=== PATIENT | female | born 1930 | race Caucasian/White ===

== ENCOUNTER 2016-07-20 22:48 | Inpatient (IN) | payer MEDICARE, MEDICAID ==
[~2016-07-20] VITALS: Ht 157.5 cm; Wt 65.0 kg
[~2016-07-20 22:48] MED LIST: AMLO-145 PO; DIPH1TAB25 PO; FLUO20CA38 PO; LORA-408 PO; LOSA50TA2 PO; MED4DP PO; MEMA5TAB PO; ONDA4TAB35 PO; TRAZ50TA18 PO
[2016-07-20 22:53] VITALS: Ht 157.5 cm; Wt 65.0 kg
[2016-07-20] MEDS ORDERED: ALBUTEROL 0.5% (NEB) 2.5 MG/0.5 ML AMP NEB STA (23:30)
[2016-07-20] MEDS ORDERED: IPRATROPIUM (NEB) 0.5 MG/2.5 ML AMP NEB STA (23:30)
[2016-07-20] MEDS ORDERED: SODIUM CHLORIDE 0.9% 1L BAG IV* STA (23:30)
[2016-07-20] MEDS ORDERED: METHYLPREDNISOLONE 125 MG INJ IV STA (23:30)
--- NOTE | 2016-07-20 23:56 | RADRPT ---
PROCEDURE: XR Chest. CLINICAL INDICATION: Patient experiencing possible Sepsis TECHNIQUE: Single frontal chest x-ray. COMPARISON: 05/20/2016 FINDINGS: Increased density is again seen in the right upper lung lobe increased compared to previous study of 08/04/2015 not significantly changed compared to 05/19/2016 and 05/20 2016 which is consistent with a persistent infiltrate. Neoplasm is not excluded. Mild enlargement of the cardiac silhouette is again seen.There is minimal prominence of the lung interstitium likely minimal chronic changes. ECG leads are projected over the chest. Linear fibrotic changes again apparent in the right upper lung. The patient is rotated to the right.. IMPRESSION: Persistent right upper lobe lung density/infiltrate. Neoplasm is possible. CT chest with contrast may be useful for further evaluation. RPTAT: HJES .Mario Melton MD, Date Time Electronically viewed and signed by .Mario Melton MD, on 07/20/2016 23:56 .S/
[2016-07-21] VITALS: TEMP 101.2
[2016-07-21] MEDS ORDERED: PIPER-TAZO 3.375 GM IV (PMX) 100 ML IVPB STA (00:19)
[2016-07-21] MEDS ORDERED: VANCOMYCIN 1 GM (PMX) 250 ML IVPB STA (00:19)
[2016-07-21 00:35] LABS: BASOPHILS % 0.4 % (0.0-2.0); EOSINOPHILS # 0.2 10^3/ul (0.0-0.5); HEMOGLOBIN 14.4 g/dl (12.0-16.0); LYMPHOCYTES # 1.7 10^3/ul (0.8-2.9); LYMPHOCYTES % 16.5 % (15.0-51.0); MEAN CORPUSCULAR HEMOGLOBIN 26.5 pg (29.0-33.0); MEAN CORPUSCULAR HGB CONC 32.7 g/dl (32.0-37.0); MEAN CORPUSCULAR VOLUME 80.9 fl (82.0-101.0); MEAN PLATELET VOLUME 8.2 fl (7.4-10.4); MONOCYTE # 0.9 10^3/ul (0.3-0.9); MONOCYTES % 9.2 % (0.0-11.0); NEUTROPHIL # 7.4 10^3/ul (1.6-7.5); NEUTROPHILS % 71.9 % (39.0-77.0); PLATELET COUNT 212 10^3/UL (140-440); RED BLOOD COUNT 5.43 10^6/ul (4.20-5.40); RED CELL DISTRIBUTION WIDTH 14.9 % (11.5-14.5); UNCORRECTED WBC 10.3 10^3/ul (4.8-10.8); WHITE BLOOD COUNT 10.3 10^3/ul (4.8-10.8)
[2016-07-21 00:37] LABS: ADD UMIC NO; URINE BILIRUBIN (Dip) NEGATIVE (NEGATIVE); URINE BLOOD (Dip) NEGATIVE (NEGATIVE); URINE COLOR YELLOW (YELLOW); URINE GLUCOSE (Dip) NEGATIVE (NEGATIVE); URINE KETONES (Dip) NEGATIVE (NEGATIVE); URINE LEUKOCYTE ESTERASE (Dip) NEGATIVE (NEGATIVE); URINE NITRITE (Dip) NEGATIVE (NEGATIVE); URINE TOTAL PROTEIN (Dip) NEGATIVE (NEGATIVE); URINE UROBILINOGEN (Dip) 0.2 E.U./dL (0.1-1.0)
[2016-07-21 00:42] LABS: CONDITION 1; LH ANALYZER COMMENTS 1
[2016-07-21 00:46] LABS: ALBUMIN 4.3 g/dl (3.3-4.9)
[2016-07-21 00:47] LABS: CHLORIDE 98 mmol/L (97-110); POTASSIUM 4.1 mmol/L (3.5-5.1); SODIUM 142 mmol/L (135-144)
[2016-07-21 00:49] LABS: BILIRUBIN,INDIRECT 0.7 mg/dl (0-1.1); BILIRUBIN,TOTAL 0.7 mg/dl (0.2-1.3); CREATININE 0.65 mg/dl (0.44-1.00)
[2016-07-21 00:50] LABS: ALANINE AMINOTRANSFERASE 36 IU/L (13-69); ALBUMIN/GLOBULIN RATIO 1.07; ALKALINE PHOSPHATASE 141 IU/L (42-121); ANION GAP 18 (8-16); ASPARTATE AMINO TRANSFERASE 41 IU/L (15-46); BLOOD UREA NITROGEN 25 mg/dl (7-20); CARBON DIOXIDE 30 mmol/L (21-31); GLUCOSE 99 mg/dl (70-220); TOTAL PROTEIN 8.3 g/dl (6.1-8.1)
[2016-07-21 00:51] LABS: CALCIUM 9.2 mg/dl (8.4-10.2)
[2016-07-21 01:01] LABS: TROPONIN-I < 0.012 ng/ml (0.00-0.12)
[2016-07-21 01:23] LABS: INR 0.94; PROTIME 12.6 Sec (12.2-14.2)
[2016-07-21 01:24] LABS: PARTIAL THROMBOPLASTIN TIME 32.6 Sec (25.0-35.0)
[2016-07-21] MEDS ORDERED: SOD CHLORIDE 0.9% 1,000 ML IV SCH (01:24)
--- NOTE | 2016-07-21 01:29 | ERA ---
ER Documentation Chief Complaint Date/Time DATE: 07/21/16 TIME: 01:26 Chief Complaint cough w/ sob x 2 days HPI This is an 86-year-old female presents to the emergency room with a chief complaint of a cough and shortness of breath for the past 2 days. History is obtained from caregiver states that this patient develops pneumonia frequently and states that she has had symptoms of similar to the last time she had pneumonia. The patient has had a fever at home and a cough productive of yellow sputum. ROS All systems reviewed and are negative except as per history of present illness. Medications Home Meds Active Scripts Methylprednisolone* (Medrol* DOSE PACK) 4 Mg/Dose-Pack Tab.ds.pk, 4 MG PO . DIRECTED, #1 PACKET Prov:MORIS SHOEMAKER 05/28/16 Ondansetron Hcl* (Zofran* ODT) 4 mg -ODT Tab.disper, 4 MG PO Q4H Y for NAUSEA AND OR VOMITING, #10 TAB Prov:NORIS POLLARD DO 11/13/15 Diphenoxylate Hcl-Atropine* (Lomotil*) 1 Tab Tab, 1 TAB PO Q6H Y for DIARRHEA, # 10 TAB Prov:GREENNORIS DO 11/13/15 Losartan Potassium* (Cozaar*) 50 Mg Tab, 50 MG PO BID, #60 Prov:LY NOONAN NP 02/08/15 Reported Medications Trazodone Hcl* (Trazodone Hcl*) 50 Mg Tablet, 50 MG PO HS, TAB 01/28/15 Lorazepam (Ativan) 1 Mg Tablet, 1 MG PO QHS 07/26/12 Fluoxetine Hcl* (Prozac*) 20 Mg Capsule, 20 MG PO DAILY 06/05/11 Memantine* (Namenda*) 5 Mg Tablet, 10 MG PO BID 06/05/11 Amlodipine Besylate* (Amlodipine Besylate*) 5 Mg Tablet, 5 MG PO BID 06/05/11 Allergies Allergies: Coded Allergies: No Known Allergy (Verified , 05/20/16) PMhx/Soc Medical and Surgical Hx: pt denies Surgical Hx History of Surgery: No Anesthesia Reaction: No Hx Neurological Disorder: Yes (alzheimers, dementia, encephalopathy) Hx Respiratory Disorders: Yes (copd, pna, bronchitis) Hx Cardiac Disorders: Yes (htn, high cholesterol) Hx Psychiatric Problems: No Hx Miscellaneous Medical Probl: No Hx Alcohol Use: No Hx Substance Use: No Hx Tobacco Use: No Smoking Status: Never smoker Physical Exam Vitals Vital Signs Date Time Temp Pulse Resp B/P Pulse Ox O2 Delivery O2 Flow Rate FiO2 07/21/16 00:30 98 2.0 07/21/16 00:30 71 20 98 2.0 07/21/16 00:00 101.2 68 24 154/77 98 Nasal Cannula 2.0 07/21/16 00:00 Nasal Cannula 2 07/21/16 00:00 Nasal Cannula 2.0 07/20/16 22:53 99.4 81 20 164/74 95 Physical Exam INITIAL VITAL SIGNS: Reviewed by me GENERAL: The patient is frail-appearing older female no acute distress HEENT: Dry mucous membranes pupils equal, round, and reactive to light. EOMI. There is no scleral icterus. NECK: C-spine is soft and supple, there is no meningismus. There is no cervical lymphadenopathy. LUNGS: Coarse breath sounds and expiratory wheezing heard bilaterally HEART: Regular rate rhythm, no murmurs ABDOMEN: Soft, non-tender, non-distended. There are bowel sounds in all four quadrants. No rebound or guarding. EXTREMITIES: There is no peripheral cyanosis or edema. No focal swelling or erythema. NEUROLOGICAL: The patient moves all four extremities with 5/5 strength. Cranial nerves II - XII are intact. Normal gait. Alert and oriented SKIN: There is no apparent rash or petechiae. HEME/LYMPHATIC: There is no evidence of excessive bruising or lymphedema. PSYCHIATRIC: The patient does not appear anxious or depressed. Result Diagram: 07/20/16234907/20/162349 Results 24 hrs Laboratory Tests Test 07/20/16 23:50 07/21/16 00:10 Activated Partial Thromboplast Time 32.6Sec Alanine Aminotransferase (ALT/SGPT) 36IU/L Albumin 4.3g/dl Albumin/Globulin Ratio 1.07 Alkaline Phosphatase 141IU/L Anion Gap 18 Aspartate Amino Transf (AST/SGOT) 41IU/L Basophils # 0.010^3/ul Basophils % 0.4% Blood Morphology Comment Blood Urea Nitrogen 25mg/dl Calcium Level 9.2mg/dl Carbon Dioxide Level 30mmol/L Chloride Level 98mmol/L Creatinine 0.65mg/dl Direct Bilirubin 0.00mg/dl Eosinophils # 0.210^3/ul Eosinophils % 2.0% Globulin 4.00g/dl Glucose Level 99mg/dl Hematocrit 44.0% Hemoglobin 14.4g/dl INR International Normalized Ratio 0.94 Indirect Bilirubin 0.7mg/dl Lactic Acid Level 1.9mmol/L Lymphocytes # 1.710^3/ul Lymphocytes % 16.5% Mean Corpuscular Hemoglobin 26.5pg Mean Corpuscular Hemoglobin Concent 32.7g/dl Mean Corpuscular Volume 80.9fl Mean Platelet Volume 8.2fl Monocytes # 0.910^3/ul Monocytes % 9.2% Neutrophils # 7.410^3/ul Neutrophils % 71.9% Nucleated Red Blood Cells # 0.010^3/ul Nucleated Red Blood Cells % 0.0/100WBC Platelet Count 33328^3/UL Potassium Level 4.1mmol/L Prothrombin Time 12.6Sec Prothrombin Time Ratio 1.0 Red Blood Count 5.4310^6/ul Red Cell Distribution Width 14.9% Sodium Level 142mmol/L Total Bilirubin 0.7mg/dl Total Protein 8.3g/dl Troponin I < 0.012ng/ml White Blood Count 10.310^3/ul Urine Bilirubin NEGATIVE Urine Clarity CLEAR Urine Color YELLOW Urine Glucose NEGATIVE% Urine Hemoglobin NEGATIVE Urine Ketones NEGATIVE Urine Leukocyte Esterase NEGATIVE Urine Nitrite NEGATIVE Urine Specific [place] 1.025 Urine Total Protein NEGATIVE Urine Urobilinogen 0.2 E.U./dL Urine pH 6.0 Current Medications Medications (Trade) Dose Ordered Sig/Camelia Route PRN Reason Start Time Stop Time Status Last Admin Dose Admin Sodium Chloride (NS) 2,020 ml BOLUS OVER 2 HOURS STAT IV* 07/20/16 23:30 07/20/16 23:32 DC 07/21/16 00:21 Albuterol (Proventil 0.5% (Neb)) 5 mg ONCE STAT NEB 07/20/16 23:30 07/20/16 23:32 DC 07/21/16 00:29 Ipratropium [place] (Atrovent 0.02% (Neb)) 0.5 mg ONCE STAT NEB 07/20/16 23:30 07/20/16 23:32 DC 07/21/16 00:29 Methylprednisolone Sodium Succinate 125 mg 125 mg ONCE STAT IV 07/20/16 23:30 07/20/16 23:32 DC 07/21/16 00:21 Vancomycin HCl 250 ml @ 125 mls/hr ONCE STAT IVPB 07/21/16 00:19 07/21/16 02:18 07/21/16 01:03 Piperacillin Sod/ Tazobactam Sod (Zosyn 3.375gm/ 100 ml (Pmx)) 100 ml @ 200 mls/hr ONCE STAT IVPB 07/21/16 00:19 07/21/16 00:48 DC 07/21/16 00:25 Procedures/MDM EKG: Rate/Rhythm: [Normal Sinus Rhythm] QRS, ST, T-waves: [No changes consistent w/ acute ischemia] Impression: [No evidence of ischemia or arrhythmia] Chest X-ray 1V Interpreted by me: Soft Tissue: Right upper lobe mass versus infiltrate Bones: No acute abnormalities Mediastinum/Cardiac Silhouette/Lungs: [No acute abnormalities] This 86-year-old female presents to the emergency room for evaluation of a cough. When I evaluated her she was febrile, tachycardic, and a septic workup was started. This patient was found to have a right upper lobe mass versus infiltrate. Given her symptoms and fever the patient was treated with hospital- acquired coverage for pneumonia. She does meet sepsis criteria as she was febrile with a heart rate greater than 90. She was given 30 cc/kg of IV normal saline. Her mean arterial pressure has been greater than 65, no need for vasopressors at this time. This patient will be placed in for admission under the care of Dr. fuchs. Critical Care: Excluding all billable procedures Time: 42 minutes Treatments/Evaluations: Close monitoring and treatment of unstable vital signs, cardiorespiratory, and neurologic status, while maintaining tight balance of fluid, respiratory, and cardiac interventions. Departure Diagnosis: Primary Impression: Sepsis Additional Impressions: Right upper lobe pneumonia Chronic obstructive pulmonary disease with acute exacerbation Condition: Stable GILLIAN VASQUES DO Jul 21, 2016 01:29
[2016-07-21] MEDS ORDERED: ONDANSETRON 4 MG INJ IV PRN (01:30)
[2016-07-21] MEDS ORDERED: ACETAMINOPHEN 325 MG TAB PO PRN (01:30)
[2016-07-21 03:15] VITALS: BP 155/76; PULSE 74; RESP 21
[2016-07-21] MEDS ORDERED: **FLU VACCINE PREVIOUSLY DISPENSED XX PRN (04:30)
[2016-07-21] MEDS: LEVOFLOXACIN 500MG/D5W (PMX) 100 ML IVPB SCH (05:40)
[2016-07-21] MEDS ORDERED: FUROSEMIDE 20 MG INJ ONE (07:00)
[2016-07-21 08:00] VITALS: BP 157/68; PULSE 68; RESP 20
[2016-07-21 09:36] LABS: BASOPHILS % 0.1 % (0.0-2.0); HEMATOCRIT 36.8 % (37.0-47.0); HEMOGLOBIN 12.1 g/dl (12.0-16.0); LYMPHOCYTES % 10.2 % (15.0-51.0); MEAN CORPUSCULAR HEMOGLOBIN 26.7 pg (29.0-33.0); MEAN CORPUSCULAR VOLUME 80.8 fl (82.0-101.0); MEAN PLATELET VOLUME 8.1 fl (7.4-10.4); MONOCYTE # 0.1 10^3/ul (0.3-0.9); NEUTROPHIL # 8.4 10^3/ul (1.6-7.5); NEUTROPHILS % 88.7 % (39.0-77.0); PLATELET COUNT 173 10^3/UL (140-440); RED BLOOD COUNT 4.56 10^6/ul (4.20-5.40); RED CELL DISTRIBUTION WIDTH 14.7 % (11.5-14.5); UNCORRECTED WBC 9.5 10^3/ul (4.8-10.8); WHITE BLOOD COUNT 9.5 10^3/ul (4.8-10.8)
[2016-07-21 09:40] LABS: CONDITION 1; LH ANALYZER COMMENTS 1
[2016-07-21 09:46] LABS: POTASSIUM 4.4 mmol/L (3.5-5.1)
[2016-07-21 09:48] LABS: CREATININE 0.5 mg/dl (0.44-1.00)
[2016-07-21 09:49] LABS: CALCIUM 8.6 mg/dl (8.4-10.2)
[2016-07-21 11:02] VITALS: BP 177/71; PULSE 67; RESP 20
[2016-07-21] MEDS ORDERED: DIPHENOXYLATE/ATROPINE TAB PO PRN (12:00)
[2016-07-21] MEDS ORDERED: ONDANSETRON (ODT) 4 MG TAB ODT PRN (12:00)
--- NOTE | 2016-07-21 12:58 | HP ---
DATE OF ADMISSION: 07/21/2016 HISTORY OF PRESENT ILLNESS: This is an 86-year-old female with history of hypertension, de mentia, and hypercholesterolemia. The patient comes in with 1 day of cough. The patient had a ches t x-ray done in the emergency room today that showed possible right upper lobe pneumonia. Therefore , the patient was admitted for further treatment. PAST MEDICAL HISTORY: Significant for hypertension, dementia, and hypercholesterolemia. PAST SURGICAL HISTORY: No known surgical history. ALLERGIES: PATIENT HAS NO KNOWN ALLERGIES. MEDICATIONS: Please see list. SOCIAL HISTORY: The patient does not smoke or drink. FAMILY HISTORY: The patient is unaware of medical problems in the family. REVIEW OF SYSTEMS: The patient is nonverbal at this time, unable to give any history, most likely secondary to dementia. PHYSICAL EXAMINATION: VITAL SIGNS: Temperature is 99.4, pulse 81, respirations 20, blood pressure 164/74. GENERAL: She is a well-developed female in mild distress. HEENT: Normocephalic, atraumatic. Pupils reactive. Extraocular movements intact. NECK: Supple. LUNGS: Clear to auscultation bilaterally. HEART: Regular rate and rhythm. No murmurs. ABDOMEN: Soft, nontender, nondistended. EXTREMITIES: Warm. LABORATORIES: Sodium 142, potassium 4.1, chloride 98, bicarbonate 30, BUN 25, creatinine 0.65, gluc ose 99. White count 10.3, H and H 14.4 and 44.0, platelets 212. MCV is 80.9. ASSESSMENT AND PLAN: 1. Pneumonia. Treat with IV antibiotics. 2. Dementia. Continue patient on medications. Monitor patient clinically. 3. Hypertension. Continue patient on home medications. Dictated By: ALINE BLAKELY/MAGGIE Conf#: [id number] DID#: [id number]
[2016-07-21 20:00] VITALS: BP 136/76; PULSE 79; RESP 18
[2016-07-21] MEDS: traZODone 50 MG TAB PO SCH (20:53)
[2016-07-21] MEDS: MEMANTINE 10 MG TAB PO SCH (20:53)
[2016-07-21] MEDS: LORAZEPAM 1 MG TAB PO SCH (20:53)
[2016-07-21] MEDS: AMLODIPINE 5 MG TAB PO SCH (20:54)
[2016-07-21] MEDS: LOSARTAN 50 MG TAB PO SCH (20:54)
[2016-07-22] MEDS ORDERED: ALBUTEROL 0.083% (NEB) 2.5 MG/3 ML AMP HHN PRN (02:30)
[2016-07-22] MEDS ORDERED: METHYLPREDNISOLONE 125 MG INJ ONE (03:11)
[2016-07-22 03:16] LABS: AADO2 Arterial 251.1 mmHg (7.0-24.0); Allen Test ACCEPTAB; Arterial Base Excess -1.3 mmol/L (-3.0-3); Arterial COHb 0.3 % (0.0-3.0); Arterial Fraction of Oxyhgb 97.8 % (93.0-99.0); Arterial HCO3 24.3 mmol/L (22.0-26.0); Arterial MetHb 0.4 % (0.0-1.5); Arterial Total Hemglobin 13.3 g/dl (12.0-18.0); MODE MASK - SIMPLE
[2016-07-22] MEDS ORDERED: FUROSEMIDE 20 MG INJ IV ONE (03:30)
[2016-07-22] MEDS ORDERED: METHYLPREDNISOLONE 125 MG INJ IV ONE (03:30)
[2016-07-22] MEDS ORDERED: FUROSEMIDE 40 MG INJ IV ONE (03:30)
[2016-07-22] MEDS: LEVOFLOXACIN 500MG/D5W (PMX) 100 ML IVPB SCH (04:17)
--- NOTE | 2016-07-22 04:31 | RADRPT ---
PROCEDURE: XR Chest. CLINICAL INDICATION: Sepsis TECHNIQUE: Portable single view of the chest COMPARISON: 07/20 FINDINGS: There is increased right upper lobe volume loss with some patchy opacity in the posterior segment of the right upper lobe. Scarring and atelectasis at the apex is again seen. Cardiomegaly and ectati c aorta again seen. Calcified left upper lobe granulomas. No other area of infiltrate is seen. No pleural effusion is seen. Pulmonary vascularity is top normal. IMPRESSION: New small area of right upper lobe infiltrate. Otherwise stable exam. RPTAT: HLBE Physician Devin Date Time Electronically viewed and signed by Physician Devin on 07/22/2016 04:31 LE/
[2016-07-22] MEDS ORDERED: LEVALBUTEROL (NEB) 1.25 MG/0.5 ML AMP HHN PRN (05:00)
[2016-07-22] MEDS: LEVALBUTEROL (NEB) 1.25 MG/0.5 ML AMP HHN SCH ×5 (05:25→21:19)
[2016-07-22] MEDS: IPRATROPIUM (NEB) 0.5 MG/2.5 ML AMP HHN SCH ×5 (05:25→21:19)
[2016-07-22 05:50] LABS: BASOPHILS % 0.1 % (0.0-2.0); EOSINOPHILS % 0.1 % (0.0-7.0); HEMATOCRIT 38.3 % (37.0-47.0); LYMPHOCYTES # 0.6 10^3/ul (0.8-2.9); LYMPHOCYTES % 4.2 % (15.0-51.0); MEAN CORPUSCULAR HEMOGLOBIN 27.2 pg (29.0-33.0); MEAN CORPUSCULAR HGB CONC 33.9 g/dl (32.0-37.0); MEAN CORPUSCULAR VOLUME 80.2 fl (82.0-101.0); MONOCYTE # 0.9 10^3/ul (0.3-0.9); MONOCYTES % 6.9 % (0.0-11.0); NEUTROPHIL # 11.6 10^3/ul (1.6-7.5); NEUTROPHILS % 88.7 % (39.0-77.0); PLATELET COUNT 180 10^3/UL (140-440); RED BLOOD COUNT 4.77 10^6/ul (4.20-5.40); RED CELL DISTRIBUTION WIDTH 14.6 % (11.5-14.5); UNCORRECTED WBC 13.1 10^3/ul (4.8-10.8); WHITE BLOOD COUNT 13.1 10^3/ul (4.8-10.8)
[2016-07-22 05:52] LABS: POTASSIUM 3.4 mmol/L (3.5-5.1)
[2016-07-22 05:54] LABS: CREATININE 0.53 mg/dl (0.44-1.00)
[2016-07-22 05:55] LABS: CALCIUM 8.7 mg/dl (8.4-10.2)
[2016-07-22 05:59] LABS: CONDITION 1; LH ANALYZER COMMENTS 1
[2016-07-22 08:00] VITALS: BP 132/61; PULSE 87; RESP 16
[2016-07-22] MEDS: LOSARTAN 50 MG TAB PO SCH ×2 (08:42→21:37)
[2016-07-22] MEDS: MEMANTINE 10 MG TAB PO SCH ×2 (08:42→21:36)
[2016-07-22] MEDS: AMLODIPINE 5 MG TAB PO SCH ×2 (08:43→21:36)
[2016-07-22] MEDS: ENOXAPARIN 30 MG/0.3 ML SYG SC SCH (08:44)
[2016-07-22] MEDS ORDERED: FLUOXETINE 20 MG CAP PO SCH (09:00)
[2016-07-22] MEDS ORDERED: POTASSIUM CHLORIDE (SR) 20 MEQ TAB PO STA (11:32)
--- NOTE | 2016-07-22 11:34 | PN ---
Date/Time of Note Date/Time of Note DATE: 07/22/16 TIME: 11:33 Assessment/Plan VTE Prophylaxis VTE Prophylaxis Intervention: LMWH Lines/Catheters IV [facility] (from [facility]): Peripheral IV Assessment/Plan Chief Complaint/Hosp Course 1. Pneumonia. - Treat with IV antibiotics and breathing treatments. 2. Dementia. - Continue patient on medications. Monitor patient clinically. 3. Hypertension. - Continue patient on home medications. Problems: Subjective 24 Hr Interval Summary Free Text/Dictation Patient is nonverbal, appears to be comfortable Exam/Review of Systems Vital Signs Vitals Vital Signs Date Time Temp Pulse Resp B/P Pulse Ox O2 Delivery O2 Flow Rate FiO2 07/22/16 09:54 78 20 96 Nasal Cannula 2.0 07/22/16 08:00 99.0 132/61 Intake and Output 07/21/16 07/21/16 07/22/16 15:00 23:00 07:00 Intake Total 620 ml 200 ml Balance 620 ml 200 ml Exam Constitutional: well developed Respiratory: diminished breath sounds Cardiovascular: regular rate and rhythm Gastrointestinal: non-tender, soft Results Result Diagram: 07/22/16 0500 07/22/16 0500 Results 24 hrs Laboratory Tests Test 07/22/16 03:05 07/22/16 05:00 Arterial Blood HCO3 24.3 Arterial Blood Base Excess -1.3 Arterial Blood Oxygen Saturation 98.5 Wilbert Test ACCEPTAB Arterial Blood Gas Puncture Site Right Radial Arterial Blood Carboxyhemoglobin 0.3 Arterial Blood Date Drawn 07/22/2016 3:05:26 AM Arterial Blood Methemoglobin 0.4 Arterial Blood pCO2 (Temp correct) 44.3 Arterial Blood pH (Temp corrected) 7.357 Arterial Blood pO2 (Temp corrected) 135.2 H Blood Gas A-a O2 Differential 251.1 H Blood Gas Modality MASK - SIMPLE Blood Gas Notified Time 07/22/2016 3:16:01 AM Blood Gas Notified Whom Jac LARSON Blood Gas Specimen Source Blood arterial Blood Gas Temperature 37.0 FiO2 61.0 Oxyhemoglobin Percent 97.8 Total Hemoglobin 13.3 Anion Gap 18 H Basophils # 0.0 Basophils % 0.1 Blood Morphology Comment Blood Urea Nitrogen 17 Calcium Level 8.7 Carbon Dioxide Level 27 Chloride Level 102 Creatinine 0.53 Eosinophils # 0.0 Eosinophils % 0.1 Glucose Level 163 Hematocrit 38.3 Hemoglobin 13.0 Lymphocytes # 0.6 L Lymphocytes % 4.2 L Mean Corpuscular Hemoglobin 27.2 L Mean Corpuscular Hemoglobin Concent 33.9 Mean Corpuscular Volume 80.2 L Mean Platelet Volume 8.0 Monocytes # 0.9 Monocytes % 6.9 Neutrophils # 11.6 H Neutrophils % 88.7 H Nucleated Red Blood Cells # 0.0 Nucleated Red Blood Cells % 0.0 Platelet Count 180 Potassium Level 3.4 L Red Blood Count 4.77 Red Cell Distribution Width 14.6 H Sodium Level 144 White Blood Count 13.1 #H Medications Medications Current Medications Miscellaneous Information FLU VACCINE PREVIOU... NOTE PRN XX NOTE; Start at 04:30 Levofloxacin/ Dextrose (Levaquin 500mg/ D5W 100 ml (Pmx)) 100 ml @ 100 mls/hr Q24H IVPB Last administered on 07/22/16at 04:17; Admin Dose 100 MLS/HR; Start 07/21/16 at 04:30 Amlodipine Besylate (Norvasc) 5 mg BID PO Last administered on 07/22/16at 08:43 ; Admin Dose 5 MG; Start 07/21/16 at 21:00 Diphenoxylate HCl/ Atropine (Lomotil) 1 tab Q6H PRN PO DIARRHEA; Start at 12:00 Lorazepam (Ativan) 1 mg QHS PO Last administered on 07/21/16at 20:53; Admin Dose 1 MG; Start 07/21/16 at 21:00 Losartan Potassium (Cozaar) 50 mg BID PO Last administered on 07/22/16at 08:42 ; Admin Dose 50 MG; Start 07/21/16 at 21:00 Memantine (Namenda) 10 mg BID PO Last administered on 07/22/16at 08:42; Admin Dose 10 MG; Start 07/21/16 at 21:00 Ondansetron HCl (Zofran Odt) 4 mg Q4H PRN ODT NAUSEA AND/OR VOMITING; Start at 12:00 Trazodone HCl (Desyrel) 50 mg HS PO Last administered on 07/21/16at 20:53; Admin Dose 50 MG; Start 07/21/16 at 21:00 Enoxaparin Sodium (Lovenox) 30 mg DAILY SC Last administered on 07/22/16at 08: 44; Admin Dose 30 MG; Start 07/22/16 at 09:00 ALINE MCGHEE Jul 22, 2016 11:34
[2016-07-22 20:00] VITALS: BP 156/67; PULSE 80; RESP 22
[2016-07-22] MEDS: LORAZEPAM 1 MG TAB PO SCH (21:36)
[2016-07-22] MEDS: traZODone 50 MG TAB PO SCH (21:36)
[2016-07-23] MEDS: LEVALBUTEROL (NEB) 1.25 MG/0.5 ML AMP HHN SCH ×5 (00:30→21:31)
[2016-07-23] MEDS: IPRATROPIUM (NEB) 0.5 MG/2.5 ML AMP HHN SCH ×5 (00:30→21:31)
[2016-07-23] MEDS: LEVOFLOXACIN 500MG/D5W (PMX) 100 ML IVPB SCH (04:38)
[2016-07-23] MEDS ORDERED: FUROSEMIDE 20 MG INJ IV ONE (06:30)
[2016-07-23 08:00] VITALS: BP 122/58; PULSE 59; RESP 16
[2016-07-23] MEDS: AMLODIPINE 5 MG TAB PO SCH ×2 (09:23→22:01)
[2016-07-23] MEDS: MEMANTINE 10 MG TAB PO SCH ×2 (09:23→22:01)
[2016-07-23] MEDS: LOSARTAN 50 MG TAB PO SCH ×2 (09:23→22:01)
[2016-07-23] MEDS: ENOXAPARIN 30 MG/0.3 ML SYG SC SCH (09:28)
--- NOTE | 2016-07-23 09:29 | PN ---
Date/Time of Note Date/Time of Note DATE: 07/23/16 TIME: 09:25 Assessment/Plan VTE Prophylaxis VTE Prophylaxis Intervention: LMWH Lines/Catheters IV Catheter Type (from [facility]): Peripheral IV Assessment/Plan Assessment/Plan 1. Pneumonia. - Treat with IV antibiotics and breathing treatments. 2. Dementia. - Continue patient on medications. Monitor patient clinically. 3. Hypertension. - Continue patient on home medications. 4. Hypokalemia - KCL 20 meq x1 - bmp am DW Dr Burton. Subjective 24 Hr Interval Summary Subjective hx not possible: pt non-verbal Exam/Review of Systems Vital Signs Vitals Vital Signs Date Time Temp Pulse Resp B/P Pulse Ox O2 Delivery O2 Flow Rate FiO2 07/23/16 06:00 74 20 98 Nasal Cannula 2.0 07/22/16 20:00 98.2 156/67 Intake and Output 07/22/16 07/22/16 07/23/16 14:59 22:59 06:59 Intake Total 100 ml 840 ml 200 ml Output Total 1080 ml 400 ml Balance 100 ml -240 ml -200 ml Exam Constitutional: alert Eyes: EOMI, nl sclera Respiratory: diminished breath sounds Cardiovascular: nl pulses Gastrointestinal: non-tender, soft Musculoskeletal: nl extremities to inspection Extremities: normal pulses Lymph: nontender Results Result Diagram: 07/22/16 0500 07/22/16 0500 Medications Medications Current Medications Miscellaneous Information FLU VACCINE PREVIOU... NOTE PRN XX NOTE; Start at 04:30 Levofloxacin/ Dextrose (Levaquin 500mg/ D5W 100 ml (Pmx)) 100 ml @ 100 mls/hr Q24H IVPB Last administered on 07/23/16at 04:38; Admin Dose 100 MLS/HR; Start 07/21/16 at 04:30 Amlodipine Besylate (Norvasc) 5 mg BID PO Last administered on 07/22/16at 21:36 ; Admin Dose 5 MG; Start 07/21/16 at 21:00 Diphenoxylate HCl/ Atropine (Lomotil) 1 tab Q6H PRN PO DIARRHEA; Start at 12:00 Lorazepam (Ativan) 1 mg QHS PO Last administered on 07/22/16at 21:36; Admin Dose 1 MG; Start 07/21/16 at 21:00 Losartan Potassium (Cozaar) 50 mg BID PO Last administered on 07/22/16at 21:37 ; Admin Dose 50 MG; Start 07/21/16 at 21:00 Memantine (Namenda) 10 mg BID PO Last administered on 07/22/16at 21:36; Admin Dose 10 MG; Start 07/21/16 at 21:00 Ondansetron HCl (Zofran Odt) 4 mg Q4H PRN ODT NAUSEA AND/OR VOMITING; Start at 12:00 Trazodone HCl (Desyrel) 50 mg HS PO Last administered on 07/22/16at 21:36; Admin Dose 50 MG; Start 07/21/16 at 21:00 Enoxaparin Sodium (Lovenox) 30 mg DAILY SC Last administered on 07/22/16at 08: 44; Admin Dose 30 MG; Start 07/22/16 at 09:00 LEYDA CAMACHO Jul 23, 2016 09:29
[2016-07-23 11:43] LABS: BASOPHILS % 0.4 % (0.0-2.0); EOSINOPHILS # 0.1 10^3/ul (0.0-0.5); EOSINOPHILS % 0.6 % (0.0-7.0); HEMATOCRIT 35.4 % (37.0-47.0); HEMOGLOBIN 11.6 g/dl (12.0-16.0); LYMPHOCYTES # 1.4 10^3/ul (0.8-2.9); MEAN CORPUSCULAR HEMOGLOBIN 26.4 pg (29.0-33.0); MEAN CORPUSCULAR HGB CONC 32.7 g/dl (32.0-37.0); MEAN CORPUSCULAR VOLUME 80.8 fl (82.0-101.0); MEAN PLATELET VOLUME 8.3 fl (7.4-10.4); MONOCYTE # 1.2 10^3/ul (0.3-0.9); MONOCYTES % 12.7 % (0.0-11.0); NEUTROPHIL # 6.5 10^3/ul (1.6-7.5); NEUTROPHILS % 71.3 % (39.0-77.0); PLATELET COUNT 187 10^3/UL (140-440); RED BLOOD COUNT 4.38 10^6/ul (4.20-5.40); RED CELL DISTRIBUTION WIDTH 14.8 % (11.5-14.5); UNCORRECTED WBC 9.1 10^3/ul (4.8-10.8); WHITE BLOOD COUNT 9.1 10^3/ul (4.8-10.8)
[2016-07-23 11:44] LABS: CONDITION 1; LH ANALYZER COMMENTS 1
[2016-07-23 11:53] LABS: CALCIUM 8.4 mg/dl (8.4-10.2); CREATININE 0.63 mg/dl (0.44-1.00)
[2016-07-23] MEDS ORDERED: POTASSIUM CHLORIDE 20 MEQ POWDER FOR ORAL SOLN PO ONE (12:30)
[2016-07-23 20:00] VITALS: BP 122/60; PULSE 61; RESP 19
[2016-07-23] MEDS: LORAZEPAM 1 MG TAB PO SCH (22:01)
[2016-07-23] MEDS: traZODone 50 MG TAB PO SCH (22:02)
[2016-07-24] MEDS: LEVALBUTEROL (NEB) 1.25 MG/0.5 ML AMP HHN SCH ×6 (01:05→20:23)
[2016-07-24] MEDS: IPRATROPIUM (NEB) 0.5 MG/2.5 ML AMP HHN SCH ×6 (01:05→20:23)
[2016-07-24] MEDS: LEVOFLOXACIN 500MG/D5W (PMX) 100 ML IVPB SCH (04:09)
[2016-07-24 06:22] LABS: BASOPHILS % 0.4 % (0.0-2.0); EOSINOPHILS # 0.1 10^3/ul (0.0-0.5); EOSINOPHILS % 1.2 % (0.0-7.0); HEMATOCRIT 33.3 % (37.0-47.0); HEMOGLOBIN 11.3 g/dl (12.0-16.0); LYMPHOCYTES # 2.3 10^3/ul (0.8-2.9); LYMPHOCYTES % 26.1 % (15.0-51.0); MEAN CORPUSCULAR HEMOGLOBIN 27.2 pg (29.0-33.0); MEAN CORPUSCULAR HGB CONC 33.8 g/dl (32.0-37.0); MEAN CORPUSCULAR VOLUME 80.5 fl (82.0-101.0); MEAN PLATELET VOLUME 8.2 fl (7.4-10.4); MONOCYTE # 1.2 10^3/ul (0.3-0.9); MONOCYTES % 13.8 % (0.0-11.0); NEUTROPHIL # 5.1 10^3/ul (1.6-7.5); NEUTROPHILS % 58.5 % (39.0-77.0); PLATELET COUNT 198 10^3/UL (140-440); RED BLOOD COUNT 4.13 10^6/ul (4.20-5.40); RED CELL DISTRIBUTION WIDTH 14.4 % (11.5-14.5); UNCORRECTED WBC 8.7 10^3/ul (4.8-10.8); WHITE BLOOD COUNT 8.7 10^3/ul (4.8-10.8)
[2016-07-24 06:32] LABS: POTASSIUM 3.8 mmol/L (3.5-5.1)
[2016-07-24 06:34] LABS: CREATININE 0.69 mg/dl (0.44-1.00)
[2016-07-24 06:35] LABS: CALCIUM 8.5 mg/dl (8.4-10.2)
[2016-07-24 07:17] LABS: CONDITION 1
[2016-07-24 07:22] LABS: LH ANALYZER COMMENTS 1
[2016-07-24 08:00] VITALS: BP 107/50; PULSE 56; RESP 18
[2016-07-24] MEDS: MEMANTINE 10 MG TAB PO SCH ×2 (08:51→20:41)
[2016-07-24] MEDS: ENOXAPARIN 30 MG/0.3 ML SYG SC SCH (08:51)
[2016-07-24] MEDS: LOSARTAN 50 MG TAB PO SCH ×3 (08:52→20:42)
[2016-07-24] MEDS: AMLODIPINE 5 MG TAB PO SCH ×3 (08:52→20:42)
[2016-07-24 12:37] VITALS: BP 143/63
--- NOTE | 2016-07-24 14:15 | PN ---
Date/Time of Note Date/Time of Note DATE: 07/24/16 TIME: 14:14 Assessment/Plan VTE Prophylaxis VTE Prophylaxis Intervention: LMWH Lines/Catheters IV [facility]from [facility] Saline Lock Urinary Cath still in place: Yes Reason Cath still needed: skin wounds contaminated by urine Assessment/Plan Chief Complaint/Hosp Course 1. Pneumonia. - Treat with IV antibiotics and breathing treatments. 2. Dementia. - Continue patient on medications. Monitor patient clinically. 3. Hypertension. - Continue patient on home medications. Problems: Subjective 24 Hr Interval Summary Free Text/Dictation Patient awake, has no complaints Exam/Review of Systems Vital Signs Vitals Vital Signs Date Time Temp Pulse Resp B/P Pulse Ox O2 Delivery O2 Flow Rate FiO2 07/24/16 13:16 2.0 07/24/16 13:16 62 16 96 Nasal Cannula 07/24/16 12:37 98.7 143/63 07/24/16 05:27 28 Intake and Output 07/23/16 07/23/16 07/24/16 15:00 23:00 07:00 Intake Total 480 ml 330 ml Output Total 1300 ml 800 ml Balance -820 ml -470 ml Exam Constitutional: alert, well developed Neck: supple Respiratory: clear to auscultation Cardiovascular: regular rate and rhythm Gastrointestinal: non-tender, soft Extremities: normal pulses Results Result Diagram: 07/24/162 07/24/16 0452 Results 24 hrs Laboratory Tests Test 07/24/16 04:52 Anion Gap 13 Basophils # 0.0 Basophils % 0.4 Blood Morphology Comment Blood Urea Nitrogen 22 H Calcium Level 8.5 Carbon Dioxide Level 31 Chloride Level 102 Creatinine 0.69 Eosinophils # 0.1 Eosinophils % 1.2 Glucose Level 100 Hematocrit 33.3 L Hemoglobin 11.3 L Lymphocytes # 2.3 Lymphocytes % 26.1 Mean Corpuscular Hemoglobin 27.2 L Mean Corpuscular Hemoglobin Concent 33.8 Mean Corpuscular Volume 80.5 L Mean Platelet Volume 8.2 Monocytes # 1.2 H Monocytes % 13.8 H Neutrophils # 5.1 Neutrophils % 58.5 Nucleated Red Blood Cells # 0.0 Nucleated Red Blood Cells % 0.0 Platelet Count 198 Potassium Level 3.8 Red Blood Count 4.13 L Red Cell Distribution Width 14.4 Sodium Level 142 White Blood Count 8.7 Medications Medications Current Medications Miscellaneous Information FLU VACCINE PREVIOU... NOTE PRN XX NOTE; Start at 04:30 Levofloxacin/ Dextrose (Levaquin 500mg/ D5W 100 ml (Pmx)) 100 ml @ 100 mls/hr Q24H IVPB Last administered on 07/24/16 04:09; Admin Dose 100 MLS/HR; Start 07/21/16 at 04:30 Amlodipine Besylate (Norvasc) 5 mg BID PO Last administered on 07/24/16at 12:43 ; Admin Dose 5 MG; Start 07/21/16 at 21:00 Diphenoxylate HCl/ Atropine (Lomotil) 1 tab Q6H PRN PO DIARRHEA; Start at 12:00 Lorazepam (Ativan) 1 mg QHS PO Last administered on 07/23/16at 22:01; Admin Dose 1 MG; Start 07/21/16 at 21:00 Losartan Potassium (Cozaar) 50 mg BID PO Last administered on 07/24/16 12:42 ; Admin Dose 50 MG; Start 07/21/16 at 21:00 Memantine (Namenda) 10 mg BID PO Last administered on 07/24/16 08:51; Admin Dose 10 MG; Start 07/21/16 at 21:00 Ondansetron HCl (Zofran Odt) 4 mg Q4H PRN ODT NAUSEA AND/OR VOMITING; Start at 12:00 Trazodone HCl (Desyrel) 50 mg HS PO Last administered on 07/23/16 22:02; Admin Dose 50 MG; Start 07/21/16 at 21:00 Enoxaparin Sodium (Lovenox) 30 mg DAILY SC Last administered on 07/24/16 08: 51; Admin Dose 30 MG; Start 07/22/16 at 09:00 Metronidazole (Flagyl) 500 mg Q6 PO ; Start 07/24/16 at 14:00 ALINE MCGHEE Jul 24, 2016 14:15
[2016-07-24] MEDS: metroNIDAZOLE 500 MG TAB PO SCH ×2 (14:29→18:49)
[2016-07-24 20:00] VITALS: BP 136/57; PULSE 72; RESP 18
[2016-07-24] MEDS: traZODone 50 MG TAB PO SCH (20:41)
[2016-07-24] MEDS: LORAZEPAM 1 MG TAB PO SCH (20:41)
[2016-07-25] MEDS: metroNIDAZOLE 500 MG TAB PO SCH ×4 (00:18→18:06)
[2016-07-25] MEDS: LEVALBUTEROL (NEB) 1.25 MG/0.5 ML AMP HHN SCH ×6 (01:34→20:38)
[2016-07-25] MEDS: IPRATROPIUM (NEB) 0.5 MG/2.5 ML AMP HHN SCH ×6 (01:34→20:38)
[2016-07-25] MEDS: LEVOFLOXACIN 500MG/D5W (PMX) 100 ML IVPB SCH (04:29)
[2016-07-25 08:00] VITALS: BP 97/47; RESP 18
[2016-07-25] MEDS: AMLODIPINE 5 MG TAB PO SCH ×2 (09:00→21:41)
[2016-07-25] MEDS: LOSARTAN 50 MG TAB PO SCH ×2 (09:00→21:42)
[2016-07-25] MEDS: MEMANTINE 10 MG TAB PO SCH ×2 (09:12→21:41)
[2016-07-25] MEDS: ENOXAPARIN 30 MG/0.3 ML SYG SC SCH (09:30)
--- NOTE | 2016-07-25 13:25 | PN ---
Date/Time of Note Date/Time of Note DATE: 07/25/16 TIME: 13:24 Assessment/Plan VTE Prophylaxis VTE Prophylaxis Intervention: LMWH Lines/Catheters IV [facility] Saline Lock Urinary Cath still in place: Yes Reason Cath still needed: skin wounds contaminated by urine Assessment/Plan Chief Complaint/Hosp Course 1. Pneumonia. - Treat with IV antibiotics and breathing treatments. 2. Dementia. - Continue patient on medications. Monitor patient clinically. 3. Hypertension. - Continue patient on home medications. Problems: Subjective 24 Hr Interval Summary Free Text/Dictation Patient is awake, has no complaints Exam/Review of Systems Vital Signs Vitals Vital Signs Date Time Temp Pulse Resp B/P Pulse Ox O2 Delivery O2 Flow Rate FiO2 07/25/16 10:04 51 20 94 Nasal Cannula 2.0 07/25/16 08:00 98.9 97/47 07/24/16 20:24 28 Intake and Output 07/24/16 07/24/16 07/25/16 15:00 23:00 07:00 Intake Total 540 ml 820 ml Output Total 600 ml 301 ml Balance -60 ml 519 ml Exam Constitutional: alert, well developed Neck: supple Respiratory: clear to auscultation Cardiovascular: regular rate and rhythm Gastrointestinal: non-tender, soft Extremities: normal pulses Results Result Diagram: 07/24/1645107/24/16 0452 Medications Medications Current Medications Miscellaneous Information FLU VACCINE PREVIOU... NOTE PRN XX NOTE; Start at 04:30 Levofloxacin/ Dextrose (Levaquin 500mg/ D5W 100 ml (Pmx)) 100 ml @ 100 mls/hr Q24H IVPB Last administered on 07/25/16at 04:29; Admin Dose 100 MLS/HR; Start 07/21/16 at 04:30 Amlodipine Besylate (Norvasc) 5 mg BID PO Last administered on 07/24/16at 20:42 ; Admin Dose 5 MG; Start 07/21/16 at 21:00 Diphenoxylate HCl/ Atropine (Lomotil) 1 tab Q6H PRN PO DIARRHEA; Start at 12:00 Lorazepam (Ativan) 1 mg QHS PO Last administered on 07/24/16at 20:41; Admin Dose 1 MG; Start 07/21/16 at 21:00 Losartan Potassium (Cozaar) 50 mg BID PO Last administered on 07/24/16at 20:42 ; Admin Dose 50 MG; Start 07/21/16 at 21:00 Memantine (Namenda) 10 mg BID PO Last administered on 07/25/16at 09:12; Admin Dose 10 MG; Start 07/21/16 at 21:00 Ondansetron HCl (Zofran Odt) 4 mg Q4H PRN ODT NAUSEA AND/OR VOMITING; Start at 12:00 Trazodone HCl (Desyrel) 50 mg HS PO Last administered on 07/24/16at 20:41; Admin Dose 50 MG; Start 07/21/16 at 21:00 Enoxaparin Sodium (Lovenox) 30 mg DAILY SC Last administered on 07/25/16at 09: 30; Admin Dose 30 MG; Start 07/22/16 at 09:00 Metronidazole (Flagyl) 500 mg Q6 PO Last administered on 07/25/16at 11:15; Admin Dose 500 MG; Start 07/24/16 at 14:00 ALINE MCGHEE Jul 25, 2016 13:25
[2016-07-25 20:25] VITALS: BP 132/62; RESP 18
[2016-07-25] MEDS: traZODone 50 MG TAB PO SCH (21:41)
[2016-07-25] MEDS: LORAZEPAM 1 MG TAB PO SCH (21:41)
[2016-07-26] MEDS: LEVALBUTEROL (NEB) 1.25 MG/0.5 ML AMP HHN SCH ×6 (00:02→20:05)
[2016-07-26] MEDS: IPRATROPIUM (NEB) 0.5 MG/2.5 ML AMP HHN SCH ×6 (00:02→20:06)
[2016-07-26] MEDS: metroNIDAZOLE 500 MG TAB PO SCH ×4 (00:15→17:25)
[2016-07-26] MEDS: LEVOFLOXACIN 500MG/D5W (PMX) 100 ML IVPB SCH (04:43)
[2016-07-26 08:00] VITALS: BP 120/51; PULSE 60; RESP 16
[2016-07-26] MEDS: AMLODIPINE 5 MG TAB PO SCH ×2 (08:41→21:25)
[2016-07-26] MEDS: MEMANTINE 10 MG TAB PO SCH ×2 (08:42→21:25)
[2016-07-26] MEDS: LOSARTAN 50 MG TAB PO SCH ×2 (08:42→21:25)
[2016-07-26] MEDS: ENOXAPARIN 30 MG/0.3 ML SYG SC SCH (08:45)
--- NOTE | 2016-07-26 12:43 | PN ---
Date/Time of Note Date/Time of Note DATE: 07/26/16 TIME: 12:42 Assessment/Plan VTE Prophylaxis VTE Prophylaxis Intervention: LMWH Lines/Catheters IV [facility] (from [facility] Saline Lock Urinary Cath still in place: Yes Reason Cath still needed: skin wounds contaminated by urine Assessment/Plan Chief Complaint/Hosp Course 1. Pneumonia. - Treat with IV antibiotics and breathing treatments. 2. Dementia. - Continue patient on medications. Monitor patient clinically. 3. Hypertension. - Continue patient on home medications. Problems: Subjective 24 Hr Interval Summary Free Text/Dictation Patient has no complaints Exam/Review of Systems Vital Signs Vitals Vital Signs Date Time Temp Pulse Resp B/P Pulse Ox O2 Delivery O2 Flow Rate FiO2 07/26/16 10:07 97 2.0 07/26/16 10:07 60 18 Nasal Cannula 07/26/16 08:00 98.8 120/51 07/26/16 04:26 21 Intake and Output 07/25/16 07/25/16 07/26/16 14:59 22:59 06:59 Intake Total 600 ml 580 ml Output Total 275 ml 450 ml Balance 325 ml 130 ml Exam Constitutional: alert, well developed Neck: supple Respiratory: clear to auscultation Cardiovascular: regular rate and rhythm Gastrointestinal: non-tender, soft Extremities: normal pulses Results Result Diagram: 07/24/1645107/24/16 045 Medications Medications Current Medications Miscellaneous Information FLU VACCINE PREVIOU... NOTE PRN XX NOTE; Start at 04:30 Levofloxacin/ Dextrose (Levaquin 500mg/ D5W 100 ml (Pmx)) 100 ml @ 100 mls/hr Q24H IVPB Last administered on 07/26/16at 04:43; Admin Dose 100 MLS/HR; Start 07/21/16 at 04:30 Amlodipine Besylate (Norvasc) 5 mg BID PO Last administered on 07/26/16at 08:41 ; Admin Dose 5 MG; Start 07/21/16 at 21:00 Diphenoxylate HCl/ Atropine (Lomotil) 1 tab Q6H PRN PO DIARRHEA; Start at 12:00 Lorazepam (Ativan) 1 mg QHS PO Last administered on 07/25/16at 21:41; Admin Dose 1 MG; Start 07/21/16 at 21:00 Losartan Potassium (Cozaar) 50 mg BID PO Last administered on 07/26/16 08:42 ; Admin Dose 50 MG; Start 07/21/16 at 21:00 Memantine (Namenda) 10 mg BID PO Last administered on 07/26/16 08:42; Admin Dose 10 MG; Start 07/21/16 at 21:00 Ondansetron HCl (Zofran Odt) 4 mg Q4H PRN ODT NAUSEA AND/OR VOMITING; Start at 12:00 Trazodone HCl (Desyrel) 50 mg HS PO Last administered on 07/25/16at 21:41; Admin Dose 50 MG; Start 07/21/16 at 21:00 Enoxaparin Sodium (Lovenox) 30 mg DAILY SC Last administered on 07/26/16 08: 45; Admin Dose 30 MG; Start 07/22/16 at 09:00 Metronidazole (Flagyl) 500 mg Q6 PO Last administered on 07/26/16 12:15; Admin Dose 500 MG; Start 07/24/16 at 14:00 ALINE MCGHEE Jul 26, 2016 12:42
[2016-07-26 20:00] VITALS: BP 149/52; PULSE 66; RESP 18
[2016-07-26] MEDS: LORAZEPAM 1 MG TAB PO SCH (21:24)
[2016-07-26] MEDS: traZODone 50 MG TAB PO SCH (21:25)
[2016-07-27] MEDS: LEVALBUTEROL (NEB) 1.25 MG/0.5 ML AMP HHN SCH ×6 (00:25→21:05)
[2016-07-27] MEDS: IPRATROPIUM (NEB) 0.5 MG/2.5 ML AMP HHN SCH ×6 (00:25→21:05)
[2016-07-27] MEDS: metroNIDAZOLE 500 MG TAB PO SCH ×4 (00:52→20:12)
[2016-07-27] MEDS: LEVOFLOXACIN 500MG/D5W (PMX) 100 ML IVPB SCH (04:15)
[2016-07-27 07:30] VITALS: BP 152/60; PULSE 57; RESP 16
[2016-07-27 09:25] VITALS: BP 156/54; PULSE 58
[2016-07-27] MEDS: AMLODIPINE 5 MG TAB PO SCH ×2 (09:28→20:13)
[2016-07-27] MEDS: LOSARTAN 50 MG TAB PO SCH ×2 (09:28→20:13)
[2016-07-27] MEDS: MEMANTINE 10 MG TAB PO SCH ×2 (09:28→20:12)
[2016-07-27] MEDS: ENOXAPARIN 30 MG/0.3 ML SYG SC SCH (09:36)
--- NOTE | 2016-07-27 14:20 | PN ---
Date/Time of Note Date/Time of Note DATE: 07/27/16 TIME: 14:19 Assessment/Plan VTE Prophylaxis VTE Prophylaxis Intervention: other Lines/Catheters IV Catheter Type (from [facility]): Saline Lock Urinary Cath still in place: Yes Reason Cath still needed: skin wounds contaminated by urine Assessment/Plan Chief Complaint/Hosp Course 1. Pneumonia. - Treat with IV antibiotics and breathing treatments. 2. Dementia. - Continue patient on medications. Monitor patient clinically. 3. Hypertension. - Continue patient on home medications. Problems: Subjective 24 Hr Interval Summary Free Text/Dictation Patient has no complaints Exam/Review of Systems Vital Signs Vitals Vital Signs Date Time Temp Pulse Resp B/P Pulse Ox O2 Delivery O2 Flow Rate FiO2 07/27/16 13:33 60 20 94 Nasal Cannula 2.0 07/27/16 09:25 156/54 07/27/16 07:30 98.9 07/26/16 04:26 21 Intake and Output 07/26/16 07/26/16 07/27/16 15:00 23:00 07:00 Intake Total 360 ml 240 ml Output Total 250 ml 200 ml Balance 110 ml 40 ml Exam Constitutional: well developed Neck: supple Respiratory: clear to auscultation Cardiovascular: regular rate and rhythm Gastrointestinal: non-tender, soft Extremities: normal pulses Results Result Diagram: 07/24/1645107/24/16451 Medications Medications Current Medications Miscellaneous Information (Flu Vaccine Previously Dispensed) FLU VACCINE PREVIOU... NOTE PRN XX NOTE; Start 07/21/16 at 04:30 Amlodipine Besylate (Norvasc) 5 mg BID PO Last administered on 07/27/16at 09:28 ; Admin Dose 5 MG; Start 07/21/16 at 21:00 Diphenoxylate HCl/ Atropine (Lomotil) 1 tab Q6H PRN PO DIARRHEA; Start at 12:00 Lorazepam (Ativan) 1 mg QHS PO Last administered on 07/26/16at 21:24; Admin Dose 1 MG; Start 07/21/16 at 21:00 Losartan Potassium (Cozaar) 50 mg BID PO Last administered on 07/27/16at 09:28 ; Admin Dose 50 MG; Start 07/21/16 at 21:00 Memantine (Namenda) 10 mg BID PO Last administered on 07/27/16at 09:28; Admin Dose 10 MG; Start 07/21/16 at 21:00 Ondansetron HCl (Zofran Odt) 4 mg Q4H PRN ODT NAUSEA AND/OR VOMITING; Start at 12:00 Trazodone HCl (Desyrel) 50 mg HS PO Last administered on 07/26/16at 21:25; Admin Dose 50 MG; Start 07/21/16 at 21:00 Enoxaparin Sodium (Lovenox) 30 mg DAILY SC Last administered on 07/27/16at 09: 36; Admin Dose 30 MG; Start 07/22/16 at 09:00 Metronidazole (Flagyl) 500 mg Q6 PO Last administered on 07/27/16at 14:15; Admin Dose 500 MG; Start 07/24/16 at 14:00 Levofloxacin (Levaquin) 500 mg DAILY@06 PO ; Start 07/28/16 at 06:00 ALINE MCGHEE Jul 27, 2016 14:20
[2016-07-27 20:10] VITALS: BP 141/54; PULSE 65; RESP 20
[2016-07-27] MEDS: LORAZEPAM 1 MG TAB PO SCH (20:12)
[2016-07-27] MEDS: traZODone 50 MG TAB PO SCH (20:13)
[2016-07-28] MEDS: metroNIDAZOLE 500 MG TAB PO SCH ×4 (00:11→18:21)
[2016-07-28] MEDS: IPRATROPIUM (NEB) 0.5 MG/2.5 ML AMP HHN SCH ×6 (02:52→20:44)
[2016-07-28] MEDS: LEVALBUTEROL (NEB) 1.25 MG/0.5 ML AMP HHN SCH ×6 (02:52→20:44)
[2016-07-28] MEDS: LEVOFLOXACIN 500 MG TAB PO SCH (06:11)
[2016-07-28 06:23] LABS: BASOPHILS % 0.4 % (0.0-2.0); EOSINOPHILS # 0.2 10^3/ul (0.0-0.5); EOSINOPHILS % 1.6 % (0.0-7.0); HEMATOCRIT 33.9 % (37.0-47.0); HEMOGLOBIN 11.3 g/dl (12.0-16.0); LYMPHOCYTES # 1.7 10^3/ul (0.8-2.9); LYMPHOCYTES % 17.1 % (15.0-51.0); MEAN CORPUSCULAR HEMOGLOBIN 26.8 pg (29.0-33.0); MEAN CORPUSCULAR HGB CONC 33.3 g/dl (32.0-37.0); MEAN CORPUSCULAR VOLUME 80.4 fl (82.0-101.0); MEAN PLATELET VOLUME 7.6 fl (7.4-10.4); MONOCYTES % 10.1 % (0.0-11.0); NEUTROPHIL # 7.1 10^3/ul (1.6-7.5); NEUTROPHILS % 70.8 % (39.0-77.0); PLATELET COUNT 305 10^3/UL (140-440); RED BLOOD COUNT 4.21 10^6/ul (4.20-5.40); RED CELL DISTRIBUTION WIDTH 15.1 % (11.5-14.5); UNCORRECTED WBC 10.1 10^3/ul (4.8-10.8); WHITE BLOOD COUNT 10.1 10^3/ul (4.8-10.8)
[2016-07-28 06:26] LABS: CONDITION 1; LH ANALYZER COMMENTS 1
[2016-07-28 06:55] LABS: POTASSIUM 4.3 mmol/L (3.5-5.1)
[2016-07-28 06:57] LABS: CREATININE 0.57 mg/dl (0.44-1.00)
[2016-07-28 06:58] LABS: CALCIUM 8.5 mg/dl (8.4-10.2)
[2016-07-28 07:30] VITALS: BP 125/59; PULSE 67; RESP 18
--- NOTE | 2016-07-28 09:36 | PN ---
Date/Time of Note Date/Time of Note DATE: 07/28/16 TIME: 09:34 Assessment/Plan VTE Prophylaxis VTE Prophylaxis Intervention: LMWH Lines/Catheters IV Catheter Type (from [facility]): Saline Lock Urinary Cath still in place: Yes Reason Cath still needed: skin wounds contaminated by urine Assessment/Plan Chief Complaint/Hosp Course 1. Pneumonia. - Treat with IV antibiotics and breathing treatments. 2. Dementia. - Continue patient on medications. Monitor patient clinically. 3. Hypertension. - Continue patient on home medications. Problems: Subjective 24 Hr Interval Summary Free Text/Dictation Patient is awake, has no complaints Exam/Review of Systems Vital Signs Vitals Vital Signs Date Time Temp Pulse Resp B/P Pulse Ox O2 Delivery O2 Flow Rate FiO2 07/28/16 08:56 83 17 90 21 07/28/16 07:30 98.6 125/59 Room Air 07/27/16 23:00 2.0 Intake and Output 07/27/16 07/27/16 07/28/16 15:00 23:00 07:00 Intake Total 720 ml 260 ml Output Total 1200 ml 1200 ml Balance -480 ml -940 ml Exam Constitutional: well developed Neck: supple Respiratory: diminished breath sounds Cardiovascular: regular rate and rhythm Gastrointestinal: non-tender, soft Extremities: normal pulses Results Result Diagram: 07/28/1652207/28/16522 Results 24 hrs Laboratory Tests Test 07/28/16 05:23 Anion Gap 14 Basophils # 0.0 Basophils % 0.4 Blood Morphology Comment Blood Urea Nitrogen 13 Calcium Level 8.5 Carbon Dioxide Level 27 Chloride Level 101 Creatinine 0.57 Eosinophils # 0.2 Eosinophils % 1.6 Glucose Level 91 Hematocrit 33.9 L Hemoglobin 11.3 L Lymphocytes # 1.7 Lymphocytes % 17.1 Mean Corpuscular Hemoglobin 26.8 L Mean Corpuscular Hemoglobin Concent 33.3 Mean Corpuscular Volume 80.4 L Mean Platelet Volume 7.6 Monocytes # 1.0 H Monocytes % 10.1 Neutrophils # 7.1 Neutrophils % 70.8 Nucleated Red Blood Cells # 0.0 Nucleated Red Blood Cells % 0.0 Platelet Count 305 # Potassium Level 4.3 Red Blood Count 4.21 Red Cell Distribution Width 15.1 H Sodium Level 138 White Blood Count 10.1 Medications Medications Current Medications Miscellaneous Information (Flu Vaccine Previously Dispensed) FLU VACCINE PREVIOU... NOTE PRN XX NOTE; Start 07/21/16 at 04:30 Amlodipine Besylate (Norvasc) 5 mg BID PO Last administered on 07/27/16 20:13 ; Admin Dose 5 MG; Start 07/21/16 at 21:00 Diphenoxylate HCl/ Atropine (Lomotil) 1 tab Q6H PRN PO DIARRHEA; Start at 12:00 Lorazepam (Ativan) 1 mg QHS PO Last administered on 07/27/16 20:12; Admin Dose 1 MG; Start 07/21/16 at 21:00 Losartan Potassium (Cozaar) 50 mg BID PO Last administered on 07/27/16 20:13 ; Admin Dose 50 MG; Start 07/21/16 at 21:00 Memantine (Namenda) 10 mg BID PO Last administered on 07/27/16 20:12; Admin Dose 10 MG; Start 07/21/16 at 21:00 Ondansetron HCl (Zofran Odt) 4 mg Q4H PRN ODT NAUSEA AND/OR VOMITING; Start at 12:00 Trazodone HCl (Desyrel) 50 mg HS PO Last administered on 07/27/16 20:13; Admin Dose 50 MG; Start 07/21/16 at 21:00 Enoxaparin Sodium (Lovenox) 30 mg DAILY SC Last administered on 07/27/16 09: 36; Admin Dose 30 MG; Start 07/22/16 at 09:00 Metronidazole (Flagyl) 500 mg Q6 PO Last administered on 07/28/16 06:10; Admin Dose 500 MG; Start 07/24/16 at 14:00 Levofloxacin (Levaquin) 500 mg DAILY@06 PO Last administered on 07/28/16 06: 11; Admin Dose 500 MG; Start 07/28/16 at 06:00 ALINE MCGHEE Jul 28, 2016 09:35
[2016-07-28] MEDS: MEMANTINE 10 MG TAB PO SCH ×2 (09:57→21:34)
[2016-07-28] MEDS: LOSARTAN 50 MG TAB PO SCH ×2 (09:57→21:34)
[2016-07-28] MEDS: AMLODIPINE 5 MG TAB PO SCH ×2 (09:57→21:35)
[2016-07-28] MEDS: ENOXAPARIN 30 MG/0.3 ML SYG SC SCH (10:04)
[2016-07-28 20:00] VITALS: BP 123/58; PULSE 63; RESP 18
[2016-07-28] MEDS: LORAZEPAM 1 MG TAB PO SCH (21:34)
[2016-07-28] MEDS: traZODone 50 MG TAB PO SCH (21:35)
[2016-07-29] MEDS: metroNIDAZOLE 500 MG TAB PO SCH ×4 (00:46→18:05)
[2016-07-29] MEDS: LEVALBUTEROL (NEB) 1.25 MG/0.5 ML AMP HHN SCH ×6 (00:49→21:12)
[2016-07-29] MEDS: IPRATROPIUM (NEB) 0.5 MG/2.5 ML AMP HHN SCH ×6 (00:49→21:13)
[2016-07-29] MEDS: LEVOFLOXACIN 500 MG TAB PO SCH (05:35)
[2016-07-29 08:03] VITALS: BP 142/71; RESP 20
[2016-07-29] MEDS: MEMANTINE 10 MG TAB PO SCH ×2 (09:06→20:56)
[2016-07-29] MEDS: LOSARTAN 50 MG TAB PO SCH ×2 (09:06→20:57)
[2016-07-29] MEDS: AMLODIPINE 5 MG TAB PO SCH ×2 (09:06→20:56)
[2016-07-29] MEDS: ENOXAPARIN 30 MG/0.3 ML SYG SC SCH (09:15)
--- NOTE | 2016-07-29 11:39 | PN ---
Date/Time of Note Date/Time of Note DATE: 07/29/16 TIME: 11:38 Assessment/Plan VTE Prophylaxis VTE Prophylaxis Intervention: other Lines/Catheters IV Catheter Type (from [facility]): Saline Lock Urinary Cath still in place: Yes Reason Cath still needed: skin wounds contaminated by urine Assessment/Plan Chief Complaint/Hosp Course 1. Pneumonia. - Treat with IV antibiotics and breathing treatments. 2. Dementia. - Continue patient on medications. Monitor patient clinically. 3. Hypertension. - Continue patient on home medications. Problems: Subjective 24 Hr Interval Summary Free Text/Dictation Patient has no complaints Exam/Review of Systems Vital Signs Vitals Vital Signs Date Time Temp Pulse Resp B/P Pulse Ox O2 Delivery O2 Flow Rate FiO2 07/29/16 10:15 56 18 95 Nasal Cannula 2.0 07/29/16 08:03 97.9 142/71 07/28/16 08:56 21 Intake and Output 07/28/16 07/28/16 07/29/16 15:00 23:00 07:00 Intake Total 900 ml 170 ml Output Total 200 ml 300 ml Balance 700 ml -130 ml Exam Constitutional: well developed Head: atraumatic, normocephalic Neck: supple Respiratory: clear to auscultation Cardiovascular: regular rate and rhythm Gastrointestinal: non-tender, soft Extremities: normal pulses Results Result Diagram: 07/28/1652207/28/16522 Medications Medications Current Medications Miscellaneous Information (Flu Vaccine Previously Dispensed) FLU VACCINE PREVIOU... NOTE PRN XX NOTE; Start 07/21/16 at 04:30 Amlodipine Besylate (Norvasc) 5 mg BID PO Last administered on 07/29/16 09:06; Admin Dose 5 MG; Start 07/21/16 at 21:00 Diphenoxylate HCl/ Atropine (Lomotil) 1 tab Q6H PRN PO DIARRHEA; Start at 12:00 Lorazepam (Ativan) 1 mg QHS PO Last administered on 07/28/16at 21:34; Admin Dose 1 MG; Start 07/21/16 at 21:00 Losartan Potassium (Cozaar) 50 mg BID PO Last administered on 07/29/16 09:06; Admin Dose 50 MG; Start 07/21/16 at 21:00 Memantine (Namenda) 10 mg BID PO Last administered on 07/29/16 09:06; Admin Dose 10 MG; Start 07/21/16 at 21:00 Ondansetron HCl (Zofran Odt) 4 mg Q4H PRN ODT NAUSEA AND/OR VOMITING; Start at 12:00 Trazodone HCl (Desyrel) 50 mg HS PO Last administered on 07/28/16at 21:35; Admin Dose 50 MG; Start 07/21/16 at 21:00 Enoxaparin Sodium (Lovenox) 30 mg DAILY SC Last administered on 07/29/16 09:15 ; Admin Dose 30 MG; Start 07/22/16 at 09:00 Metronidazole (Flagyl) 500 mg Q6 PO Last administered on 07/29/16 05:35; Admin Dose 500 MG; Start 07/24/16 at 14:00 Levofloxacin (Levaquin) 500 mg DAILY@06 PO Last administered on 07/29/16 05:35 ; Admin Dose 500 MG; Start 07/28/16 at 06:00 ALINE MCGHEE Jul 29, 2016 11:39
[2016-07-29 19:51] VITALS: BP 165/66; RESP 18
[2016-07-29] MEDS: traZODone 50 MG TAB PO SCH (20:56)
[2016-07-29] MEDS: LORAZEPAM 1 MG TAB PO SCH (20:56)
[2016-07-30] MEDS: metroNIDAZOLE 500 MG TAB PO SCH ×4 (00:28→17:38)
[2016-07-30] MEDS: LEVALBUTEROL (NEB) 1.25 MG/0.5 ML AMP HHN SCH ×6 (01:52→20:44)
[2016-07-30] MEDS: IPRATROPIUM (NEB) 0.5 MG/2.5 ML AMP HHN SCH ×6 (01:52→20:44)
[2016-07-30] MEDS: LEVOFLOXACIN 500 MG TAB PO SCH (05:29)
[2016-07-30 06:05] LABS: BASOPHILS % 0.5 % (0.0-2.0); EOSINOPHILS # 0.2 10^3/ul (0.0-0.5); EOSINOPHILS % 2.4 % (0.0-7.0); HEMATOCRIT 33.5 % (37.0-47.0); HEMOGLOBIN 11.1 g/dl (12.0-16.0); LYMPHOCYTES # 1.7 10^3/ul (0.8-2.9); LYMPHOCYTES % 18.9 % (15.0-51.0); MEAN CORPUSCULAR HEMOGLOBIN 26.9 pg (29.0-33.0); MEAN CORPUSCULAR HGB CONC 33.2 g/dl (32.0-37.0); MEAN CORPUSCULAR VOLUME 81.2 fl (82.0-101.0); MEAN PLATELET VOLUME 7.6 fl (7.4-10.4); MONOCYTES % 10.9 % (0.0-11.0); NEUTROPHIL # 5.9 10^3/ul (1.6-7.5); NEUTROPHILS % 67.3 % (39.0-77.0); PLATELET COUNT 338 10^3/UL (140-440); RED BLOOD COUNT 4.13 10^6/ul (4.20-5.40); RED CELL DISTRIBUTION WIDTH 14.6 % (11.5-14.5); UNCORRECTED WBC 8.8 10^3/ul (4.8-10.8); WHITE BLOOD COUNT 8.8 10^3/ul (4.8-10.8)
[2016-07-30 06:11] LABS: CONDITION 1; LH ANALYZER COMMENTS 1
[2016-07-30 06:23] LABS: POTASSIUM 3.6 mmol/L (3.5-5.1)
[2016-07-30 06:26] LABS: CREATININE 0.59 mg/dl (0.44-1.00)
[2016-07-30 06:27] LABS: CALCIUM 8.3 mg/dl (8.4-10.2)
[2016-07-30 07:46] VITALS: BP 114/55; RESP 20
[2016-07-30] MEDS: MEMANTINE 10 MG TAB PO SCH ×2 (10:00→21:30)
[2016-07-30] MEDS: LOSARTAN 50 MG TAB PO SCH ×2 (10:00→21:31)
[2016-07-30] MEDS: AMLODIPINE 5 MG TAB PO SCH ×2 (10:01→21:31)
[2016-07-30] MEDS: ENOXAPARIN 30 MG/0.3 ML SYG SC SCH (10:04)
--- NOTE | 2016-07-30 12:47 | PN ---
Date/Time of Note Date/Time of Note DATE: 07/30/16 TIME: 12:46 Assessment/Plan VTE Prophylaxis VTE Prophylaxis Intervention: LMWH Lines/Catheters IV C[facility] Type (from [facility] Saline Lock Urinary Cath still in place: Yes Reason Cath still needed: skin wounds contaminated by urine Assessment/Plan Chief Complaint/Hosp Course 1. Pneumonia. - Treat with IV antibiotics and breathing treatments. 2. Dementia. - Continue patient on medications. Monitor patient clinically. 3. Hypertension. - Continue patient on home medications. Anticipate discharge home tomorrow Problems: Subjective 24 Hr Interval Summary Free Text/Dictation Patient has no complaints Exam/Review of Systems Vital Signs Vitals Vital Signs Date Time Temp Pulse Resp B/P Pulse Ox O2 Delivery O2 Flow Rate FiO2 07/30/16 08:44 2.0 07/30/16 08:42 58 18 96 Nasal Cannula 07/30/16 07:46 98.2 114/55 07/29/16 21:14 21 Intake and Output 07/29/16 07/29/16 07/30/16 15:00 23:00 07:00 Intake Total 720 ml 120 ml Output Total 250 ml 300 ml Balance 470 ml -180 ml Exam Constitutional: well developed Neck: supple Respiratory: diminished breath sounds Cardiovascular: regular rate and rhythm Gastrointestinal: non-tender, soft Results Result Diagram: 07/30/16 0432 07/30/16 0432 Results 24 hrs Laboratory Tests Test 07/30/16 04:32 Anion Gap 12 Basophils # 0.0 Basophils % 0.5 Blood Morphology Comment Blood Urea Nitrogen 20 Calcium Level 8.3 L Carbon Dioxide Level 29 Chloride Level 100 Creatinine 0.59 Eosinophils # 0.2 Eosinophils % 2.4 Glucose Level 83 Hematocrit 33.5 L Hemoglobin 11.1 L Lymphocytes # 1.7 Lymphocytes % 18.9 Mean Corpuscular Hemoglobin 26.9 L Mean Corpuscular Hemoglobin Concent 33.2 Mean Corpuscular Volume 81.2 L Mean Platelet Volume 7.6 Monocytes # 1.0 H Monocytes % 10.9 Neutrophils # 5.9 Neutrophils % 67.3 Nucleated Red Blood Cells # 0.0 Nucleated Red Blood Cells % 0.0 Platelet Count 338 Potassium Level 3.6 Red Blood Count 4.13 L Red Cell Distribution Width 14.6 H Sodium Level 137 White Blood Count 8.8 Medications Medications Current Medications Miscellaneous Information (Flu Vaccine Previously Dispensed) FLU VACCINE PREVIOU... NOTE PRN XX NOTE; Start 07/21/16 at 04:30 Amlodipine Besylate (Norvasc) 5 mg BID PO Last administered on 07/30/16 10:01; Admin Dose 5 MG; Start 07/21/16 at 21:00 Diphenoxylate HCl/ Atropine (Lomotil) 1 tab Q6H PRN PO DIARRHEA; Start at 12:00 Lorazepam (Ativan) 1 mg QHS PO Last administered on 07/29/16 20:56; Admin Dose 1 MG; Start 07/21/16 at 21:00 Losartan Potassium (Cozaar) 50 mg BID PO Last administered on 07/30/16 10:00; Admin Dose 50 MG; Start 07/21/16 at 21:00 Memantine (Namenda) 10 mg BID PO Last administered on 07/30/16 10:00; Admin Dose 10 MG; Start 07/21/16 at 21:00 Ondansetron HCl (Zofran Odt) 4 mg Q4H PRN ODT NAUSEA AND/OR VOMITING; Start at 12:00 Trazodone HCl (Desyrel) 50 mg HS PO Last administered on 07/29/16 20:56; Admin Dose 50 MG; Start 07/21/16 at 21:00 Enoxaparin Sodium (Lovenox) 30 mg DAILY SC Last administered on 07/30/16 10:04 ; Admin Dose 30 MG; Start 07/22/16 at 09:00 Metronidazole (Flagyl) 500 mg Q6 PO Last administered on 07/30/16 05:29; Admin Dose 500 MG; Start 07/24/16 at 14:00 Levofloxacin (Levaquin) 500 mg DAILY@06 PO Last administered on 07/30/16 05:29 ; Admin Dose 500 MG; Start 07/28/16 at 06:00 ALINE MCGHEE Jul 30, 2016 12:46
[2016-07-30 20:15] VITALS: BP 134/61; RESP 20
[2016-07-30] MEDS: traZODone 50 MG TAB PO SCH (21:30)
[2016-07-30] MEDS: LORAZEPAM 1 MG TAB PO SCH (21:30)
[2016-07-31] MEDS: metroNIDAZOLE 500 MG TAB PO SCH ×3 (00:26→12:48)
[2016-07-31] MEDS: IPRATROPIUM (NEB) 0.5 MG/2.5 ML AMP HHN SCH ×4 (01:22→12:58)
[2016-07-31] MEDS: LEVALBUTEROL (NEB) 1.25 MG/0.5 ML AMP HHN SCH ×4 (01:22→12:58)
[2016-07-31 06:01] LABS: BASOPHILS % 0.6 % (0.0-2.0); EOSINOPHILS # 0.2 10^3/ul (0.0-0.5); EOSINOPHILS % 2.7 % (0.0-7.0); HEMATOCRIT 34.7 % (37.0-47.0); HEMOGLOBIN 11.5 g/dl (12.0-16.0); LYMPHOCYTES # 1.8 10^3/ul (0.8-2.9); LYMPHOCYTES % 22.6 % (15.0-51.0); MEAN CORPUSCULAR HEMOGLOBIN 26.8 pg (29.0-33.0); MEAN CORPUSCULAR HGB CONC 33.3 g/dl (32.0-37.0); MEAN CORPUSCULAR VOLUME 80.7 fl (82.0-101.0); MEAN PLATELET VOLUME 7.3 fl (7.4-10.4); MONOCYTE # 0.9 10^3/ul (0.3-0.9); NEUTROPHILS % 63.1 % (39.0-77.0); PLATELET COUNT 333 10^3/UL (140-440); RED CELL DISTRIBUTION WIDTH 14.4 % (11.5-14.5); UNCORRECTED WBC 7.9 10^3/ul (4.8-10.8); WHITE BLOOD COUNT 7.9 10^3/ul (4.8-10.8)
[2016-07-31 06:05] LABS: CONDITION 1; LH ANALYZER COMMENTS 1; POTASSIUM 4.3 mmol/L (3.5-5.1)
[2016-07-31 06:07] LABS: CREATININE 0.6 mg/dl (0.44-1.00)
[2016-07-31 06:08] LABS: CALCIUM 8.6 mg/dl (8.4-10.2)
[2016-07-31] MEDS: LEVOFLOXACIN 500 MG TAB PO SCH (06:15)
[2016-07-31 08:03] VITALS: BP 135/63; RESP 18
[2016-07-31] MEDS: AMLODIPINE 5 MG TAB PO SCH (08:40)
[2016-07-31] MEDS: MEMANTINE 10 MG TAB PO SCH (08:40)
[2016-07-31] MEDS: LOSARTAN 50 MG TAB PO SCH (08:40)
[2016-07-31] MEDS: ENOXAPARIN 30 MG/0.3 ML SYG SC SCH (08:58)
--- NOTE | 2016-07-31 11:42 | DS ---
Date/Time of Note Date/Time of Note DATE: 07/31/16 TIME: 11:41 Discharge Summary Admission/Discharge Info Admit Date/Time Jul 21, 2016 at 01:24 Discharge Date/Time 07/31/16 Final Diagnosis 1) pneumonia 2) dementia 3) hypertension Hospital Course Patient admitted for pneumonia. She was treated with antibiotics and breathing treatments. She slowly improved. Patient had returned to baseline status and so is stable for discharge. 1. Pneumonia. - Treat with IV antibiotics and breathing treatments. 2. Dementia. - Continue patient on medications. Monitor patient clinically. 3. Hypertension. - Continue patient on home medications. Anticipate discharge home tomorrow Home Meds Active Scripts Methylprednisolone* (Medrol* DOSE PACK) 4 Mg/Dose-Pack Tab.ds.pk, 4 MG PO . DIRECTED, #1 PACKET Prov:MORIS SHOEMAKER 05/28/16 Ondansetron Hcl* (Zofran* ODT) 4 mg -ODT Tab.disper, 4 MG PO Q4H Y for NAUSEA AND OR VOMITING, #10 TAB Prov:NORIS POLLARD DO 11/13/15 Diphenoxylate Hcl-Atropine* (Lomotil*) 1 Tab Tab, 1 TAB PO Q6H Y for DIARRHEA, # 10 TAB Prov:NORIS POLLARD DO 11/13/15 Losartan Potassium* (Cozaar*) 50 Mg Tab, 50 MG PO BID, #60 Prov:LY NOONAN CONCESSION MANAGER 02/08/15 Reported Medications Trazodone Hcl* (Trazodone Hcl*) 50 Mg Tablet, 50 MG PO HS, TAB 01/28/15 Lorazepam (Ativan) 1 Mg Tablet, 1 MG PO QHS 07/26/12 Fluoxetine Hcl* (Prozac*) 20 Mg Capsule, 20 MG PO DAILY 06/05/11 Memantine* (Namenda*) 5 Mg Tablet, 10 MG PO BID 06/05/11 Amlodipine Besylate* (Amlodipine Besylate*) 5 Mg Tablet, 5 MG PO BID 06/05/11 Pending Labs Laboratory Tests Test 07/31/16 05:06 Anion Gap 16 (8-16) Basophils # 0.010^3/ul (0.0-0.1) Basophils % 0.6% (0.0-2.0) Blood Morphology Comment Blood Urea Nitrogen 18mg/dl (7-20) Calcium Level 8.6mg/dl (8.4-10.2) Carbon Dioxide Level 29mmol/L (21-31) Chloride Level 101mmol/L (97-110) Creatinine 0.60mg/dl (0.44-1.00) Eosinophils # 0.210^3/ul (0.0-0.5) Eosinophils % 2.7% (0.0-7.0) Glucose Level 84mg/dl (70-220) Hematocrit 34.7% (37.0-47.0) Hemoglobin 11.5g/dl (12.0-16.0) Lymphocytes # 1.810^3/ul (0.8-2.9) Lymphocytes % 22.6% (15.0-51.0) Mean Corpuscular Hemoglobin 26.8pg (29.0-33.0) Mean Corpuscular Hemoglobin Concent 33.3g/dl (32.0-37.0) Mean Corpuscular Volume 80.7fl (82.0-101.0) Mean Platelet Volume 7.3fl (7.4-10.4) Monocytes # 0.910^3/ul (0.3-0.9) Monocytes % 11.0% (0.0-11.0) Neutrophils # 5.010^3/ul (1.6-7.5) Neutrophils % 63.1% (39.0-77.0) Nucleated Red Blood Cells # 0.010^3/ul (0.0-0.0) Nucleated Red Blood Cells % 0.0/100WBC (0.0-0.0) Platelet Count 34247^3/UL (140-440) Potassium Level 4.3mmol/L (3.5-5.1) Red Blood Count 4.3010^6/ul (4.20-5.40) Red Cell Distribution Width 14.4% (11.5-14.5) Sodium Level 142mmol/L (135-144) White Blood Count 7.910^3/ul (4.8-10.8) ALINE MCGHEE Jul 31, 2016 11:42
--- NOTE | 2016-08-07 07:53 | PQ ---
Date/Time of Note Date/Time of Note DATE: 08/07/16 TIME: 07:31 Physician Query Documentation Clarification Dear Dr. Mcghee, A review of the medical record found a need for documentation clarification. ER MD Documentation of COPD with acute exacerbation LUNGS: Coarse breath sounds and expiratory wheezing heard bilaterally Tx : Methylprednisolone 125mg IV + O2 2l/ nc H & P - LUNGS: Clear to auscultation bilaterally. Please clarify if you concur with the diagnosis treated. To facilitate accurate and complete coding, please mio ( x ) the suspected diagnosis that apply: (X) COPD with exacerbation ( ) COPD without exacerbation ( ) Chronic Respiratory failure ( ) Clinically undetermined ( ) I do appreciate your response. Thank you for your time. Kvng Nj RN, BSN, CCS, CCDS Clinical Senior Software Engineer [employer], [employer] and Coding Services [phone] Room # 1525 - Coding [address]~ [address] [place] Aug 07, 2016 07:53 ALINE MCGHEE Aug 07, 2016 21:52
== END 2016-07-31 13:45 | disposition home or self-care (01) | DRG 190 ==
LOC: E/R 22:48 → MS2 07-21 01:24
PROVIDERS: ADMIT Internal Medicine; ATTEND Internal Medicine
DX: J44.1 Chronic obstructive pulmonary disease with (acute) exacerbation (principal); J18.9 Pneumonia, unspecified organism; G30.9 Alzheimer's disease, unspecified; F02.80 Dementia in other diseases classified elsewhere, unspecified severity, without behavioral disturbance, psychotic disturbance, mood disturbance, and anxiety; I10 Essential (primary) hypertension; E78.00 Pure hypercholesterolemia, unspecified; E87.6 Hypokalemia
CPT/HCPCS: 36415; 36600; 71010; 80048; 80053; 81003; 82803; 83605; 84484; 85025; 85610; 85730; 87040; 87075; 87086; 92526; 92610; 93005; 94640; 94664; 96374; 96375; 97001; 97110; J1940; J1650; J1956; J2543; J2930; J3370; J7030

== ENCOUNTER 2016-10-12 12:33 | Inpatient (IN) | payer MEDICARE, OTHER ==
[~2016-10-12] VITALS: Wt 51.6 kg
[2016-10-12] MEDS ORDERED: IPRATROPIUM (NEB) 0.5 MG/2.5 ML AMP NEB STA (13:05)
[2016-10-12] MEDS ORDERED: ALBUTEROL 0.083% (NEB) 2.5 MG/3 ML AMP NEB STA (13:05)
[2016-10-12 13:22] LABS: ADD SCAN DIFF NO
[2016-10-12 13:23] LABS: BASOPHILS % 0.3 % (0.0-2.0); EOSINOPHILS % 0.2 % (0.0-7.0); HEMATOCRIT 38.4 % (37.0-47.0); HEMOGLOBIN 12.3 g/dl (12.0-16.0); LYMPHOCYTES # 2.4 10^3/ul (0.8-2.9); LYMPHOCYTES % 17.9 % (15.0-51.0); MEAN CORPUSCULAR HEMOGLOBIN 26.2 pg (29.0-33.0); MEAN CORPUSCULAR VOLUME 81.7 fl (82.0-101.0); MEAN PLATELET VOLUME 9.5 fl (7.4-10.4); MONOCYTE # 1.4 10^3/ul (0.3-0.9); MONOCYTES % 10.4 % (0.0-11.0); NEUTROPHIL # 9.4 10^3/ul (1.6-7.5); NEUTROPHILS % 70.6 % (39.0-77.0); PLATELET COUNT 285 10^3/UL (140-415); RED CELL DISTRIBUTION WIDTH 14.1 % (11.5-14.5); WHITE BLOOD COUNT 13.3 10^3/ul (4.8-10.8)
[2016-10-12 13:35] LABS: ALBUMIN 3.9 g/dl (3.3-4.9); CHLORIDE 100 mmol/L (97-110); POTASSIUM 4.2 mmol/L (3.5-5.1); SODIUM 141 mmol/L (135-144)
[2016-10-12 13:37] LABS: AMYLASE 59 U/L (11-123); CREATININE 0.62 mg/dl (0.44-1.00)
[2016-10-12 13:38] LABS: ALANINE AMINOTRANSFERASE 11 IU/L (13-69); ALBUMIN/GLOBULIN RATIO 1.11; ALKALINE PHOSPHATASE 113 IU/L (42-121); ANION GAP 16 (8-16); ASPARTATE AMINO TRANSFERASE 24 IU/L (15-46); BILIRUBIN,INDIRECT 1.2 mg/dl (0-1.1); BILIRUBIN,TOTAL 1.2 mg/dl (0.2-1.3); BLOOD UREA NITROGEN 19 mg/dl (7-20); CARBON DIOXIDE 29 mmol/L (21-31); GLUCOSE 110 mg/dl (70-220); TOTAL PROTEIN 7.4 g/dl (6.1-8.1)
[2016-10-12 14:05] LABS: ADD UMIC YES; URINE BILIRUBIN (Dip) NEGATIVE (NEGATIVE); URINE BLOOD (Dip) TRACE (NEGATIVE); URINE COLOR YELLOW (YELLOW); URINE GLUCOSE (Dip) NEGATIVE (NEGATIVE); URINE KETONES (Dip) NEGATIVE (NEGATIVE); URINE LEUKOCYTE ESTERASE (Dip) TRACE (NEGATIVE); URINE NITRITE (Dip) NEGATIVE (NEGATIVE); URINE TOTAL PROTEIN (Dip) TRACE (NEGATIVE); URINE UROBILINOGEN (Dip) 0.2 E.U./dL (0.1-1.0)
[2016-10-12 14:05] LABS: TROPONIN-I < 0.012 ng/ml (0.00-0.12)
[2016-10-12 14:24] LABS: URINE RBCS 0-2 /HPF (0)
[2016-10-12 14:25] LABS: BACTERIA,URINE MODERATE
[2016-10-12] MEDS ORDERED: METHYLPREDNISOLONE 125 MG INJ IV STA (14:33)
--- NOTE | 2016-10-12 14:52 | RADRPT ---
PROCEDURE: XR Chest. CLINICAL INDICATION: 86-year-old male with possible sepsis. TECHNIQUE: Single frontal view of the chest was obtained COMPARISON: Chest x-ray 07/22/2016 03:17 a.m. chest x-ray August 04, 2015. FINDINGS: The soft tissues are normal. Degenerative osteophytes are present in the thoracic spine. Monitorin g electrodes and draped across the chest. The the left ventricle is mildly enlarged. The pulmonary vasculature are is normal. There is asymmetric increased density in the area of the right hilum and increased density in the right paratracheal area. These findings are unchanged in back pain compar ing to prior chest x-ray dated 08/04/2015. There is ectasia of the left-sided aorta. There is a calcification and parenchymal scarring in the right upper lobe. There is atelectasis in the right upper lobe with compensatory hyperaeration of the right lower lobe. There is a 3 mm calci fied granuloma in the left upper lobe. There is a suboptimal inspiration with atelectasis associated with an elevated left diaphragm. No p leural effusion is visible. IMPRESSION: 1. Consolidative infiltrate/atelectasis in the right upper lobe with small calcified granulomas pres ent in the right upper lobe and left upper lobe. These findings are stable compared to August 04 16 para likely the result of a granulomatous process such as TB. A contrast-enhanced CT chest can b e considered for more detailed evaluation. 2. Left ventricular enlargement. 3. The left lower lobe atelectasis. RPTAT:AAJJ Physician Jaquelin Date Time Electronically viewed and signed by Todd Traylor Physician on 10/12/2016 14:51 JIMENA/
[2016-10-12] MEDS ORDERED: ONDANSETRON 4 MG INJ IV PRN (15:00)
[2016-10-12] MEDS ORDERED: ACETAMINOPHEN 325 MG TAB PO PRN ×2 (15:00→18:30)
--- NOTE | 2016-10-12 15:07 | ERA ---
ER Documentation Chief Complaint Date/Time DATE: 10/12/16 TIME: 14:54 Chief Complaint sob since yesterday mod distress. sent by pmd for eval , no fevers HPI This is a very pleasant 86-year-old Divehi-speaking female with a known history of dementia that was brought into the emergency department by her daughter after she been complaining of difficulty in breathing for the past 24 hours. The patient has had a nonproductive cough. She had no fevers or shaking or chills. Difficulty breathing progressively worsened and therefore she was seen in her primary care physician's office just prior to arrival Dr. Burton. She did not take any antipyretics prior to arrival. The patient is a poor historian due to her dementia and is unable to ambulate without assistance and this is her baseline. Her daughter states however she has not complained of any chest pain or pressure nor has she complained of any abdominal pain. Patient has not had a headache. The patient does not smoke tobacco. She has had no recent hospitalizations or antibiotic use ROS All systems reviewed and are negative except as per history of present illness. Medications Home Meds Active Scripts Losartan Potassium* (Cozaar*) 50 Mg Tab, 50 MG PO BID, #60 Prov:LY NOONAN NP 02/08/15 Reported Medications Trazodone Hcl* (Trazodone Hcl*) 50 Mg Tablet, 50 MG PO HS, TAB 01/28/15 Lorazepam (Ativan) 1 Mg Tablet, 1 MG PO QHS 07/26/12 Fluoxetine Hcl* (Prozac*) 20 Mg Capsule, 20 MG PO DAILY 06/05/11 Memantine* (Namenda*) 5 Mg Tablet, 10 MG PO BID 06/05/11 Amlodipine Besylate* (Amlodipine Besylate*) 5 Mg Tablet, 5 MG PO BID 06/05/11 Discontinued Scripts Methylprednisolone* (Medrol* DOSE PACK) 4 Mg/Dose-Pack Tab.ds.pk, 4 MG PO . DIRECTED, #1 PACKET Prov:MORIS SHOEMAKER 05/28/16 Ondansetron Hcl* (Zofran* ODT) 4 mg -ODT Tab.disper, 4 MG PO Q4H Y for NAUSEA AND OR VOMITING, #10 TAB Prov:NORIS POLLARD DO 11/13/15 Diphenoxylate Hcl-Atropine* (Lomotil*) 1 Tab Tab, 1 TAB PO Q6H Y for DIARRHEA, # 10 TAB Prov:NORIS POLLARD DO 11/13/15 Allergies Allergies: Coded Allergies: No Known Allergy (Verified , 05/20/16) PMhx/Soc History of Surgery: Yes (see EMR) Anesthesia Reaction: No Hx Neurological Disorder: Yes (alzheimers, dementia, encephalopathy) Hx Respiratory Disorders: Yes (copd, pna, bronchitis) Hx Cardiac Disorders: Yes (htn, high cholesterol) Hx Psychiatric Problems: No Hx Miscellaneous Medical Probl: Yes (see EMR) Hx Alcohol Use: No Hx Substance Use: No Hx Tobacco Use: No Smoking Status: Unknown if ever smoked Physical Exam Vitals Vital Signs Date Time Temp Pulse Resp B/P Pulse Ox O2 Delivery O2 Flow Rate FiO2 10/12/16 13:46 68 20 137/110 99 Mask 15.0 10/12/16 13:31 67 20 99 Nasal Cannula 2.0 10/12/16 12:36 98.9 83 22 167/69 95 Physical Exam Constitutional:Well-developed. Well-nourished. Mild respiratory distress peer HEENT:Normocephalic. Atraumatic.Pupils were equal round reactive to light. Dry mucous membranes.No tonsillar exudates. Neck: No nuchal rigidity. No lymphadenopathy. No posterior cervical spine tenderness or step-offs. Respiratory: Patient not using accessory muscles of respiration. Bilateral rhonchi. Wheezing heard on end auscultation more prominent the bilateral upper lung bases in the lower lung bases. Cardiovascular: Regular rate regular rhythm.No murmurs. No rubs were appreciated.S1, S2 normal. Distal pulses are palpable 2+ bilaterally. GI: Abdomen was soft. Nontender. Non Distended. No pulsatile abdominal masses or bruits. No rebound. No guarding. Bowel sounds were present and normal. Muscle skeletal: Full range of motion of both the upper and lower extremities bilaterally.Normal muscle tone.No assymetrical calf tenderness or swelling. Skin: No petechia, no purpura. No lesions on the palms or the soles of the feet. No maculopapular rash. NEURO: Patient was alert, awake, to person but not to place or time. The patient has an unsteady gait and ambulates with assistance. This is the patient 's baseline due to her underlying dementia Result Diagram: 10/12/16 1300 10/12/16 1300 Results 24 hrs Laboratory Tests Test 10/12/16 13:00 10/12/16 13:42 Alanine Aminotransferase (ALT/SGPT) 11IU/L Albumin 3.9g/dl Albumin/Globulin Ratio 1.11 Alkaline Phosphatase 113IU/L Amylase Level 59U/L Anion Gap 16 Aspartate Amino Transf (AST/SGOT) 24IU/L Basophils # 0.010^3/ul Basophils % 0.3% Blood Urea Nitrogen 19mg/dl Calcium Level 9.0mg/dl Carbon Dioxide Level 29mmol/L Chloride Level 100mmol/L Creatinine 0.62mg/dl Direct Bilirubin 0.00mg/dl Eosinophils # 0.010^3/ul Eosinophils % 0.2% Globulin 3.50g/dl Glucose Level 110mg/dl Hematocrit 38.4% Hemoglobin 12.3g/dl Indirect Bilirubin 1.2mg/dl Lipase 56U/L Lymphocytes # 2.410^3/ul Lymphocytes % 17.9% Mean Corpuscular Hemoglobin 26.2pg Mean Corpuscular Hemoglobin Concent 32.0g/dl Mean Corpuscular Volume 81.7fl Mean Platelet Volume 9.5fl Monocytes # 1.410^3/ul Monocytes % 10.4% Neutrophils # 9.410^3/ul Neutrophils % 70.6% Nucleated Red Blood Cells # 0.010^3/ul Nucleated Red Blood Cells % 0.0/100WBC Platelet Count 90368^3/UL Potassium Level 4.2mmol/L Red Blood Count 4.7010^6/ul Red Cell Distribution Width 14.1% Sodium Level 141mmol/L Total Bilirubin 1.2mg/dl Total Protein 7.4g/dl Troponin I < 0.012ng/ml White Blood Count 13.310^3/ul Urine Amorphous Urates MANY Urine Bacteria MODERATE Urine Bilirubin NEGATIVE Urine Clarity CLOUDY Urine Color YELLOW Urine Epithelial Cells FEW Urine Glucose NEGATIVE% Urine Hemoglobin TRACE Urine Ketones NEGATIVE Urine Leukocyte Esterase TRACE Urine Microscopic RBC 0-2/HPF Urine Microscopic WBC 2-5/HPF Urine Nitrite NEGATIVE Urine Specific [place] 1.025 Urine Total Protein TRACE Urine Urobilinogen 0.2 E.U./dL Urine pH 5.5 Current Medications Medications (Trade) Dose Ordered Sig/Camelia Route PRN Reason Start Time Stop Time Status Last Admin Dose Admin Albuterol (Proventil 0.083% (Neb)) 5 mg ONCE STAT NEB 10/12/16 13:05 10/12/16 13:07 DC 10/12/16 13:28 Ipratropium [place] (Atrovent 0.02% (Neb)) 0.5 mg ONCE STAT NEB 10/12/16 13:05 10/12/16 13:07 DC 10/12/16 13:29 Methylprednisolone Sodium Succinate (Solu-Medrol) 125 mg ONCE STAT IV 10/12/16 14:33 10/12/16 14:39 DC Ondansetron HCl (Zofran Inj) 4 mg BRIDGE ORDER PRN IV NAUSEA AND/OR VOMITING 10/12/16 15:00 10/13/16 14:59 Acetaminophen (Tylenol Tab) 650 mg ER BRIDGE PRN PO MILD PAIN/FEVER 10/12/16 15:00 10/13/16 14:59 Procedures/MDM The patient presented to the emergency department with dyspnea. My differential diagnosis included but was not limited to upper airway obstruction, CHF, pulmonary embolism, cardiac ischemia, pneumonia, pneumothorax, anemia, drug overdose, pulmonary edema, COPD or asthma. IV access was established by nursing staff and the patient had new onset wheezing therefore chest radiograph was obtained and reviewed by myself which showed no infiltrates no pneumothorax or pleural effusions. The patient received nebulizer treatments of albuterol and Atrovent was placed on low-flow supplemental oxygen of 2 L nasal cannula. Patient was given 125 mg of site Medrol. Blood cultures were obtained and the patient was started on IV azithromycin for suspected acute bronchitis. 12 Lead EKG tracing ordered and reviewed by myself showed: Normal sinus rhythm of 68 bpm and no arrhythmia. NV interval normal. QRS duration normal. No ST segment elevation. Left axis deviation No ST segment depression. No changes consistent with acute ischemia. The patient will be admitted in serious condition to her primary care physician Dr. Burton to the medical surgical floor. Departure Diagnosis: Primary Impression: Bronchitis Condition: Serious NAOMI AMEZCUA Oct 12, 2016 15:05
[2016-10-12 16:49] VITALS: BP 112/78; PULSE 76
[2016-10-12] MEDS: LEVOFLOXACIN 500MG/D5W (PMX) 100 ML IVPB SCH (18:53)
--- NOTE | 2016-10-12 19:28 | HP ---
DATE OF ADMISSION: 10/12/2016 CHIEF COMPLAINT: Shortness of breath, cough, and wheezing. HISTORY OF PRESENT ILLNESS: The patient is an 86-year-old female well known to me from previous adm issions. The patient has history of hypertension, Alzheimer dementia, came to my office because of a cough, chest congestion and shortness of breath. The patient was also wheezing. Daughter reporte d that symptoms started 2 days ago. The patient also had developed heel decubitus and sacrococcygea l decubitus recently at home. The patient was sent to ER where she was noted to have white count of 13.3. Chest x-ray revealed consolidative infiltrate/atelectasis in the right upper lobe with small calcified granuloma, finding stable as compared to x-ray in July 2015. CT of the chest has been recommended, although a CT was done in 2014, which revealed chronic bilateral upper lobe fibrotic c hanges. The patient was diagnosed with acute bronchitis and is being admitted for further evaluatio n and management. The patient did have mild chills. No reported vomiting, no reported diarrhea, no reported leg edema. The patient did not have any abdominal distention, no reported focal weakness. The patient remains awake, alert. The patient was recently found to be a little bit lethargic, an d her dementia medications including Aricept and Namenda were discontinued. The patient is more saúl rt, although she is confused because of Alzheimer dementia. No reported bleeding from any site. No acute skin rash. REVIEW OF SYSTEMS: Rather limited as mentioned above. PAST MEDICAL HISTORY: The patient was diagnosed with pneumonia back in June 2016 and also back in April 2016. PAST SURGICAL HISTORY: None. SOCIAL HISTORY: No smoking, no alcohol. FAMILY HISTORY: Noncontributory for patient's condition. MEDICATIONS: Prior to admission, the patient was on amlodipine and Cozaar. The patient was on Nelson ept and Namenda. PHYSICAL EXAMINATION: GENERAL: The patient is conscious, awake, alert. VITAL SIGNS: In the ER, temperature 98.8, pulse 76, blood pressure 112/78, respirations 20, O2 satu ration 98% on 2 liters nasal cannula. HEENT: Atraumatic, normocephalic. Conjunctivae and lids normal. Oropharynx clear. NECK: Supple. No mass, no thyromegaly. CHEST: Revealed bilateral wheezing, diminished air entry bilaterally. No use of accessory muscles. CARDIOVASCULAR: S1, S2 normal. No murmur, gallop, or rub. ABDOMEN: Soft, nondistended, nontender. Bowel sounds plus. No palpable mass. EXTREMITIES: No leg edema. Pedal pulses palpable. The patient has bilateral heel ulcer as well as sacrococcygeal decubitus. NEUROLOGIC: The patient is awake, alert with no gross focal deficit. The patient has dementia. LABORATORY DATA: WBC , hemoglobin 12.3, platelet 285. Chemistry: Sodium 141, potassium 4.2, BUN 19, creatinine 0.6, glucose 110, calcium 9, bilirubin 1.2, AST 24, ALT 11, alkaline phosphatase 113. Albumin 3.9. Lipase is normal. Last TSH back in April 2016 was 3.4. IMPRESSION: 1. Acute bronchitis. 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 3. History of focal seizures for which she was getting Keppra 250 b.i.d. as an outpatient with no r ecent breakthrough seizure. CT of the head done in December 2015 revealed old infarct and cerebral atro phy. 4. Chronic bilateral upper lobe fibrotic changes. 5. Hypertension. PLAN: Patient admitted on medical floor. Patient will be started on supplemental oxygen, IV Levaqu in, breathing treatment, IV steroids and will be given DVT prophylaxis using Lovenox. Will continue Keppra 250 mg b.i.d. Plan of care discussed with patient's daughter. We will do followup labs in the morning. Will hold off on Cozaar since the patient's blood pressure is less than 120. The ale ent is to expectorate and gave a good sputum sample. Will have to empirically continue IV Lev aquin. Will also add aspirin in view of previous history of cerebrovascular accident. We will also obtain a wound care consult and will obtain arterial Doppler studies for lower extremities. Plan o f care discussed with the ER physician, Dr. Renu Peck, as well as nursing staff. Dictated By: VINCE DUMONT/MAGGIE Conf#: [id number] DID#: [id number]
[2016-10-12 20:00] VITALS: BP 134/63; PULSE 66
[2016-10-12 20:58] VITALS: BP 134/63; RESP 18
[2016-10-12] MEDS ORDERED: LEVETIRACETAM 250 MG TAB PO SCH (21:00)
[2016-10-12] MEDS: METHYLPREDNISOLONE 40 MG INJ IV SCH (21:07)
[2016-10-12] MEDS: AMLODIPINE 5 MG TAB PO SCH (21:08)
[2016-10-12] MEDS: LEVETIRACETAM 250 MG TAB PO SCH (21:08)
[2016-10-12] MEDS: ALBUTEROL/IPRATROPIUM (NEB) 3 ML AMP HHN SCH (21:12)
[2016-10-13 06:30] LABS: ADD SCAN DIFF NO
[2016-10-13 06:50] LABS: BASOPHILS % 0.1 % (0.0-2.0); HEMATOCRIT 37.4 % (37.0-47.0); HEMOGLOBIN 11.7 g/dl (12.0-16.0); LYMPHOCYTES % 7.7 % (15.0-51.0); MEAN CORPUSCULAR HEMOGLOBIN 25.9 pg (29.0-33.0); MEAN CORPUSCULAR HGB CONC 31.3 g/dl (32.0-37.0); MEAN CORPUSCULAR VOLUME 82.9 fl (82.0-101.0); MEAN PLATELET VOLUME 10.6 fl (7.4-10.4); MONOCYTE # 0.3 10^3/ul (0.3-0.9); MONOCYTES % 2.5 % (0.0-11.0); NEUTROPHIL # 11.2 10^3/ul (1.6-7.5); NEUTROPHILS % 89.1 % (39.0-77.0); PLATELET COUNT 280 10^3/UL (140-415); RED BLOOD COUNT 4.51 10^6/ul (4.20-5.40); RED CELL DISTRIBUTION WIDTH 14.3 % (11.5-14.5); WHITE BLOOD COUNT 12.5 10^3/ul (4.8-10.8)
[2016-10-13 07:07] LABS: POTASSIUM 4.4 mmol/L (3.5-5.1)
[2016-10-13 07:09] LABS: CREATININE 0.51 mg/dl (0.44-1.00)
[2016-10-13 07:10] LABS: CALCIUM 8.9 mg/dl (8.4-10.2)
[2016-10-13] MEDS: ALBUTEROL/IPRATROPIUM (NEB) 3 ML AMP HHN SCH ×3 (08:13→19:52)
[2016-10-13 09:00] VITALS: BP 135/65; RESP 20
[2016-10-13] MEDS: LEVETIRACETAM 250 MG TAB PO SCH ×2 (09:15→21:06)
[2016-10-13] MEDS: ASPIRIN 81 MG TAB PO SCH (09:15)
[2016-10-13] MEDS: METHYLPREDNISOLONE 40 MG INJ IV SCH ×2 (09:15→21:06)
[2016-10-13] MEDS: AMLODIPINE 5 MG TAB PO SCH ×2 (09:16→21:06)
[2016-10-13] MEDS: ENOXAPARIN 40 MG/0.4 ML SYG SC SCH (09:16)
[2016-10-13] MEDS: ZINC SULFATE 220 MG CAP PO SCH (09:16)
[2016-10-13] MEDS: ASCORBIC ACID 500 MG TAB PO SCH (09:16)
--- NOTE | 2016-10-13 11:08 | RADRPT ---
PROCEDURE: US bilateral lower extremity arteries. CLINICAL INDICATION: Bilateral leg pain. Claudication that interferes significantly with the ale ent's lifestyle. TECHNIQUE: Multiple longitudinal and transverse images of the bilateral lower extremity arteries w ere obtained with justin scale, pulsed Doppler, and color Doppler imaging. COMPARISON: No prior studies are available for comparison. FINDINGS: Right INDUSTRIAL WORKERS:105 cm/sec PSFA:114 cm/sec MSFA:142 cm/sec DSFA:98 cm/sec POP:60 cm/sec INTERMISSION COORDINATOR:72 cm/sec DPA:19 cm/sec Left INDUSTRIAL WORKERS:78 cm/sec PSFA:70 cm/sec MSFA:113 cm/sec DSFA:156 cm/sec POP:49 cm/sec INTERMISSION COORDINATOR:48 cm/sec DPA:21 cm/sec The right ankle-brachial index is 1.0 and the left ankle-brachial index is 0.9. There is normal triphasic flow bilaterally in the common femoral and superficial femoral arteries. Biphasic flow is present bilaterally in the popliteal arteries. Monophasic flow is present bilatera lly in the calf arteries. IMPRESSION: 1. Abnormal flow bilaterally in the calf arteries consistent with significant stenosis or proximal occlusion. RPTAT: QQ .Mauri Henry MD, MD Date Time Electronically viewed and signed by .Mauri Henry MD, MD on 10/13/2016 11:08 .R/
--- NOTE | 2016-10-13 13:06 | PN ---
Date/Time of Note Date/Time of Note DATE: 10/13/16 TIME: 13:05 Assessment/Plan VTE Prophylaxis VTE Prophylaxis Intervention: other Lines/Catheters [facility] Saline Lock Urinary Cath still in place: No Assessment/Plan Chief Complaint/Hosp Course 1. Acute bronchitis. 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 - monitor 3. History of focal seizures for which she was getting Keppra 250 b.i.d. as an outpatient with no recent breakthrough seizure. CT of the head done in December 2015 revealed old infarct and cerebral atrophy. 4. Chronic bilateral upper lobe fibrotic changes. 5. Hypertension. Problems: Subjective 24 Hr Interval Summary Free Text/Dictation Patient has no complaints Exam/Review of Systems Vital Signs Vitals Vital Signs Date Time Temp Pulse Resp B/P Pulse Ox O2 Delivery O2 Flow Rate FiO2 10/13/16 09:00 97.8 72 20 135/65 96 10/13/16 08:15 2.0 10/13/16 08:15 Nasal Cannula Exam Constitutional: frail Head: atraumatic, normocephalic Neck: supple Respiratory: diminished breath sounds Cardiovascular: regular rate and rhythm Gastrointestinal: non-tender, soft Results Result Diagram: 10/13/16 0502 10/13/16 0502 Results 24 hrs Laboratory Tests Test 10/12/16 13:42 10/12/16 18:33 10/13/16 05:02 Urine Amorphous Urates MANY Urine Bacteria MODERATE Urine Bilirubin NEGATIVE Urine Clarity CLOUDY Urine Color YELLOW Urine Epithelial Cells FEW Urine Glucose NEGATIVE Urine Hemoglobin TRACE Urine Ketones NEGATIVE Urine Leukocyte Esterase TRACE H Urine Microscopic RBC 0-2 Urine Microscopic WBC 2-5 Urine Nitrite NEGATIVE Urine Specific [place] 1.025 Urine Total Protein TRACE Urine Urobilinogen 0.2 E.U./dL Urine pH 5.5 Bedside Glucose 154 Anion Gap 19 H Basophils # 0.0 Basophils % 0.1 Blood Urea Nitrogen 20 Calcium Level 8.9 Carbon Dioxide Level 27 Chloride Level 101 Creatinine 0.51 Eosinophils # 0.0 Eosinophils % 0.0 Glucose Level 136 Hematocrit 37.4 Hemoglobin 11.7 L Lymphocytes # 1.0 Lymphocytes % 7.7 L Mean Corpuscular Hemoglobin 25.9 L Mean Corpuscular Hemoglobin Concent 31.3 L Mean Corpuscular Volume 82.9 Mean Platelet Volume 10.6 H Monocytes # 0.3 Monocytes % 2.5 Neutrophils # 11.2 H Neutrophils % 89.1 H Nucleated Red Blood Cells # 0.0 Nucleated Red Blood Cells % 0.0 Platelet Count 280 Potassium Level 4.4 Red Blood Count 4.51 Red Cell Distribution Width 14.3 Sodium Level 143 White Blood Count 12.5 H Medications Medications Current Medications Aspirin 81 mg 81 mg DAILY PO Last administered on 10/13/16 09:15; Admin Dose 81 MG; Start 10/13/16 at 09:00 Levofloxacin/ Dextrose (Levaquin 500mg/ D5W 100 ml (Pmx)) 100 ml @ 100 mls/hr Q48H IVPB Last administered on 10/12/16 18:53; Admin Dose 100 MLS/HR; Start at 18:30 Enoxaparin Sodium (Lovenox) 40 mg DAILY SC Last administered on 10/13/16 09:16 ; Admin Dose 40 MG; Start 10/13/16 at 09:00 Acetaminophen (Tylenol Tab) 650 mg Q4H PRN PO PAIN AND OR ELEVATED TEMP; Start 10/12/16 at 18:30 Ascorbic Acid (Vitamin C) 500 mg DAILY PO Last administered on 10/13/16 09:16 ; Admin Dose 500 MG; Start 10/13/16 at 09:00 Zinc Sulfate (Zinc Sulfate) 220 mg DAILY PO Last administered on 10/13/16 09: 16; Admin Dose 220 MG; Start 10/13/16 at 09:00 Amlodipine Besylate (Norvasc) 5 mg BID PO Last administered on 10/13/16 09:16 ; Admin Dose 5 MG; Start 10/12/16 at 21:00 Levetiracetam (Keppra) 250 mg BID PO Last administered on 10/13/16 09:15; Admin Dose 250 MG; Start 10/12/16 at 21:00 Methylprednisolone Sodium Succinate (Solu-Medrol) 40 mg Q12 IV Last administered on 10/13/16 09:15; Admin Dose 40 MG; Start 10/12/16 at 21:00 ALINE MCGHEE 18, 2017 13:05
[2016-10-13 20:00] VITALS: BP 115/71; PULSE 72
[2016-10-13 20:37] VITALS: BP 115/71; RESP 17
[2016-10-14] MEDS: ALBUTEROL/IPRATROPIUM (NEB) 3 ML AMP HHN SCH ×3 (07:42→20:27)
[2016-10-14 08:40] VITALS: BP 154/67; RESP 16
[2016-10-14] MEDS: METHYLPREDNISOLONE 40 MG INJ IV SCH ×2 (09:08→20:55)
[2016-10-14] MEDS: AMLODIPINE 5 MG TAB PO SCH ×2 (09:09→20:56)
[2016-10-14] MEDS: ZINC SULFATE 220 MG CAP PO SCH (09:09)
[2016-10-14] MEDS: ASCORBIC ACID 500 MG TAB PO SCH (09:09)
[2016-10-14] MEDS: LEVETIRACETAM 250 MG TAB PO SCH ×2 (09:09→20:55)
[2016-10-14] MEDS: ASPIRIN 81 MG TAB PO SCH (09:09)
[2016-10-14] MEDS: ENOXAPARIN 40 MG/0.4 ML SYG SC SCH (09:10)
--- NOTE | 2016-10-14 12:35 | PN ---
Date/Time of Note Date/Time of Note DATE: 10/14/16 TIME: 12:34 Assessment/Plan VTE Prophylaxis VTE Prophylaxis Intervention: other Lines/Catheters [facility] Saline Lock Urinary Cath still in place: No Assessment/Plan Chief Complaint/Hosp Course 1. Acute bronchitis. 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 - monitor 3. History of focal seizures for which she was getting Keppra 250 b.i.d. as an outpatient with no recent breakthrough seizure. CT of the head done in December 2015 revealed old infarct and cerebral atrophy. 4. Chronic bilateral upper lobe fibrotic changes. 5. Hypertension. Problems: Subjective 24 Hr Interval Summary Free Text/Dictation Patient has no complaints Exam/Review of Systems Vital Signs Vitals Vital Signs Date Time Temp Pulse Resp B/P Pulse Ox O2 Delivery O2 Flow Rate FiO2 10/14/16 08:40 96.5 60 16 154/67 94 10/14/16 07:43 21 10/13/16 20:00 Nasal Cannula 2.0 Intake and Output 10/13/16 10/13/16 10/14/16 15:00 23:00 07:00 Intake Total 480 ml 300 ml Balance 480 ml 300 ml Exam Constitutional: well developed Head: atraumatic, normocephalic Neck: supple Respiratory: clear to auscultation Cardiovascular: regular rate and rhythm Gastrointestinal: non-tender, soft Extremities: normal pulses Results Result Diagram: 10/13/16 0502 10/13/16 0502 Medications Medications Current Medications Aspirin 81 mg 81 mg DAILY PO Last administered on 10/14/16 09:09; Admin Dose 81 MG; Start 10/13/16 at 09:00 Levofloxacin/ Dextrose (Levaquin 500mg/ D5W 100 ml (Pmx)) 100 ml @ 100 mls/hr Q48H IVPB Last administered on 10/12/16 18:53; Admin Dose 100 MLS/HR; Start at 18:30 Enoxaparin Sodium (Lovenox) 40 mg DAILY SC Last administered on 10/14/16 09:10 ; Admin Dose 40 MG; Start 10/13/16 at 09:00 Acetaminophen (Tylenol Tab) 650 mg Q4H PRN PO PAIN AND OR ELEVATED TEMP; Start 10/12/16 at 18:30 Ascorbic Acid (Vitamin C) 500 mg DAILY PO Last administered on 10/14/16 09:09 ; Admin Dose 500 MG; Start 10/13/16 at 09:00 Zinc Sulfate (Zinc Sulfate) 220 mg DAILY PO Last administered on 10/14/16 09: 09; Admin Dose 220 MG; Start 10/13/16 at 09:00 Amlodipine Besylate (Norvasc) 5 mg BID PO Last administered on 10/14/16 09:09 ; Admin Dose 5 MG; Start 10/12/16 at 21:00 Levetiracetam (Keppra) 250 mg BID PO Last administered on 10/14/16 09:09; Admin Dose 250 MG; Start 10/12/16 at 21:00 Methylprednisolone Sodium Succinate (Solu-Medrol) 40 mg Q12 IV Last administered on 10/14/16 09:08; Admin Dose 40 MG; Start 10/12/16 at 21:00 ALINE MCGHEE 19, 2017 12:34
[2016-10-14] MEDS: LEVOFLOXACIN 500MG/D5W (PMX) 100 ML IVPB SCH (18:37)
[2016-10-14 20:12] VITALS: BP 135/93; RESP 18
[2016-10-15 06:31] LABS: ADD SCAN DIFF NO
[2016-10-15 06:49] LABS: POTASSIUM 4.3 mmol/L (3.5-5.1)
[2016-10-15 06:51] LABS: CREATININE 0.59 mg/dl (0.44-1.00)
[2016-10-15 06:52] LABS: CALCIUM 8.4 mg/dl (8.4-10.2)
[2016-10-15 06:54] LABS: BASOPHILS % 0.1 % (0.0-2.0); HEMATOCRIT 34.7 % (37.0-47.0); HEMOGLOBIN 11.1 g/dl (12.0-16.0); LYMPHOCYTES # 1.2 10^3/ul (0.8-2.9); LYMPHOCYTES % 9.9 % (15.0-51.0); MEAN CORPUSCULAR HEMOGLOBIN 26.2 pg (29.0-33.0); MEAN CORPUSCULAR VOLUME 81.8 fl (82.0-101.0); MEAN PLATELET VOLUME 10.2 fl (7.4-10.4); MONOCYTE # 0.6 10^3/ul (0.3-0.9); MONOCYTES % 4.7 % (0.0-11.0); NEUTROPHIL # 9.8 10^3/ul (1.6-7.5); NEUTROPHILS % 83.9 % (39.0-77.0); PLATELET COUNT 346 10^3/UL (140-415); RED BLOOD COUNT 4.24 10^6/ul (4.20-5.40); RED CELL DISTRIBUTION WIDTH 14.4 % (11.5-14.5); WHITE BLOOD COUNT 11.7 10^3/ul (4.8-10.8)
[2016-10-15 07:58] VITALS: BP 172/67; RESP 18
[2016-10-15] MEDS: METHYLPREDNISOLONE 40 MG INJ IV SCH ×2 (08:16→21:03)
[2016-10-15] MEDS: ASPIRIN 81 MG TAB PO SCH (08:17)
[2016-10-15] MEDS: LEVETIRACETAM 250 MG TAB PO SCH ×2 (08:17→21:03)
[2016-10-15] MEDS: ZINC SULFATE 220 MG CAP PO SCH (08:17)
[2016-10-15] MEDS: ASCORBIC ACID 500 MG TAB PO SCH (08:17)
[2016-10-15] MEDS: AMLODIPINE 5 MG TAB PO SCH ×2 (08:21→21:04)
[2016-10-15] MEDS: ENOXAPARIN 40 MG/0.4 ML SYG SC SCH (08:23)
[2016-10-15 08:24] VITALS: BP 160/71; PULSE 56
[2016-10-15] MEDS: ALBUTEROL/IPRATROPIUM (NEB) 3 ML AMP HHN SCH ×3 (08:54→19:45)
[2016-10-15 11:34] VITALS: BP 176/76; PULSE 55
[2016-10-15] MEDS ORDERED: hydrALAzine 20 MG INJ IV PRN (12:00)
--- NOTE | 2016-10-15 13:47 | PN ---
Date/Time of Note Date/Time of Note DATE: 10/15/16 TIME: 13:41 Assessment/Plan VTE Prophylaxis VTE Prophylaxis Intervention: LMWH Lines/Catheters [facility] Saline Lock Urinary Cath still in place: No Assessment/Plan Assessment/Plan - Acute bronchitis. Continue Levaquin and Solu-Medrol and breathing treatment and supplemental oxygen. 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 Continue aspirin - History of focal seizures. Continue Keppra - Chronic bilateral upper lobe fibrotic changes. - Hypertension. Continue Norvasc Cozaar and hydralazine as needed. - Dementia, continue Namenda. - Bilateral heel ulcers. Continue current wound care. Further recommendations based on clinical course. Plan of care discussed with Dr. Burton. Subjective 24 Hr Interval Summary Free Text/Dictation Patient is comfortable on room air, however had an episode of hypertension, will resume patient blood pressure home medication and start hydralazine as needed. Exam/Review of Systems Vital Signs Vitals Vital Signs Date Time Temp Pulse Resp B/P Pulse Ox O2 Delivery O2 Flow Rate FiO2 10/15/16 11:34 55 176/76 10/15/16 08:54 20 95 21 10/15/16 07:58 97.6 10/13/16 20:00 Nasal Cannula 2.0 Intake and Output 10/14/16 10/14/16 10/15/16 15:00 23:00 07:00 Intake Total 900 ml 550 ml Balance 900 ml 550 ml Exam Constitutional: alert, frail Psych: confusion Head: atraumatic, normocephalic Eyes: nl conjunctiva ENMT: mucosa pink and moist Neck: non-tender, supple Respiratory: clear to auscultation Cardiovascular: nl pulses, regular rate and rhythm Gastrointestinal: non-tender, soft Musculoskeletal: nl extremities to inspection Extremities: normal pulses Neurological: LEAN SIX SIGMA SENIOR SPECIALIST II-XII intact Skin: other (Bilateral heel ulcers) Results Result Diagram: 10/15/16 0530 10/15/16 0535 Results 24 hrs Laboratory Tests Test 10/15/16 05:30 10/15/16 05:35 Basophils # 0.0 Basophils % 0.1 Eosinophils # 0.0 Eosinophils % 0.0 Hematocrit 34.7 L Hemoglobin 11.1 L Lymphocytes # 1.2 Lymphocytes % 9.9 L Mean Corpuscular Hemoglobin 26.2 L Mean Corpuscular Hemoglobin Concent 32.0 Mean Corpuscular Volume 81.8 L Mean Platelet Volume 10.2 Monocytes # 0.6 Monocytes % 4.7 Neutrophils # 9.8 H Neutrophils % 83.9 H Nucleated Red Blood Cells # 0.0 Nucleated Red Blood Cells % 0.0 Platelet Count 346 # Red Blood Count 4.24 Red Cell Distribution Width 14.4 White Blood Count 11.7 H Anion Gap 15 Blood Urea Nitrogen 37 H Calcium Level 8.4 Carbon Dioxide Level 27 Chloride Level 104 Creatinine 0.59 Glucose Level 129 Potassium Level 4.3 Sodium Level 142 Medications Medications Current Medications Aspirin 81 mg 81 mg DAILY PO Last administered on 10/15/16 08:17; Admin Dose 81 MG; Start 10/13/16 at 09:00 Levofloxacin/ Dextrose (Levaquin 500mg/ D5W 100 ml (Pmx)) 100 ml @ 100 mls/hr Q48H IVPB Last administered on 10/14/16 18:37; Admin Dose 100 MLS/HR; Start at 18:30 Enoxaparin Sodium (Lovenox) 40 mg DAILY SC Last administered on 10/15/16 08:23 ; Admin Dose 40 MG; Start 10/13/16 at 09:00 Acetaminophen (Tylenol Tab) 650 mg Q4H PRN PO PAIN AND OR ELEVATED TEMP; Start 10/12/16 at 18:30 Ascorbic Acid (Vitamin C) 500 mg DAILY PO Last administered on 10/15/16 08:17 ; Admin Dose 500 MG; Start 10/13/16 at 09:00 Zinc Sulfate (Zinc Sulfate) 220 mg DAILY PO Last administered on 10/15/16 08: 17; Admin Dose 220 MG; Start 10/13/16 at 09:00 Amlodipine Besylate (Norvasc) 5 mg BID PO Last administered on 10/15/16 08:21 ; Admin Dose 5 MG; Start 10/12/16 at 21:00 Levetiracetam (Keppra) 250 mg BID PO Last administered on 10/15/16 08:17; Admin Dose 250 MG; Start 10/12/16 at 21:00 Methylprednisolone Sodium Succinate (Solu-Medrol) 40 mg Q12 IV Last administered on 10/15/16 08:16; Admin Dose 40 MG; Start 10/12/16 at 21:00 Hydralazine HCl (Apresoline) 10 mg Q6H PRN IV SBP >170 Last administered on t 11:59; Admin Dose 10 MG; Start 10/15/16 at 12:00 MORIS SHOEMAKER Oct 15, 2016 13:47
[2016-10-15 13:58] VITALS: BP 148/93; PULSE 59
[2016-10-15] MEDS: LOSARTAN 50 MG TAB PO SCH (21:03)
[2016-10-15] MEDS: MEMANTINE 5 MG TAB PO SCH (21:04)
[2016-10-15] MEDS: LEVETIRACETAM (100 MG/ML) 5ML CUP PO SCH (22:19)
[2016-10-15 23:26] VITALS: BP 146/66; RESP 18
[2016-10-16 05:38] LABS: ADD SCAN DIFF NO
[2016-10-16 06:11] LABS: BASOPHILS % 0.1 % (0.0-2.0); HEMOGLOBIN 11.6 g/dl (12.0-16.0); LYMPHOCYTES % 10.9 % (15.0-51.0); MEAN CORPUSCULAR HEMOGLOBIN 25.8 pg (29.0-33.0); MEAN CORPUSCULAR HGB CONC 31.4 g/dl (32.0-37.0); MEAN CORPUSCULAR VOLUME 82.4 fl (82.0-101.0); MEAN PLATELET VOLUME 10.3 fl (7.4-10.4); MONOCYTE # 0.5 10^3/ul (0.3-0.9); MONOCYTES % 5.8 % (0.0-11.0); NEUTROPHIL # 7.4 10^3/ul (1.6-7.5); NEUTROPHILS % 80.3 % (39.0-77.0); PLATELET COUNT 365 10^3/UL (140-415); RED BLOOD COUNT 4.49 10^6/ul (4.20-5.40); RED CELL DISTRIBUTION WIDTH 14.4 % (11.5-14.5); WHITE BLOOD COUNT 9.2 10^3/ul (4.8-10.8)
[2016-10-16 06:12] LABS: POTASSIUM 4.3 mmol/L (3.5-5.1)
[2016-10-16 06:14] LABS: CREATININE 0.61 mg/dl (0.44-1.00)
[2016-10-16 06:15] LABS: CALCIUM 8.5 mg/dl (8.4-10.2)
[2016-10-16] MEDS: ALBUTEROL/IPRATROPIUM (NEB) 3 ML AMP HHN SCH ×3 (08:07→21:15)
[2016-10-16 08:11] VITALS: BP 166/73; RESP 16
[2016-10-16] MEDS: LEVETIRACETAM (100 MG/ML) 5ML CUP PO SCH ×2 (08:27→20:47)
[2016-10-16] MEDS: ASPIRIN 81 MG TAB PO SCH (08:27)
[2016-10-16] MEDS: MEMANTINE 5 MG TAB PO SCH ×2 (08:27→20:47)
[2016-10-16] MEDS: METHYLPREDNISOLONE 40 MG INJ IV SCH ×2 (08:27→20:47)
[2016-10-16] MEDS: ZINC SULFATE 220 MG CAP PO SCH (08:28)
[2016-10-16] MEDS: ASCORBIC ACID 500 MG TAB PO SCH (08:28)
[2016-10-16] MEDS: ENOXAPARIN 40 MG/0.4 ML SYG SC SCH (08:28)
[2016-10-16] MEDS: AMLODIPINE 5 MG TAB PO SCH ×2 (08:29→20:48)
[2016-10-16] MEDS: LOSARTAN 50 MG TAB PO SCH ×2 (08:29→20:48)
--- NOTE | 2016-10-16 14:34 | PN ---
Date/Time of Note Date/Time of Note DATE: 10/16/16 TIME: 14:31 Assessment/Plan VTE Prophylaxis VTE Prophylaxis Intervention: SCD's Lines/Catheters IV C[facility]ter Type [facility]from [facility] Urinary Cath still in place: No Assessment/Plan Chief Complaint/Hosp Course Assessment/Plan - Acute bronchitis. Continue Levaquin and Solu-Medrol and breathing treatment and supplemental oxygen. 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 Continue aspirin - History of focal seizures. Continue Keppra - Chronic bilateral upper lobe fibrotic changes. - Hypertension. Continue Norvasc Cozaar and hydralazine as needed. - Dementia, continue Namenda. - Bilateral heel ulcers. Continue current wound care. Start PT Plan of care discussed with patient's son at the bedside. Further recommendations based on clinical course. Plan of care discussed with Dr. Burton. Problems: Subjective 24 Hr Interval Summary Free Text/Dictation Patient remains afebrile, denies any nausea vomiting, denies shortness of breath , will start physical therapy. Exam/Review of Systems Vital Signs Vitals Vital Signs Date Time Temp Pulse Resp B/P Pulse Ox O2 Delivery O2 Flow Rate FiO2 10/16/16 08:11 97.5 52 16 166/73 98 10/16/16 08:00 21 10/13/16 20:00 Nasal Cannula 2.0 Intake and Output 10/15/16 10/15/16 10/16/16 15:00 23:00 07:00 Intake Total 240 ml 50 ml Balance 240 ml 50 ml Exam Constitutional: alert, frail Psych: confusion Head: atraumatic, normocephalic Eyes: nl conjunctiva ENMT: mucosa pink and moist Neck: non-tender, supple Respiratory: clear to auscultation Cardiovascular: nl pulses, regular rate and rhythm Gastrointestinal: non-tender, soft Musculoskeletal: nl extremities to inspection Extremities: normal pulses Neurological: VOICE PROFESSOR II-XII intact Skin: other (Bilateral heel ulcers) Results Result Diagram: 10/16/1644910/16/16449 Results 24 hrs Laboratory Tests Test 10/16/16 04:50 Anion Gap 17 H Basophils # 0.0 Basophils % 0.1 Blood Urea Nitrogen 42 H Calcium Level 8.5 Carbon Dioxide Level 27 Chloride Level 105 Creatinine 0.61 Eosinophils # 0.0 Eosinophils % 0.0 Glucose Level 134 Hematocrit 37.0 Hemoglobin 11.6 L Lymphocytes # 1.0 Lymphocytes % 10.9 L Mean Corpuscular Hemoglobin 25.8 L Mean Corpuscular Hemoglobin Concent 31.4 L Mean Corpuscular Volume 82.4 Mean Platelet Volume 10.3 Monocytes # 0.5 Monocytes % 5.8 Neutrophils # 7.4 Neutrophils % 80.3 H Nucleated Red Blood Cells # 0.0 Nucleated Red Blood Cells % 0.0 Platelet Count 365 Potassium Level 4.3 Red Blood Count 4.49 Red Cell Distribution Width 14.4 Sodium Level 145 H White Blood Count 9.2 # Medications Medications Current Medications Aspirin 81 mg 81 mg DAILY PO Last administered on 10/16/16 08:27; Admin Dose 81 MG; Start 10/13/16 at 09:00 Levofloxacin/ Dextrose (Levaquin 500mg/ D5W 100 ml (Pmx)) 100 ml @ 100 mls/hr Q48H IVPB Last administered on 10/14/16 18:37; Admin Dose 100 MLS/HR; Start at 18:30 Enoxaparin Sodium (Lovenox) 40 mg DAILY SC Last administered on 10/16/16 08:28 ; Admin Dose 40 MG; Start 10/13/16 at 09:00 Acetaminophen (Tylenol Tab) 650 mg Q4H PRN PO PAIN AND OR ELEVATED TEMP; Start 10/12/16 at 18:30 Ascorbic Acid (Vitamin C) 500 mg DAILY PO Last administered on 10/16/16 08:28 ; Admin Dose 500 MG; Start 10/13/16 at 09:00 Zinc Sulfate (Zinc Sulfate) 220 mg DAILY PO Last administered on 10/16/16 08: 28; Admin Dose 220 MG; Start 10/13/16 at 09:00 Methylprednisolone Sodium Succinate (Solu-Medrol) 40 mg Q12 IV Last administered on 10/16/16 08:27; Admin Dose 40 MG; Start 10/12/16 at 21:00 Hydralazine HCl (Apresoline) 10 mg Q6H PRN IV SBP >170 Last administered on 11:59; Admin Dose 10 MG; Start 10/15/16 at 12:00 Amlodipine Besylate (Norvasc) 5 mg BID PO Last administered on 10/16/16 08:29 ; Admin Dose 5 MG; Start 3/20/17 at 21:00 Losartan Potassium (Cozaar) 50 mg BID PO Last administered on 10/16/16 08:29; Admin Dose 50 MG; Start 10/15/16 at 21:00 Memantine (Namenda) 10 mg BID PO Last administered on 10/16/16 08:27; Admin Dose 10 MG; Start 10/15/16 at 21:00 Levetiracetam (Keppra Liquid) 250 mg BID PO Last administered on 10/16/16 08: 27; Admin Dose 250 MG; Start 10/15/16 at 22:00 MORIS SHOEMAKER Oct 16, 2016 14:34
[2016-10-16] MEDS: LEVOFLOXACIN 500MG/D5W (PMX) 100 ML IVPB SCH (17:15)
[2016-10-16 21:36] VITALS: BP 144/73; RESP 18
[2016-10-17 05:40] LABS: ADD SCAN DIFF NO
[2016-10-17 05:47] LABS: BASOPHILS % 0.1 % (0.0-2.0); HEMATOCRIT 34.4 % (37.0-47.0); LYMPHOCYTES # 1.1 10^3/ul (0.8-2.9); LYMPHOCYTES % 10.7 % (15.0-51.0); MEAN CORPUSCULAR VOLUME 81.3 fl (82.0-101.0); MEAN PLATELET VOLUME 9.8 fl (7.4-10.4); MONOCYTE # 0.5 10^3/ul (0.3-0.9); MONOCYTES % 4.4 % (0.0-11.0); NEUTROPHIL # 8.2 10^3/ul (1.6-7.5); NEUTROPHILS % 80.2 % (39.0-77.0); PLATELET COUNT 355 10^3/UL (140-415); RED BLOOD COUNT 4.23 10^6/ul (4.20-5.40); RED CELL DISTRIBUTION WIDTH 14.5 % (11.5-14.5); WHITE BLOOD COUNT 10.3 10^3/ul (4.8-10.8)
[2016-10-17 06:21] LABS: POTASSIUM 4.3 mmol/L (3.5-5.1)
[2016-10-17 06:24] LABS: CALCIUM 8.3 mg/dl (8.4-10.2); CREATININE 0.56 mg/dl (0.44-1.00)
[2016-10-17] MEDS: METHYLPREDNISOLONE 40 MG INJ IV SCH ×2 (08:32→21:16)
[2016-10-17] MEDS: ENOXAPARIN 40 MG/0.4 ML SYG SC SCH (08:32)
[2016-10-17] MEDS: ZINC SULFATE 220 MG CAP PO SCH (08:32)
[2016-10-17] MEDS: MEMANTINE 5 MG TAB PO SCH ×2 (08:32→21:16)
[2016-10-17] MEDS: LEVETIRACETAM (100 MG/ML) 5ML CUP PO SCH ×2 (08:32→21:15)
[2016-10-17] MEDS: ASPIRIN 81 MG TAB PO SCH (08:33)
[2016-10-17] MEDS: ASCORBIC ACID 500 MG TAB PO SCH (08:33)
[2016-10-17] MEDS: LOSARTAN 50 MG TAB PO SCH ×2 (08:33→21:16)
[2016-10-17] MEDS: AMLODIPINE 5 MG TAB PO SCH ×2 (08:33→21:17)
[2016-10-17] MEDS: ALBUTEROL/IPRATROPIUM (NEB) 3 ML AMP HHN SCH ×3 (08:35→19:54)
[2016-10-17 08:38] VITALS: BP 170/72; RESP 20
[2016-10-17 10:00] VITALS: BP 147/70; PULSE 76
[2016-10-17] MEDS ORDERED: MED4DP PO (17:03)
[2016-10-17] MEDS ORDERED: ASPI81TA3 PO (17:03)
[2016-10-17] MEDS ORDERED: LEVO500T10 PO (17:03)
[2016-10-17 20:58] VITALS: BP 160/70; RESP 19
[2016-10-17 21:10] VITALS: BP 144/63; PULSE 67
[2016-10-18] MEDS ORDERED: LEVOFLOXACIN 500 MG TAB PO SCH (18:00)
--- NOTE | 2016-10-21 22:07 | DS ---
DATE OF ADMISSION: 10/12/2016 DATE OF DISCHARGE: 10/17/2016 FINAL DIAGNOSES: 1. Acute bronchitis. 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 3. History of focal seizures. 4. Chronic bilateral upper lobe fibrotic changes. 5. Hypertension. 6. Dementia. 7. Bilateral heel ulcers. BRIEF HISTORY: The patient is an 86-year-old female with history of hypertension, Alzheime r dementia. The patient presented to the primary care physician Dr. Burton's office with complain ts of cough and chest congestion and shortness of breath. The patient also with wheezing. The ale ent was sent to the emergency room and was found to have a white count elevated to 13,000, and the p atient was admitted for further evaluation and management. HOSPITAL COURSE: The patient was started on Levaquin and Solu-Medrol and breathing treatments for a cute bronchitis. The patient was continued on aspirin for history of infarct and also continued on Keppra. The patient's blood pressure was closely monitored, and patient was given Norvasc, Cozaar a nd hydralazine p.r.n. for hypertension. The patient also had bilateral heel ulcers and was evaluate d by wound care nurse with continued dressing changes. The patient's condition gradually resolved, and the patient was able to breathe with no shortness of breath, and patient was discharged home. CONDITION ON DISCHARGE: Hemodynamically stable. ACTIVITY: As patient tolerates. DIET: Two gram sodium, low-fat, low-cholesterol diet. DISCHARGE MEDICATIONS: The patient is given prescription for: 1. Aspirin. 2. Levaquin 500 mg p.o. daily for 5 more days. 3. Medrol Dosepak. The patient is to continue on: 1. Amlodipine. 2. Prozac. 3. Ativan p.r.n. 4. Cozaar. 5. Namenda. 6. Trazodone. The patient is instructed to follow up with primary care physician in 1 to 2 weeks. Interdisciplinary plan of care was established for this patient. Plan of care was discussed with Dr Eloise Burton. Dictated By: MORIS SHOEMAKER CORONARY CARE UNIT NURSE for VINCE BURTON MD SR/NTS Conf#: [id number] DID#: [id number]
== END 2016-10-17 23:20 | disposition home or self-care (01) | DRG 192 ==
LOC: E/R 12:33 → PP2 14:48 → OBSVTOIN 18:19
PROVIDERS: ADMIT Internal Medicine; ATTEND Internal Medicine
DX: J44.0 Chronic obstructive pulmonary disease with (acute) lower respiratory infection (principal); L89.152 Pressure ulcer of sacral region, stage 2; J84.10 Pulmonary fibrosis, unspecified; G30.9 Alzheimer's disease, unspecified; L89.620 Pressure ulcer of left heel, unstageable; L89.610 Pressure ulcer of right heel, unstageable; F02.80 Dementia in other diseases classified elsewhere, unspecified severity, without behavioral disturbance, psychotic disturbance, mood disturbance, and anxiety; J20.9 Acute bronchitis, unspecified; I10 Essential (primary) hypertension; E78.5 Hyperlipidemia, unspecified; Z86.73 Personal history of transient ischemic attack (TIA), and cerebral infarction without residual deficits
CPT/HCPCS: 71010; 80048; 80053; 81001; 81003; 82150; 82962; 83690; 84484; 85025; 87040; 87086; 93005; 93922; 94640; 94664; 96374; G0378; J0360; J1650; J1956; J2920; J2930

== ENCOUNTER 2016-10-31 19:00 | Inpatient (IN) | payer MEDICARE, OTHER ==
[~2016-10-31] VITALS: Ht 154.9 cm; Wt 57.1 kg
[~2016-10-31 19:00] MED LIST changes: +ASPI81TA3 PO; -DIPH1TAB25 PO; +LEVO500T10 PO; -ONDA4TAB35 PO
--- NOTE | 2016-11-01 01:03 | ERA ---
ER Documentation Chief Complaint Date/Time DATE: 11/01/16 TIME: 01:03 Chief Complaint SOB but sats at 96% HPI The patient is a 86-year-old female, presenting to the ER because of intermittent cough for 1 day, associated with shortness of breath. She is unable to provide any history, the history is obtained from the caregiver. She has decreased appetite, subjective fever. She does not have neck pain, chest pain, abdominal pain, vomiting, diarrhea, constipation Past medical history: Hypertension, dementia, history of CVA, seizure disorder, bilateral heel ulcer Past surgical history: None ROS All systems reviewed and are negative except as per history of present illness. Medications Home Meds Active Scripts Methylprednisolone* (Medrol* DOSE PACK) 4 Mg/Dose-Pack Tab.ds.pk, 4 MG PO . DIRECTED, #1 PACKET Prov:MORIS SHOEMAKER 10/17/16 Aspirin (Aspirin) 81 Mg Chew, 81 MG PO DAILY for 30 Days, TAB Prov:MORIS SHOEMAKER 10/17/16 Levofloxacin* (Levofloxacin*) 500 Mg Tablet, 500 MG PO DAILY for 5 Days, TAB Prov:MORIS SHOEMAKER 10/17/16 Losartan Potassium* (Cozaar*) 50 Mg Tab, 50 MG PO BID, #60 Prov:LY NOONAN NP 02/08/15 Reported Medications Trazodone Hcl* (Trazodone Hcl*) 50 Mg Tablet, 50 MG PO HS, TAB 01/28/15 Lorazepam (Ativan) 1 Mg Tablet, 1 MG PO QHS 07/26/12 Fluoxetine Hcl* (Prozac*) 20 Mg Capsule, 20 MG PO DAILY 06/05/11 Memantine* (Namenda*) 5 Mg Tablet, 10 MG PO BID 06/05/11 Amlodipine Besylate* (Amlodipine Besylate*) 5 Mg Tablet, 5 MG PO BID 06/05/11 Allergies Allergies: Coded Allergies: No Known Allergy (Verified , 05/20/16) PMhx/Soc Hx Miscellaneous Medical Probl: No Physical Exam Vitals Vital Signs Date Time Temp Pulse Resp B/P Pulse Ox O2 Delivery O2 Flow Rate FiO2 11/01/16 03:05 97.4 72 24 162/73 96 Room Air 11/01/16 01:10 97.1 81 20 170/75 96 Room Air 10/31/16 19:28 100.5 98 18 148/84 96 Physical Exam Const: No acute distress. Head: Atraumatic. Eyes: Normal Conjunctiva. ENT: Normal External Ears, Nose and Mouth. Neck: Full range of motion. No meningismus. Resp: Minimal expiratory wheezes anteriorly and lateral Cardio: Regular rate and rhythm, no murmurs. Abd: Soft, non distended, normal bowel sounds, non tender. Skin: No petechiae or rashes. Back: No midline or flank tenderness. Ext: No cyanosis, or edema. Neur: Unable to perform due to her condition Psych: Unable to perform due to her condition Result Diagram: 11/01/16 0125 11/01/16 0125 Results 24 hrs Laboratory Tests Test 11/01/16 01:25 11/01/16 02:44 11/01/16 03:21 White Blood Count 8.010^3/ul Red Blood Count 4.8710^6/ul Hemoglobin 12.8g/dl Hematocrit 40.3% Mean Corpuscular Volume 82.8fl Mean Corpuscular Hemoglobin 26.3pg Mean Corpuscular Hemoglobin Concent 31.8g/dl Red Cell Distribution Width 15.1% Platelet Count 37923^3/UL Mean Platelet Volume 10.6fl Neutrophils % 77.8% Lymphocytes % 11.1% Monocytes % 10.1% Eosinophils % 0.0% Basophils % 0.4% Nucleated Red Blood Cells % 0.0/100WBC Neutrophils # 6.210^3/ul Lymphocytes # 0.910^3/ul Monocytes # 0.810^3/ul Eosinophils # 0.010^3/ul Basophils # 0.010^3/ul Nucleated Red Blood Cells # 0.010^3/ul Prothrombin Time 13.2Sec Prothrombin Time Ratio 1.0 INR International Normalized Ratio 1.00 Activated Partial Thromboplast Time Pending Sodium Level 140mmol/L Potassium Level 4.6mmol/L Chloride Level 103mmol/L Carbon Dioxide Level 28mmol/L Anion Gap 14 Blood Urea Nitrogen 34mg/dl Creatinine 0.81mg/dl Glucose Level 135mg/dl Lactic Acid Level 2.2mmol/L 2.4mmol/L Calcium Level 8.8mg/dl Total Bilirubin 0.9mg/dl Direct Bilirubin 0.00mg/dl Indirect Bilirubin 0.9mg/dl Aspartate Amino Transf (AST/SGOT) 38IU/L Alanine Aminotransferase (ALT/SGPT) 31IU/L Alkaline Phosphatase 113IU/L Troponin I 0.017ng/ml Total Protein 7.5g/dl Albumin 4.1g/dl Globulin 3.40g/dl Albumin/Globulin Ratio 1.20 Bedside Urine pH (LAB) 7.0 Bedside Urine Protein (LAB) 1+ Bedside Urine Glucose (UA) Negative Bedside Urine Ketones (LAB) Trace Bedside Urine Blood 2+ Bedside Urine Nitrite (LAB) Positive Bedside Urine Leukocyte Esterase (L Trace Current Medications Medications (Trade) Dose Ordered Sig/Camelia Route PRN Reason Start Time Stop Time Status Last Admin Dose Admin Acetaminophen 650 mg 650 mg ONCE STAT PO 11/01/16 01:13 11/01/16 01:14 DC Sodium Chloride 2,110 ml @ 2,110 mls/hr BOLUS X1 ONCE IV 11/01/16 02:30 11/01/16 03:29 DC 11/01/16 03:00 Piperacillin Sod/ Tazobactam Sod (Zosyn 3.375gm/ 100 ml (Pmx)) 100 ml @ 200 mls/hr ONCE ONCE IVPB 11/01/16 03:00 11/01/16 03:29 DC 11/01/16 03:01 Levalbuterol (Xopenex Neb) 1.25 mg ONCE ONCE HHN 11/01/16 05:00 11/01/16 05:01 Ipratropium [place] (Atrovent 0.02% (Neb)) 0.5 mg ONCE ONCE HHN 11/01/16 05:00 11/01/16 05:01 Procedures/[place] [id number] Radiology Main Line: [phone] DIAGNOSTIC IMAGING REPORT Patient: RICHARD AMIN : 1930 Age: 86 Sex: F MR #: [id number] DOS: 11/01/16 0113 Ordering MD: FRANCA MCINTYRE MD Location: E/R Room/Bed: PROCEDURE: Portable chest x-ray. CLINICAL INDICATION: Sepsis. TECHNIQUE: Portable AP view of the chest. COMPARISON: 10/12/2016. FINDINGS: Patchy opacification of the medial right upper lobe is unchanged since the prior examination. No pulmonary edema or conolidation is identified. The cardiac silhouette is magnified. No pleural effusion is seen. There is no pneumothorax. IMPRESSION: 1. Patchy opacification of the medial right upper lobe, unchanged since 2016. This is nonspecific but might represent scarring. RPTAT: HTAR .Noel Chapman MD, MD Date Time Electronically viewed and signed by .Noel Chapman MD, MD on 11/01/2016 02:11 .R/ CC: FRANCA MCINTYRE MD EKG: Read by emergency physician Rate/Rhythm: Normal Sinus Rhythm 72 beats/min QRS, ST, T-waves: No ST elevation, no T inversion, PAC, LAD, LVH, incomplete right bundle branch block, inferior Q waves, prolonged QT Impression: Abnormal EKG MEDICAL MAKING DECISION: The patient is a 86-year-old female, presenting with acute severe sepsis, acute cystitis, acute dehydration. She was treated with IV fluids, Zosyn IV, Xopenex 1.25 mg and Atrovent 0.5 mg for wheezing with good response. The differential diagnoses considered include but are not limited to pneumonia, cystitis, pyelonephritis Admit MDM: Patient's infectious symptoms have not stabilized and the patient is at risk of rapid decompensation. The patient will be admitted for careful hydration, antibiotic therapy, and infectious source control. Severe Sepsis criteria: Infectious source: UTI End organ damage indicated by: Lactate > 2.0 mmol/L Sepsis Management: Time of recognition of severe sepsis/septic shock:2:30 AM Within 3 hours of recognition: Blood cultures x 2 before broad-spectrum antibiotics: Yes 30 ml/kg NS bolus completed Initial lactate 2.2 Repeat lactate pnd Critical Care: Critical care time 35 minutes Emergent fluid management while maintaining close respiratory support. Provision of immediate and broad-spectrum antibiotic therapy. Simultaneous assessment for possible sources in order to direct targeted therapy. Consideration for invasive and chemical support to prevent cardiopulmonary collapse. Septic Shock Assessment: Any lactic acid > 4.0 no Persistent hypotension (SBP < 90 or 40 mmHg drop, MAP < 65) despite 30 mL/kg IV fluid bolusno Departure Diagnosis: Primary Impression: Severe sepsis Additional Impressions: UTI (urinary tract infection) Dehydration Condition: Stable Comments I discussed the findings with the patient. I discussed the patient with her physician Dr. Savana Wilde who was made aware of the lab, the treatment, the patient condition. The patient is admitted to telemetry at 3:55 AM FRANCA MCINTYRE MD Nov 01, 2016 01:03
[2016-11-01] MEDS ORDERED: ACETAMINOPHEN 325 MG TAB PO STA (01:13)
[2016-11-01 01:42] LABS: ADD SCAN DIFF NO
[2016-11-01 01:55] LABS: PROTIME 13.2 Sec (12.2-14.2)
[2016-11-01 01:57] LABS: ALBUMIN 4.1 g/dl (3.3-4.9); POTASSIUM 4.6 mmol/L (3.5-5.1)
[2016-11-01 01:59] LABS: CREATININE 0.81 mg/dl (0.44-1.00)
[2016-11-01 02:00] LABS: ALBUMIN/GLOBULIN RATIO 1.2; BILIRUBIN,INDIRECT 0.9 mg/dl (0-1.1); BILIRUBIN,TOTAL 0.9 mg/dl (0.2-1.3); CALCIUM 8.8 mg/dl (8.4-10.2); TOTAL PROTEIN 7.5 g/dl (6.1-8.1)
[2016-11-01 02:11] LABS: TROPONIN-I 0.017 ng/ml (0.00-0.12)
--- NOTE | 2016-11-01 02:11 | RADRPT ---
PROCEDURE: Portable chest x-ray. CLINICAL INDICATION: Sepsis. TECHNIQUE: Portable AP view of the chest. COMPARISON: 10/12/2016. FINDINGS: Patchy opacification of the medial right upper lobe is unchanged since the prior examination. No pu lmonary edema or conolidation is identified. The cardiac silhouette is magnified. No pleural effus ion is seen. There is no pneumothorax. IMPRESSION: 1. Patchy opacification of the medial right upper lobe, unchanged since 10/12/2016. This is nonspe cific but might represent scarring. RPTAT: HTAR .Noel Chapman MD, MD Date Time Electronically viewed and signed by .Noel Chapman MD, on 11/01/2016 02:11 .R/
[2016-11-01 02:17] LABS: BASOPHILS % 0.4 % (0.0-2.0); HEMATOCRIT 40.3 % (37.0-47.0); HEMOGLOBIN 12.8 g/dl (12.0-16.0); LYMPHOCYTES # 0.9 10^3/ul (0.8-2.9); LYMPHOCYTES % 11.1 % (15.0-51.0); MEAN CORPUSCULAR HEMOGLOBIN 26.3 pg (29.0-33.0); MEAN CORPUSCULAR HGB CONC 31.8 g/dl (32.0-37.0); MEAN CORPUSCULAR VOLUME 82.8 fl (82.0-101.0); MEAN PLATELET VOLUME 10.6 fl (7.4-10.4); MONOCYTE # 0.8 10^3/ul (0.3-0.9); MONOCYTES % 10.1 % (0.0-11.0); NEUTROPHIL # 6.2 10^3/ul (1.6-7.5); NEUTROPHILS % 77.8 % (39.0-77.0); PLATELET COUNT 200 10^3/UL (140-415); RED BLOOD COUNT 4.87 10^6/ul (4.20-5.40); RED CELL DISTRIBUTION WIDTH 15.1 % (11.5-14.5)
[2016-11-01] MEDS ORDERED: SOD CHLORIDE 0.9% 2,110 ML IV ONE (02:30)
[2016-11-01 02:45] LABS: URINE BLOOD (Dip) POC 2+ (NEGATIVE)
[2016-11-01] MEDS ORDERED: PIPER-TAZO 3.375 GM IV (PMX) 100 ML IVPB ONE (03:00)
[2016-11-01 03:05] VITALS: TEMP 97.4
[2016-11-01] MEDS ORDERED: LEVALBUTEROL (NEB) 1.25 MG/0.5 ML AMP HHN ONE (05:00)
[2016-11-01] MEDS ORDERED: IPRATROPIUM (NEB) 0.5 MG/2.5 ML AMP HHN ONE (05:00)
[2016-11-01] MEDS ORDERED: AMLO2.5T78 PO (06:47)
[2016-11-01] MEDS ORDERED: SIN50200 PO (06:51)
[2016-11-01] MEDS ORDERED: DONE10TA7 PO (06:52)
[2016-11-01] MEDS ORDERED: MEMA10TA16 PO (06:52)
--- NOTE | 2016-11-01 10:50 | HP ---
Date/Time of Note Date/Time of Note DATE: 11/01/16 TIME: 10:11 Assessment/Plan VTE Prophylaxis VTE Prophylaxis Intervention: LMWH Lines/Catheters Urinary Cath still in place: Yes Assessment/Plan Assessment/Plan Severe sepsis - ID consult - Dr Brooks notified UTI (urinary tract infection) Shortness of breath- none noted at present. Pneumonia- CXR showed Patchy opacification of the medial right upper lobe, unchanged since 10/12/2016. will get pulmonary consult - Dr Lee notified. - aspiration precautions - swallow eval- will keep patient npo until swallow wval done Dehydration - IVF Abnormal EKG- No ST elevation, no T inversion, PAC, LAD, LVH, incomplete right bundle branch block, inferior Q waves, prolonged QT - CARDIOLOGY CONSULT- Dr Georges notified Hx Seizures - Keppra - seizure precautions DW dr Burton HPI/ROS Admit Date/Time Admit Date/Time Hx of Present Illness SOB but sats at 96% HPI The patient is a 86-year-old female, presenting to the ER because of intermittent cough for 1 day, associated with shortness of breath. She is unable to provide any history, the history is obtained from the caregiver. She has decreased appetite, subjective fever. She does not have neck pain, chest pain, abdominal pain, vomiting, diarrhea, constipation Past medical history: Hypertension, dementia, history of CVA, seizure disorder, bilateral heel ulcer Past surgical history: None ROS All systems reviewed and are negative except as per history of present illness. Medications Home Meds Active Scripts Methylprednisolone* (Medrol* DOSE PACK) 4 Mg/Dose-Pack Tab.ds.pk, 4 MG PO . DIRECTED, #1 PACKET Prov:MORIS SHOEMAKER 10/17/16 Aspirin (Aspirin) 81 Mg Chew, 81 MG PO DAILY for 30 Days, TAB Prov:ARYAN SHOEMAKERLANA 10/17/16 Levofloxacin* (Levofloxacin*) 500 Mg Tablet, 500 MG PO DAILY for 5 Days, TAB Prov:MORIS SHOEMAKER 10/17/16 Losartan Potassium* (Cozaar*) 50 Mg Tab, 50 MG PO BID, #60 Prov:LY NOONAN MANAGER MEDICAL 02/08/15 Reported Medications Trazodone Hcl* (Trazodone Hcl*) 50 Mg Tablet, 50 MG PO HS, TAB 01/28/15 Lorazepam (Ativan) 1 Mg Tablet, 1 MG PO QHS 07/26/12 Fluoxetine Hcl* (Prozac*) 20 Mg Capsule, 20 MG PO DAILY 06/05/11 Memantine* (Namenda*) 5 Mg Tablet, 10 MG PO BID 06/05/11 Amlodipine Besylate* (Amlodipine Besylate*) 5 Mg Tablet, 5 MG PO BID 06/05/11 Allergies Allergies: Coded Allergies: No Known Allergy (Verified , 05/20/16) ROS Subjective hx not possible: pt non-verbal PMH/Family/Social Past Surgical History Past Surgical Hx: no surgical history Social History Smoking Status: Never smoker Exam/Review of Systems Vital Signs Vitals Vital Signs Date Time Temp Pulse Resp B/P Pulse Ox O2 Delivery O2 Flow Rate FiO2 11/01/16 07:27 65 22 186/56 100 Room Air 11/01/16 05:50 2.0 11/01/16 03:05 97.4 Exam Constitutional: alert, well developed Psych: nl mood/affect Eyes: nl sclera ENMT: nl external ears & nose Neck: non-tender Respiratory: diminished breath sounds Cardiovascular: nl pulses Gastrointestinal: non-tender, soft Musculoskeletal: muscle weakness Extremities: normal pulses Neurological: other Skin: other Labs Result Diagram: 11/01/16 0125 11/01/16 0125 Procedures Procedures PROCEDURE: Portable chest x-ray. CLINICAL INDICATION: Sepsis. TECHNIQUE: Portable AP view of the chest. COMPARISON: 10/12/2016. FINDINGS: Patchy opacification of the medial right upper lobe is unchanged since the prior examination. No pulmonary edema or conolidation is identified. The cardiac silhouette is magnified. No pleural effusion is seen. There is no pneumothorax. IMPRESSION: 1. Patchy opacification of the medial right upper lobe, unchanged since 2016. This is nonspecific but might represent scarring. EKG: Read by emergency physician Rate/Rhythm: Normal Sinus Rhythm 72 beats/min QRS, ST, T-waves: No ST elevation, no T inversion, PAC, LAD, LVH, incomplete right bundle branch block, inferior Q waves, prolonged QT Impression: Abnormal EKG LEYDA CAMACHO Nov 01, 2016 10:21
[2016-11-01] MEDS ORDERED: ACETAMINOPHEN 650 MG SUPP PR PRN (12:00)
[2016-11-01] MEDS: ZINC SULFATE 220 MG CAP PO SCH (12:00)
--- NOTE | 2016-11-01 12:05 | CONS ---
Date/Time of Note Date/Time of Note DATE: 11/01/16 TIME: 12:02 Assessment/Plan Assessment/Plan Additional Assessment/Plan Chest x-ray was reviewed from today which is showing a patchy infiltrate involving the right upper lobe. Assessment recommend patient; 1. Patient admitted for right upper lobe pneumonia associated with mild shortness of breath. 2. Advanced dementia. 3. History of depression, hypertension and hypothyroidism, as well as Parkinson's disease. Continue current treatment. Will obtain a follow-up chest x-ray in 48 hours. Consultation Date/Type/Reason Admit Date/Time Date of Consultation: Nov 01, 2016 Type of Consultation: Pulmonary Reason for Consultation Pulmonary consultation requested for evaluation of possible pneumonia. History presenting; patient is a 86-year-old lady who was brought into the emergency room yesterday with complaints of having cough for the last day or so associated with some shortness of breath. Upon evaluation a chest x-ray was done which is showing a right upper lobe infiltrate. The patient is very poor historian on account of what appears to be advanced dementia and history was obtained from medical records. By the time I saw the patient and ER the patient is awake unresponsive to any commands and did not appear to be any distress whatsoever. Past medical history; 1. History of hypothyroidism. 2. Hypertension. 3. Depression. 4. Parkinson's disease. 5. Dementia. Medications; were reviewed. Allergies; are none. Social history; not available. Family history, occupational history is not available. Review of systems; unable to be obtained. General exam; elderly lady, awake alert unresponsive to any commands. No distress noted. Psychological: nl mood/affect Past Surgical History Past Surgical Hx: no surgical history Social History Smoking Status: Never smoker Exam/Review of Systems Vital Signs Vitals Vital Signs Date Time Temp Pulse Resp B/P Pulse Ox O2 Delivery O2 Flow Rate FiO2 11/01/16 07:27 65 22 186/56 100 Room Air 11/01/16 05:50 2.0 11/01/16 03:05 97.4 Exam HEENT exam is; supple neck, no JVD. No lymphadenopathy. Trachea. No thyromegaly. Pharynx is clear. She is edentulous. Bilateral intraocular lens implants. No thyromegaly. Chest examination PR: Diminished but clear breath sounds bilaterally. S1-S2 audible, no murmurs. Regular rhythm. Abdomen examination; soft, nondistended. Nontender. Bowel sounds audible. No organomegaly. Extremity exam is; no peripheral edema. Pulses 1+ bilaterally. No clubbing. 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 Moves all 4 extremities spontaneously. Results Result Diagram: 11/01/16 0125 11/01/16 0125 Results 24 hrs Laboratory Tests Test 11/01/16 01:25 11/01/16 02:44 11/01/16 03:21 11/01/16 05:22 White Blood Count 8.0 # Red Blood Count 4.87 Hemoglobin 12.8 Hematocrit 40.3 Mean Corpuscular Volume 82.8 Mean Corpuscular Hemoglobin 26.3 L Mean Corpuscular Hemoglobin Concent 31.8 L Red Cell Distribution Width 15.1 H Platelet Count 200 # Mean Platelet Volume 10.6 H Neutrophils % 77.8 H Lymphocytes % 11.1 L Monocytes % 10.1 Eosinophils % 0.0 Basophils % 0.4 Nucleated Red Blood Cells % 0.0 Neutrophils # 6.2 Lymphocytes # 0.9 Monocytes # 0.8 Eosinophils # 0.0 Basophils # 0.0 Nucleated Red Blood Cells # 0.0 Prothrombin Time 13.2 Prothrombin Time Ratio 1.0 INR International Normalized Ratio 1.00 Activated Partial Thromboplast Time 40.0 H Sodium Level 140 Potassium Level 4.6 Chloride Level 103 Carbon Dioxide Level 28 Anion Gap 14 Blood Urea Nitrogen 34 H Creatinine 0.81 Glucose Level 135 Lactic Acid Level 2.2 2.4 H 2.2 Calcium Level 8.8 Total Bilirubin 0.9 Direct Bilirubin 0.00 Indirect Bilirubin 0.9 Aspartate Amino Transf (AST/SGOT) 38 Alanine Aminotransferase (ALT/SGPT) 31 Alkaline Phosphatase 113 Troponin I 0.017 Total Protein 7.5 Albumin 4.1 Globulin 3.40 H Albumin/Globulin Ratio 1.20 Bedside Urine pH (LAB) 7.0 Bedside Urine Protein (LAB) 1+ H Bedside Urine Glucose (UA) Negative Bedside Urine Ketones (LAB) Trace H Bedside Urine Blood 2+ H Bedside Urine Nitrite (LAB) Positive H Bedside Urine Leukocyte Esterase (L Trace H Medications Medications Current Medications Amlodipine Besylate (Norvasc) 2.5 mg BID PO ; Start 11/01/16 at 21:00 Aspirin (Aspirin) 81 mg DAILY PO ; Start 11/02/16 at 09:00 Carbidopa/Levodopa (Sinemet Cr (50/ 200)) 0.5 tab BID PO ; Start 11/01/16 at 21: 00 Donepezil HCl (Aricept) 10 mg DAILY PO ; Start 11/02/16 at 09:00 Fluoxetine HCl (Prozac) 20 mg DAILY PO ; Start 11/02/16 at 09:00 Lorazepam (Ativan) 1 mg QHS PO ; Start 11/01/16 at 21:00 Losartan Potassium (Cozaar) 50 mg BID PO ; Start 11/01/16 at 21:00 Memantine (Namenda) 10 mg DAILY PO ; Start 11/02/16 at 09:00 Trazodone HCl (Desyrel) 50 mg HS PO ; Start 11/01/16 at 21:00 Enoxaparin Sodium (Lovenox) 40 mg DAILY SC ; Start 11/01/16 at 10:30 Ascorbic Acid (Vitamin C) 500 mg DAILY PO ; Start 11/02/16 at 12:00 Zinc Sulfate 220 mg 220 mg DAILY PO ; Start 11/01/16 at 12:00 Dextrose/Sodium Chloride (D5-1/2ns) 1,000 ml @ 40 mls/hr Q24H IV ; Start at 11:00 Acetaminophen 650 mg 650 mg Q6H PRN VT PRN FEVER >100.2; Start 11/01/16 at 12:00 Piperacillin Sod/ Tazobactam Sod (Zosyn 3.375gm/ 100 ml (Pmx)) 100 ml @ 200 mls /hr Q6 IVPB ; Start 11/01/16 at 12:00 OSIRIS SOLORZANO Nov 01, 2016 12:05
[2016-11-01] MEDS ORDERED: LEVETIRACETAM 500 MG (PMX) 100 ML IVPB SCH (14:00)
[2016-11-01] MEDS: PIPER-TAZO 3.375 GM IV (PMX) 100 ML IVPB SCH ×2 (15:03→18:02)
[2016-11-01] MEDS: ENOXAPARIN 40 MG/0.4 ML SYG SC SCH (15:03)
[2016-11-01] MEDS: DEXTROSE 5%-0.45% NACL 1,000 ML IV SCH (15:04)
--- NOTE | 2016-11-01 18:29 | RADRPT ---
Echocardiogram Report Patient Name: RICHARD AMIN Gender: Female Date: 1930 Study Date: 01-Nov-2016 Gymnasium Teacher: Anson Mathew RDCS Location: 13 Ref. Physician: LEYDA CAMACHO Quality: Good Procedures: Transthoracic echocardiogram with complete 2D, M-Mode, and doppler examination. Indications: Shortness of breath. 2D/M Mode Doppler Measurement Value Normal Ranges Measurement Value Normal Ranges LVIDd 2D 5.0 3.5 - 5.6 cm AV Peak Amilcar 1.6 m/sec LVIDs 2D 3.0 2.1 - 4.1 cm AV Peak PG 10.7 mmHg LVPWd 2D 0.8 0.6 - 1.1 cm AI Peak PG 84.5 mmHg IVSd 2D 0.9 0.6 - 1.1 cm AI Peak Amilcar 4.6 m/sec AoR Diam 2D 3.0 2.0 - 3.7 cm AI PHT 499.0 msec EDV 2D 118.5 cm3 LVOT Peak Amilcar 1.4 m/sec ESV 2D 27.4 cm3 LVOT Peak PG 7.3 mmHg LA Dimen 2D 3.2 2.3 - 4.0 cm MV E Peak Amilcar 0.5 m/sec MV A Peak Amilcar 1.1 m/sec MV E/A 0.5 MV Decel Time 139 msec MV Decel [place] 4 MV E/A 0.5 TR Peak Amilcar 2.8 m/sec TR Peak PG 31.8 mmHg RVSP 35.0 mmHg Findings Left Ventricle: Normal left ventricular systolic function. Normal left ventricular cavity size. Normal left ventricular wall thickness. Ejection fraction is visually estimated at 65 %. Tissue Doppler/Mitral Doppler indices are consistent with impaired relaxation (Stage I diastolic dysfunction). Right Ventricle: Normal right ventricular size. Normal right ventricular systolic function. Left Atrium: The left atrium is normal in size. Right Atrium: The right atrium is normal in size. Mitral Valve: Normal appearance and function of the mitral valve with trace physiologic regurgitation. Aortic Valve: No hemodynamically significant aortic stenosis by doppler. Aortic cusps appear mildly calcified. Mild to moderate aortic valve regurgitation. Tricuspid Valve: Normal appearance of the tricuspid valve. Estimated peak PA systolic pressure 35 mmHg. There is mild tricuspid regurgitation. Pulmonic Valve: Pulmonic valve not well visualized. Pericardium: Normal pericardium with no significant pericardial effusion. Aorta: Normal aortic root. IVC: Normal size and normal respiratory collapse consistent with normal right atrial pressure. Conclusions 1.Normal left ventricular systolic function. Normal left ventricular cavity size. Normal left ventricular wall thickness. Ejection fraction is visually estimated at 65 %. Tissue Doppler/Mitral Doppler indices are consistent with impaired relaxation (Stage I diastolic dysfunction). 2.Normal appearance and function of the mitral valve with trace physiologic regurgitation. 3.No hemodynamically significant aortic stenosis by doppler. Aortic cusps appear mildly calcified. Mild to moderate aortic valve regurgitation. 4.Normal appearance of the tricuspid valve. Estimated peak PA systolic pressure 35 mmHg. There is mild tricuspid regurgitation. Electronically Signed By: Maureen Georges 01-Nov-2016 18:29:01 -0700 Patient Name: RICHARD AMIN Study Date: 01-Nov-2016 [id number]
--- NOTE | 2016-11-01 20:11 | CONS ---
Date/Time of Note Date/Time of Note DATE: 11/01/16 TIME: 20:06 Assessment/Plan Assessment/Plan Problems: (1) Fall Status: Acute (2) Hypoxia Status: Acute (3) Cough Status: Acute (4) Cystitis Status: Acute (5) Diarrhea Status: Acute (6) Abdominal pain Status: Acute (7) Dehydration Status: Acute (8) UTI (urinary tract infection) Status: Acute (9) Severe sepsis Status: Acute Additional Assessment/Plan Pt with upper chest pNA Pulm on case echo normal LVEF normal Pt family stating that she has difficulty waling and pain and weakness also when she came in she has some chest pain Trop neg EKG neg Echo normal will observer her on tele pulm f.u will get Art duplex Consultation Date/Type/Reason Admit Date/Time Date of Consultation: Nov 01, 2016 Type of Consultation: Cardiac and Vascular intervent Reason for Consultation Abnormal EKG, RBBB Hx of Present Illness Patient is 86 year 1. History of hypothyroidism. 2. Hypertension. 3. Depression. 4. Parkinson's disease. 5. Dementia. lives with daughter, came in ER with nausea, vomiting and weakness, and also has some chest pain as per daughter who gave history over the phone. right now she is fine. no complaint. interpritor used. Constitutional: no complaints Psychological: nl mood/affect Past Medical History Medical History: coronary artery disease Past Surgical History Past Surgical Hx: no surgical history Social History Smoking Status: Never smoker Exam/Review of Systems Vital Signs Vitals Vital Signs Date Time Temp Pulse Resp B/P Pulse Ox O2 Delivery O2 Flow Rate FiO2 11/01/16 19:21 60 20 190/59 95 Room Air 11/01/16 05:50 2.0 11/01/16 03:05 97.4 Exam Constitutional: alert Psych: no complaints Head: normocephalic Eyes: nl conjunctiva ENMT: nl external ears & nose Neck: supple Respiratory: clear to auscultation Cardiovascular: regular rate and rhythm Gastrointestinal: soft Extremities: normal pulses Results Result Diagram: 11/01/16 0125 11/01/16 0125 Results 24 hrs Laboratory Tests Test 11/01/16 01:25 11/01/16 02:44 11/01/16 03:21 11/01/16 05:22 White Blood Count 8.0 # Red Blood Count 4.87 Hemoglobin 12.8 Hematocrit 40.3 Mean Corpuscular Volume 82.8 Mean Corpuscular Hemoglobin 26.3 L Mean Corpuscular Hemoglobin Concent 31.8 L Red Cell Distribution Width 15.1 H Platelet Count 200 # Mean Platelet Volume 10.6 H Neutrophils % 77.8 H Lymphocytes % 11.1 L Monocytes % 10.1 Eosinophils % 0.0 Basophils % 0.4 Nucleated Red Blood Cells % 0.0 Neutrophils # 6.2 Lymphocytes # 0.9 Monocytes # 0.8 Eosinophils # 0.0 Basophils # 0.0 Nucleated Red Blood Cells # 0.0 Prothrombin Time 13.2 Prothrombin Time Ratio 1.0 INR International Normalized Ratio 1.00 Activated Partial Thromboplast Time 40.0 H Sodium Level 140 Potassium Level 4.6 Chloride Level 103 Carbon Dioxide Level 28 Anion Gap 14 Blood Urea Nitrogen 34 H Creatinine 0.81 Glucose Level 135 Lactic Acid Level 2.2 2.4 H 2.2 Calcium Level 8.8 Total Bilirubin 0.9 Direct Bilirubin 0.00 Indirect Bilirubin 0.9 Aspartate Amino Transf (AST/SGOT) 38 Alanine Aminotransferase (ALT/SGPT) 31 Alkaline Phosphatase 113 Troponin I 0.017 Total Protein 7.5 Albumin 4.1 Globulin 3.40 H Albumin/Globulin Ratio 1.20 Bedside Urine pH (LAB) 7.0 Bedside Urine Protein (LAB) 1+ H Bedside Urine Glucose (UA) Negative Bedside Urine Ketones (LAB) Trace H Bedside Urine Blood 2+ H Bedside Urine Nitrite (LAB) Positive H Bedside Urine Leukocyte Esterase (L Trace H Medications Medications Current Medications Amlodipine Besylate (Norvasc) 2.5 mg BID PO ; Start 11/01/16 at 21:00 Aspirin (Aspirin) 81 mg DAILY PO ; Start 11/02/16 at 09:00 Carbidopa/Levodopa (Sinemet Cr (50/ 200)) 0.5 tab BID PO ; Start 11/01/16 at 21: 00 Donepezil HCl (Aricept) 10 mg DAILY PO ; Start 11/02/16 at 09:00 Fluoxetine HCl (Prozac) 20 mg DAILY PO ; Start 11/02/16 at 09:00 Lorazepam (Ativan) 1 mg QHS PO ; Start 11/01/16 at 21:00 Losartan Potassium (Cozaar) 50 mg BID PO ; Start 11/01/16 at 21:00 Memantine (Namenda) 10 mg DAILY PO ; Start 11/02/16 at 09:00 Trazodone HCl (Desyrel) 50 mg HS PO ; Start 11/01/16 at 21:00 Enoxaparin Sodium (Lovenox) 40 mg DAILY SC Last administered on 11/01/16 15:03 ; Admin Dose 40 MG; Start 11/01/16 at 10:30 Ascorbic Acid (Vitamin C) 500 mg DAILY PO ; Start 11/02/16 at 12:00 Zinc Sulfate 220 mg 220 mg DAILY PO Last administered on 11/01/16 12:00; Admin Dose 220 MG; Start 11/01/16 at 12:00 Dextrose/Sodium Chloride (D5-1/2ns) 1,000 ml @ 40 mls/hr Q24H IV Last administered on 11/01/16 15:04; Admin Dose 40 MLS/HR; Start 11/01/16 at 11:00 Acetaminophen 650 mg 650 mg Q6H PRN [place] PRN FEVER >100.2; Start 11/01/16 at 12:00 Piperacillin Sod/ Tazobactam Sod 100 ml @ 200 mls/hr Q6 IVPB Last administered on 11/01/16 18:02; Admin Dose 200 MLS/HR; Start 11/01/16 at 12:00 Levetiracetam (Keppra 500 Mg/ 100ml (Pmx)) 100 ml @ 400 mls/hr BID IVPB ; Start 11/01/16 at 14:06 RUTHY PAREDES MD Nov 01, 2016 20:11
[2016-11-01] MEDS ORDERED: LORAZEPAM 1 MG TAB PO SCH (21:00)
[2016-11-01] MEDS: LOSARTAN 50 MG TAB PO SCH (21:00)
[2016-11-01] MEDS: AMLODIPINE 2.5 MG TAB PO SCH (21:00)
[2016-11-01] MEDS: traZODone 50 MG TAB PO SCH (21:00)
[2016-11-01] MEDS: CARBIDOPA/LEVODOPA 50-200 (CR) TAB PO SCH (21:00)
[2016-11-01] MEDS: LEVETIRACETAM 500 MG (PMX) 100 ML IVPB SCH (21:23)
--- NOTE | 2016-11-01 22:24 | RADRPT ---
PROCEDURE: US Lower extremity Arteries. CLINICAL INDICATION: Pain TECHNIQUE: Multiple longitudinal and transverse images of the bilateral lower extremity arteries w ere obtained with justin scale and color Doppler imaging. COMPARISON: 10/12/2016 FINDINGS: RIGHT Peak Sys Amilcar Waveform CFA90 cm/sectriphasic PSFA73 cm/secbiphasic PCOE642 cm/secbiphasic DSFA75 cm/secbiphasic POP 60 cm/secbiphasic RIV226 cm/secbiphasic DPA39 cm/secbiphasic LEFT Peak Sys Amilcar Waveform CFA72 cm/sectriphasic PSFA89 cm/secbiphasic BODL395 cm/secbiphasic DSFA67 cm/secbiphasic POP 53 cm/secbiphasic PTA34 cm/secmonophasic DPA24 cm/secmonophasic Multifocal plaque is identified. There is left greater than right proximal superficial femoral win ry stenosis with elevated flow velocities in the mid superficial femoral arteries. There is asymmet anjali left greater than right trifurcation disease below the knees. IMPRESSION: 1. Redemonstrated bilateral plaque formation with greatest stenosis of left lower extremity at the p roximal superficial femoral artery with elevated flow velocities in the mid superficial femoral win ry, increased as compared to the prior study. 2. Monophasic flow with decreased flow velocities in the left lower extremity below the knee consis tent with significant trifurcation disease and possible occlusion with reconstituted flow, unchanged pattern as compared to prior study.. RPTAT: [facility] .Prince Vanegas MD, MD Date Time Electronically viewed and signed by .Prince Vanegas MD, on 11/01/2016 22:24 .K/
[2016-11-01] MEDS: hydrALAzine 20 MG INJ IV PRN (23:28)
[2016-11-02] VITALS (15 sets, daily range): BP systolic 140–197; BP diastolic 62–80; PULSE 62–81; RESP 16–20; Ht 154.9 cm; Wt 57.1 kg
[2016-11-02] MEDS: PIPER-TAZO 3.375 GM IV (PMX) 100 ML IVPB SCH ×4 (00:39→17:14)
--- NOTE | 2016-11-02 08:51 | CONS ---
Date/Time of Note Date/Time of Note DATE: 11/02/16 TIME: 08:49 Consult Date/Type/Reason Admit Date/Time Nov 01, 2016 at 03:57 Initial Consult Date 11/01/16 Type of Consultation: Cardiac and Vascular intervent Objective Vital Signs Date Time Temp Pulse Resp B/P Pulse Ox O2 Delivery O2 Flow Rate FiO2 11/02/16 07:38 98.0 67 18 179/73 98 11/02/16 01:13 Nasal Cannula 2.0 Intake and Output 11/01/16 11/01/16 11/02/16 15:00 23:00 07:00 Intake Total 600 ml Output Total 250 ml 2000 ml Balance -250 ml -1400 ml Results/Medications Result Diagram: 11/01/16 0125 11/01/16 0125 Results 24 hrs Laboratory Tests Test 11/02/16 05:23 Prealbumin 11.4 L Medications Current Medications Amlodipine Besylate (Norvasc) 2.5 mg BID PO ; Start 11/01/16 at 21:00 Aspirin (Aspirin) 81 mg DAILY PO ; Start 11/02/16 at 09:00 Carbidopa/Levodopa (Sinemet Cr (50/ 200)) 0.5 tab BID PO ; Start 11/01/16 at 21: 00 Donepezil HCl (Aricept) 10 mg DAILY PO ; Start 11/02/16 at 09:00 Fluoxetine HCl (Prozac) 20 mg DAILY PO ; Start 11/02/16 at 09:00 Losartan Potassium (Cozaar) 50 mg BID PO ; Start 11/01/16 at 21:00 Memantine (Namenda) 10 mg DAILY PO ; Start 11/02/16 at 09:00 Trazodone HCl (Desyrel) 50 mg HS PO ; Start 11/01/16 at 21:00 Enoxaparin Sodium (Lovenox) 40 mg DAILY SC Last administered on 11/01/16 15:03 ; Admin Dose 40 MG; Start 11/01/16 at 10:30 Ascorbic Acid (Vitamin C) 500 mg DAILY PO ; Start 11/02/16 at 12:00 Zinc Sulfate 220 mg 220 mg DAILY PO Last administered on 11/01/16 12:00; Admin Dose 220 MG; Start 11/01/16 at 12:00 Dextrose/Sodium Chloride (D5-1/2ns) 1,000 ml @ 40 mls/hr Q24H IV Last administered on 11/01/16 15:04; Admin Dose 40 MLS/HR; Start 11/01/16 at 11:00 Acetaminophen 650 mg 650 mg Q6H PRN [place] PRN FEVER >100.2; Start 11/01/16 at 12:00 Piperacillin Sod/ Tazobactam Sod 100 ml @ 200 mls/hr Q6 IVPB Last administered on 11/02/16 05:13; Admin Dose 200 MLS/HR; Start 11/01/16 at 12:00 Levetiracetam (Keppra 500 Mg/ 100ml (Pmx)) 100 ml @ 400 mls/hr BID IVPB Last administered on 11/01/16 21:23; Admin Dose 400 MLS/HR; Start 11/01/16 at 14:06 Lorazepam (Ativan) 1 mg QHS IV ; Start 11/02/16 at 23:00 Hydralazine HCl (Apresoline) 20 mg Q6H PRN IV HYPERTENTION Last administered on 11/01/16 23:28; Admin Dose 20 MG; Start 11/01/16 at 23:00 Assessment/Plan Chief Complaint/Hosp Course Patient is 86 year 1. History of hypothyroidism. 2. Hypertension. 3. Depression. 4. Parkinson's disease. 5. Dementia. lives with daughter, came in ER with nausea, vomiting and weakness, and also has some chest pain as per daughter who gave history over the phone. right now she is fine. no complaint. interpritor used. Problems: Additional Assessment/Plan Patient with likely UTI and infection lethargy PAD with left SFA stenosis: Stable Out pt intervention by me once stable. Echo negative pt is undergoing abx treatment. BP contoroll on med mx will /f.u for her vascualr disease out pt. Dr Lockwood will cover me over the weekend and saturday/saturday. RUTHY PAREDES MD Nov 02, 2016 08:51
[2016-11-02] MEDS: FLUOXETINE 20 MG CAP PO SCH (09:00)
[2016-11-02] MEDS: DONEPEZIL 10 MG TAB PO SCH (09:00)
[2016-11-02] MEDS: LOSARTAN 50 MG TAB PO SCH ×2 (09:00→21:00)
[2016-11-02] MEDS: CARBIDOPA/LEVODOPA 50-200 (CR) TAB PO SCH ×2 (09:00→21:00)
[2016-11-02] MEDS: MEMANTINE 10 MG TAB PO SCH (09:00)
[2016-11-02] MEDS: AMLODIPINE 2.5 MG TAB PO SCH ×2 (09:00→21:00)
[2016-11-02] MEDS: ASPIRIN 81 MG TAB PO SCH (09:00)
[2016-11-02] MEDS: ZINC SULFATE 220 MG CAP PO SCH (09:00)
[2016-11-02] MEDS: ENOXAPARIN 40 MG/0.4 ML SYG SC SCH (09:10)
[2016-11-02] MEDS: LEVETIRACETAM 500 MG (PMX) 100 ML IVPB SCH ×2 (09:15→21:35)
[2016-11-02] MEDS: ASCORBIC ACID 500 MG TAB PO SCH (11:01)
[2016-11-02] MEDS: DEXTROSE 5%-0.45% NACL 1,000 ML IV SCH (11:18)
[2016-11-02] MEDS: hydrALAzine 20 MG INJ IV PRN ×2 (12:45→20:11)
--- NOTE | 2016-11-02 13:23 | PN ---
Date/Time of Note Date/Time of Note DATE: 11/02/16 TIME: 13:16 Assessment/Plan VTE Prophylaxis VTE Prophylaxis Intervention: SCD's Lines/Catheters IV Catheter Type (from Nrs): Peripheral IV Urinary Cath still in place: Yes Reason Cath still needed: urinary retention Assessment/Plan Assessment/Plan -Staph UTI, start patient on vancomycin. Dr. Garduno group is asked to see patient in infection disease consultation. -Right upper lobe pneumonia, continue Zosyn. -Sepsis secondary to #1 #2 -Acute respiratory insufficiency secondary to pneumonia, continue oxygen supplementation and bronchodilators. is following in pulmonology consultation -Seizure disorder, continue Keppra. -Parkinson's disease -Peripheral vascular disease -Hypertension, continue Coreg and Cozaar. Dr. Georges is following in cardiology consultation. Further recommendations based on hospital course. Plan of care discussed with Dr. Burton. Subjective 24 Hr Interval Summary Free Text/Dictation Patient is comfortable and supplemental oxygen, with episodes of hypertension, awake alert. Exam/Review of Systems Vital Signs Vitals Vital Signs Date Time Temp Pulse Resp B/P Pulse Ox O2 Delivery O2 Flow Rate FiO2 11/02/16 12:46 171/74 11/02/16 12:39 62 11/02/16 11:26 98.0 18 98 11/02/16 01:13 Nasal Cannula 2.0 Intake and Output 11/01/16 11/01/16 11/02/16 15:00 23:00 07:00 Intake Total 600 ml Output Total 250 ml 2000 ml Balance -250 ml -1400 ml Exam Constitutional: alert, oriented, other (Dementia) Psych: no complaints Head: atraumatic, normocephalic ENMT: nl external ears & nose Neck: supple Respiratory: diminished breath sounds, other (Scattered rhonchi bilaterally) Cardiovascular: nl pulses, regular rate and rhythm Gastrointestinal: non-tender, soft Genitourinary - Female: nl adnexae Extremities: normal pulses Neurological: FIELD COIL WINDER II-XII intact Results Result Diagram: 11/01/16 0125 11/01/16 0125 Results 24 hrs Laboratory Tests Test 11/02/16 05:23 Prealbumin 11.4 L Medications Medications Current Medications Amlodipine Besylate (Norvasc) 2.5 mg BID PO ; Start 11/01/16 at 21:00 Aspirin (Aspirin) 81 mg DAILY PO ; Start 11/02/16 at 09:00 Carbidopa/Levodopa (Sinemet Cr (50/ 200)) 0.5 tab BID PO ; Start 11/01/16 at 21: 00 Donepezil HCl (Aricept) 10 mg DAILY PO ; Start 11/02/16 at 09:00 Fluoxetine HCl (Prozac) 20 mg DAILY PO ; Start 11/02/16 at 09:00 Losartan Potassium (Cozaar) 50 mg BID PO ; Start 11/01/16 at 21:00 Memantine (Namenda) 10 mg DAILY PO ; Start 11/02/16 at 09:00 Trazodone HCl (Desyrel) 50 mg HS PO ; Start 11/01/16 at 21:00 Enoxaparin Sodium (Lovenox) 40 mg DAILY SC Last administered on 11/02/16 09:10 ; Admin Dose 40 MG; Start 11/01/16 at 10:30 Ascorbic Acid (Vitamin C) 500 mg DAILY PO ; Start 11/02/16 at 12:00 Zinc Sulfate 220 mg 220 mg DAILY PO Last administered on 11/01/16 12:00; Admin Dose 220 MG; Start 11/01/16 at 12:00 Dextrose/Sodium Chloride (D5-1/2ns) 1,000 ml @ 40 mls/hr Q24H IV Last administered on 11/02/16 11:18; Admin Dose 40 MLS/HR; Start 11/01/16 at 11:00 Acetaminophen 650 mg 650 mg Q6H PRN [place] PRN FEVER >100.2; Start 11/01/16 at 12:00 Piperacillin Sod/ Tazobactam Sod 100 ml @ 200 mls/hr Q6 IVPB Last administered on 11/02/16 11:18; Admin Dose 200 MLS/HR; Start 11/01/16 at 12:00 Levetiracetam (Keppra 500 Mg/ 100ml (Pmx)) 100 ml @ 400 mls/hr BID IVPB Last administered on 11/02/16 09:15; Admin Dose 400 MLS/HR; Start 11/01/16 at 14:06 Lorazepam (Ativan) 1 mg QHS IV ; Start 11/02/16 at 23:00 Hydralazine HCl (Apresoline) 20 mg Q6H PRN IV HYPERTENTION Last administered on 11/02/16t 12:45; Admin Dose 20 MG; Start 11/01/16 at 23:00 MORIS SHOEMAKER Nov 02, 2016 13:23
[2016-11-02] MEDS ORDERED: ALBUTEROL/IPRATROPIUM (NEB) 3 ML AMP HHN PRN (13:30)
[2016-11-02] MEDS ORDERED: VANCOMYCIN IV PER PHARMACY XX SCH (13:30)
[2016-11-02] MEDS ORDERED: VANCOMYCIN 1 GM in NS 250 ML IVPB ONE (14:00)
[2016-11-02] MEDS: ALBUTEROL/IPRATROPIUM (NEB) 3 ML AMP HHN SCH ×2 (14:37→19:21)
[2016-11-02] MEDS: traZODone 50 MG TAB PO SCH (21:00)
[2016-11-02] MEDS ORDERED: LORAZEPAM 2 MG INJ IV SCH (23:00)
[2016-11-03] VITALS (13 sets, daily range): BP systolic 113–174; BP diastolic 55–90; PULSE 64–90; RESP 15–20
[2016-11-03] MEDS: PIPER-TAZO 3.375 GM IV (PMX) 100 ML IVPB SCH ×4 (00:08→21:36)
[2016-11-03] MEDS: ALBUTEROL/IPRATROPIUM (NEB) 3 ML AMP HHN SCH ×4 (02:04→19:24)
[2016-11-03] MEDS: VANCOMYCIN 500MG/NS (PMX) 100 ML IVPB SCH ×2 (02:19→15:13)
[2016-11-03 06:27] LABS: ADD SCAN DIFF NO
[2016-11-03 07:20] LABS: CREATININE 0.58 mg/dl (0.44-1.00)
[2016-11-03 07:21] LABS: CALCIUM 7.6 mg/dl (8.4-10.2); EOSINOPHILS % 0.2 % (0.0-7.0); HEMATOCRIT 33.8 % (37.0-47.0); HEMOGLOBIN 10.5 g/dl (12.0-16.0); LYMPHOCYTES # 1.3 10^3/ul (0.8-2.9); LYMPHOCYTES % 20.5 % (15.0-51.0); MEAN CORPUSCULAR HEMOGLOBIN 25.5 pg (29.0-33.0); MEAN CORPUSCULAR HGB CONC 31.1 g/dl (32.0-37.0); MEAN CORPUSCULAR VOLUME 82.2 fl (82.0-101.0); MEAN PLATELET VOLUME 10.7 fl (7.4-10.4); MONOCYTE # 0.7 10^3/ul (0.3-0.9); MONOCYTES % 10.6 % (0.0-11.0); NEUTROPHIL # 4.2 10^3/ul (1.6-7.5); NEUTROPHILS % 68.4 % (39.0-77.0); PLATELET COUNT 152 10^3/UL (140-415); RED BLOOD COUNT 4.11 10^6/ul (4.20-5.40); RED CELL DISTRIBUTION WIDTH 15.3 % (11.5-14.5); WHITE BLOOD COUNT 6.1 10^3/ul (4.8-10.8)
[2016-11-03 07:53] LABS: POTASSIUM 2.8 mmol/L (3.5-5.1)
[2016-11-03] MEDS ORDERED: POTASSIUM CHLORIDE 20 MEQ POWDER FOR ORAL SOLN PO ONE (08:30)
[2016-11-03] MEDS ORDERED: POTASSIUM CHLORIDE 250 ML IVPB ONE (08:30)
[2016-11-03] MEDS: ASPIRIN 81 MG TAB PO SCH (09:00)
[2016-11-03] MEDS: AMLODIPINE 2.5 MG TAB PO SCH ×2 (09:00→21:37)
[2016-11-03] MEDS: ASCORBIC ACID 500 MG TAB PO SCH (09:00)
[2016-11-03] MEDS: ZINC SULFATE 220 MG CAP PO SCH (09:00)
[2016-11-03] MEDS: MEMANTINE 10 MG TAB PO SCH (09:00)
[2016-11-03] MEDS: DONEPEZIL 10 MG TAB PO SCH (09:00)
[2016-11-03] MEDS: LOSARTAN 50 MG TAB PO SCH ×2 (09:00→21:37)
[2016-11-03] MEDS: CARBIDOPA/LEVODOPA 50-200 (CR) TAB PO SCH ×2 (09:00→21:36)
[2016-11-03] MEDS: FLUOXETINE 20 MG CAP PO SCH (09:00)
[2016-11-03] MEDS: LEVETIRACETAM 500 MG (PMX) 100 ML IVPB SCH ×2 (09:45→21:36)
[2016-11-03] MEDS: ENOXAPARIN 40 MG/0.4 ML SYG SC SCH (09:48)
[2016-11-03] MEDS: DEXTROSE 5%-0.45% NACL 1,000 ML IV SCH (11:00)
--- NOTE | 2016-11-03 11:36 | PN ---
Date/Time of Note Date/Time of Note DATE: 11/03/16 TIME: 11:29 Assessment/Plan VTE Prophylaxis VTE Prophylaxis Intervention: SCD's Lines/Catheters IV Catheter Type (from Nrs): Peripheral IV Urinary Cath still in place: Yes Assessment/Plan Assessment/Plan -Staph UTI, start patient on vancomycin. Dr. Garduno group is asked to see patient in infection disease consultation. -Right upper lobe pneumonia, continue Zosyn. - aspiration precautions -Sepsis secondary to #1 #2 -Acute respiratory insufficiency secondary to pneumonia, continue oxygen supplementation and bronchodilators. is following in pulmonology consultation -Seizure disorder, continue Keppra. -Parkinson's disease -Peripheral vascular disease -Hypertension, continue Coreg and Cozaar. Dr. Georges is following in cardiology consultation - Dysphagia- failed swallow study, not a good candidate for video swallow study per speech therapist, patient will get NGT for feeding/meds Further recommendations based on hospital course. Plan of care discussed with Dr. Burton. Subjective 24 Hr Interval Summary Free Text/Dictation nad, failed swallow study, not a good candidate for video swallow study per speech therapist, patient will get NGT for feeding/medsNAD, dw staff Subjective hx not possible: pt non-verbal Constitutional: requiring IVF Exam/Review of Systems Vital Signs Vitals Vital Signs Date Time Temp Pulse Resp B/P Pulse Ox O2 Delivery O2 Flow Rate FiO2 11/03/16 08:06 97.2 71 18 155/65 98 11/03/16 07:36 2.0 11/03/16 07:36 Nasal Cannula 11/03/16 02:04 28 Intake and Output 11/02/16 11/02/16 11/03/16 15:00 23:00 07:00 Intake Total 100 ml 850 ml 580 ml Output Total 800 ml 400 ml Balance 100 ml 50 ml 180 ml Exam Constitutional: frail, non-verbal Psych: nl mood/affect Head: normocephalic Eyes: nl sclera ENMT: nl external ears & nose Neck: non-tender Respiratory: diminished breath sounds Cardiovascular: nl pulses Gastrointestinal: non-tender, soft Musculoskeletal: muscle weakness Extremities: normal pulses Neurological: confused Skin: other Lymph: nontender Results Result Diagram: 11/03/16 0535 11/03/16 0535 Results 24 hrs Laboratory Tests Test 11/03/16 05:35 White Blood Count 6.1 # Red Blood Count 4.11 L Hemoglobin 10.5 L Hematocrit 33.8 L Mean Corpuscular Volume 82.2 Mean Corpuscular Hemoglobin 25.5 L Mean Corpuscular Hemoglobin Concent 31.1 L Red Cell Distribution Width 15.3 H Platelet Count 152 # Mean Platelet Volume 10.7 H Neutrophils % 68.4 Lymphocytes % 20.5 Monocytes % 10.6 Eosinophils % 0.2 Basophils % 0.0 Nucleated Red Blood Cells % 0.0 Neutrophils # 4.2 Lymphocytes # 1.3 Monocytes # 0.7 Eosinophils # 0.0 Basophils # 0.0 Nucleated Red Blood Cells # 0.0 Sodium Level 138 Potassium Level 2.8 *L Chloride Level 104 Carbon Dioxide Level 24 Anion Gap 13 Blood Urea Nitrogen 11 Creatinine 0.58 Glucose Level 103 Calcium Level 7.6 L Medications Medications Current Medications Amlodipine Besylate (Norvasc) 2.5 mg BID PO ; Start 11/01/16 at 21:00 Aspirin (Aspirin) 81 mg DAILY PO ; Start 11/02/16 at 09:00 Carbidopa/Levodopa (Sinemet Cr (50/ 200)) 0.5 tab BID PO ; Start 11/01/16 at 21: 00 Donepezil HCl (Aricept) 10 mg DAILY PO ; Start 11/02/16 at 09:00 Fluoxetine HCl (Prozac) 20 mg DAILY PO ; Start 11/02/16 at 09:00 Losartan Potassium (Cozaar) 50 mg BID PO ; Start 11/01/16 at 21:00 Memantine (Namenda) 10 mg DAILY PO ; Start 11/02/16 at 09:00 Trazodone HCl (Desyrel) 50 mg HS PO ; Start 11/01/16 at 21:00 Enoxaparin Sodium (Lovenox) 40 mg DAILY SC Last administered on 11/03/16 09:48 ; Admin Dose 40 MG; Start 11/01/16 at 10:30 Ascorbic Acid (Vitamin C) 500 mg DAILY PO ; Start 11/02/16 at 12:00 Zinc Sulfate 220 mg 220 mg DAILY PO Last administered on 11/01/16 12:00; Admin Dose 220 MG; Start 11/01/16 at 12:00 Dextrose/Sodium Chloride (D5-1/2ns) 1,000 ml @ 40 mls/hr Q24H IV Last administered on 11/02/16 11:18; Admin Dose 40 MLS/HR; Start 11/01/16 at 11:00 Acetaminophen 650 mg 650 mg Q6H PRN [place] PRN FEVER >100.2; Start 11/01/16 at 12:00 Levetiracetam (Keppra 500 Mg/ 100ml (Pmx)) 100 ml @ 400 mls/hr BID IVPB Last administered on 11/03/16 09:45; Admin Dose 400 MLS/HR; Start 11/01/16 at 14:06 Lorazepam (Ativan) 1 mg QHS IV Last administered on 11/02/16 23:26; Admin Dose 1 MG; Start 11/02/16 at 23:00 Hydralazine HCl 20 mg 20 mg Q6H PRN IV HYPERTENTION Last administered on 20:11; Admin Dose 20 MG; Start 11/01/16 at 23:00 Vancomycin HCl 100 ml @ 100 mls/hr Q12H IVPB Last administered on 11/03/16 02: 19; Admin Dose 100 MLS/HR; Start 11/03/16 at 02:00 Potassium Chloride 250 ml @ 62.5 mls/hr ONCE ONCE IVPB Last administered on 08:53; Admin Dose 62.5 MLS/HR; Start 11/03/16 at 08:30; Stop 11/03/16 at 12:29 Piperacillin Sod/ Tazobactam Sod (Zosyn 3.375gm/ 100 ml (Pmx)) 100 ml @ 200 mls /hr Q8 IVPB ; Start 11/03/16 at 14:00 Miscellaneous Information (*Rx Drug Level Order Reminder*) VANCOMYCIN TROUGH 11/04 AT 0100 ONCE ONCE XX ; Start 11/04/16 at 01:00; Stop 11/04/16 at 01:01 LEYDA CAMACHO Nov 03, 2016 11:36
--- NOTE | 2016-11-03 13:35 | RADRPT ---
AMENDMENT: 11/03/2016 1:58:05 PM Andrea Frank M.d A nasogastric tube is seen in the gastric lumen in satisfactory location. PROCEDURE: XR Abdomen. CLINICAL INDICATION: Abdominal pain. TECHNIQUE: AP abdomen x-ray. COMPARISON: None. FINDINGS: There is no evidence of obstruction. There are no abnormal calcifications overlying the urinary tra cts. No osseous lesion is seen. Cholecystectomy clips are seen. IMPRESSION: Nonobstructive bowel gas pattern. RPTAT: HPN[facility] Physician Romario Date Time Electronically viewed and signed by Physician Romario on 11/03/2016 13:58 /
[2016-11-03] MEDS ORDERED: POTASSIUM CHLORIDE (SR) 20 MEQ TAB PO SCH (15:00)
[2016-11-03] MEDS: hydrALAzine 20 MG INJ IV PRN (15:24)
[2016-11-03] MEDS ORDERED: POTASSIUM CHLORIDE 20 MEQ POWDER FOR ORAL SOLN PO SCH (15:30)
--- NOTE | 2016-11-03 15:31 | CONS ---
Date/Time of Note Date/Time of Note DATE: 11/03/16 TIME: 15:26 Assessment/Plan Assessment/Plan Additional Assessment/Plan Atypical chest pain Pneumonia Hypertension. Hypothyroidism Depression. Parkinson's disease Dementia. Ruled out for ACS Hemodynamically stable Continue Losartan and Amlodipine Continue Antibiotics Continue Sinemet Continue Aricept and Namenda Continue Trazodone Replete Potassium Consultation Date/Type/Reason Admit Date/Time Nov 01, 2016 at 03:57 Constitutional: requiring IVF Psychological: nl mood/affect Past Medical History Medical History: coronary artery disease Past Surgical History Past Surgical Hx: no surgical history Social History Smoking Status: Never smoker Exam/Review of Systems Vital Signs Vitals Vital Signs Date Time Temp Pulse Resp B/P Pulse Ox O2 Delivery O2 Flow Rate FiO2 11/03/16 14:09 77 26 95 Nasal Cannula 2.0 11/03/16 12:05 97.0 158/90 11/03/16 02:04 28 Intake and Output 11/02/16 11/02/16 11/03/16 15:00 23:00 07:00 Intake Total 100 ml 850 ml 580 ml Output Total 800 ml 400 ml Balance 100 ml 50 ml 180 ml Exam Psych: no complaints Head: atraumatic, normocephalic Neck: non-tender, supple Respiratory: clear to auscultation Cardiovascular: regular rate and rhythm Gastrointestinal: nl liver, spleen, non-tender, soft Extremities: normal pulses Results Result Diagram: 11/03/16 0535 11/03/16 0535 Results 24 hrs Laboratory Tests Test 11/03/16 05:35 White Blood Count 6.1 # Red Blood Count 4.11 L Hemoglobin 10.5 L Hematocrit 33.8 L Mean Corpuscular Volume 82.2 Mean Corpuscular Hemoglobin 25.5 L Mean Corpuscular Hemoglobin Concent 31.1 L Red Cell Distribution Width 15.3 H Platelet Count 152 # Mean Platelet Volume 10.7 H Neutrophils % 68.4 Lymphocytes % 20.5 Monocytes % 10.6 Eosinophils % 0.2 Basophils % 0.0 Nucleated Red Blood Cells % 0.0 Neutrophils # 4.2 Lymphocytes # 1.3 Monocytes # 0.7 Eosinophils # 0.0 Basophils # 0.0 Nucleated Red Blood Cells # 0.0 Sodium Level 138 Potassium Level 2.8 *L Chloride Level 104 Carbon Dioxide Level 24 Anion Gap 13 Blood Urea Nitrogen 11 Creatinine 0.58 Glucose Level 103 Calcium Level 7.6 L Medications Medications Current Medications Amlodipine Besylate (Norvasc) 2.5 mg BID PO ; Start 11/01/16 at 21:00 Aspirin (Aspirin) 81 mg DAILY PO ; Start 11/02/16 at 09:00 Carbidopa/Levodopa (Sinemet Cr (50/ 200)) 0.5 tab BID PO ; Start 11/01/16 at 21: 00 Donepezil HCl (Aricept) 10 mg DAILY PO ; Start 11/02/16 at 09:00 Fluoxetine HCl (Prozac) 20 mg DAILY PO ; Start 11/02/16 at 09:00 Losartan Potassium (Cozaar) 50 mg BID PO ; Start 11/01/16 at 21:00 Memantine (Namenda) 10 mg DAILY PO ; Start 11/02/16 at 09:00 Trazodone HCl (Desyrel) 50 mg HS PO ; Start 11/01/16 at 21:00 Enoxaparin Sodium (Lovenox) 40 mg DAILY SC Last administered on 11/03/16 09:48 ; Admin Dose 40 MG; Start 11/01/16 at 10:30 Ascorbic Acid (Vitamin C) 500 mg DAILY PO ; Start 11/02/16 at 12:00 Zinc Sulfate 220 mg 220 mg DAILY PO Last administered on 11/01/16 12:00; Admin Dose 220 MG; Start 11/01/16 at 12:00 Dextrose/Sodium Chloride (D5-1/2ns) 1,000 ml @ 40 mls/hr Q24H IV Last administered on 11/02/16 11:18; Admin Dose 40 MLS/HR; Start 11/01/16 at 11:00 Acetaminophen 650 mg 650 mg Q6H PRN ID PRN FEVER >100.2; Start 11/01/16 at 12:00 Levetiracetam (Keppra 500 Mg/ 100ml (Pmx)) 100 ml @ 400 mls/hr BID IVPB Last administered on 11/03/16 09:45; Admin Dose 400 MLS/HR; Start 11/01/16 at 14:06 Lorazepam (Ativan) 1 mg QHS IV Last administered on 11/02/16 23:26; Admin Dose 1 MG; Start 11/02/16 at 23:00 Hydralazine HCl 20 mg 20 mg Q6H PRN IV HYPERTENTION Last administered on 15:24; Admin Dose 20 MG; Start 11/01/16 at 23:00 Vancomycin HCl 100 ml @ 100 mls/hr Q12H IVPB Last administered on 11/03/16 15: 13; Admin Dose 100 MLS/HR; Start 11/03/16 at 02:00 Piperacillin Sod/ Tazobactam Sod (Zosyn 3.375gm/ 100 ml (Pmx)) 100 ml @ 200 mls /hr Q8 IVPB Last administered on 11/03/16 14:41; Admin Dose 200 MLS/HR; Start 11/03/16 at 14:00 Miscellaneous Information (*Rx Drug Level Order Reminder*) VANCOMYCIN TROUGH 11/04 AT 0100 ONCE ONCE XX ; Start 11/04/16 at 01:00; Stop 11/04/16 at 01:01 Potassium Chloride (Potassium Chloride Pwd/Soln) 20 meq ONCE PO Last administered on 11/03/16 15:22; Admin Dose 20 MEQ; Start 11/03/16 at 15:30; Stop 11/03/16 at 18:00 PELON WALSH M.D. Nov 03, 2016 15:31
[2016-11-03] MEDS ORDERED: ACETAMINOPHEN 325 MG TAB PO PRN (16:30)
[2016-11-03 16:41] LABS: Allen Test ACCEPTAB; Arterial Base Excess -0.6 mmol/L (-3.0-3); Arterial COHb 0.3 % (0.0-3.0); Arterial Fraction of Oxyhgb 98.2 % (93.0-99.0); Arterial HCO3 23.6 mmol/L (22.0-26.0); Arterial MetHb 0.5 % (0.0-1.5); Arterial Total Hemglobin 12.2 g/dl (12.0-18.0); MODE MASK - SIMPLE
[2016-11-03] MEDS ORDERED: NACL 3% FOR INHALATION 15 ML NEBU NEB ONE (17:30)
--- NOTE | 2016-11-03 17:43 | RADRPT ---
PROCEDURE: CT brain without contrast CLINICAL INDICATION: Altered mental status TECHNIQUE: A CT of the brain was performed utilizing axial sections from the skull base through th e vertex without contrast. Sagittal and coronal images were also reformatted. The exam CTDIvol = 44. 68 mGy and DLP = 720.23 mGy-cm. COMPARISON: 01/13/2016 FINDINGS: No acute intracranial hemorrhage is identified. There is no mass effect or midline shift. No extra -axial fluid collection is seen. The ventricles and sulci are larger in size and configuration for the patient's provided age of 86 years consistent with advanced generalized atrophy. Extensive low attenuation of the subcortical and periventricular white matter is nonspecific but most likely the s equela of chronic small vessel ischemia similar to the prior examination. Encephalomalacia involvin g the left parasagittal parietal lobe consistent with an old infarct is again noted. An ovoid chron ic lacunar appearing infarct in the right temporal lobe adjacent to the temporal horn is also unchan ged. Moreno-white differentiation is preserved with no findings to suggest an acute ischemic infarct. The fourth ventricle is midline and there is no density alteration within the jordan or cerebellum. Demineralization is again noted without acute osseous abnormality. Sphenoid, ethmoid and right maxi llary sinus disease appears slightly worse. The mastoid air cells are clear. Extensive atheroscler otic calcification of the cavernous internal carotid arteries is again seen. RPTAT:HJJR IMPRESSION: 1. No evidence of acute intracranial abnormality or mass effect. 2. Severe generalized atrophy with extensive chronic small vessel ischemic white matter disease is stable compared to the prior exam of 01/13/2016. 3. Chronic-appearing right temporal lobe infarct adjacent to the temporal horn and left parasagitta l parietal lobe cortical infarct are again noted. 4. Worsening paranasal sinus disease. Physician Kelly Date Time Electronically viewed and signed by Physician Kelly on 11/03/2016 17:43 /
--- NOTE | 2016-11-03 21:03 | RADRPT ---
PROCEDURE: XR Chest. CLINICAL INDICATION: Shortness of breath. TECHNIQUE: Single frontal view. COMPARISON: 11/01/2016. FINDINGS: A nasogastric tube has been inserted with the tip in the stomach. There is mild air space disease i n the right upper lobe, unchanged. The lungs are otherwise clear. There is elevation of the left h emidiaphragm. The heart size is normal. There is calcification in the aorta consistent with atherosclerosis. There is no pleural effusion. There is no pneumothorax. IMPRESSION: 1. Nasogastric tube tip in the stomach. 2. Mild air space disease in the right upper lobe, unchanged. 3. Elevation of the left hemidiaphragm. 4. Atherosclerosis. RPTAT: QQ .Mauri Henry MD, MD Date Time Electronically viewed and signed by .Mauri Henry MD, MD on 11/03/2016 21:03 .R/
[2016-11-03] MEDS: traZODone 50 MG TAB PO SCH (21:36)
[2016-11-04] VITALS (12 sets, daily range): BP systolic 135–183; BP diastolic 58–74; PULSE 59–75; RESP 18–20
[2016-11-04] MEDS: ALBUTEROL/IPRATROPIUM (NEB) 3 ML AMP HHN SCH ×4 (01:06→20:32)
[2016-11-04] MEDS: VANCOMYCIN 1 GM in NS 250 ML IVPB SCH ×2 (03:00→15:17)
[2016-11-04] MEDS: PIPER-TAZO 3.375 GM IV (PMX) 100 ML IVPB SCH ×3 (05:21→21:21)
[2016-11-04 06:50] LABS: ADD SCAN DIFF NO
[2016-11-04 06:51] LABS: BASOPHILS % 0.2 % (0.0-2.0); EOSINOPHILS # 0.2 10^3/ul (0.0-0.5); EOSINOPHILS % 3.3 % (0.0-7.0); HEMATOCRIT 34.8 % (37.0-47.0); HEMOGLOBIN 10.7 g/dl (12.0-16.0); LYMPHOCYTES # 1.4 10^3/ul (0.8-2.9); MEAN CORPUSCULAR HEMOGLOBIN 25.7 pg (29.0-33.0); MEAN CORPUSCULAR HGB CONC 30.7 g/dl (32.0-37.0); MEAN CORPUSCULAR VOLUME 83.7 fl (82.0-101.0); MEAN PLATELET VOLUME 10.2 fl (7.4-10.4); MONOCYTE # 0.7 10^3/ul (0.3-0.9); NEUTROPHIL # 3.5 10^3/ul (1.6-7.5); NEUTROPHILS % 60.2 % (39.0-77.0); PLATELET COUNT 137 10^3/UL (140-415); RED BLOOD COUNT 4.16 10^6/ul (4.20-5.40); RED CELL DISTRIBUTION WIDTH 15.6 % (11.5-14.5); WHITE BLOOD COUNT 5.8 10^3/ul (4.8-10.8)
[2016-11-04 07:21] LABS: CALCIUM 7.8 mg/dl (8.4-10.2); CREATININE 0.52 mg/dl (0.44-1.00); POTASSIUM 3.6 mmol/L (3.5-5.1)
[2016-11-04] MEDS: hydrALAzine 20 MG INJ IV PRN (07:54)
[2016-11-04] MEDS: DONEPEZIL 10 MG TAB PO SCH (08:36)
[2016-11-04] MEDS: ZINC SULFATE 220 MG CAP PO SCH (08:37)
[2016-11-04] MEDS: CARBIDOPA/LEVODOPA 50-200 (CR) TAB PO SCH ×2 (08:37→21:00)
[2016-11-04] MEDS: AMLODIPINE 2.5 MG TAB PO SCH ×2 (08:37→21:00)
[2016-11-04] MEDS: ASCORBIC ACID 500 MG TAB PO SCH (08:37)
[2016-11-04] MEDS: LOSARTAN 50 MG TAB PO SCH ×2 (08:37→21:00)
[2016-11-04] MEDS: FLUOXETINE 20 MG CAP PO SCH (08:37)
[2016-11-04] MEDS: MEMANTINE 10 MG TAB PO SCH (08:37)
[2016-11-04] MEDS: ASPIRIN 81 MG TAB PO SCH (08:37)
[2016-11-04] MEDS: ENOXAPARIN 40 MG/0.4 ML SYG SC SCH (09:14)
[2016-11-04] MEDS: LEVETIRACETAM 500 MG (PMX) 100 ML IVPB SCH ×2 (10:10→21:21)
[2016-11-04] MEDS: DEXTROSE 5%-0.45% NACL 1,000 ML IV SCH (13:44)
--- NOTE | 2016-11-04 14:16 | CONS ---
Date/Time of Note Date/Time of Note DATE: 11/04/16 TIME: 14:11 Assessment/Plan Assessment/Plan Additional Assessment/Plan Atypical chest pain Pneumonia Hypertension. Hypothyroidism Depression. Parkinson's disease Dementia. UTI Dysphagia Ruled out for ACS Hemodynamically stable Continue Losartan and Amlodipine Continue Antibiotics Continue Sinemet Continue Aricept and Namenda Continue Trazodone Continue antibiotics Consultation Date/Type/Reason Admit Date/Time Nov 01, 2016 at 03:57 Initial Consult Date 11/01/16 Type of Consultation: Cardiac and Vascular intervent Exam/Review of Systems Vital Signs Vitals Vital Signs Date Time Temp Pulse Resp B/P Pulse Ox O2 Delivery O2 Flow Rate FiO2 11/04/16 13:24 99.0 11/04/16 12:04 75 11/04/16 11:54 18 152/67 98 11/04/16 08:06 Nasal Cannula 2.0 11/03/16 02:04 28 Intake and Output 11/03/16 11/03/16 11/04/16 15:00 23:00 07:00 Intake Total 1460 ml 1000 ml Output Total 650 ml 800 ml Balance 810 ml 200 ml Exam Head: atraumatic, normocephalic Neck: non-tender, supple Respiratory: clear to auscultation Cardiovascular: regular rate and rhythm Gastrointestinal: nl liver, spleen, non-tender, soft Extremities: normal pulses Results Result Diagram: 11/04/16 0540 11/04/16 0540 Results 24 hrs Laboratory Tests Test 11/03/16 16:11 11/04/16 00:52 11/04/16 05:40 Blood Gas Specimen Source Blood arterial Arterial Blood Date Drawn 11/03/2016 4:20:21 PM Arterial Blood pH (Temp corrected) 7.422 Arterial Blood pCO2 (Temp correct) 37.0 Arterial Blood pO2 (Temp corrected) 205.5 H Arterial Blood HCO3 23.6 Arterial Blood Base Excess -0.6 Arterial Blood Oxygen Saturation 99.0 Wilbert Test ACCEPTAB Arterial Blood Gas Puncture Site Right Radial Arterial Blood Carboxyhemoglobin 0.3 Arterial Blood Methemoglobin 0.5 Blood Gas A-a O2 Differential 29.9 H Oxyhemoglobin Percent 98.2 Total Hemoglobin 12.2 Blood Gas Temperature 37.0 Blood Gas Actual Respiration Rate 26 Blood Gas Modality MASK - SIMPLE FiO2 39.0 Blood Gas Notified Whom TIM RIVERA Blood Gas Notified Time 11/03/2016 4:41:33 PM Vancomycin Level Trough 6.8 L White Blood Count 5.8 Red Blood Count 4.16 L Hemoglobin 10.7 L Hematocrit 34.8 L Mean Corpuscular Volume 83.7 Mean Corpuscular Hemoglobin 25.7 L Mean Corpuscular Hemoglobin Concent 30.7 L Red Cell Distribution Width 15.6 H Platelet Count 137 L Mean Platelet Volume 10.2 Neutrophils % 60.2 Lymphocytes % 24.0 Monocytes % 12.0 H Eosinophils % 3.3 Basophils % 0.2 Nucleated Red Blood Cells % 0.0 Neutrophils # 3.5 Lymphocytes # 1.4 Monocytes # 0.7 Eosinophils # 0.2 Basophils # 0.0 Nucleated Red Blood Cells # 0.0 Sodium Level 135 Potassium Level 3.6 Chloride Level 107 Carbon Dioxide Level 24 Anion Gap 8 Blood Urea Nitrogen 11 Creatinine 0.52 Glucose Level 88 Calcium Level 7.8 L Medications Medications Current Medications Amlodipine Besylate (Norvasc) 2.5 mg BID PO Last administered on 11/03/16 21:37 ; Admin Dose 2.5 MG; Start 11/01/16 at 21:00 Aspirin (Aspirin) 81 mg DAILY PO ; Start 11/02/16 at 09:00 Carbidopa/Levodopa (Sinemet Cr (50/ 200)) 0.5 tab BID PO Last administered on 21:36; Admin Dose 0.5 TAB; Start 11/01/16 at 21:00 Donepezil HCl (Aricept) 10 mg DAILY PO ; Start 11/02/16 at 09:00 Fluoxetine HCl (Prozac) 20 mg DAILY PO ; Start 11/02/16 at 09:00 Losartan Potassium (Cozaar) 50 mg BID PO Last administered on 11/03/16 21:37; Admin Dose 50 MG; Start 11/01/16 at 21:00 Memantine (Namenda) 10 mg DAILY PO ; Start 11/02/16 at 09:00 Trazodone HCl (Desyrel) 50 mg HS PO Last administered on 11/03/16 21:36; Admin Dose 50 MG; Start 11/01/16 at 21:00 Enoxaparin Sodium (Lovenox) 40 mg DAILY SC Last administered on 11/04/16 09:14 ; Admin Dose 40 MG; Start 11/01/16 at 10:30 Ascorbic Acid (Vitamin C) 500 mg DAILY PO ; Start 11/02/16 at 12:00 Zinc Sulfate 220 mg 220 mg DAILY PO Last administered on 11/01/16 12:00; Admin Dose 220 MG; Start 11/01/16 at 12:00 Dextrose/Sodium Chloride (D5-1/2ns) 1,000 ml @ 70 mls/hr [id number] IV Last administered on 11/04/16 13:44; Admin Dose 40 MLS/HR; Start 11/01/16 at 11:00 Acetaminophen 650 mg 650 mg Q6H PRN IN PRN FEVER >100.2 Last administered on 13:44; Admin Dose 650 MG; Start 11/01/16 at 12:00 Levetiracetam (Keppra 500 Mg/ 100ml (Pmx)) 100 ml @ 400 mls/hr BID IVPB Last administered on 11/04/16 10:10; Admin Dose 400 MLS/HR; Start 11/01/16 at 14:06 Hydralazine HCl 20 mg 20 mg Q6H PRN IV HYPERTENTION Last administered on 07:54; Admin Dose 20 MG; Start 11/01/16 at 23:00 Piperacillin Sod/ Tazobactam Sod (Zosyn 3.375gm/ 100 ml (Pmx)) 100 ml @ 200 mls /hr Q8 IVPB Last administered on 11/04/16 13:44; Admin Dose 200 MLS/HR; Start 11/03/16 at 14:00 Acetaminophen 650 mg 650 mg Q6H PRN PO PAIN AND OR ELEVATED TEMP Last administered on 11/03/16 16:24; Admin Dose 650 MG; Start 11/03/16 at 16:30 Vancomycin HCl (Vancocin) 250 ml @ 125 mls/hr Q12H IVPB Last administered on 03:00; Admin Dose 125 MLS/HR; Start 11/04/16 at 03:00 Miscellaneous Information (*Rx Drug Level Order Reminder*) VANCOMYCIN TROUGH AT 1400 ONCE ONCE XX ; Start 11/05/16 at 14:00; Stop 11/05/16 at 14:01 PELON WALSH M.D. Nov 04, 2016 14:16
--- NOTE | 2016-11-04 15:31 | PN ---
Date/Time of Note Date/Time of Note DATE: 11/04/16 TIME: 15:26 Assessment/Plan VTE Prophylaxis VTE Prophylaxis Intervention: other Lines/Catheters IV Catheter Type (from [facility]): Peripheral IV Urinary Cath still in place: Yes Assessment/Plan Assessment/Plan -Staph UTI, start patient on vancomycin. - per Dr. Garduno in infection disease consultation. -Right upper lobe pneumonia, continue Zosyn. - aspiration precautions -Sepsis secondary to #1 #2 -Acute respiratory insufficiency secondary to pneumonia, continue oxygen supplementation and bronchodilators. is following in pulmonology consultation -Seizure disorder, continue Keppra. -Parkinson's disease -Peripheral vascular disease -Hypertension, continue Coreg and Cozaar. Dr. Georges is following in cardiology consultation - Dysphagia- failed swallow study, not a good candidate for video swallow study per speech therapist, patient will get NGT for feeding/meds - pulled NGT, family refused to have NGT for patient. Further recommendations based on hospital course. Plan of care discussed with Dr. Burton. Subjective 24 Hr Interval Summary Constitutional: requiring O2 Exam/Review of Systems Vital Signs Vitals Vital Signs Date Time Temp Pulse Resp B/P Pulse Ox O2 Delivery O2 Flow Rate FiO2 11/04/16 15:22 2.0 11/04/16 14:19 73 20 96 Nasal Cannula 11/04/16 13:24 99.0 11/04/16 11:54 152/67 11/03/16 02:04 28 Intake and Output 11/03/16 11/03/16 11/04/16 15:00 23:00 07:00 Intake Total 1460 ml 1000 ml Output Total 650 ml 800 ml Balance 810 ml 200 ml Exam Constitutional: alert Psych: nl mood/affect Eyes: nl sclera ENMT: nl external ears & nose Respiratory: diminished breath sounds Cardiovascular: nl pulses Gastrointestinal: non-tender, soft Results Result Diagram: 11/04/16 0540 11/04/16 0540 Results 24 hrs Laboratory Tests Test 11/03/16 16:11 11/04/16 00:52 11/04/16 05:40 Blood Gas Specimen Source Blood arterial Arterial Blood Date Drawn 11/03/2016 4:20:21 PM Arterial Blood pH (Temp corrected) 7.422 Arterial Blood pCO2 (Temp correct) 37.0 Arterial Blood pO2 (Temp corrected) 205.5 H Arterial Blood HCO3 23.6 Arterial Blood Base Excess -0.6 Arterial Blood Oxygen Saturation 99.0 Wilbert Test ACCEPTAB Arterial Blood Gas Puncture Site Right Radial Arterial Blood Carboxyhemoglobin 0.3 Arterial Blood Methemoglobin 0.5 Blood Gas A-a O2 Differential 29.9 H Oxyhemoglobin Percent 98.2 Total Hemoglobin 12.2 Blood Gas Temperature 37.0 Blood Gas Actual Respiration Rate 26 Blood Gas Modality MASK - SIMPLE FiO2 39.0 Blood Gas Notified Whom TIM RT Blood Gas Notified Time 11/03/2016 4:41:33 PM Vancomycin Level Trough 6.8 L White Blood Count 5.8 Red Blood Count 4.16 L Hemoglobin 10.7 L Hematocrit 34.8 L Mean Corpuscular Volume 83.7 Mean Corpuscular Hemoglobin 25.7 L Mean Corpuscular Hemoglobin Concent 30.7 L Red Cell Distribution Width 15.6 H Platelet Count 137 L Mean Platelet Volume 10.2 Neutrophils % 60.2 Lymphocytes % 24.0 Monocytes % 12.0 H Eosinophils % 3.3 Basophils % 0.2 Nucleated Red Blood Cells % 0.0 Neutrophils # 3.5 Lymphocytes # 1.4 Monocytes # 0.7 Eosinophils # 0.2 Basophils # 0.0 Nucleated Red Blood Cells # 0.0 Sodium Level 135 Potassium Level 3.6 Chloride Level 107 Carbon Dioxide Level 24 Anion Gap 8 Blood Urea Nitrogen 11 Creatinine 0.52 Glucose Level 88 Calcium Level 7.8 L Medications Medications Current Medications Amlodipine Besylate (Norvasc) 2.5 mg BID PO Last administered on 11/03/16 21:37 ; Admin Dose 2.5 MG; Start 11/01/16 at 21:00 Aspirin (Aspirin) 81 mg DAILY PO ; Start 11/02/16 at 09:00 Carbidopa/Levodopa (Sinemet Cr (50/ 200)) 0.5 tab BID PO Last administered on 21:36; Admin Dose 0.5 TAB; Start 11/01/16 at 21:00 Donepezil HCl (Aricept) 10 mg DAILY PO ; Start 11/02/16 at 09:00 Fluoxetine HCl (Prozac) 20 mg DAILY PO ; Start 11/02/16 at 09:00 Losartan Potassium (Cozaar) 50 mg BID PO Last administered on 11/03/16 21:37; Admin Dose 50 MG; Start 11/01/16 at 21:00 Memantine (Namenda) 10 mg DAILY PO ; Start 11/02/16 at 09:00 Trazodone HCl (Desyrel) 50 mg HS PO Last administered on 11/03/16 21:36; Admin Dose 50 MG; Start 11/01/16 at 21:00 Enoxaparin Sodium (Lovenox) 40 mg DAILY SC Last administered on 11/04/16 09:14 ; Admin Dose 40 MG; Start 11/01/16 at 10:30 Ascorbic Acid (Vitamin C) 500 mg DAILY PO ; Start 11/02/16 at 12:00 Zinc Sulfate 220 mg 220 mg DAILY PO Last administered on 11/01/16 12:00; Admin Dose 220 MG; Start 11/01/16 at 12:00 Dextrose/Sodium Chloride (D5-1/2ns) 1,000 ml @ 70 mls/hr [id number] IV Last administered on 11/04/16 13:44; Admin Dose 40 MLS/HR; Start 11/01/16 at 11:00 Acetaminophen 650 mg 650 mg Q6H PRN MD PRN FEVER >100.2 Last administered on 13:44; Admin Dose 650 MG; Start 11/01/16 at 12:00 Levetiracetam (Keppra 500 Mg/ 100ml (Pmx)) 100 ml @ 400 mls/hr BID IVPB Last administered on 11/04/16 10:10; Admin Dose 400 MLS/HR; Start 11/01/16 at 14:06 Hydralazine HCl 20 mg 20 mg Q6H PRN IV HYPERTENTION Last administered on 07:54; Admin Dose 20 MG; Start 11/01/16 at 23:00 Piperacillin Sod/ Tazobactam Sod (Zosyn 3.375gm/ 100 ml (Pmx)) 100 ml @ 200 mls /hr Q8 IVPB Last administered on 11/04/16 13:44; Admin Dose 200 MLS/HR; Start 11/03/16 at 14:00 Acetaminophen 650 mg 650 mg Q6H PRN PO PAIN AND OR ELEVATED TEMP Last administered on 11/03/16 16:24; Admin Dose 650 MG; Start 11/03/16 at 16:30 Vancomycin HCl (Vancocin) 250 ml @ 125 mls/hr Q12H IVPB Last administered on t 15:17; Admin Dose 125 MLS/HR; Start 11/04/16 at 03:00 Miscellaneous Information (*Rx Drug Level Order Reminder*) VANCOMYCIN TROUGH AT 1400 ONCE ONCE XX ; Start 11/05/16 at 14:00; Stop 11/05/16 at 14:01 LEYDA CAMACHO Nov 04, 2016 15:31
[2016-11-04] MEDS: traZODone 50 MG TAB PO SCH (21:00)
[2016-11-05] VITALS (12 sets, daily range): BP systolic 130–175; BP diastolic 59–79; PULSE 58–77; RESP 16–66
[2016-11-05] MEDS: ALBUTEROL/IPRATROPIUM (NEB) 3 ML AMP HHN SCH ×4 (02:09→20:00)
[2016-11-05] MEDS: VANCOMYCIN 1 GM in NS 250 ML IVPB SCH ×2 (02:45→15:02)
[2016-11-05] MEDS: DEXTROSE 5%-0.45% NACL 1,000 ML IV SCH ×2 (02:48→20:54)
[2016-11-05] MEDS: PIPER-TAZO 3.375 GM IV (PMX) 100 ML IVPB SCH ×3 (05:44→21:28)
[2016-11-05 06:38] LABS: ADD SCAN DIFF NO
[2016-11-05 06:42] LABS: BASOPHILS % 0.2 % (0.0-2.0); EOSINOPHILS # 0.2 10^3/ul (0.0-0.5); EOSINOPHILS % 4.3 % (0.0-7.0); HEMATOCRIT 32.8 % (37.0-47.0); HEMOGLOBIN 10.1 g/dl (12.0-16.0); LYMPHOCYTES # 1.2 10^3/ul (0.8-2.9); LYMPHOCYTES % 22.9 % (15.0-51.0); MEAN CORPUSCULAR HEMOGLOBIN 25.8 pg (29.0-33.0); MEAN CORPUSCULAR HGB CONC 30.8 g/dl (32.0-37.0); MEAN CORPUSCULAR VOLUME 83.9 fl (82.0-101.0); MEAN PLATELET VOLUME 10.7 fl (7.4-10.4); MONOCYTE # 0.5 10^3/ul (0.3-0.9); MONOCYTES % 10.5 % (0.0-11.0); NEUTROPHIL # 3.1 10^3/ul (1.6-7.5); NEUTROPHILS % 61.7 % (39.0-77.0); PLATELET COUNT 144 10^3/UL (140-415); RED BLOOD COUNT 3.91 10^6/ul (4.20-5.40); RED CELL DISTRIBUTION WIDTH 15.5 % (11.5-14.5); WHITE BLOOD COUNT 5.1 10^3/ul (4.8-10.8)
[2016-11-05 06:58] LABS: CALCIUM 7.9 mg/dl (8.4-10.2); CREATININE 0.79 mg/dl (0.44-1.00)
[2016-11-05] MEDS ORDERED: POTASSIUM CHLORIDE 250 ML IVPB ONE (08:30)
[2016-11-05] MEDS: DONEPEZIL 10 MG TAB PO SCH (09:00)
[2016-11-05] MEDS: CARBIDOPA/LEVODOPA 50-200 (CR) TAB PO SCH ×2 (09:00→20:47)
[2016-11-05] MEDS: ASCORBIC ACID 500 MG TAB PO SCH (09:00)
[2016-11-05] MEDS: LOSARTAN 50 MG TAB PO SCH ×2 (09:00→20:53)
[2016-11-05] MEDS: AMLODIPINE 2.5 MG TAB PO SCH ×2 (09:00→20:53)
[2016-11-05] MEDS: FLUOXETINE 20 MG CAP PO SCH (09:00)
[2016-11-05] MEDS: MEMANTINE 10 MG TAB PO SCH (09:00)
[2016-11-05] MEDS: ZINC SULFATE 220 MG CAP PO SCH (09:00)
[2016-11-05] MEDS: ASPIRIN 81 MG TAB PO SCH (09:00)
[2016-11-05] MEDS: LEVETIRACETAM 500 MG (PMX) 100 ML IVPB SCH ×2 (09:25→20:53)
[2016-11-05] MEDS: ENOXAPARIN 40 MG/0.4 ML SYG SC SCH (09:34)
[2016-11-05 11:25] LABS: AADO2 Arterial 73.3 mmHg (7.0-24.0)
--- NOTE | 2016-11-05 13:00 | CONS ---
Date/Time of Note Date/Time of Note DATE: 11/05/16 TIME: 12:58 Assessment/Plan Assessment/Plan Additional Assessment/Plan Atypical chest pain resolved Pneumonia Hypertension. Hypothyroidism Depression. Parkinson's disease Dementia. UTI Dysphagia Hemodynamically stable Continue Losartan and Amlodipine Continue Antibiotics Continue Sinemet Continue Aricept and Namenda Continue Trazodone Continue Synthroid Ok to downgrade Tele Consultation Date/Type/Reason Admit Date/Time Nov 01, 2016 at 03:57 Initial Consult Date 11/01/16 Type of Consultation: Cardiac and Vascular intervent Exam/Review of Systems Vital Signs Vitals Vital Signs Date Time Temp Pulse Resp B/P Pulse Ox O2 Delivery O2 Flow Rate FiO2 11/05/16 12:07 97.1 66 66 133/59 97 11/05/16 09:25 Nasal Cannula 2.0 11/03/16 02:04 28 Intake and Output 11/04/16 11/04/16 11/05/16 15:00 23:00 07:00 Intake Total 1300 ml 740 ml Output Total 600 ml 650 ml Balance 700 ml 90 ml Exam Head: atraumatic, normocephalic Neck: non-tender, supple Respiratory: diminished breath sounds Cardiovascular: regular rate and rhythm Gastrointestinal: nl liver, spleen, non-tender, soft Extremities: normal pulses Results Result Diagram: 11/05/16 0608 11/05/16 0608 Results 24 hrs Laboratory Tests Test 11/05/16 06:08 White Blood Count 5.1 Red Blood Count 3.91 L Hemoglobin 10.1 L Hematocrit 32.8 L Mean Corpuscular Volume 83.9 Mean Corpuscular Hemoglobin 25.8 L Mean Corpuscular Hemoglobin Concent 30.8 L Red Cell Distribution Width 15.5 H Platelet Count 144 Mean Platelet Volume 10.7 H Neutrophils % 61.7 Lymphocytes % 22.9 Monocytes % 10.5 Eosinophils % 4.3 Basophils % 0.2 Nucleated Red Blood Cells % 0.0 Neutrophils # 3.1 Lymphocytes # 1.2 Monocytes # 0.5 Eosinophils # 0.2 Basophils # 0.0 Nucleated Red Blood Cells # 0.0 Sodium Level 138 Potassium Level 3.0 L Chloride Level 110 Carbon Dioxide Level 26 Anion Gap 5 L Blood Urea Nitrogen 9 Creatinine 0.79 Glucose Level 90 Calcium Level 7.9 L Medications Medications Current Medications Amlodipine Besylate (Norvasc) 2.5 mg BID PO Last administered on 11/03/16 21:37 ; Admin Dose 2.5 MG; Start 11/01/16 at 21:00 Aspirin (Aspirin) 81 mg DAILY PO ; Start 11/02/16 at 09:00 Carbidopa/Levodopa (Sinemet Cr (50/ 200)) 0.5 tab BID PO Last administered on 21:36; Admin Dose 0.5 TAB; Start 11/01/16 at 21:00 Donepezil HCl (Aricept) 10 mg DAILY PO ; Start 11/02/16 at 09:00 Fluoxetine HCl (Prozac) 20 mg DAILY PO ; Start 11/02/16 at 09:00 Losartan Potassium (Cozaar) 50 mg BID PO Last administered on 11/03/16 21:37; Admin Dose 50 MG; Start 11/01/16 at 21:00 Memantine (Namenda) 10 mg DAILY PO ; Start 11/02/16 at 09:00 Trazodone HCl (Desyrel) 50 mg HS PO Last administered on 11/03/16 21:36; Admin Dose 50 MG; Start 11/01/16 at 21:00 Enoxaparin Sodium (Lovenox) 40 mg DAILY SC Last administered on 11/05/16 09:34 ; Admin Dose 40 MG; Start 11/01/16 at 10:30 Ascorbic Acid (Vitamin C) 500 mg DAILY PO ; Start 11/02/16 at 12:00 Zinc Sulfate 220 mg 220 mg DAILY PO Last administered on 11/01/16 12:00; Admin Dose 220 MG; Start 11/01/16 at 12:00 Dextrose/Sodium Chloride (D5-1/2ns) 1,000 ml @ 70 mls/hr [id number] IV Last administered on 11/05/16 02:48; Admin Dose 70 MLS/HR; Start 11/01/16 at 11:00 Acetaminophen 650 mg 650 mg Q6H PRN DC PRN FEVER >100.2 Last administered on 13:44; Admin Dose 650 MG; Start 11/01/16 at 12:00 Levetiracetam (Keppra 500 Mg/ 100ml (Pmx)) 100 ml @ 400 mls/hr BID IVPB Last administered on 11/05/16 09:25; Admin Dose 400 MLS/HR; Start 11/01/16 at 14:06 Hydralazine HCl 20 mg 20 mg Q6H PRN IV HYPERTENTION Last administered on 07:54; Admin Dose 20 MG; Start 11/01/16 at 23:00 Piperacillin Sod/ Tazobactam Sod (Zosyn 3.375gm/ 100 ml (Pmx)) 100 ml @ 200 mls /hr Q8 IVPB Last administered on 11/05/16 05:44; Admin Dose 200 MLS/HR; Start 11/03/16 at 14:00 Acetaminophen 650 mg 650 mg Q6H PRN PO PAIN AND OR ELEVATED TEMP Last administered on 11/03/16 16:24; Admin Dose 650 MG; Start 11/03/16 at 16:30 Vancomycin HCl (Vancocin) 250 ml @ 125 mls/hr Q12H IVPB Last administered on 02:45; Admin Dose 125 MLS/HR; Start 11/04/16 at 03:00 Miscellaneous Information (*Rx Drug Level Order Reminder*) VANCOMYCIN TROUGH AT 1400 ONCE ONCE XX ; Start 11/05/16 at 14:00; Stop 11/05/16 at 14:01 Methylprednisolone Sodium Succinate (Solu-Medrol) 40 mg Q12 IV ; Start 11/05/16 at 13:00; Status PELON BRYANT M.D. Nov 05, 2016 13:00
[2016-11-05] MEDS: METHYLPREDNISOLONE 40 MG INJ IV SCH ×2 (13:15→20:53)
--- NOTE | 2016-11-05 13:39 | CONS ---
Date/Time of Note Date/Time of Note DATE: 11/05/16 TIME: 13:37 Assessment/Plan Assessment/Plan Additional Assessment/Plan Assessment recommendations; 1. Patient admitted for right upper lobe pneumonia with significant clinical and radiological improvement. 2. Advanced dementia. 3. History of hypothyroidism, hypertension and depression. 4. History of Parkinson's disease. 5. Bronchospasm, patient started on Solu-Medrol. Continue current antibiotics for an additional 24 hours. Consultation Date/Type/Reason Admit Date/Time Nov 01, 2016 at 03:57 Initial Consult Date 11/01/16 Type of Consultation: Pulmonary 24 HR Interval Summary Free Text/Dictation Patient condition is stable. Does not appear to be in any distress. On account of underlying dementia patient unable to give any history whatsoever. General exam; elderly woman, awake, alert currently does not appear to be in any distress. Exam/Review of Systems Vital Signs Vitals Vital Signs Date Time Temp Pulse Resp B/P Pulse Ox O2 Delivery O2 Flow Rate FiO2 11/05/16 12:07 97.1 66 66 133/59 97 11/05/16 09:25 Nasal Cannula 2.0 11/03/16 02:04 28 Intake and Output 11/04/16 11/04/16 11/05/16 15:00 23:00 07:00 Intake Total 1300 ml 740 ml Output Total 600 ml 650 ml Balance 700 ml 90 ml Exam HEENT exam is; supple neck, no JVD. No lymphadenopathy. Midline trachea. No thyromegaly. She is edentulous. Has bilateral intraocular lens implants. Chest examination; clear to auscultation bilaterally. S1-S2 audible, no murmurs. Regular rhythm. Abdomen examination; soft, nondistended. No organomegaly. Bowel sounds audible. Extremity exam is; no peripheral edema. 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 Results Result Diagram: 11/05/16 0608 11/05/16 0608 Results 24 hrs Laboratory Tests Test 11/05/16 06:08 White Blood Count 5.1 Red Blood Count 3.91 L Hemoglobin 10.1 L Hematocrit 32.8 L Mean Corpuscular Volume 83.9 Mean Corpuscular Hemoglobin 25.8 L Mean Corpuscular Hemoglobin Concent 30.8 L Red Cell Distribution Width 15.5 H Platelet Count 144 Mean Platelet Volume 10.7 H Neutrophils % 61.7 Lymphocytes % 22.9 Monocytes % 10.5 Eosinophils % 4.3 Basophils % 0.2 Nucleated Red Blood Cells % 0.0 Neutrophils # 3.1 Lymphocytes # 1.2 Monocytes # 0.5 Eosinophils # 0.2 Basophils # 0.0 Nucleated Red Blood Cells # 0.0 Sodium Level 138 Potassium Level 3.0 L Chloride Level 110 Carbon Dioxide Level 26 Anion Gap 5 L Blood Urea Nitrogen 9 Creatinine 0.79 Glucose Level 90 Calcium Level 7.9 L Medications Medications Current Medications Amlodipine Besylate (Norvasc) 2.5 mg BID PO Last administered on 11/03/16 21:37 ; Admin Dose 2.5 MG; Start 11/01/16 at 21:00 Aspirin (Aspirin) 81 mg DAILY PO ; Start 11/02/16 at 09:00 Carbidopa/Levodopa (Sinemet Cr (50/ 200)) 0.5 tab BID PO Last administered on 21:36; Admin Dose 0.5 TAB; Start 11/01/16 at 21:00 Donepezil HCl (Aricept) 10 mg DAILY PO ; Start 11/02/16 at 09:00 Fluoxetine HCl (Prozac) 20 mg DAILY PO ; Start 11/02/16 at 09:00 Losartan Potassium (Cozaar) 50 mg BID PO Last administered on 11/03/16 21:37; Admin Dose 50 MG; Start 11/01/16 at 21:00 Memantine (Namenda) 10 mg DAILY PO ; Start 11/02/16 at 09:00 Trazodone HCl (Desyrel) 50 mg HS PO Last administered on 11/03/16 21:36; Admin Dose 50 MG; Start 11/01/16 at 21:00 Enoxaparin Sodium (Lovenox) 40 mg DAILY SC Last administered on 11/05/16 09:34 ; Admin Dose 40 MG; Start 11/01/16 at 10:30 Ascorbic Acid (Vitamin C) 500 mg DAILY PO ; Start 11/02/16 at 12:00 Zinc Sulfate 220 mg 220 mg DAILY PO Last administered on 11/01/16 12:00; Admin Dose 220 MG; Start 11/01/16 at 12:00 Dextrose/Sodium Chloride (D5-1/2ns) 1,000 ml @ 40 mls/hr Q24H IV Last administered on 11/05/16 02:48; Admin Dose 70 MLS/HR; Start 11/01/16 at 11:00 Acetaminophen 650 mg 650 mg Q6H PRN [place] PRN FEVER >100.2 Last administered on 13:44; Admin Dose 650 MG; Start 11/01/16 at 12:00 Levetiracetam (Keppra 500 Mg/ 100ml (Pmx)) 100 ml @ 400 mls/hr BID IVPB Last administered on 11/05/16 09:25; Admin Dose 400 MLS/HR; Start 11/01/16 at 14:06 Hydralazine HCl 20 mg 20 mg Q6H PRN IV HYPERTENTION Last administered on 07:54; Admin Dose 20 MG; Start 11/01/16 at 23:00 Piperacillin Sod/ Tazobactam Sod (Zosyn 3.375gm/ 100 ml (Pmx)) 100 ml @ 200 mls /hr Q8 IVPB Last administered on 11/05/16 13:15; Admin Dose 200 MLS/HR; Start 11/03/16 at 14:00 Acetaminophen 650 mg 650 mg Q6H PRN PO PAIN AND OR ELEVATED TEMP Last administered on 11/03/16 16:24; Admin Dose 650 MG; Start 11/03/16 at 16:30 Vancomycin HCl (Vancocin) 250 ml @ 125 mls/hr Q12H IVPB Last administered on 02:45; Admin Dose 125 MLS/HR; Start 11/04/16 at 03:00 Miscellaneous Information (*Rx Drug Level Order Reminder*) VANCOMYCIN TROUGH AT 1400 ONCE ONCE XX ; Start 11/05/16 at 14:00; Stop 11/05/16 at 14:01 Methylprednisolone Sodium Succinate (Solu-Medrol) 40 mg Q12 IV Last administered on 11/05/16 13:15; Admin Dose 40 MG; Start 11/05/16 at 13:00 OSIRIS SOLORZANO Nov 05, 2016 13:39
--- NOTE | 2016-11-05 18:55 | PN ---
Date/Time of Note Date/Time of Note DATE: 11/05/16 TIME: 18:44 Assessment/Plan VTE Prophylaxis VTE Prophylaxis Intervention: SCD's Lines/Catheters IV Catheter Type (from Nrs): Peripheral IV Urinary Cath still in place: Yes Assessment/Plan Assessment/Plan -Staph UTI, start patient on vancomycin. - per Dr. Garduno in infection disease consultation. -Right upper lobe pneumonia, continue Zosyn. - aspiration precautions -Sepsis secondary to #1 #2 -Acute respiratory insufficiency secondary to pneumonia, continue oxygen supplementation and bronchodilators. is following in pulmonology consultation -Seizure disorder, continue Keppra. -Parkinson's disease -Peripheral vascular disease -Hypertension, continue Coreg and Cozaar. Dr. Georges is following in cardiology consultation - Dysphagia- passed swallow study- on pureed diet - cont to monitor - downgrade to MS today - Hypokalemia- - replet K, renea BMP Further recommendations based on hospital course. Plan of care discussed with Dr. Burton. Exam/Review of Systems Vital Signs Vitals Vital Signs Date Time Temp Pulse Resp B/P Pulse Ox O2 Delivery O2 Flow Rate FiO2 11/05/16 16:28 98.0 72 18 147/65 97 11/05/16 14:36 Nasal Cannula 2.0 11/03/16 02:04 28 Intake and Output 11/04/16 11/04/16 11/05/16 15:00 23:00 07:00 Intake Total 1300 ml 740 ml Output Total 600 ml 650 ml Balance 700 ml 90 ml Exam Constitutional: alert, well developed Psych: nl mood/affect Eyes: EOMI, nl sclera ENMT: nl external ears & nose Respiratory: clear to auscultation Cardiovascular: nl pulses Gastrointestinal: soft Musculoskeletal: muscle weakness Extremities: normal pulses Neurological: confused Lymph: nontender Results Result Diagram: 11/05/16 0608 11/05/16 0608 Results 24 hrs Laboratory Tests Test 11/05/16 06:08 11/05/16 14:35 White Blood Count 5.1 Red Blood Count 3.91 L Hemoglobin 10.1 L Hematocrit 32.8 L Mean Corpuscular Volume 83.9 Mean Corpuscular Hemoglobin 25.8 L Mean Corpuscular Hemoglobin Concent 30.8 L Red Cell Distribution Width 15.5 H Platelet Count 144 Mean Platelet Volume 10.7 H Neutrophils % 61.7 Lymphocytes % 22.9 Monocytes % 10.5 Eosinophils % 4.3 Basophils % 0.2 Nucleated Red Blood Cells % 0.0 Neutrophils # 3.1 Lymphocytes # 1.2 Monocytes # 0.5 Eosinophils # 0.2 Basophils # 0.0 Nucleated Red Blood Cells # 0.0 Sodium Level 138 Potassium Level 3.0 L Chloride Level 110 Carbon Dioxide Level 26 Anion Gap 5 L Blood Urea Nitrogen 9 Creatinine 0.79 Glucose Level 90 Calcium Level 7.9 L Vancomycin Level Trough 17.5 Medications Medications Current Medications Amlodipine Besylate (Norvasc) 2.5 mg BID PO Last administered on 11/03/16 21:37 ; Admin Dose 2.5 MG; Start 11/01/16 at 21:00 Aspirin (Aspirin) 81 mg DAILY PO ; Start 11/02/16 at 09:00 Carbidopa/Levodopa (Sinemet Cr (50/ 200)) 0.5 tab BID PO Last administered on 21:36; Admin Dose 0.5 TAB; Start 11/01/16 at 21:00 Donepezil HCl (Aricept) 10 mg DAILY PO ; Start 11/02/16 at 09:00 Fluoxetine HCl (Prozac) 20 mg DAILY PO ; Start 11/02/16 at 09:00 Losartan Potassium (Cozaar) 50 mg BID PO Last administered on 11/03/16 21:37; Admin Dose 50 MG; Start 11/01/16 at 21:00 Memantine (Namenda) 10 mg DAILY PO ; Start 11/02/16 at 09:00 Trazodone HCl (Desyrel) 50 mg HS PO Last administered on 11/03/16 21:36; Admin Dose 50 MG; Start 11/01/16 at 21:00 Enoxaparin Sodium (Lovenox) 40 mg DAILY SC Last administered on 11/05/16 09:34 ; Admin Dose 40 MG; Start 11/01/16 at 10:30 Ascorbic Acid (Vitamin C) 500 mg DAILY PO ; Start 11/02/16 at 12:00 Zinc Sulfate 220 mg 220 mg DAILY PO Last administered on 11/01/16 12:00; Admin Dose 220 MG; Start 11/01/16 at 12:00 Dextrose/Sodium Chloride (D5-1/2ns) 1,000 ml @ 40 mls/hr Q24H IV Last administered on 11/05/16 02:48; Admin Dose 70 MLS/HR; Start 11/01/16 at 11:00 Acetaminophen 650 mg 650 mg Q6H PRN [place] PRN FEVER >100.2 Last administered on 13:44; Admin Dose 650 MG; Start 11/01/16 at 12:00 Levetiracetam (Keppra 500 Mg/ 100ml (Pmx)) 100 ml @ 400 mls/hr BID IVPB Last administered on 11/05/16 09:25; Admin Dose 400 MLS/HR; Start 11/01/16 at 14:06 Hydralazine HCl 20 mg 20 mg Q6H PRN IV HYPERTENTION Last administered on 07:54; Admin Dose 20 MG; Start 11/01/16 at 23:00 Piperacillin Sod/ Tazobactam Sod (Zosyn 3.375gm/ 100 ml (Pmx)) 100 ml @ 200 mls /hr Q8 IVPB Last administered on 11/05/16 13:15; Admin Dose 200 MLS/HR; Start 11/03/16 at 14:00 Acetaminophen (Tylenol Tab) 650 mg Q6H PRN PO PAIN AND OR ELEVATED TEMP Last administered on 11/03/16 16:24; Admin Dose 650 MG; Start 11/03/16 at 16:30 Methylprednisolone Sodium Succinate 40 mg 40 mg Q12 IV Last administered on 13:15; Admin Dose 40 MG; Start 11/05/16 at 13:00 Vancomycin HCl/ Sodium Chloride (Vancocin/NS) 150 ml @ 75 mls/hr Q12H IVPB ; Start 11/06/16 at 06:00 LEYDA CAMACHO Nov 05, 2016 18:55
[2016-11-05] MEDS: traZODone 50 MG TAB PO SCH (20:53)
--- NOTE | 2016-11-05 23:51 | CONS ---
DATE OF ADMISSION: 11/01/2016 DATE OF CONSULTATION: REFERRING PHYSICIAN: Dr. Aguirre Thank you for asking me to see the patient with you. HISTORY OF PRESENT ILLNESS: The patient is an 86-year old lady with a past medical history of inter mittent cough, shortness of breath, decreased mini mental status, lack of communication in which I g ot a call about her. PAST MEDICAL HISTORY: Hypertension, diabetes, stroke, dementia, seizure disorder, bilateral heel ul cer. CURRENT MEDICATIONS: Include: 1. Albuterol inhaler twice a day. 2. Vitamin C. 3. Aricept 10 mg once a day. 4. Aspirin 81 mg once a day. 5. Prozac 20 mg once a day. 6. Namenda 10 mg once a day. 7. Hydralazine 20 mg once a day. 8. Norvasc 2.5 mg once a day. 9. ____ mg twice a day. 10. Cozaar 50 mg twice a day. 11. Trazodone 50 mg once at night. 12. Keppra twice a day. 13. Zinc sulfate 220 mg once a day. 14. Tylenol 650 mg once a day. 15. Lovenox 40 mg subcutaneous once a day. PHYSICAL EXAMINATION: GENERAL: Today, the patient is sleepy, does not follow verbal command, looks confused. CRANIAL NERVES: Cranial nerve II: Pupils equal on both sides, reactive to light. Cranial nerves I II, IV, and : Extraocular muscles intact. Cranial nerve V: Equal sensation to face. Cranial ne rve VII: Symmetrical face. Cranial nerve VIII: Decreased hearing bilaterally. Cranial nerves IX and X: Elevates palate. Cranial nerve XI: Elevates shoulder 5/5. Cranial nerve XII: With straig ht tongue. 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 SENSATION: Decreased for glove and sock area for light touch and temperature. COORDINATION: [id number] test intact. HEART: Regular rate and rhythm. LUNGS: Equal breath sounds. ABDOMEN: Soft, relaxed, nondistended. No tenderness. ASSESSMENT AND PLAN: 1. The patient is an 86-year old lady with decreased mini mental status, possibility of underlying acute encephalopathy. 2. Status post sepsis with the possibility of toxic metabolic encephalopathy in which the patient i s followed by IV antibiotic. 3. The fact that the patient has a history of seizure, we will follow up the patient with electroen cephalogram for more evaluation and treatment. Continue her on Keppra from now. 4. Keep the patient under deep venous thrombosis prophylaxis in the form of Lovenox 40 mg subcutane ous once a day. 5. Keep the patient under decubitus ulcer prophylaxis. Again, thank you for asking me to see the patient with you. Dictated By: MAGALYS NICHOLE MD NA/NTS Conf#: [id number] DID#: [id number] CC: ALINE MCGHEE MD; VINCE AGUIRRE MD;*EndCC*
[2016-11-06] MEDS: ALBUTEROL/IPRATROPIUM (NEB) 3 ML AMP HHN SCH ×4 (02:29→20:09)
[2016-11-06] MEDS: PIPER-TAZO 3.375 GM IV (PMX) 100 ML IVPB SCH (05:26)
[2016-11-06] MEDS ORDERED: VANCOMYCIN 750 MG in SOD CHLORIDE 0.9% 150 ML IVPB SCH (06:00)
[2016-11-06 06:17] LABS: ADD SCAN DIFF NO
[2016-11-06 06:23] LABS: HEMATOCRIT 33.3 % (37.0-47.0); HEMOGLOBIN 10.3 g/dl (12.0-16.0); LYMPHOCYTES # 0.7 10^3/ul (0.8-2.9); LYMPHOCYTES % 20.2 % (15.0-51.0); MEAN CORPUSCULAR HEMOGLOBIN 25.6 pg (29.0-33.0); MEAN CORPUSCULAR HGB CONC 30.9 g/dl (32.0-37.0); MEAN CORPUSCULAR VOLUME 82.8 fl (82.0-101.0); MEAN PLATELET VOLUME 10.2 fl (7.4-10.4); MONOCYTE # 0.1 10^3/ul (0.3-0.9); MONOCYTES % 3.3 % (0.0-11.0); NEUTROPHIL # 2.6 10^3/ul (1.6-7.5); NEUTROPHILS % 76.2 % (39.0-77.0); PLATELET COUNT 159 10^3/UL (140-415); RED BLOOD COUNT 4.02 10^6/ul (4.20-5.40); RED CELL DISTRIBUTION WIDTH 15.2 % (11.5-14.5); WHITE BLOOD COUNT 3.4 10^3/ul (4.8-10.8)
[2016-11-06 06:43] LABS: CALCIUM 8.1 mg/dl (8.4-10.2); CREATININE 0.69 mg/dl (0.44-1.00); POTASSIUM 4.2 mmol/L (3.5-5.1)
[2016-11-06 07:55] VITALS: BP 188/72; RESP 18
[2016-11-06 08:35] VITALS: BP 157/67; PULSE 77
[2016-11-06] MEDS: ASPIRIN 81 MG TAB PO SCH (08:36)
[2016-11-06] MEDS: METHYLPREDNISOLONE 40 MG INJ IV SCH ×2 (08:36→20:47)
[2016-11-06] MEDS: ASCORBIC ACID 500 MG TAB PO SCH (08:37)
[2016-11-06] MEDS: AMLODIPINE 2.5 MG TAB PO SCH ×2 (08:37→20:48)
[2016-11-06] MEDS: ZINC SULFATE 220 MG CAP PO SCH (08:37)
[2016-11-06] MEDS: MEMANTINE 10 MG TAB PO SCH (08:37)
[2016-11-06] MEDS: FLUOXETINE 20 MG CAP PO SCH (08:37)
[2016-11-06] MEDS: DONEPEZIL 10 MG TAB PO SCH (08:37)
[2016-11-06] MEDS: CARBIDOPA/LEVODOPA 50-200 (CR) TAB PO SCH ×2 (08:38→20:47)
[2016-11-06] MEDS: LOSARTAN 50 MG TAB PO SCH ×2 (08:38→20:48)
[2016-11-06] MEDS: ENOXAPARIN 40 MG/0.4 ML SYG SC SCH (08:41)
[2016-11-06] MEDS: LEVETIRACETAM 500 MG (PMX) 100 ML IVPB SCH ×2 (09:43→20:47)
--- NOTE | 2016-11-06 10:31 | CONS ---
Date/Time of Note Date/Time of Note DATE: 11/06/16 TIME: 10:29 Assessment/Plan Assessment/Plan Additional Assessment/Plan Assessment recommendations; 1. Patient admitted for right upper lobe pneumonia with significant clinical and radiological improvement. 2. Stable seizure disorder. 3. Dementia. 4. History of Parkinson's disease. 5. History of hypertension. Discontinue antibiotics. [facility]. Consultation Date/Type/Reason Admit Date/Time Nov 01, 2016 at 03:57 Initial Consult Date 11/01/16 Type of Consultation: Pulmonary 24 HR Interval Summary Free Text/Dictation Patient condition is stable. Awake and currently in no distress. Exam/Review of Systems Vital Signs Vitals Vital Signs Date Time Temp Pulse Resp B/P Pulse Ox O2 Delivery O2 Flow Rate FiO2 11/06/16 07:55 98.9 70 18 188/72 98 11/06/16 07:28 Nasal Cannula 2.0 11/03/16 02:04 28 Intake and Output 11/05/16 11/05/16 11/06/16 15:00 23:00 07:00 Intake Total 900 ml 1460 ml 640 ml Output Total 1000 ml 1400 ml Balance 900 ml 460 ml -760 ml Exam HEENT exam is; supple neck, edentulous. No neck masses. Pupils are equal and reactive to light. No neck bruits. No lymphadenopathy. No thyromegaly. Chest examined; clear to auscultation. S1-S2 audible, no murmurs. Regular rhythm. Abdomen examination; soft, nondistended. No organomegaly. Bowel sounds audible. Extremity exam is; no peripheral edema. 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 Moves all 4 extremities. Results Result Diagram: 11/06/16 0529 11/06/16 0529 Results 24 hrs Laboratory Tests Test 11/05/16 14:35 11/06/16 05:29 Vancomycin Level Trough 17.5 White Blood Count 3.4 #L Red Blood Count 4.02 L Hemoglobin 10.3 L Hematocrit 33.3 L Mean Corpuscular Volume 82.8 Mean Corpuscular Hemoglobin 25.6 L Mean Corpuscular Hemoglobin Concent 30.9 L Red Cell Distribution Width 15.2 H Platelet Count 159 Mean Platelet Volume 10.2 Neutrophils % 76.2 Lymphocytes % 20.2 Monocytes % 3.3 Eosinophils % 0.0 Basophils % 0.0 Nucleated Red Blood Cells % 0.0 Neutrophils # 2.6 Lymphocytes # 0.7 L Monocytes # 0.1 L Eosinophils # 0.0 Basophils # 0.0 Nucleated Red Blood Cells # 0.0 Sodium Level 137 Potassium Level 4.2 Chloride Level 109 Carbon Dioxide Level 26 Anion Gap 6 L Blood Urea Nitrogen 10 Creatinine 0.69 Glucose Level 159 Calcium Level 8.1 L Medications Medications Current Medications Amlodipine Besylate (Norvasc) 2.5 mg BID PO Last administered on 11/06/16 08: 37; Admin Dose 2.5 MG; Start 11/01/16 at 21:00 Aspirin (Aspirin) 81 mg DAILY PO Last administered on 11/06/16 08:36; Admin Dose 81 MG; Start 11/02/16 at 09:00 Carbidopa/Levodopa (Sinemet Cr (50/ 200)) 0.5 tab BID PO Last administered on 08:38; Admin Dose 0.5 TAB; Start 11/01/16 at 21:00 Donepezil HCl (Aricept) 10 mg DAILY PO Last administered on 11/06/16 08:37; Admin Dose 10 MG; Start 11/02/16 at 09:00 Fluoxetine HCl (Prozac) 20 mg DAILY PO Last administered on 11/06/16 08:37; Admin Dose 20 MG; Start 11/02/16 at 09:00 Losartan Potassium (Cozaar) 50 mg BID PO Last administered on 11/06/16 08:38; Admin Dose 50 MG; Start 11/01/16 at 21:00 Memantine (Namenda) 10 mg DAILY PO Last administered on 11/06/16 08:37; Admin Dose 10 MG; Start 11/02/16 at 09:00 Trazodone HCl (Desyrel) 50 mg HS PO Last administered on 11/05/16 20:53; Admin Dose 50 MG; Start 11/01/16 at 21:00 Enoxaparin Sodium (Lovenox) 40 mg DAILY SC Last administered on 11/06/16 08:41 ; Admin Dose 40 MG; Start 11/01/16 at 10:30 Ascorbic Acid (Vitamin C) 500 mg DAILY PO Last administered on 11/06/16 08:37 ; Admin Dose 500 MG; Start 11/02/16 at 12:00 Zinc Sulfate 220 mg 220 mg DAILY PO Last administered on 11/06/16 08:37; Admin Dose 220 MG; Start 11/01/16 at 12:00 Dextrose/Sodium Chloride (D5-1/2ns) 1,000 ml @ 40 mls/hr Q24H IV Last administered on 11/05/16 20:54; Admin Dose 40 MLS/HR; Start 11/01/16 at 11:00 Acetaminophen 650 mg 650 mg Q6H PRN [place] PRN FEVER >100.2 Last administered on 13:44; Admin Dose 650 MG; Start 11/01/16 at 12:00 Levetiracetam (Keppra 500 Mg/ 100ml (Pmx)) 100 ml @ 400 mls/hr BID IVPB Last administered on 11/06/16 09:43; Admin Dose 400 MLS/HR; Start 11/01/16 at 14:06 Hydralazine HCl 20 mg 20 mg Q6H PRN IV HYPERTENTION Last administered on 07:54; Admin Dose 20 MG; Start 11/01/16 at 23:00 Piperacillin Sod/ Tazobactam Sod (Zosyn 3.375gm/ 100 ml (Pmx)) 100 ml @ 200 mls /hr Q8 IVPB Last administered on 11/06/16 05:26; Admin Dose 200 MLS/HR; Start 11/03/16 at 14:00 Acetaminophen (Tylenol Tab) 650 mg Q6H PRN PO PAIN AND OR ELEVATED TEMP Last administered on 11/03/16 16:24; Admin Dose 650 MG; Start 11/03/16 at 16:30 Methylprednisolone Sodium Succinate 40 mg 40 mg Q12 IV Last administered on 08:36; Admin Dose 40 MG; Start 11/05/16 at 13:00 Vancomycin HCl/ Sodium Chloride (Vancocin/NS) 150 ml @ 75 mls/hr Q12H IVPB Last administered on 11/06/16 05:59; Admin Dose 75 MLS/HR; Start 11/06/16 at 06 :00 OSIRIS SOLORZANO Nov 06, 2016 10:31
[2016-11-06 11:30] VITALS: BP 148/66; PULSE 64
--- NOTE | 2016-11-06 12:13 | RADRPT ---
PROCEDURE: MRI Brain without contrast. CLINICAL INDICATION: Altered mental status. CVA. TECHNIQUE: An MRI of the brain was performed utilizing the following sequences: Sagittal and axial T1 weighted, axial T2 weighted, axial diffusion weighted with ADC mapping, coronal GRE, and axial F LAIR. COMPARISON: Brain CT 11/03/2016. FINDINGS: No diffusion weighted abnormalities are seen to suggest the presence of acute ischemia or recent inf arct. No hypointense signal abnormalities are seen on the GRE images to suggest the presence of blo od degradation products. There is no evidence of intracranial hemorrhage, mass effect, or midline s hift. No extra-axial fluid collections are seen. The ventricles and sulci are moderately enlarged in dicative of volume loss. There is area of encephalomalacia in the left occipitoparietal region likely represent sequela of pr ior infarct. There are moderate to marked foci of T2 FLAIR hyperintensity in the periventricular, deep, and subco rtical white matter, which are nonspecific in etiology but likely reflect chronic small vessel ische oh changes. Small T2 hyperintense foci are noted in bilateral lentiform nuclei which likely represent dilated pe rivascular spaces versus old lacunar infarcts. No abnormal intracranial vascular flow void is noted. The visualized paranasal sinuses demonstrate p artial opacification of left sphenoid sinus as well as mild to moderate mucosal thickening with asso ciated air fluid levels in right maxillary and bilateral sphenoid sinuses. There is mild fluid in b ilateral mastoid air cells. There is thinning of bilateral lens indicative of prior lens replacement . IMPRESSION: 1. No acute intracranial hemorrhage, infarction or mass. 2. Moderate to marked chronic small vessel ischemic changes. 3. Encephalomalacia in the left occipitoparietal region likely represent sequela of prior infarct. 4. Moderate generalized cerebral volume loss. 5. Partial opacification of left sphenoid sinus as well as mild to moderate mucosal thickening with associated air fluid levels, correlate for acute sinusitis. RPTAT: EE .Disha Blount MD, Date Time Electronically viewed and signed by .Disha Blount MD, MD on 11/06/2016 12:12 .N/
--- NOTE | 2016-11-06 18:01 | PN ---
DATE: 11/06/2016 ADDENDUM The patient seen, medical record reviewed. I met with the patient's daughter and goals of care disc ussed. The patient has dementia and also tends to pull tubes and IV line out. The patient has dysp hagia and is at risk for aspiration despite passing swallow evaluation and currently on pureed diet. The patient has had recurrent episode of bronchitis, probably due to aspiration. Code status, hos pice and palliative care discussed with the daughter, and she requested that patient be made DNR, an d also in future if she cannot safely eat, not to put G-tube and to make her comfort care at that ti me. For now, the patient will be made DNR. Dictated By: VINCE DUMONT/MAGGIE Conf#: [id number] DID#: [id number]
--- NOTE | 2016-11-06 18:23 | CONS ---
Date/Time of Note Date/Time of Note DATE: 11/06/16 TIME: 18:22 Assessment/Plan Assessment/Plan Additional Assessment/Plan Atypical chest pain resolved Pneumonia Hypertension. Hypothyroidism Depression. Parkinson's disease Dementia. UTI Dysphagia Hemodynamically stable Continue Losartan and Amlodipine Continue Antibiotics Continue Sinemet Continue Aricept and Namenda Continue Trazodone Continue Synthroid Code Status: DNR Consultation Date/Type/Reason Admit Date/Time Nov 01, 2016 at 03:57 Initial Consult Date 11/01/16 Type of Consultation: Pulmonary Exam/Review of Systems Vital Signs Vitals Vital Signs Date Time Temp Pulse Resp B/P Pulse Ox O2 Delivery O2 Flow Rate FiO2 11/06/16 13:52 58 20 97 Nasal Cannula 2.0 11/06/16 07:55 98.9 188/72 11/03/16 02:04 28 Intake and Output 11/05/16 11/05/16 11/06/16 15:00 23:00 07:00 Intake Total 900 ml 1460 ml 640 ml Output Total 1000 ml 1400 ml Balance 900 ml 460 ml -760 ml Exam Head: atraumatic, normocephalic Neck: non-tender, supple Cardiovascular: regular rate and rhythm Gastrointestinal: nl liver, spleen, non-tender, soft Extremities: normal pulses Results Result Diagram: 11/06/16 0529 11/06/16 0529 Results 24 hrs Laboratory Tests Test 11/06/16 05:29 White Blood Count 3.4 #L Red Blood Count 4.02 L Hemoglobin 10.3 L Hematocrit 33.3 L Mean Corpuscular Volume 82.8 Mean Corpuscular Hemoglobin 25.6 L Mean Corpuscular Hemoglobin Concent 30.9 L Red Cell Distribution Width 15.2 H Platelet Count 159 Mean Platelet Volume 10.2 Neutrophils % 76.2 Lymphocytes % 20.2 Monocytes % 3.3 Eosinophils % 0.0 Basophils % 0.0 Nucleated Red Blood Cells % 0.0 Neutrophils # 2.6 Lymphocytes # 0.7 L Monocytes # 0.1 L Eosinophils # 0.0 Basophils # 0.0 Nucleated Red Blood Cells # 0.0 Sodium Level 137 Potassium Level 4.2 Chloride Level 109 Carbon Dioxide Level 26 Anion Gap 6 L Blood Urea Nitrogen 10 Creatinine 0.69 Glucose Level 159 Calcium Level 8.1 L Medications Medications Current Medications Amlodipine Besylate (Norvasc) 2.5 mg BID PO Last administered on 11/06/16 08: 37; Admin Dose 2.5 MG; Start 11/01/16 at 21:00 Aspirin (Aspirin) 81 mg DAILY PO Last administered on 11/06/16 08:36; Admin Dose 81 MG; Start 11/02/16 at 09:00 Carbidopa/Levodopa (Sinemet Cr (50/ 200)) 0.5 tab BID PO Last administered on 08:38; Admin Dose 0.5 TAB; Start 11/01/16 at 21:00 Donepezil HCl (Aricept) 10 mg DAILY PO Last administered on 11/06/16 08:37; Admin Dose 10 MG; Start 11/02/16 at 09:00 Fluoxetine HCl (Prozac) 20 mg DAILY PO Last administered on 11/06/16 08:37; Admin Dose 20 MG; Start 11/02/16 at 09:00 Losartan Potassium (Cozaar) 50 mg BID PO Last administered on 11/06/16 08:38; Admin Dose 50 MG; Start 11/01/16 at 21:00 Memantine (Namenda) 10 mg DAILY PO Last administered on 11/06/16 08:37; Admin Dose 10 MG; Start 11/02/16 at 09:00 Trazodone HCl (Desyrel) 50 mg HS PO Last administered on 11/05/16 20:53; Admin Dose 50 MG; Start 11/01/16 at 21:00 Enoxaparin Sodium (Lovenox) 40 mg DAILY SC Last administered on 11/06/16 08:41 ; Admin Dose 40 MG; Start 11/01/16 at 10:30 Ascorbic Acid (Vitamin C) 500 mg DAILY PO Last administered on 11/06/16 08:37 ; Admin Dose 500 MG; Start 11/02/16 at 12:00 Zinc Sulfate 220 mg 220 mg DAILY PO Last administered on 11/06/16 08:37; Admin Dose 220 MG; Start 11/01/16 at 12:00 Dextrose/Sodium Chloride (D5-1/2ns) 1,000 ml @ 40 mls/hr Q24H IV Last administered on 11/05/16 20:54; Admin Dose 40 MLS/HR; Start 11/01/16 at 11:00 Acetaminophen 650 mg 650 mg Q6H PRN ND PRN FEVER >100.2 Last administered on 13:44; Admin Dose 650 MG; Start 11/01/16 at 12:00 Levetiracetam (Keppra 500 Mg/ 100ml (Pmx)) 100 ml @ 400 mls/hr BID IVPB Last administered on 11/06/16 09:43; Admin Dose 400 MLS/HR; Start 11/01/16 at 14:06 Hydralazine HCl (Apresoline) 20 mg Q6H PRN IV HYPERTENTION Last administered on 11/04/16 07:54; Admin Dose 20 MG; Start 11/01/16 at 23:00 Acetaminophen (Tylenol Tab) 650 mg Q6H PRN PO PAIN AND OR ELEVATED TEMP Last administered on 11/03/16 16:24; Admin Dose 650 MG; Start 11/03/16 at 16:30 Methylprednisolone Sodium Succinate (Solu-Medrol) 40 mg Q12 IV Last administered on 11/06/16 08:36; Admin Dose 40 MG; Start 11/05/16 at 13:00 PELON WALSH M.D. Nov 06, 2016 18:23
--- NOTE | 2016-11-06 19:16 | PN ---
Date/Time of Note Date/Time of Note DATE: 11/06/16 TIME: 19:13 Assessment/Plan VTE Prophylaxis VTE Prophylaxis Intervention: other Lines/Catheters IV [facility]ter Type (from [facility] Peripheral IV Urinary Cath still in place: Yes Assessment/Plan Assessment/Plan DO NOT RESUSCITATE -Staph UTI, start patient on vancomycin. - per Dr. Garduno in infection disease consultation. -Right upper lobe pneumonia, continue Zosyn. - aspiration precautions -Sepsis secondary to #1 #2 -Acute respiratory insufficiency secondary to pneumonia, continue oxygen supplementation and bronchodilators. is following in pulmonology consultation -Seizure disorder, continue Keppra. -Parkinson's disease -Peripheral vascular disease -Hypertension, continue Coreg and Cozaar. Dr. Georges is following in cardiology consultation - Dysphagia- passed swallow study- on pureed diet - cont to monitor - downgrade to MS today - Hypokalemia- - replet K, am BMP Further recommendations based on hospital course. Plan of care discussed with Dr. Burton. Subjective 24 Hr Interval Summary Free Text/Dictation venkata, plan of care dw daughter when she was feeding the patient- tolerating pureed diet, dw staff Eyes: no complaints ENT: no complaints Exam/Review of Systems Vital Signs Vitals Vital Signs Date Time Temp Pulse Resp B/P Pulse Ox O2 Delivery O2 Flow Rate FiO2 11/06/16 13:52 58 20 97 Nasal Cannula 2.0 11/06/16 11:30 148/66 11/06/16 07:55 98.9 11/03/16 02:04 28 Intake and Output 11/05/16 11/05/16 11/06/16 15:00 23:00 07:00 Intake Total 900 ml 1460 ml 640 ml Output Total 1000 ml 1400 ml Balance 900 ml 460 ml -760 ml Exam Constitutional: alert, well developed Psych: nl mood/affect Head: atraumatic Eyes: EOMI, nl sclera ENMT: nl external ears & nose Neck: non-tender Respiratory: clear to auscultation Cardiovascular: nl pulses Gastrointestinal: non-tender, soft Extremities: normal pulses Neurological: confused Skin: nl turgor Lymph: nontender Results Result Diagram: 11/06/16 0529 11/06/16 0529 Results 24 hrs Laboratory Tests Test 11/06/16 05:29 White Blood Count 3.4 #L Red Blood Count 4.02 L Hemoglobin 10.3 L Hematocrit 33.3 L Mean Corpuscular Volume 82.8 Mean Corpuscular Hemoglobin 25.6 L Mean Corpuscular Hemoglobin Concent 30.9 L Red Cell Distribution Width 15.2 H Platelet Count 159 Mean Platelet Volume 10.2 Neutrophils % 76.2 Lymphocytes % 20.2 Monocytes % 3.3 Eosinophils % 0.0 Basophils % 0.0 Nucleated Red Blood Cells % 0.0 Neutrophils # 2.6 Lymphocytes # 0.7 L Monocytes # 0.1 L Eosinophils # 0.0 Basophils # 0.0 Nucleated Red Blood Cells # 0.0 Sodium Level 137 Potassium Level 4.2 Chloride Level 109 Carbon Dioxide Level 26 Anion Gap 6 L Blood Urea Nitrogen 10 Creatinine 0.69 Glucose Level 159 Calcium Level 8.1 L Medications Medications Current Medications Amlodipine Besylate (Norvasc) 2.5 mg BID PO Last administered on 11/06/16 08: 37; Admin Dose 2.5 MG; Start 11/01/16 at 21:00 Aspirin (Aspirin) 81 mg DAILY PO Last administered on 11/06/16 08:36; Admin Dose 81 MG; Start 11/02/16 at 09:00 Carbidopa/Levodopa (Sinemet Cr (50/ 200)) 0.5 tab BID PO Last administered on 08:38; Admin Dose 0.5 TAB; Start 11/01/16 at 21:00 Donepezil HCl (Aricept) 10 mg DAILY PO Last administered on 11/06/16 08:37; Admin Dose 10 MG; Start 11/02/16 at 09:00 Fluoxetine HCl (Prozac) 20 mg DAILY PO Last administered on 11/06/16 08:37; Admin Dose 20 MG; Start 11/02/16 at 09:00 Losartan Potassium (Cozaar) 50 mg BID PO Last administered on 11/06/16 08:38; Admin Dose 50 MG; Start 11/01/16 at 21:00 Memantine (Namenda) 10 mg DAILY PO Last administered on 11/06/16 08:37; Admin Dose 10 MG; Start 11/02/16 at 09:00 Trazodone HCl (Desyrel) 50 mg HS PO Last administered on 11/05/16 20:53; Admin Dose 50 MG; Start 11/01/16 at 21:00 Enoxaparin Sodium (Lovenox) 40 mg DAILY SC Last administered on 11/06/16 08:41 ; Admin Dose 40 MG; Start 11/01/16 at 10:30 Ascorbic Acid (Vitamin C) 500 mg DAILY PO Last administered on 11/06/16 08:37 ; Admin Dose 500 MG; Start 11/02/16 at 12:00 Zinc Sulfate 220 mg 220 mg DAILY PO Last administered on 11/06/16 08:37; Admin Dose 220 MG; Start 11/01/16 at 12:00 Dextrose/Sodium Chloride (D5-1/2ns) 1,000 ml @ 40 mls/hr Q24H IV Last administered on 11/05/16 20:54; Admin Dose 40 MLS/HR; Start 11/01/16 at 11:00 Acetaminophen 650 mg 650 mg Q6H PRN IN PRN FEVER >100.2 Last administered on 13:44; Admin Dose 650 MG; Start 11/01/16 at 12:00 Levetiracetam (Keppra 500 Mg/ 100ml (Pmx)) 100 ml @ 400 mls/hr BID IVPB Last administered on 11/06/16 09:43; Admin Dose 400 MLS/HR; Start 11/01/16 at 14:06 Hydralazine HCl (Apresoline) 20 mg Q6H PRN IV HYPERTENTION Last administered on 11/04/16 07:54; Admin Dose 20 MG; Start 11/01/16 at 23:00 Acetaminophen (Tylenol Tab) 650 mg Q6H PRN PO PAIN AND OR ELEVATED TEMP Last administered on 11/03/16 16:24; Admin Dose 650 MG; Start 11/03/16 at 16:30 Methylprednisolone Sodium Succinate (Solu-Medrol) 40 mg Q12 IV Last administered on 11/06/16 08:36; Admin Dose 40 MG; Start 11/05/16 at 13:00 LEYDA CAMCAHO Nov 06, 2016 19:16
[2016-11-06 20:22] VITALS: BP 150/67; RESP 19
[2016-11-06] MEDS: traZODone 50 MG TAB PO SCH (20:48)
--- NOTE | 2016-11-06 22:53 | SP ---
DATE OF PROCEDURE: HISTORY OF PRESENT ILLNESS: 1. The patient is an 86-year old with decreased mini mental status with the possibility of underlyi ng acute encephalopathy. The patient has underlying sepsis, in which she had IV antibiotic, with th e possibility of toxic metabolic encephalopathy. 2. History of seizure. The patient followed by EEG, which shows no epileptiform discharge; however , generalized slowing consistent with a history of underlying encephalopathy; however, will continue her on Keppra from now and take the patient under seizure precaution, and will follow up another EE G in 1 month for continuation of the treatment and see if any abnormality on her EEG. 3. Keep the patient under deep venous thrombosis prophylaxis in the form of Lovenox 40 mg once a da y. 4. Keep the patient under decubitus ulcer prophylaxis. 5. Decreased memory, with the possibility of underlying Alzheimer's disease. We will continue the patient Aricept 10 mg, as well as Namenda 10 mg. MEDICATIONS: The current medications for the patient include: 1. Aricept 10 mg. 2. Namenda 10 mg once a day. 3. Albuterol inhaler twice a day. 4. Aspirin 81 mg once a day. 5. 20 mg once a day. 6. Hydralazine 20 mg once a day. 7. Norvasc 2.5 mg once a day. 8. Cozaar 50 mg twice a day. 9. Trazodone 50 mg at night. 10. Keppra 500 mg twice a day. 11. Zinc sulfate 220 mg once a day. 12. Tylenol 650 mg once a day. 13. Lovenox 40 mg subcutaneous once a day. NEUROLOGIC EXAMINATION: GENERAL: On exam today, the patient opens her eyes, but does not follow commands, looks confused. CRANIAL NERVES: Cranial nerve II: Pupils equal on both sides, reactive to light. Cranial nerves I II, IV, and : Extraocular muscles intact. Cranial nerve V: Equal sensation to face. Cranial ne rve VII: Symmetrical face. Cranial nerve VIII: Decreased hearing bilaterally. Cranial IX and X: Reveals . Cranial nerve XI: Elevates shoulder 5/5. Cranial nerve XII: With straight tongue . 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 Sensation decreased for glove and sock area for light touch and temperature. COORDINATION: [id number] test intact. HEART: Regular rate and rhythm. LUNGS: Equal breath sounds. ABDOMEN: Soft, relaxed, nondistended. No tenderness. ASSESSMENT AND PLAN: As above. Dictated By: MAGALYS JEFFERSON/MAGGIE Conf#: [id number] DID#: [id number]
[2016-11-07] MEDS: ALBUTEROL/IPRATROPIUM (NEB) 3 ML AMP HHN SCH ×4 (02:03→21:02)
[2016-11-07 05:50] LABS: ADD SCAN DIFF NO
[2016-11-07 05:53] LABS: ABNORMAL IP MESSAGE 1; HEMATOCRIT 30.6 % (37.0-47.0); HEMOGLOBIN 9.7 g/dl (12.0-16.0); LYMPHOCYTES # 0.6 10^3/ul (0.8-2.9); LYMPHOCYTES % 11.2 % (15.0-51.0); MEAN CORPUSCULAR HGB CONC 31.7 g/dl (32.0-37.0); MONOCYTE # 0.2 10^3/ul (0.3-0.9); MONOCYTES % 3.7 % (0.0-11.0); NEUTROPHIL # 4.3 10^3/ul (1.6-7.5); NEUTROPHILS % 84.9 % (39.0-77.0); PLATELET COUNT 199 10^3/UL (140-415); RED BLOOD COUNT 3.73 10^6/ul (4.20-5.40); RED CELL DISTRIBUTION WIDTH 15.2 % (11.5-14.5); WHITE BLOOD COUNT 5.1 10^3/ul (4.8-10.8)
[2016-11-07 06:10] LABS: CREATININE 0.65 mg/dl (0.44-1.00); POTASSIUM 3.9 mmol/L (3.5-5.1)
[2016-11-07] MEDS: DEXTROSE 5%-0.45% NACL 1,000 ML IV SCH (06:42)
[2016-11-07 07:23] VITALS: BP 168/76; RESP 20
--- NOTE | 2016-11-07 07:52 | CONS ---
DATE OF ADMISSION: 11/01/2016 DATE OF CONSULTATION: 11/06/2016 REFERRING PHYSICIAN: Dr. Modi. CONSULTING PHYSICIAN: Magalys Langston MD Thank you for asking me to see the patient with you. TECHNIQUE: EEG done, using 10-20 International electrode system with photic stimulation. FINDINGS: Bilateral occipital hemisphere view shows delta and theta waves, medium sized, low amplit ude, asymmetric bilateral. Electromyogram artifact recorded. Photic stimulation done, did not elic it . No epileptiform discharge or seizure activity is recorded. IMPRESSION: This is an abnormal electroencephalogram, consistent with the history of underlying enc ephalopathy. No epileptiform discharge or seizure activity is recorded. Thank you for asking me to see the patient with you. Dictated By: MAGALYS LANGSTON MD NA/NTS Conf#: [id number] DID#: [id number]
[2016-11-07] MEDS: METHYLPREDNISOLONE 40 MG INJ IV SCH ×2 (09:08→21:25)
[2016-11-07] MEDS: LEVETIRACETAM 500 MG (PMX) 100 ML IVPB SCH ×2 (09:09→21:30)
[2016-11-07] MEDS: FLUOXETINE 20 MG CAP PO SCH (09:10)
[2016-11-07] MEDS: CARBIDOPA/LEVODOPA 50-200 (CR) TAB PO SCH ×2 (09:10→21:25)
[2016-11-07] MEDS: DONEPEZIL 10 MG TAB PO SCH (09:10)
[2016-11-07] MEDS: ASCORBIC ACID 500 MG TAB PO SCH (09:10)
[2016-11-07] MEDS: ASPIRIN 81 MG TAB PO SCH (09:10)
[2016-11-07] MEDS: ZINC SULFATE 220 MG CAP PO SCH (09:10)
[2016-11-07] MEDS: MEMANTINE 10 MG TAB PO SCH (09:10)
[2016-11-07] MEDS: LOSARTAN 50 MG TAB PO SCH ×2 (09:11→21:26)
[2016-11-07] MEDS: AMLODIPINE 2.5 MG TAB PO SCH ×2 (09:12→21:25)
[2016-11-07] MEDS: ENOXAPARIN 40 MG/0.4 ML SYG SC SCH (09:22)
--- NOTE | 2016-11-07 14:48 | PN ---
Date/Time of Note Date/Time of Note DATE: 11/07/16 TIME: 14:46 Assessment/Plan Lines/Catheters IV C[facility]ter Type (from [facility]): Peripheral IV Urinary Cath still in place: Yes Assessment/Plan Assessment/Plan DO NOT RESUSCITATE -Staph UTI, start patient on vancomycin. - per Dr. Garduno in infection disease consultation. -Right upper lobe pneumonia, continue Zosyn. - aspiration precautions -Sepsis secondary to #1 #2 -Acute respiratory insufficiency secondary to pneumonia, continue oxygen supplementation and bronchodilators. is following in pulmonology consultation -Seizure disorder, continue Keppra. -Parkinson's disease -Peripheral vascular disease -Hypertension, continue Coreg and Cozaar. Dr. Georges is following in cardiology consultation - Dysphagia- passed swallow study- on pureed diet - cont to monitor - downgrade to MS today - Hypokalemia- RESOLVED Further recommendations based on hospital course. Plan of care discussed with Dr. Burton. Exam/Review of Systems Vital Signs Vitals Vital Signs Date Time Temp Pulse Resp B/P Pulse Ox O2 Delivery O2 Flow Rate FiO2 11/07/16 08:10 Nasal Cannula 2.0 11/07/16 07:23 97.7 61 20 168/76 92 11/07/16 02:07 21 Intake and Output 11/06/16 11/06/16 11/07/16 15:00 23:00 07:00 Intake Total 250 ml 1420 ml 640 ml Output Total 450 ml 620 ml Balance 250 ml 970 ml 20 ml Exam Constitutional: alert, well developed Psych: nl mood/affect Eyes: EOMI, PERRL, nl sclera Neck: non-tender Respiratory: clear to auscultation Gastrointestinal: non-tender, soft Musculoskeletal: nl extremities to inspection Extremities: normal pulses Skin: nl turgor Lymph: nontender Results Result Diagram: 11/07/16 0505 11/07/16 0505 Results 24 hrs Laboratory Tests Test 11/07/16 05:05 White Blood Count 5.1 # Red Blood Count 3.73 L Hemoglobin 9.7 L Hematocrit 30.6 L Mean Corpuscular Volume 82.0 Mean Corpuscular Hemoglobin 26.0 L Mean Corpuscular Hemoglobin Concent 31.7 L Red Cell Distribution Width 15.2 H Platelet Count 199 # Mean Platelet Volume 10.0 Neutrophils % 84.9 H Lymphocytes % 11.2 L Monocytes % 3.7 Eosinophils % 0.0 Basophils % 0.0 Nucleated Red Blood Cells % 0.0 Neutrophils # 4.3 Lymphocytes # 0.6 L Monocytes # 0.2 L Eosinophils # 0.0 Basophils # 0.0 Nucleated Red Blood Cells # 0.0 Sodium Level 139 Potassium Level 3.9 Chloride Level 110 Carbon Dioxide Level 26 Anion Gap 7 L Blood Urea Nitrogen 15 Creatinine 0.65 Glucose Level 149 Calcium Level 8.0 L Medications Medications Current Medications Amlodipine Besylate (Norvasc) 2.5 mg BID PO Last administered on 11/07/16 09: 12; Admin Dose 2.5 MG; Start 11/01/16 at 21:00 Aspirin (Aspirin) 81 mg DAILY PO Last administered on 11/07/16 09:10; Admin Dose 81 MG; Start 11/02/16 at 09:00 Carbidopa/Levodopa (Sinemet Cr (50/ 200)) 0.5 tab BID PO Last administered on 09:10; Admin Dose 0.5 TAB; Start 11/01/16 at 21:00 Donepezil HCl (Aricept) 10 mg DAILY PO Last administered on 11/07/16 09:10; Admin Dose 10 MG; Start 11/02/16 at 09:00 Fluoxetine HCl (Prozac) 20 mg DAILY PO Last administered on 11/07/16 09:10; Admin Dose 20 MG; Start 11/02/16 at 09:00 Losartan Potassium (Cozaar) 50 mg BID PO Last administered on 11/07/16 09:11; Admin Dose 50 MG; Start 11/01/16 at 21:00 Memantine (Namenda) 10 mg DAILY PO Last administered on 11/07/16 09:10; Admin Dose 10 MG; Start 11/02/16 at 09:00 Trazodone HCl (Desyrel) 50 mg HS PO Last administered on 11/06/16 20:48; Admin Dose 50 MG; Start 11/01/16 at 21:00 Enoxaparin Sodium (Lovenox) 40 mg DAILY SC Last administered on 11/07/16 09:22 ; Admin Dose 40 MG; Start 11/01/16 at 10:30 Ascorbic Acid (Vitamin C) 500 mg DAILY PO Last administered on 11/07/16 09:10 ; Admin Dose 500 MG; Start 11/02/16 at 12:00 Zinc Sulfate 220 mg 220 mg DAILY PO Last administered on 11/07/16 09:10; Admin Dose 220 MG; Start 11/01/16 at 12:00 Dextrose/Sodium Chloride (D5-1/2ns) 1,000 ml @ 40 mls/hr Q24H IV Last administered on 11/07/16 06:42; Admin Dose 40 MLS/HR; Start 11/01/16 at 11:00 Acetaminophen 650 mg 650 mg Q6H PRN ND PRN FEVER >100.2 Last administered on 13:44; Admin Dose 650 MG; Start 11/01/16 at 12:00 Levetiracetam (Keppra 500 Mg/ 100ml (Pmx)) 100 ml @ 400 mls/hr BID IVPB Last administered on 11/07/16 09:09; Admin Dose 400 MLS/HR; Start 11/01/16 at 14:06 Hydralazine HCl (Apresoline) 20 mg Q6H PRN IV HYPERTENTION Last administered on 11/04/16 07:54; Admin Dose 20 MG; Start 11/01/16 at 23:00 Acetaminophen (Tylenol Tab) 650 mg Q6H PRN PO PAIN AND OR ELEVATED TEMP Last administered on 11/03/16 16:24; Admin Dose 650 MG; Start 11/03/16 at 16:30 Methylprednisolone Sodium Succinate (Solu-Medrol) 40 mg Q12 IV Last administered on 11/07/16 09:08; Admin Dose 40 MG; Start 11/05/16 at 13:00 LEYDA CAMACHO Nov 07, 2016 14:48
[2016-11-07] MEDS: hydrALAzine 20 MG INJ IV PRN (14:53)
[2016-11-07 15:00] VITALS: BP 203/79; PULSE 66
[2016-11-07 15:03] VITALS: BP 183/79; PULSE 63
[2016-11-07 15:40] VITALS: BP 135/62; PULSE 76
--- NOTE | 2016-11-07 19:04 | CONS ---
Date/Time of Note Date/Time of Note DATE: 11/07/16 TIME: 19:03 Consult Date/Type/Reason Admit Date/Time Nov 01, 2016 at 03:57 Initial Consult Date 11/01/16 Type of Consultation: Cardiac and Vasc Int Objective Vital Signs Date Time Temp Pulse Resp B/P Pulse Ox O2 Delivery O2 Flow Rate FiO2 11/07/16 15:40 76 135/62 92 11/07/16 08:10 Nasal Cannula 2.0 11/07/16 07:23 97.7 20 11/07/16 02:07 21 Intake and Output 11/06/16 11/06/16 11/07/16 15:00 23:00 07:00 Intake Total 250 ml 1420 ml 640 ml Output Total 450 ml 620 ml Balance 250 ml 970 ml 20 ml Results/Medications Result Diagram: 11/07/16 0505 11/07/16 0505 Results 24 hrs Laboratory Tests Test 11/07/16 05:05 White Blood Count 5.1 # Red Blood Count 3.73 L Hemoglobin 9.7 L Hematocrit 30.6 L Mean Corpuscular Volume 82.0 Mean Corpuscular Hemoglobin 26.0 L Mean Corpuscular Hemoglobin Concent 31.7 L Red Cell Distribution Width 15.2 H Platelet Count 199 # Mean Platelet Volume 10.0 Neutrophils % 84.9 H Lymphocytes % 11.2 L Monocytes % 3.7 Eosinophils % 0.0 Basophils % 0.0 Nucleated Red Blood Cells % 0.0 Neutrophils # 4.3 Lymphocytes # 0.6 L Monocytes # 0.2 L Eosinophils # 0.0 Basophils # 0.0 Nucleated Red Blood Cells # 0.0 Sodium Level 139 Potassium Level 3.9 Chloride Level 110 Carbon Dioxide Level 26 Anion Gap 7 L Blood Urea Nitrogen 15 Creatinine 0.65 Glucose Level 149 Calcium Level 8.0 L Medications Current Medications Amlodipine Besylate (Norvasc) 2.5 mg BID PO Last administered on 11/07/16 09: 12; Admin Dose 2.5 MG; Start 11/01/16 at 21:00 Aspirin (Aspirin) 81 mg DAILY PO Last administered on 11/07/16 09:10; Admin Dose 81 MG; Start 11/02/16 at 09:00 Carbidopa/Levodopa (Sinemet Cr (50/ 200)) 0.5 tab BID PO Last administered on 09:10; Admin Dose 0.5 TAB; Start 11/01/16 at 21:00 Donepezil HCl (Aricept) 10 mg DAILY PO Last administered on 11/07/16 09:10; Admin Dose 10 MG; Start 11/02/16 at 09:00 Fluoxetine HCl (Prozac) 20 mg DAILY PO Last administered on 11/07/16 09:10; Admin Dose 20 MG; Start 11/02/16 at 09:00 Losartan Potassium (Cozaar) 50 mg BID PO Last administered on 11/07/16 09:11; Admin Dose 50 MG; Start 11/01/16 at 21:00 Memantine (Namenda) 10 mg DAILY PO Last administered on 11/07/16 09:10; Admin Dose 10 MG; Start 11/02/16 at 09:00 Trazodone HCl (Desyrel) 50 mg HS PO Last administered on 11/06/16 20:48; Admin Dose 50 MG; Start 11/01/16 at 21:00 Enoxaparin Sodium (Lovenox) 40 mg DAILY SC Last administered on 11/07/16 09:22 ; Admin Dose 40 MG; Start 11/01/16 at 10:30 Ascorbic Acid (Vitamin C) 500 mg DAILY PO Last administered on 11/07/16 09:10 ; Admin Dose 500 MG; Start 11/02/16 at 12:00 Zinc Sulfate 220 mg 220 mg DAILY PO Last administered on 11/07/16 09:10; Admin Dose 220 MG; Start 11/01/16 at 12:00 Dextrose/Sodium Chloride (D5-1/2ns) 1,000 ml @ 40 mls/hr Q24H IV Last administered on 11/07/16 06:42; Admin Dose 40 MLS/HR; Start 11/01/16 at 11:00 Acetaminophen 650 mg 650 mg Q6H PRN RI PRN FEVER >100.2 Last administered on 13:44; Admin Dose 650 MG; Start 11/01/16 at 12:00 Levetiracetam (Keppra 500 Mg/ 100ml (Pmx)) 100 ml @ 400 mls/hr BID IVPB Last administered on 11/07/16 09:09; Admin Dose 400 MLS/HR; Start 11/01/16 at 14:06 Hydralazine HCl (Apresoline) 20 mg Q6H PRN IV HYPERTENTION Last administered on 11/07/16 14:53; Admin Dose 20 MG; Start 11/01/16 at 23:00 Acetaminophen (Tylenol Tab) 650 mg Q6H PRN PO PAIN AND OR ELEVATED TEMP Last administered on 11/03/16 16:24; Admin Dose 650 MG; Start 11/03/16 at 16:30 Methylprednisolone Sodium Succinate (Solu-Medrol) 40 mg Q12 IV Last administered on 11/07/16 09:08; Admin Dose 40 MG; Start 11/05/16 at 13:00 Assessment/Plan Chief Complaint/Hosp Course Patient is 86 year 1. History of hypothyroidism. 2. Hypertension. 3. Depression. 4. Parkinson's disease. 5. Dementia. lives with daughter, came in ER with nausea, vomiting and weakness, and also has some chest pain as per daughter who gave history over the phone. right now she is fine. no complaint. interpritor used. Problems: Additional Assessment/Plan 1. HTN 2. Parkinsons 3. PAD pt is stable bp stable contineu current med plan to have out pt f.u fo her PAD. RUTHY PAREDES MD Nov 07, 2016 19:04
[2016-11-07 19:59] VITALS: BP 152/66; RESP 18
[2016-11-07] MEDS: traZODone 50 MG TAB PO SCH (21:25)
--- NOTE | 2016-11-07 22:03 | PN ---
DATE: REFERRING PHYSICIAN: Dr. Burton HISTORY OF PRESENT ILLNESS: The patient is an 86-year old lady with decreased mini mental status, l ack of communication, history of seizure disorder, admitted to [facility] for more evaluation and treatment. CURRENT MEDICATIONS: Which include: 1. Aricept 10 mg once a day. 2. Namenda 10 mg once a day. 3. Albuterol inhaler twice a day. 4. Aspirin 81 mg once a day. 5. Lipitor 20 mg once a day. 6. Hydralazine 20 mg once a day. 7. Norvasc 2.5 mg once a day. 8. Cozaar 50 mg once a day. 9. Trazodone 50 mg once a day. 10. Keppra 500 mg twice a day. 11. Zinc sulfate 220 mg once a day. 12. Tylenol 650 once a day as needed. 13. Lovenox 40 mg subcutaneous once a day. PHYSICAL EXAMINATION: GENERAL: Today, the patient is alert, awake, and follows simple commands. She looks confused. CRANIAL NERVES: Cranial nerve II: Pupils equal on both sides, reactive to light. Cranial nerves I II, IV, and : Extraocular muscles intact without nystagmus. Cranial nerve V: Equal sensation to face. Cranial nerve VII: Symmetrical face. Cranial nerve VIII: Decreased hearing bilaterally. Cranial nerves IX and X: Elevates palate. Cranial nerve XI: Elevates shoulder 5/5. Cranial nerve XII: Straight tongue. 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 SENSATION: Decreased for glove and sock area for light touch and temperature. COORDINATION: [id number] test intact. HEART: Regular rate and rhythm. LUNGS: Equal breath sounds. ABDOMEN: Soft, relaxed, nondistended. No tenderness. ASSESSMENT AND PLAN: 1. The patient is an 86-year old with underlying toxic metabolic encephalopathy. 2. Underlying infection which the patient is followed by ID and IV antibiotics for that. 3. History of seizure disorder. The EEG showed generalized slowing consistent with a history of un derlying encephalopathy. No seizure activity on the EEG; however, does not exclude the clinical his tory of seizure. We will continue the patient on Keppra 500 twice a day from now. 4. Exacerbation possibility of underlying transient ischemic attack. Keep the patient on aspirin 8 1 mg once a day as well as Lovenox 40 mg subcutaneous once a day for deep venous thrombosis prophyla xis. 5. Keep the patient under decubitus ulcer prophylaxis. 6. History of memory disorder with the possibility of underlying Alzheimer. The patient on Aricept 10 mg once a day as well as Namenda 10 mg twice a day. Follow up the patient with mini mental stat us when she is more stable. 7. Status post staph urinary tract infection, right upper lobe pneumonia. 8. History of parkinsonism. However, the patient does not ambulate at this point. Will follow up the patient when she gets stronger and we might consider some medication. Again, thank you, Dr. Burton, for asking me to see the patient with you. Dictated By: MAGALYS NICHOLE MD NA/NTS Conf#: [id number] DID#: [id number] CC: VINCE BURTON MD; ALINE MCGHEE MD;*EndCC*
[2016-11-08] MEDS: ALBUTEROL/IPRATROPIUM (NEB) 3 ML AMP HHN SCH ×4 (02:09→20:45)
[2016-11-08 05:58] LABS: ADD SCAN DIFF NO
[2016-11-08 06:02] LABS: HEMATOCRIT 30.7 % (37.0-47.0); HEMOGLOBIN 9.7 g/dl (12.0-16.0); LYMPHOCYTES # 0.6 10^3/ul (0.8-2.9); LYMPHOCYTES % 11.5 % (15.0-51.0); MEAN CORPUSCULAR HEMOGLOBIN 25.8 pg (29.0-33.0); MEAN CORPUSCULAR HGB CONC 31.6 g/dl (32.0-37.0); MEAN CORPUSCULAR VOLUME 81.6 fl (82.0-101.0); MEAN PLATELET VOLUME 9.7 fl (7.4-10.4); MONOCYTE # 0.3 10^3/ul (0.3-0.9); MONOCYTES % 5.9 % (0.0-11.0); NEUTROPHIL # 4.5 10^3/ul (1.6-7.5); NEUTROPHILS % 81.3 % (39.0-77.0); PLATELET COUNT 212 10^3/UL (140-415); RED BLOOD COUNT 3.76 10^6/ul (4.20-5.40); RED CELL DISTRIBUTION WIDTH 15.3 % (11.5-14.5); WHITE BLOOD COUNT 5.6 10^3/ul (4.8-10.8)
[2016-11-08 06:11] LABS: POTASSIUM 3.3 mmol/L (3.5-5.1)
[2016-11-08 06:14] LABS: CREATININE 0.58 mg/dl (0.44-1.00)
[2016-11-08 06:15] LABS: CALCIUM 8.1 mg/dl (8.4-10.2)
[2016-11-08] MEDS: DEXTROSE 5%-0.45% NACL 1,000 ML IV SCH ×2 (06:24→20:00)
[2016-11-08 07:16] VITALS: BP 184/79; RESP 16
[2016-11-08] MEDS: hydrALAzine 20 MG INJ IV PRN (09:46)
[2016-11-08] MEDS: METHYLPREDNISOLONE 40 MG INJ IV SCH ×2 (09:50→21:25)
[2016-11-08] MEDS: LOSARTAN 50 MG TAB PO SCH ×2 (09:50→21:25)
[2016-11-08] MEDS: ASPIRIN 81 MG TAB PO SCH (09:50)
[2016-11-08] MEDS: ZINC SULFATE 220 MG CAP PO SCH (09:51)
[2016-11-08] MEDS: AMLODIPINE 2.5 MG TAB PO SCH ×2 (09:51→21:29)
[2016-11-08] MEDS: ASCORBIC ACID 500 MG TAB PO SCH (09:51)
[2016-11-08] MEDS: FLUOXETINE 20 MG CAP PO SCH (09:51)
[2016-11-08] MEDS: DONEPEZIL 10 MG TAB PO SCH (09:51)
[2016-11-08] MEDS: MEMANTINE 10 MG TAB PO SCH (09:52)
[2016-11-08] MEDS: CARBIDOPA/LEVODOPA 50-200 (CR) TAB PO SCH ×2 (09:52→21:26)
[2016-11-08] MEDS: LEVETIRACETAM 500 MG (PMX) 100 ML IVPB SCH ×2 (09:53→21:29)
[2016-11-08] MEDS: ENOXAPARIN 40 MG/0.4 ML SYG SC SCH (10:16)
--- NOTE | 2016-11-08 15:14 | PN ---
Date/Time of Note Date/Time of Note DATE: 11/08/16 TIME: 15:11 Assessment/Plan Lines/Catheters IV Catheter Type (from Nrs): Peripheral IV Urinary Cath still in place: Yes Assessment/Plan Assessment/Plan DO NOT RESUSCITATE -Staph UTI, start patient on vancomycin. - per Dr. Garduno in infection disease consultation. -Right upper lobe pneumonia, continue Zosyn. - aspiration precautions -Sepsis secondary to #1 #2 -Acute respiratory insufficiency secondary to pneumonia, continue oxygen supplementation and bronchodilators. is following in pulmonology consultation -Seizure disorder, continue Keppra. -Parkinson's disease -Peripheral vascular disease -Hypertension, continue Coreg and Cozaar. Dr. Georges is following in cardiology consultation - Dysphagia- passed swallow study- on pureed diet - cont to monitor - downgrade to MS today - Hypokalemia- replet Potassium - am labs. Further recommendations based on hospital course. Plan of care discussed with Dr. Burton. Subjective 24 Hr Interval Summary Free Text/Dictation nad, bp stable, afebrile, dw staff. Exam/Review of Systems Vital Signs Vitals Vital Signs Date Time Temp Pulse Resp B/P Pulse Ox O2 Delivery O2 Flow Rate FiO2 11/08/16 14:47 73 22 93 21 11/08/16 07:16 98.1 184/79 11/07/16 08:10 Nasal Cannula 2.0 Intake and Output 11/07/16 11/07/16 11/08/16 15:00 23:00 07:00 Intake Total 100 ml 1040 ml 220 ml Output Total 600 ml 350 ml Balance 100 ml 440 ml -130 ml Exam Constitutional: alert, well developed Psych: nl mood/affect Eyes: EOMI, PERRL, nl sclera ENMT: nl external ears & nose Neck: non-tender Respiratory: clear to auscultation Cardiovascular: nl pulses Gastrointestinal: non-tender, soft Musculoskeletal: nl extremities to inspection Neurological: other Lymph: nontender Results Result Diagram: 11/08/1652511/08/16 05 Results 24 hrs Laboratory Tests Test 11/08/16 05:26 White Blood Count 5.6 Red Blood Count 3.76 L Hemoglobin 9.7 L Hematocrit 30.7 L Mean Corpuscular Volume 81.6 L Mean Corpuscular Hemoglobin 25.8 L Mean Corpuscular Hemoglobin Concent 31.6 L Red Cell Distribution Width 15.3 H Platelet Count 212 Mean Platelet Volume 9.7 Neutrophils % 81.3 H Lymphocytes % 11.5 L Monocytes % 5.9 Eosinophils % 0.0 Basophils % 0.0 Nucleated Red Blood Cells % 0.0 Neutrophils # 4.5 Lymphocytes # 0.6 L Monocytes # 0.3 Eosinophils # 0.0 Basophils # 0.0 Nucleated Red Blood Cells # 0.0 Sodium Level 140 Potassium Level 3.3 L Chloride Level 106 Carbon Dioxide Level 25 Anion Gap 12 Blood Urea Nitrogen 16 Creatinine 0.58 Glucose Level 137 Calcium Level 8.1 L Medications Medications Current Medications Amlodipine Besylate (Norvasc) 2.5 mg BID PO Last administered on 11/08/16 09: 51; Admin Dose 2.5 MG; Start 11/01/16 at 21:00 Aspirin (Aspirin) 81 mg DAILY PO Last administered on 11/08/16 09:50; Admin Dose 81 MG; Start 11/02/16 at 09:00 Carbidopa/Levodopa (Sinemet Cr (50/ 200)) 0.5 tab BID PO Last administered on 09:52; Admin Dose 0.5 TAB; Start 11/01/16 at 21:00 Donepezil HCl (Aricept) 10 mg DAILY PO Last administered on 11/08/16 09:51; Admin Dose 10 MG; Start 11/02/16 at 09:00 Fluoxetine HCl (Prozac) 20 mg DAILY PO Last administered on 11/08/16 09:51; Admin Dose 20 MG; Start 11/02/16 at 09:00 Losartan Potassium (Cozaar) 50 mg BID PO Last administered on 11/08/16 09:50; Admin Dose 50 MG; Start 11/01/16 at 21:00 Memantine (Namenda) 10 mg DAILY PO Last administered on 11/08/16 09:52; Admin Dose 10 MG; Start 11/02/16 at 09:00 Trazodone HCl (Desyrel) 50 mg HS PO Last administered on 11/07/16 21:25; Admin Dose 50 MG; Start 11/01/16 at 21:00 Enoxaparin Sodium (Lovenox) 40 mg DAILY SC Last administered on 11/08/16 10:16 ; Admin Dose 40 MG; Start 11/01/16 at 10:30 Ascorbic Acid (Vitamin C) 500 mg DAILY PO Last administered on 11/08/16 09:51 ; Admin Dose 500 MG; Start 11/02/16 at 12:00 Zinc Sulfate 220 mg 220 mg DAILY PO Last administered on 11/08/16 09:51; Admin Dose 220 MG; Start 11/01/16 at 12:00 Dextrose/Sodium Chloride (D5-1/2ns) 1,000 ml @ 40 mls/hr Q24H IV Last administered on 11/08/16 06:24; Admin Dose 40 MLS/HR; Start 11/01/16 at 11:00 Acetaminophen 650 mg 650 mg Q6H PRN [place] PRN FEVER >100.2 Last administered on 13:44; Admin Dose 650 MG; Start 11/01/16 at 12:00 Levetiracetam (Keppra 500 Mg/ 100ml (Pmx)) 100 ml @ 400 mls/hr BID IVPB Last administered on 11/08/16 09:53; Admin Dose 400 MLS/HR; Start 11/01/16 at 14:06 Hydralazine HCl (Apresoline) 20 mg Q6H PRN IV HYPERTENTION Last administered on 11/08/16 09:46; Admin Dose 20 MG; Start 11/01/16 at 23:00 Acetaminophen (Tylenol Tab) 650 mg Q6H PRN PO PAIN AND OR ELEVATED TEMP Last administered on 11/03/16 16:24; Admin Dose 650 MG; Start 11/03/16 at 16:30 Methylprednisolone Sodium Succinate (Solu-Medrol) 40 mg Q12 IV Last administered on 11/08/16 09:50; Admin Dose 40 MG; Start 11/05/16 at 13:00 LEYDA CAMACHO Nov 08, 2016 15:14
[2016-11-08] MEDS ORDERED: POTASSIUM CHLORIDE 20 MEQ in SOD CHLORIDE 0.9% 100 ML IVPB ONE (17:00)
[2016-11-08 19:56] VITALS: BP 176/73; RESP 16
[2016-11-08 21:23] VITALS: BP 152/65; PULSE 80; RESP 18
[2016-11-08] MEDS: traZODone 50 MG TAB PO SCH (21:25)
--- NOTE | 2016-11-08 21:53 | CONS ---
Date/Time of Note Date/Time of Note DATE: 11/08/16 TIME: 21:51 Consult Date/Type/Reason Admit Date/Time Nov 01, 2016 at 03:57 Initial Consult Date 11/01/16 Type of Consultation: Cardiac and Vasc Int Objective Vital Signs Date Time Temp Pulse Resp B/P Pulse Ox O2 Delivery O2 Flow Rate FiO2 11/08/16 21:23 80 18 152/65 94 11/08/16 20:46 21 11/08/16 19:56 98.2 11/08/16 08:10 Nasal Cannula 2.0 Intake and Output 11/07/16 11/07/16 11/08/16 15:00 23:00 07:00 Intake Total 100 ml 1040 ml 220 ml Output Total 600 ml 350 ml Balance 100 ml 440 ml -130 ml Results/Medications Result Diagram: 11/08/16 0526 11/08/16 0526 Results 24 hrs Laboratory Tests Test 11/08/16 05:26 White Blood Count 5.6 Red Blood Count 3.76 L Hemoglobin 9.7 L Hematocrit 30.7 L Mean Corpuscular Volume 81.6 L Mean Corpuscular Hemoglobin 25.8 L Mean Corpuscular Hemoglobin Concent 31.6 L Red Cell Distribution Width 15.3 H Platelet Count 212 Mean Platelet Volume 9.7 Neutrophils % 81.3 H Lymphocytes % 11.5 L Monocytes % 5.9 Eosinophils % 0.0 Basophils % 0.0 Nucleated Red Blood Cells % 0.0 Neutrophils # 4.5 Lymphocytes # 0.6 L Monocytes # 0.3 Eosinophils # 0.0 Basophils # 0.0 Nucleated Red Blood Cells # 0.0 Sodium Level 140 Potassium Level 3.3 L Chloride Level 106 Carbon Dioxide Level 25 Anion Gap 12 Blood Urea Nitrogen 16 Creatinine 0.58 Glucose Level 137 Calcium Level 8.1 L Medications Current Medications Amlodipine Besylate (Norvasc) 2.5 mg BID PO Last administered on 11/08/16 21: 29; Admin Dose 2.5 MG; Start 11/01/16 at 21:00 Aspirin (Aspirin) 81 mg DAILY PO Last administered on 11/08/16 09:50; Admin Dose 81 MG; Start 11/02/16 at 09:00 Carbidopa/Levodopa (Sinemet Cr (50/ 200)) 0.5 tab BID PO Last administered on 21:26; Admin Dose 0.5 TAB; Start 11/01/16 at 21:00 Donepezil HCl (Aricept) 10 mg DAILY PO Last administered on 11/08/16 09:51; Admin Dose 10 MG; Start 11/02/16 at 09:00 Fluoxetine HCl (Prozac) 20 mg DAILY PO Last administered on 11/08/16 09:51; Admin Dose 20 MG; Start 11/02/16 at 09:00 Losartan Potassium (Cozaar) 50 mg BID PO Last administered on 11/08/16 21:25; Admin Dose 50 MG; Start 11/01/16 at 21:00 Memantine (Namenda) 10 mg DAILY PO Last administered on 11/08/16 09:52; Admin Dose 10 MG; Start 11/02/16 at 09:00 Trazodone HCl (Desyrel) 50 mg HS PO Last administered on 11/08/16 21:25; Admin Dose 50 MG; Start 11/01/16 at 21:00 Enoxaparin Sodium (Lovenox) 40 mg DAILY SC Last administered on 11/08/16 10:16 ; Admin Dose 40 MG; Start 11/01/16 at 10:30 Ascorbic Acid (Vitamin C) 500 mg DAILY PO Last administered on 11/08/16 09:51 ; Admin Dose 500 MG; Start 11/02/16 at 12:00 Zinc Sulfate 220 mg 220 mg DAILY PO Last administered on 11/08/16 09:51; Admin Dose 220 MG; Start 11/01/16 at 12:00 Dextrose/Sodium Chloride (D5-1/2ns) 1,000 ml @ 40 mls/hr Q24H IV Last administered on 11/08/16 06:24; Admin Dose 40 MLS/HR; Start 11/01/16 at 11:00 Acetaminophen 650 mg 650 mg Q6H PRN [place] PRN FEVER >100.2 Last administered on 13:44; Admin Dose 650 MG; Start 11/01/16 at 12:00 Levetiracetam (Keppra 500 Mg/ 100ml (Pmx)) 100 ml @ 400 mls/hr BID IVPB Last administered on 11/08/16 21:29; Admin Dose 400 MLS/HR; Start 11/01/16 at 14:06 Hydralazine HCl (Apresoline) 20 mg Q6H PRN IV HYPERTENTION Last administered on 11/08/16 09:46; Admin Dose 20 MG; Start 11/01/16 at 23:00 Acetaminophen (Tylenol Tab) 650 mg Q6H PRN PO PAIN AND OR ELEVATED TEMP Last administered on 11/03/16 16:24; Admin Dose 650 MG; Start 11/03/16 at 16:30 Methylprednisolone Sodium Succinate (Solu-Medrol) 40 mg Q12 IV Last administered on 11/08/16 21:25; Admin Dose 40 MG; Start 11/05/16 at 13:00 Assessment/Plan Chief Complaint/Hosp Course Patient is 86 year 1. History of hypothyroidism. 2. Hypertension. 3. Depression. 4. Parkinson's disease. 5. Dementia. lives with daughter, came in ER with nausea, vomiting and weakness, and also has some chest pain as per daughter who gave history over the phone. right now she is fine. no complaint. interpritor used. Problems: Additional Assessment/Plan PAD HTN Pt is stable plan per ID out pt fu for possible PAD revasc if needed. RUTHY PAREDES MD Nov 08, 2016 21:53
[2016-11-09] MEDS: ALBUTEROL/IPRATROPIUM (NEB) 3 ML AMP HHN SCH ×4 (02:03→20:17)
[2016-11-09 06:15] LABS: ADD SCAN DIFF NO
[2016-11-09 06:35] LABS: CALCIUM 8.1 mg/dl (8.4-10.2); CREATININE 0.58 mg/dl (0.44-1.00); POTASSIUM 3.9 mmol/L (3.5-5.1)
[2016-11-09 06:40] LABS: HEMOGLOBIN 10.2 g/dl (12.0-16.0)
[2016-11-09 06:47] LABS: HEMATOCRIT 32.6 % (37.0-47.0); LYMPHOCYTES # 0.6 10^3/ul (0.8-2.9); LYMPHOCYTES % 9.5 % (15.0-51.0); MEAN CORPUSCULAR HEMOGLOBIN 25.8 pg (29.0-33.0); MEAN CORPUSCULAR HGB CONC 31.3 g/dl (32.0-37.0); MEAN CORPUSCULAR VOLUME 82.5 fl (82.0-101.0); MEAN PLATELET VOLUME 9.5 fl (7.4-10.4); MONOCYTE # 0.5 10^3/ul (0.3-0.9); MONOCYTES % 7.1 % (0.0-11.0); NEUTROPHIL # 5.4 10^3/ul (1.6-7.5); NEUTROPHILS % 80.4 % (39.0-77.0); PLATELET COUNT 260 10^3/UL (140-415); RED BLOOD COUNT 3.95 10^6/ul (4.20-5.40); RED CELL DISTRIBUTION WIDTH 15.5 % (11.5-14.5); WHITE BLOOD COUNT 6.7 10^3/ul (4.8-10.8)
--- NOTE | 2016-11-09 07:27 | CONS ---
DATE OF ADMISSION: 11/01/2016 DATE OF CONSULTATION: REFERRING PHYSICIAN: Dr. Burton CONSULTING PHYSICIAN: Dr. Langston HISTORY OF PRESENT ILLNESS: The patient is an 86-year-old lady with decreased mini mental status wi th history of seizure disorder, admitted to [facility] for more evaluation and simon atment. The patient with underlying dementia, Alzheimer disease. MEDICATIONS: The patient's current medications include 1. Aricept 10 mg once a day. 2. Namenda 10 mg once a day. 3. Albuterol inhaler twice a day. 4. Aspirin 81 mg once a day. 5. Lipitor 20 mg once a day. 6. Hydralazine 20 mg once a day. 7. Norvasc 2.5 mg once a day. 8. Cozaar 50 mg once a day. 9. Trazodone 50 mg once a day. 10. Keppra 500 mg twice a day. 11. Zinc sulfate 220 mg once a day. 12. Tylenol 650 mg once as needed. 13. Lovenox 40 mg subcutaneous once a day. PHYSICAL EXAMINATION: GENERAL: On examination today, the patient is alert, awake, can follow simple commands. She is abl e to follow second or third-step commands. CRANIAL NERVES: Cranial nerve II: Pupils equal on both sides and reactive to light. Cranial nerve s III, IV, and : Extraocular muscles intact. Cranial nerve V: Equal sensation to face. Cranial nerve VII: Symmetrical face. Cranial nerve VIII: Decreased hearing bilaterally. Cranial nerves IX and X: Elevates palate. Cranial nerve XI: Elevates shoulder 5/5. Cranial nerve XII: With str aight tongue. 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 SENSATION: Decreased for light touch and temperature. COORDINATION: [id number] is intact. HEART: Regular rate and rhythm. LUNGS: Equal breath sounds. ABDOMEN: Soft, relaxed, nondistended. No tenderness. ASSESSMENT AND PLAN: 1. The patient is an 86-year-old with a history of seizure disorder. Continue the patient on Keppr a 500 mg twice a day. Keep the patient under seizure precaution as well as aspiration precaution. 2. Decreased mini mental status, probably secondary to toxic metabolic encephalopathy. 3. History of dementia, Alzheimer disease. Give the patient Aricept 10 mg once a day as well as Na menda 10 mg and follow up the patient when she is stable for mini mental status. 4. Status post urinary tract infection and right upper lobe pneumonia. The patient is on IV antibi otics. 5. History of Parkinsonism. We will follow up the patient when she stands up and can walk for more evaluation and treatment. Again, than, you for asking me to see the patient with you. Dictated By: MAGALYS JEFFERSON/MAGGIE Conf#: [id number] DID#: [id number]
[2016-11-09 07:44] VITALS: BP 171/72; RESP 18
--- NOTE | 2016-11-09 07:55 | CONS ---
Date/Time of Note Date/Time of Note DATE: 11/09/16 TIME: 07:55 Consult Date/Type/Reason Admit Date/Time Nov 01, 2016 at 03:57 Initial Consult Date 11/01/16 Type of Consultation: Cardiac and Vasc Int Objective Vital Signs Date Time Temp Pulse Resp B/P Pulse Ox O2 Delivery O2 Flow Rate FiO2 11/09/16 07:44 98.2 74 18 171/72 94 11/09/16 02:03 21 11/08/16 08:10 Nasal Cannula 2.0 Intake and Output 11/08/16 11/08/16 11/09/16 15:00 23:00 07:00 Intake Total 480 ml 100 ml 450 ml Output Total 600 ml 800 ml Balance -120 ml 100 ml -350 ml Results/Medications Result Diagram: 11/09/16 0535 11/09/16 0535 Results 24 hrs Laboratory Tests Test 11/09/16 05:35 White Blood Count 6.7 Red Blood Count 3.95 L Hemoglobin 10.2 L Hematocrit 32.6 L Mean Corpuscular Volume 82.5 Mean Corpuscular Hemoglobin 25.8 L Mean Corpuscular Hemoglobin Concent 31.3 L Red Cell Distribution Width 15.5 H Platelet Count 260 # Mean Platelet Volume 9.5 Neutrophils % 80.4 H Lymphocytes % 9.5 L Monocytes % 7.1 Eosinophils % 0.0 Basophils % 0.0 Nucleated Red Blood Cells % 0.0 Neutrophils # 5.4 Lymphocytes # 0.6 L Monocytes # 0.5 Eosinophils # 0.0 Basophils # 0.0 Nucleated Red Blood Cells # 0.0 Sodium Level 138 Potassium Level 3.9 Chloride Level 108 Carbon Dioxide Level 26 Anion Gap 8 Blood Urea Nitrogen 15 Creatinine 0.58 Glucose Level 129 Calcium Level 8.1 L Medications Current Medications Amlodipine Besylate (Norvasc) 2.5 mg BID PO Last administered on 11/08/16 21: 29; Admin Dose 2.5 MG; Start 11/01/16 at 21:00 Aspirin (Aspirin) 81 mg DAILY PO Last administered on 11/08/16 09:50; Admin Dose 81 MG; Start 11/02/16 at 09:00 Carbidopa/Levodopa (Sinemet Cr (50/ 200)) 0.5 tab BID PO Last administered on 21:26; Admin Dose 0.5 TAB; Start 11/01/16 at 21:00 Donepezil HCl (Aricept) 10 mg DAILY PO Last administered on 11/08/16 09:51; Admin Dose 10 MG; Start 11/02/16 at 09:00 Fluoxetine HCl (Prozac) 20 mg DAILY PO Last administered on 11/08/16 09:51; Admin Dose 20 MG; Start 11/02/16 at 09:00 Losartan Potassium (Cozaar) 50 mg BID PO Last administered on 11/08/16 21:25; Admin Dose 50 MG; Start 11/01/16 at 21:00 Memantine (Namenda) 10 mg DAILY PO Last administered on 11/08/16 09:52; Admin Dose 10 MG; Start 11/02/16 at 09:00 Trazodone HCl (Desyrel) 50 mg HS PO Last administered on 11/08/16 21:25; Admin Dose 50 MG; Start 11/01/16 at 21:00 Enoxaparin Sodium (Lovenox) 40 mg DAILY SC Last administered on 11/08/16 10:16 ; Admin Dose 40 MG; Start 11/01/16 at 10:30 Ascorbic Acid (Vitamin C) 500 mg DAILY PO Last administered on 11/08/16 09:51 ; Admin Dose 500 MG; Start 11/02/16 at 12:00 Zinc Sulfate 220 mg 220 mg DAILY PO Last administered on 11/08/16 09:51; Admin Dose 220 MG; Start 11/01/16 at 12:00 Dextrose/Sodium Chloride (D5-1/2ns) 1,000 ml @ 40 mls/hr Q24H IV Last administered on 11/08/16 06:24; Admin Dose 40 MLS/HR; Start 11/01/16 at 11:00 Acetaminophen 650 mg 650 mg Q6H PRN [place] PRN FEVER >100.2 Last administered on 13:44; Admin Dose 650 MG; Start 11/01/16 at 12:00 Levetiracetam (Keppra 500 Mg/ 100ml (Pmx)) 100 ml @ 400 mls/hr BID IVPB Last administered on 11/08/16 21:29; Admin Dose 400 MLS/HR; Start 11/01/16 at 14:06 Hydralazine HCl (Apresoline) 20 mg Q6H PRN IV HYPERTENTION Last administered on 11/08/16 09:46; Admin Dose 20 MG; Start 11/01/16 at 23:00 Acetaminophen (Tylenol Tab) 650 mg Q6H PRN PO PAIN AND OR ELEVATED TEMP Last administered on 11/03/16 16:24; Admin Dose 650 MG; Start 11/03/16 at 16:30 Methylprednisolone Sodium Succinate (Solu-Medrol) 40 mg Q12 IV Last administered on 11/08/16 21:25; Admin Dose 40 MG; Start 11/05/16 at 13:00 Assessment/Plan Chief Complaint/Hosp Course Patient is 86 year 1. History of hypothyroidism. 2. Hypertension. 3. Depression. 4. Parkinson's disease. 5. Dementia. lives with daughter, came in ER with nausea, vomiting and weakness, and also has some chest pain as per daughter who gave history over the phone. right now she is fine. no complaint. interpritor used. Problems: Additional Assessment/Plan HTN Sepsis PAD Patient has left SFA stenosis d/w family plan for out pt interventions if remains symtomatic DNR Medical management only. will. RUTHY Baxter MD Nov 09, 2016 07:55
[2016-11-09] MEDS: METHYLPREDNISOLONE 40 MG INJ IV SCH ×2 (09:59→21:49)
[2016-11-09] MEDS: ASCORBIC ACID 500 MG TAB PO SCH (10:00)
[2016-11-09] MEDS: LEVETIRACETAM 500 MG (PMX) 100 ML IVPB SCH ×2 (10:00→21:49)
[2016-11-09] MEDS: ASPIRIN 81 MG TAB PO SCH (10:00)
[2016-11-09] MEDS: CARBIDOPA/LEVODOPA 50-200 (CR) TAB PO SCH ×2 (10:00→21:47)
[2016-11-09] MEDS: DONEPEZIL 10 MG TAB PO SCH (10:05)
[2016-11-09] MEDS: LOSARTAN 50 MG TAB PO SCH ×2 (10:05→21:50)
[2016-11-09] MEDS: ZINC SULFATE 220 MG CAP PO SCH (10:05)
[2016-11-09] MEDS: MEMANTINE 10 MG TAB PO SCH (10:05)
[2016-11-09] MEDS: FLUOXETINE 20 MG CAP PO SCH (10:05)
[2016-11-09] MEDS: AMLODIPINE 2.5 MG TAB PO SCH ×2 (10:06→15:20)
[2016-11-09] MEDS: DEXTROSE 5%-0.45% NACL 1,000 ML IV SCH (10:38)
[2016-11-09] MEDS: ENOXAPARIN 40 MG/0.4 ML SYG SC SCH (10:53)
--- NOTE | 2016-11-09 11:42 | PN ---
Date/Time of Note Date/Time of Note DATE: 11/09/16 TIME: 11:40 Assessment/Plan Lines/Catheters IV Catheter Type ([facility]): Peripheral IV Urinary Cath still in place: Yes Assessment/Plan Assessment/Plan DO NOT RESUSCITATE -Staph UTI, start patient on vancomycin. - per Dr. Garduno in infection disease consultation. -Right upper lobe pneumonia, continue Zosyn. - aspiration precautions -Sepsis secondary to #1 #2 -Acute respiratory insufficiency secondary to pneumonia, continue oxygen supplementation and bronchodilators. is following in pulmonology consultation -Seizure disorder, continue Keppra. -Parkinson's disease -Peripheral vascular disease -Hypertension, continue Coreg and Cozaar. Dr. Georges is following in cardiology consultation - Dysphagia- passed swallow study- on pureed diet - cont to monitor - Hypokalemia- resolved Further recommendations based on hospital course. Plan of care discussed with Dr. Burton. Subjective 24 Hr Interval Summary Free Text/Dictation nad, alert, responsive, afebrile, dw staff. Exam/Review of Systems Vital Signs Vitals Vital Signs Date Time Temp Pulse Resp B/P Pulse Ox O2 Delivery O2 Flow Rate FiO2 11/09/16 07:56 76 20 94 21 11/09/16 07:44 98.2 171/72 11/08/16 08:10 Nasal Cannula 2.0 Intake and Output 11/08/16 11/08/16 11/09/16 15:00 23:00 07:00 Intake Total 480 ml 100 ml 450 ml Output Total 600 ml 800 ml Balance -120 ml 100 ml -350 ml Exam Constitutional: alert, well developed Psych: nl mood/affect Eyes: EOMI, PERRL, nl sclera ENMT: nl external ears & nose Neck: non-tender Respiratory: clear to auscultation Cardiovascular: nl pulses Gastrointestinal: non-tender, soft Musculoskeletal: nl extremities to inspection Extremities: normal pulses Neurological: other Skin: other Lymph: nontender Results Result Diagram: 11/09/16 0535 11/09/16 0535 Results 24 hrs Laboratory Tests Test 11/09/16 05:35 White Blood Count 6.7 Red Blood Count 3.95 L Hemoglobin 10.2 L Hematocrit 32.6 L Mean Corpuscular Volume 82.5 Mean Corpuscular Hemoglobin 25.8 L Mean Corpuscular Hemoglobin Concent 31.3 L Red Cell Distribution Width 15.5 H Platelet Count 260 # Mean Platelet Volume 9.5 Neutrophils % 80.4 H Lymphocytes % 9.5 L Monocytes % 7.1 Eosinophils % 0.0 Basophils % 0.0 Nucleated Red Blood Cells % 0.0 Neutrophils # 5.4 Lymphocytes # 0.6 L Monocytes # 0.5 Eosinophils # 0.0 Basophils # 0.0 Nucleated Red Blood Cells # 0.0 Sodium Level 138 Potassium Level 3.9 Chloride Level 108 Carbon Dioxide Level 26 Anion Gap 8 Blood Urea Nitrogen 15 Creatinine 0.58 Glucose Level 129 Calcium Level 8.1 L Medications Medications Current Medications Amlodipine Besylate (Norvasc) 2.5 mg BID PO Last administered on 11/09/16 10: 06; Admin Dose 2.5 MG; Start 11/01/16 at 21:00 Aspirin (Aspirin) 81 mg DAILY PO Last administered on 11/09/16 10:00; Admin Dose 81 MG; Start 11/02/16 at 09:00 Carbidopa/Levodopa (Sinemet Cr (50/ 200)) 0.5 tab BID PO Last administered on 10:00; Admin Dose 0.5 TAB; Start 11/01/16 at 21:00 Donepezil HCl (Aricept) 10 mg DAILY PO Last administered on 11/09/16 10:05; Admin Dose 10 MG; Start 11/02/16 at 09:00 Fluoxetine HCl (Prozac) 20 mg DAILY PO Last administered on 11/09/16 10:05; Admin Dose 20 MG; Start 11/02/16 at 09:00 Losartan Potassium (Cozaar) 50 mg BID PO Last administered on 11/09/16 10:05; Admin Dose 50 MG; Start 11/01/16 at 21:00 Memantine (Namenda) 10 mg DAILY PO Last administered on 11/09/16 10:05; Admin Dose 10 MG; Start 11/02/16 at 09:00 Trazodone HCl (Desyrel) 50 mg HS PO Last administered on 11/08/16 21:25; Admin Dose 50 MG; Start 11/01/16 at 21:00 Enoxaparin Sodium (Lovenox) 40 mg DAILY SC Last administered on 11/09/16 10:53 ; Admin Dose 40 MG; Start 11/01/16 at 10:30 Ascorbic Acid (Vitamin C) 500 mg DAILY PO Last administered on 11/09/16 10:00 ; Admin Dose 500 MG; Start 11/02/16 at 12:00 Zinc Sulfate 220 mg 220 mg DAILY PO Last administered on 11/09/16 10:05; Admin Dose 220 MG; Start 11/01/16 at 12:00 Dextrose/Sodium Chloride (D5-1/2ns) 1,000 ml @ 40 mls/hr Q24H IV Last administered on 11/09/16 10:38; Admin Dose 40 MLS/HR; Start 11/01/16 at 11:00 Acetaminophen 650 mg 650 mg Q6H PRN [place] PRN FEVER >100.2 Last administered on 13:44; Admin Dose 650 MG; Start 11/01/16 at 12:00 Levetiracetam (Keppra 500 Mg/ 100ml (Pmx)) 100 ml @ 400 mls/hr BID IVPB Last administered on 11/09/16 10:00; Admin Dose 400 MLS/HR; Start 11/01/16 at 14:06 Hydralazine HCl (Apresoline) 20 mg Q6H PRN IV HYPERTENTION Last administered on 11/08/16 09:46; Admin Dose 20 MG; Start 11/01/16 at 23:00 Acetaminophen (Tylenol Tab) 650 mg Q6H PRN PO PAIN AND OR ELEVATED TEMP Last administered on 11/03/16 16:24; Admin Dose 650 MG; Start 11/03/16 at 16:30 Methylprednisolone Sodium Succinate (Solu-Medrol) 40 mg Q12 IV Last administered on 11/09/16 09:59; Admin Dose 40 MG; Start 11/05/16 at 13:00 LEYDA CAMACHO Nov 09, 2016 11:41
[2016-11-09] MEDS ORDERED: hydrALAzine 20 MG INJ IV PRN (14:30)
[2016-11-09] MEDS: HYDROCHLOROTHIAZIDE 25 MG TAB PO SCH (15:20)
[2016-11-09 19:42] VITALS: BP 181/74; RESP 18
[2016-11-09] MEDS: traZODone 50 MG TAB PO SCH (21:47)
[2016-11-09 21:50] VITALS: BP 154/63; PULSE 74
[2016-11-10] MEDS: ALBUTEROL/IPRATROPIUM (NEB) 3 ML AMP HHN SCH ×4 (01:42→19:48)
[2016-11-10 05:37] LABS: ADD SCAN DIFF NO
[2016-11-10 05:40] LABS: BASOPHILS % 0.2 % (0.0-2.0); HEMATOCRIT 31.8 % (37.0-47.0); HEMOGLOBIN 10.2 g/dl (12.0-16.0); LYMPHOCYTES # 0.6 10^3/ul (0.8-2.9); LYMPHOCYTES % 9.6 % (15.0-51.0); MEAN CORPUSCULAR HEMOGLOBIN 26.1 pg (29.0-33.0); MEAN CORPUSCULAR HGB CONC 32.1 g/dl (32.0-37.0); MEAN CORPUSCULAR VOLUME 81.3 fl (82.0-101.0); MEAN PLATELET VOLUME 9.2 fl (7.4-10.4); MONOCYTE # 0.3 10^3/ul (0.3-0.9); MONOCYTES % 5.3 % (0.0-11.0); NEUTROPHILS % 80.1 % (39.0-77.0); PLATELET COUNT 321 10^3/UL (140-415); RED BLOOD COUNT 3.91 10^6/ul (4.20-5.40); RED CELL DISTRIBUTION WIDTH 15.4 % (11.5-14.5); WHITE BLOOD COUNT 6.3 10^3/ul (4.8-10.8)
[2016-11-10 06:15] LABS: POTASSIUM 3.9 mmol/L (3.5-5.1)
--- NOTE | 2016-11-10 06:16 | PN ---
DATE: ATTENDING PHYSICIAN: Dr. Burton HISTORY OF PRESENT ILLNESS: The patient is an 86-year old with decreased mini mental status with a history of seizure disorder, admitted to [facility] for more evaluation and treatm ent. The patient has a history of underlying dementia of possible Alzheimer disease. CURRENT MEDICATIONS: The patient's current medications include 1. Aricept 10 mg once a day. 2. Namenda 10 mg once a day. 3. Albuterol inhaler twice a day. 4. Aspirin 81 mg once a day. 5. Lipitor 20 mg once a day. 6. Hydralazine 20 mg once a day. 7. Norvasc 2.5 mg once a day. 8. Cozaar 50 mg once a day. 9. Trazodone 50 mg once at night. 10. Keppra 500 mg twice a day. 11. Zinc sulfate 220 mg once a day. 12. Tylenol 650 mg as needed. 13. Lovenox 40 mg subcutaneous once a day. PHYSICAL EXAMINATION: NEUROLOGIC: On exam today, the patient is alert, awake, and follows simple commands. She has diffi culty to follow second or third-step commands. CRANIAL NERVES: Cranial nerve II: Pupils equal on both sides, reactive. Cranial nerves III, IV an d : Extraocular muscles intact. Cranial nerve V: Equal sensation to face. Symmetrical face. Cr anial nerve VIII: Decreased hearing bilaterally. Cranial nerves IX and X: Elevates palate. Crani al nerve XI: Elevates shoulder, power 5/5. Cranial nerve XII: Straight tongue. 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 Sensation decreased for glove and sock area for light touc h and temperature. COORDINATION: Ohzzeu-qc-elrh test intact. HEART: Regular rate and rhythm. LUNGS: Equal breath sounds. ABDOMEN: Soft, relaxed, nondistended. No tenderness. ASSESSMENT AND PLAN: 1. The patient is an 86-year old with underlying seizure disorder. Keep the patient on Keppra 500 mg twice a day. Keep the patient under seizure precaution as well as aspiration precaution. 2. Underlying toxic metabolic encephalopathy, probably secondary to hypoxia with worsening of her m ini-mental status. 3. History of dementia, possible Alzheimer disease. Keep the patient on Aricept 10 mg as well as Namenda 10 mg. Follow up the patient with mini mental status exam as an outpatient. 4. History of urinary tract infection and patient with lobar pneumonia. Keep the patient on IV anti biotics. 5. History of parkinsonism. Follow up the patient an outpatient for more evaluation for her gait a nd balance. Again, thank you for asking me to see the patient with you. Dictated By: MAGALYS JEFFERSON/MAGGIE Conf#: [id number] DID#: [id number]
[2016-11-10 06:18] LABS: CREATININE 0.6 mg/dl (0.44-1.00)
[2016-11-10 06:19] LABS: CALCIUM 8.4 mg/dl (8.4-10.2)
[2016-11-10 07:32] VITALS: BP 168/71; RESP 18
[2016-11-10 10:03] VITALS: BP 158/74; PULSE 77
[2016-11-10] MEDS: DONEPEZIL 10 MG TAB PO SCH (10:05)
[2016-11-10] MEDS: MEMANTINE 10 MG TAB PO SCH (10:05)
[2016-11-10] MEDS: CARBIDOPA/LEVODOPA 50-200 (CR) TAB PO SCH ×2 (10:05→21:53)
[2016-11-10] MEDS: METHYLPREDNISOLONE 40 MG INJ IV SCH ×2 (10:05→21:53)
[2016-11-10] MEDS: ASPIRIN 81 MG TAB PO SCH (10:05)
[2016-11-10] MEDS: HYDROCHLOROTHIAZIDE 25 MG TAB PO SCH (10:06)
[2016-11-10] MEDS: FLUOXETINE 20 MG CAP PO SCH (10:06)
[2016-11-10] MEDS: LOSARTAN 50 MG TAB PO SCH ×2 (10:06→21:53)
[2016-11-10] MEDS: ZINC SULFATE 220 MG CAP PO SCH (10:06)
[2016-11-10] MEDS: ASCORBIC ACID 500 MG TAB PO SCH (10:06)
[2016-11-10] MEDS: AMLODIPINE 2.5 MG TAB PO SCH (10:07)
[2016-11-10] MEDS: ENOXAPARIN 40 MG/0.4 ML SYG SC SCH (10:08)
[2016-11-10] MEDS: LEVETIRACETAM 500 MG (PMX) 100 ML IVPB SCH ×2 (10:16→21:52)
--- NOTE | 2016-11-10 11:05 | PN ---
Date/Time of Note Date/Time of Note DATE: 11/10/16 TIME: 11:04 Assessment/Plan VTE Prophylaxis VTE Prophylaxis Intervention: other Lines/Catheters IV Catheter Type (from Nrs): Peripheral IV Urinary Cath still in place: Yes Reason Cath still needed: skin wounds contaminated by urine Assessment/Plan Chief Complaint/Hosp Course - Staph UTI, start patient on vancomycin. - per Dr. Garduno in infection disease consultation. - Right upper lobe pneumonia, continue Zosyn. - aspiration precautions - Sepsis secondary to #1 #2 - Acute respiratory insufficiency secondary to pneumonia, continue oxygen supplementation and bronchodilators. is following in pulmonology consultation - Seizure disorder, continue Keppra. - Parkinson's disease - Peripheral vascular disease - Hypertension, continue Coreg and Cozaar. Dr. Georges is following in cardiology consultation - Dysphagia- passed swallow study- on pureed diet - cont to monitor - Hypokalemia- resolved Problems: Subjective 24 Hr Interval Summary Free Text/Dictation Patient is alert but not verbally responsive Exam/Review of Systems Vital Signs Vitals Vital Signs Date Time Temp Pulse Resp B/P Pulse Ox O2 Delivery O2 Flow Rate FiO2 11/10/16 10:03 77 158/74 11/10/16 07:48 20 96 21 11/10/16 07:32 98.3 11/09/16 20:00 Nasal Cannula 2.0 Intake and Output 11/09/16 11/09/16 11/10/16 15:00 23:00 07:00 Intake Total 700 ml 560 ml 760 ml Output Total 750 ml 1600 ml Balance 700 ml -190 ml -840 ml Exam Constitutional: well developed Head: atraumatic, normocephalic Neck: supple Cardiovascular: regular rate and rhythm Gastrointestinal: non-tender, soft Extremities: normal pulses Results Result Diagram: 11/10/16 0503 11/10/16 0503 Results 24 hrs Laboratory Tests Test 11/10/16 05:03 White Blood Count 6.3 Red Blood Count 3.91 L Hemoglobin 10.2 L Hematocrit 31.8 L Mean Corpuscular Volume 81.3 L Mean Corpuscular Hemoglobin 26.1 L Mean Corpuscular Hemoglobin Concent 32.1 Red Cell Distribution Width 15.4 H Platelet Count 321 # Mean Platelet Volume 9.2 Neutrophils % 80.1 H Lymphocytes % 9.6 L Monocytes % 5.3 Eosinophils % 0.0 Basophils % 0.2 Nucleated Red Blood Cells % 0.0 Neutrophils # 5.0 Lymphocytes # 0.6 L Monocytes # 0.3 Eosinophils # 0.0 Basophils # 0.0 Nucleated Red Blood Cells # 0.0 Sodium Level 140 Potassium Level 3.9 Chloride Level 102 Carbon Dioxide Level 27 Anion Gap 15 # Blood Urea Nitrogen 12 Creatinine 0.60 Glucose Level 135 Calcium Level 8.4 Medications Medications Current Medications Aspirin (Aspirin) 81 mg DAILY PO Last administered on 11/10/16 10:05; Admin Dose 81 MG; Start 11/02/16 at 09:00 Carbidopa/Levodopa (Sinemet Cr (50/ 200)) 0.5 tab BID PO Last administered on 10:05; Admin Dose 0.5 TAB; Start 11/01/16 at 21:00 Donepezil HCl (Aricept) 10 mg DAILY PO Last administered on 11/10/16 10:05; Admin Dose 10 MG; Start 11/02/16 at 09:00 Fluoxetine HCl (Prozac) 20 mg DAILY PO Last administered on 11/10/16 10:06; Admin Dose 20 MG; Start 11/02/16 at 09:00 Losartan Potassium (Cozaar) 50 mg BID PO Last administered on 11/10/16 10:06; Admin Dose 50 MG; Start 11/01/16 at 21:00 Memantine (Namenda) 10 mg DAILY PO Last administered on 11/10/16 10:05; Admin Dose 10 MG; Start 11/02/16 at 09:00 Trazodone HCl (Desyrel) 50 mg HS PO Last administered on 11/09/16 21:47; Admin Dose 50 MG; Start 11/01/16 at 21:00 Enoxaparin Sodium (Lovenox) 40 mg DAILY SC Last administered on 11/10/16 10:08 ; Admin Dose 40 MG; Start 11/01/16 at 10:30 Ascorbic Acid (Vitamin C) 500 mg DAILY PO Last administered on 11/10/16 10:06 ; Admin Dose 500 MG; Start 11/02/16 at 12:00 Zinc Sulfate 220 mg 220 mg DAILY PO Last administered on 11/10/16 10:06; Admin Dose 220 MG; Start 11/01/16 at 12:00 Dextrose/Sodium Chloride (D5-1/2ns) 1,000 ml @ 40 mls/hr Q24H IV Last administered on 11/09/16 10:38; Admin Dose 40 MLS/HR; Start 11/01/16 at 11:00 Acetaminophen 650 mg 650 mg Q6H PRN [place] PRN FEVER >100.2 Last administered on 13:44; Admin Dose 650 MG; Start 11/01/16 at 12:00 Levetiracetam (Keppra 500 Mg/ 100ml (Pmx)) 100 ml @ 400 mls/hr BID IVPB Last administered on 11/10/16 10:16; Admin Dose 400 MLS/HR; Start 11/01/16 at 14:06 Acetaminophen (Tylenol Tab) 650 mg Q6H PRN PO PAIN AND OR ELEVATED TEMP Last administered on 11/03/16 16:24; Admin Dose 650 MG; Start 11/03/16 at 16:30 Methylprednisolone Sodium Succinate (Solu-Medrol) 40 mg Q12 IV Last administered on 11/10/16 10:05; Admin Dose 40 MG; Start 11/05/16 at 13:00 Amlodipine Besylate (Norvasc) 10 mg DAILY PO Last administered on 11/10/16 10: 07; Admin Dose 10 MG; Start 11/09/16 at 14:30 Hydralazine HCl (Apresoline) 10 mg Q6H PRN IV ELEVATED SYSTOLIC BP; Start 11/09 at 14:30 Hydrochlorothiazide (Hydrochlorothiazide) 25 mg DAILY PO Last administered on 10:06; Admin Dose 25 MG; Start 11/09/16 at 14:30 ALINE MCGHEE Nov 10, 2016 11:05
[2016-11-10] MEDS: DEXTROSE 5%-0.45% NACL 1,000 ML IV SCH ×2 (14:36→19:39)
--- NOTE | 2016-11-10 16:38 | CONS ---
Date/Time of Note Date/Time of Note DATE: 11/10/16 TIME: 16:36 Consult Date/Type/Reason Admit Date/Time Nov 01, 2016 at 03:57 Initial Consult Date 11/01/16 Type of Consultation: Cardiac and Vasc Int Objective Vital Signs Date Time Temp Pulse Resp B/P Pulse Ox O2 Delivery O2 Flow Rate FiO2 11/10/16 13:41 76 20 94 21 11/10/16 10:03 158/74 11/10/16 07:32 98.3 11/09/16 20:00 Nasal Cannula 2.0 Intake and Output 11/09/16 11/09/16 11/10/16 15:00 23:00 07:00 Intake Total 700 ml 560 ml 760 ml Output Total 750 ml 1600 ml Balance 700 ml -190 ml -840 ml Results/Medications Result Diagram: 11/10/16 0503 11/10/16 0503 Results 24 hrs Laboratory Tests Test 11/10/16 05:03 White Blood Count 6.3 Red Blood Count 3.91 L Hemoglobin 10.2 L Hematocrit 31.8 L Mean Corpuscular Volume 81.3 L Mean Corpuscular Hemoglobin 26.1 L Mean Corpuscular Hemoglobin Concent 32.1 Red Cell Distribution Width 15.4 H Platelet Count 321 # Mean Platelet Volume 9.2 Neutrophils % 80.1 H Lymphocytes % 9.6 L Monocytes % 5.3 Eosinophils % 0.0 Basophils % 0.2 Nucleated Red Blood Cells % 0.0 Neutrophils # 5.0 Lymphocytes # 0.6 L Monocytes # 0.3 Eosinophils # 0.0 Basophils # 0.0 Nucleated Red Blood Cells # 0.0 Sodium Level 140 Potassium Level 3.9 Chloride Level 102 Carbon Dioxide Level 27 Anion Gap 15 # Blood Urea Nitrogen 12 Creatinine 0.60 Glucose Level 135 Calcium Level 8.4 Medications Current Medications Aspirin (Aspirin) 81 mg DAILY PO Last administered on 11/10/16 10:05; Admin Dose 81 MG; Start 11/02/16 at 09:00 Carbidopa/Levodopa (Sinemet Cr (50/ 200)) 0.5 tab BID PO Last administered on 10:05; Admin Dose 0.5 TAB; Start 11/01/16 at 21:00 Donepezil HCl (Aricept) 10 mg DAILY PO Last administered on 11/10/16 10:05; Admin Dose 10 MG; Start 11/02/16 at 09:00 Fluoxetine HCl (Prozac) 20 mg DAILY PO Last administered on 11/10/16 10:06; Admin Dose 20 MG; Start 11/02/16 at 09:00 Losartan Potassium (Cozaar) 50 mg BID PO Last administered on 11/10/16 10:06; Admin Dose 50 MG; Start 11/01/16 at 21:00 Memantine (Namenda) 10 mg DAILY PO Last administered on 11/10/16 10:05; Admin Dose 10 MG; Start 11/02/16 at 09:00 Trazodone HCl (Desyrel) 50 mg HS PO Last administered on 11/09/16 21:47; Admin Dose 50 MG; Start 11/01/16 at 21:00 Enoxaparin Sodium (Lovenox) 40 mg DAILY SC Last administered on 11/10/16 10:08 ; Admin Dose 40 MG; Start 11/01/16 at 10:30 Ascorbic Acid (Vitamin C) 500 mg DAILY PO Last administered on 11/10/16 10:06 ; Admin Dose 500 MG; Start 11/02/16 at 12:00 Zinc Sulfate 220 mg 220 mg DAILY PO Last administered on 11/10/16 10:06; Admin Dose 220 MG; Start 11/01/16 at 12:00 Dextrose/Sodium Chloride (D5-1/2ns) 1,000 ml @ 40 mls/hr Q24H IV Last administered on 11/10/16 14:36; Admin Dose 40 MLS/HR; Start 11/01/16 at 11:00 Acetaminophen 650 mg 650 mg Q6H PRN [place] PRN FEVER >100.2 Last administered on 13:44; Admin Dose 650 MG; Start 11/01/16 at 12:00 Levetiracetam (Keppra 500 Mg/ 100ml (Pmx)) 100 ml @ 400 mls/hr BID IVPB Last administered on 11/10/16 10:16; Admin Dose 400 MLS/HR; Start 11/01/16 at 14:06 Acetaminophen (Tylenol Tab) 650 mg Q6H PRN PO PAIN AND OR ELEVATED TEMP Last administered on 11/03/16 16:24; Admin Dose 650 MG; Start 4/8/17 at 16:30 Methylprednisolone Sodium Succinate (Solu-Medrol) 40 mg Q12 IV Last administered on 11/10/16 10:05; Admin Dose 40 MG; Start 11/05/16 at 13:00 Amlodipine Besylate (Norvasc) 10 mg DAILY PO Last administered on 11/10/16 10: 07; Admin Dose 10 MG; Start 11/09/16 at 14:30 Hydralazine HCl (Apresoline) 10 mg Q6H PRN IV ELEVATED SYSTOLIC BP; Start 11/09 at 14:30 Hydrochlorothiazide (Hydrochlorothiazide) 25 mg DAILY PO Last administered on 10:06; Admin Dose 25 MG; Start 11/09/16 at 14:30 Assessment/Plan Chief Complaint/Hosp Course Patient is 86 year 1. History of hypothyroidism. 2. Hypertension. 3. Depression. 4. Parkinson's disease. 5. Dementia. lives with daughter, came in ER with nausea, vomiting and weakness, and also has some chest pain as per daughter who gave history over the phone. right now she is fine. no complaint. interpritor used. Problems: Additional Assessment/Plan Pt stable increased BP meds BP will be better controlled PAD stable plan for out pt revascularization if symtomatic. will /fu RUTHY PAREDES MD Nov 10, 2016 16:38
[2016-11-10 20:05] VITALS: BP 134/63; RESP 18
[2016-11-10] MEDS: traZODone 50 MG TAB PO SCH (21:53)
[2016-11-11] MEDS: ALBUTEROL/IPRATROPIUM (NEB) 3 ML AMP HHN SCH ×4 (01:22→21:03)
--- NOTE | 2016-11-11 06:16 | PN ---
DATE: REFERRING PHYSICIAN: Dr. Burton. HISTORY OF PRESENT ILLNESS: Patient is 86 years old with a past medical history of decreased mini m ental status, seizure disorder, admitted to [facility] for more evaluation and simon atment. The patient has history of memory disorder. MEDICATIONS: The patient's current medications include: 1. Aricept 10 mg once a day. 2. Namenda 10 mg once a day. 3. Albuterol inhaler twice a day. 4. Aspirin 81 mg once a day. 5. Lipitor 20 mg once a day. 6. Hydralazine 20 mg once a day. 7. Norvasc 2.5 mg once a day. 8. Cozaar 50 mg once a day. 9. Trazodone 50 mg once a day. 10. Keppra 500 mg twice a day. 11. Zinc sulfate 220 mg once a day. 12. Tylenol 650 mg as needed. 13. Lovenox 40 mg subcutaneous. PHYSICAL EXAMINATION: GENERAL: On exam today, the patient is alert, awake, oriented, following simple commands. CRANIAL NERVES: Difficult to follow second or third-step commands. Cranial nerve II: Pupils equal on both sides, reactive to light. Cranial nerves III, IV and : Extraocular muscles intact. No nystagmus. Cranial nerve V: Equal sensation to face. Cranial nerve VII: Symmetrical face. Crani al nerve VIII: Decreased hearing bilaterally. Cranial nerve X: Elevates palate. Cranial nerve XI : Elevates shoulder 5/5. Cranial nerve XII: . 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 Sensation decreased for glove and sock area for light touc h and temperature. COORDINATION: Leryhl-bl-szss test intact. HEART: Regular rate and rhythm. LUNGS: Equal breath sounds. ABDOMEN: Soft, relaxed, nondistended. No tenderness. ASSESSMENT AND PLAN: 1. The patient is an 86-year old with underlying seizure disorder. Keep the patient on Keppra 500 twice a day and keep the patient under seizure precaution as well as aspiration precaution. 2. Underlying toxic metabolic encephalopathy, probably secondary to hypoxia, worsening of her mini mental status. 3. History of dementia with possible Alzheimer disease. Give the patient Aricept 10 mg and Namenda 10 mg as well. Follow up the patient with mini mental status when she is stable. 4. History of urinary tract infection, lobar pneumonia. Leave the patient on IV antibiotic. 5. History of parkinsonism. We will follow up the patient at an outpatient clinic for more evaluat ion and treatment. Again, thank you for asking me to see the patient with you. Dictated By: MAGALYS JEFFERSON/MAGGIE Conf#: [id number] DID#: [id number]
[2016-11-11 07:11] VITALS: BP 172/74; RESP 18
[2016-11-11] MEDS: METHYLPREDNISOLONE 40 MG INJ IV SCH ×2 (09:50→21:28)
[2016-11-11] MEDS: ASCORBIC ACID 500 MG TAB PO SCH (09:51)
[2016-11-11] MEDS: FLUOXETINE 20 MG CAP PO SCH (09:51)
[2016-11-11] MEDS: ASPIRIN 81 MG TAB PO SCH (09:51)
[2016-11-11] MEDS: CARBIDOPA/LEVODOPA 50-200 (CR) TAB PO SCH ×2 (09:51→21:30)
[2016-11-11] MEDS: HYDROCHLOROTHIAZIDE 25 MG TAB PO SCH (09:51)
[2016-11-11] MEDS: ZINC SULFATE 220 MG CAP PO SCH (09:51)
[2016-11-11] MEDS: AMLODIPINE 2.5 MG TAB PO SCH (09:51)
[2016-11-11] MEDS: DONEPEZIL 10 MG TAB PO SCH (09:52)
[2016-11-11] MEDS: MEMANTINE 10 MG TAB PO SCH (09:52)
[2016-11-11] MEDS: LOSARTAN 50 MG TAB PO SCH ×2 (09:52→21:30)
[2016-11-11] MEDS: ENOXAPARIN 40 MG/0.4 ML SYG SC SCH (09:54)
[2016-11-11] MEDS: LEVETIRACETAM 500 MG (PMX) 100 ML IVPB SCH ×2 (09:55→21:29)
--- NOTE | 2016-11-11 12:09 | PN ---
Date/Time of Note Date/Time of Note DATE: 11/11/16 TIME: 12:08 Assessment/Plan VTE Prophylaxis VTE Prophylaxis Intervention: other Lines/Catheters IV Catheter Type (from Nrs): Peripheral IV Urinary Cath still in place: Yes Reason Cath still needed: skin wounds contaminated by urine Assessment/Plan Chief Complaint/Hosp Course - Staph UTI, start patient on vancomycin. - per Dr. Garduno in infection disease consultation. - Right upper lobe pneumonia, continue Zosyn. - aspiration precautions - Sepsis secondary to #1 #2 - Acute respiratory insufficiency secondary to pneumonia, continue oxygen supplementation and bronchodilators. is following in pulmonology consultation - Seizure disorder, continue Keppra. - Parkinson's disease - Peripheral vascular disease - Hypertension, continue Coreg and Cozaar. Dr. Georges is following in cardiology consultation - Dysphagia- passed swallow study- on pureed diet - cont to monitor - Hypokalemia- resolved Problems: Subjective 24 Hr Interval Summary Free Text/Dictation Patient has no complaints Exam/Review of Systems Vital Signs Vitals Vital Signs Date Time Temp Pulse Resp B/P Pulse Ox O2 Delivery O2 Flow Rate FiO2 11/11/16 08:16 73 16 95 21 11/11/16 07:11 98.1 172/74 11/10/16 20:00 Nasal Cannula 2.0 Intake and Output 11/10/16 11/10/16 11/11/16 15:00 23:00 07:00 Intake Total 1100 ml 820 ml 470 ml Output Total 1100 ml 1200 ml Balance 1100 ml -280 ml -730 ml Exam Constitutional: well developed Head: atraumatic, normocephalic Neck: supple Respiratory: diminished breath sounds Cardiovascular: regular rate and rhythm Gastrointestinal: non-tender, soft Extremities: normal pulses Results Result Diagram: 11/10/16 0503 11/10/16 0503 Medications Medications Current Medications Aspirin (Aspirin) 81 mg DAILY PO Last administered on 11/11/16 09:51; Admin Dose 81 MG; Start 11/02/16 at 09:00 Carbidopa/Levodopa (Sinemet Cr (50/ 200)) 0.5 tab BID PO Last administered on 09:51; Admin Dose 0.5 TAB; Start 11/01/16 at 21:00 Donepezil HCl (Aricept) 10 mg DAILY PO Last administered on 11/11/16 09:52; Admin Dose 10 MG; Start 11/02/16 at 09:00 Fluoxetine HCl (Prozac) 20 mg DAILY PO Last administered on 11/11/16 09:51; Admin Dose 20 MG; Start 11/02/16 at 09:00 Memantine (Namenda) 10 mg DAILY PO Last administered on 11/11/16 09:52; Admin Dose 10 MG; Start 11/02/16 at 09:00 Trazodone HCl (Desyrel) 50 mg HS PO Last administered on 11/10/16 21:53; Admin Dose 50 MG; Start 11/01/16 at 21:00 Enoxaparin Sodium (Lovenox) 40 mg DAILY SC Last administered on 11/11/16 09:54 ; Admin Dose 40 MG; Start 11/01/16 at 10:30 Ascorbic Acid (Vitamin C) 500 mg DAILY PO Last administered on 11/11/16 09:51 ; Admin Dose 500 MG; Start 11/02/16 at 12:00 Zinc Sulfate 220 mg 220 mg DAILY PO Last administered on 11/11/16 09:51; Admin Dose 220 MG; Start 11/01/16 at 12:00 Dextrose/Sodium Chloride (D5-1/2ns) 1,000 ml @ 40 mls/hr Q24H IV Last administered on 11/10/16 14:36; Admin Dose 40 MLS/HR; Start 11/01/16 at 11:00 Acetaminophen 650 mg 650 mg Q6H PRN [place] PRN FEVER >100.2 Last administered on 13:44; Admin Dose 650 MG; Start 11/01/16 at 12:00 Levetiracetam (Keppra 500 Mg/ 100ml (Pmx)) 100 ml @ 400 mls/hr BID IVPB Last administered on 11/11/16 09:55; Admin Dose 400 MLS/HR; Start 11/01/16 at 14:06 Acetaminophen (Tylenol Tab) 650 mg Q6H PRN PO PAIN AND OR ELEVATED TEMP Last administered on 11/03/16 16:24; Admin Dose 650 MG; Start 11/03/16 at 16:30 Methylprednisolone Sodium Succinate (Solu-Medrol) 40 mg Q12 IV Last administered on 11/11/16 09:50; Admin Dose 40 MG; Start 11/05/16 at 13:00 Amlodipine Besylate (Norvasc) 10 mg DAILY PO Last administered on 11/11/16 09: 51; Admin Dose 10 MG; Start 11/09/16 at 14:30 Hydralazine HCl (Apresoline) 10 mg Q6H PRN IV ELEVATED SYSTOLIC BP; Start 11/09 at 14:30 Hydrochlorothiazide (Hydrochlorothiazide) 25 mg DAILY PO Last administered on 09:51; Admin Dose 25 MG; Start 11/09/16 at 14:30 Losartan Potassium (Cozaar) 100 mg BID PO Last administered on 11/11/16 09:52 ; Admin Dose 100 MG; Start 11/10/16 at 21:00 ALINE MCGHEE Nov 11, 2016 12:09
[2016-11-11] MEDS: DEXTROSE 5%-0.45% NACL 1,000 ML IV SCH ×2 (15:34→21:28)
[2016-11-11 20:00] VITALS: BP 157/69; RESP 20
[2016-11-11] MEDS: traZODone 50 MG TAB PO SCH (21:30)
--- NOTE | 2016-11-12 00:06 | PN ---
DATE: REFERRING PHYSICIAN: Dr. Burton Thank you for asking me to see the patient. HISTORY OF PRESENT ILLNESS: This is a followup note for the patient who is 86 years old with decrea sed mini mental status, history of seizure disorder, memory disorder in the form of Alzheimer diseas e in which the patient admitted to [facility]. CURRENT MEDICATIONS: Include: 1. Lovenox 40 mg subcutaneous once a day. 2. Tylenol 650 mg once a day. 3. Zinc sulfate 220 mg once a day. 4. Keppra 500 mg twice a day. 5. Trazodone 50 mg at night. 6. Cozaar 50 mg once a day. 7. Norvasc 2.5 mg once a day. 8. Hydralazine 20 mg once a day. 9. Lipitor 20 mg once a day. 10. Aspirin 81 mg once a day. 11. Albuterol inhaler twice a day. 12. Namenda 10 mg once a day. 13. Aricept 10 mg once a day. PHYSICAL EXAMINATION: GENERAL: On exam today, the patient is alert, awake, oriented, following simple commands. CRANIAL NERVES: Cranial nerve II: Pupils equal on both sides, reactive to light. Cranial nerves I II, IV and : Extraocular muscles intact. No nystagmus. Cranial nerve V: Equal sensation to fac e. Cranial nerve VII: Symmetrical face. Cranial nerve VIII: Decreased hearing bilaterally. Cran ial nerves IX and X: Elevates palate. Cranial nerve XI: Elevates shoulders 5/5. Cranial nerve XI I: Straight tongue. 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 Sensation decreased for glove and sock area for light touc h and temperature. COORDINATION: [id number]-[id number] test intact. HEART: Regular rate and rhythm. LUNGS: Equal breath sounds. ABDOMEN: Soft, relaxed, nondistended. No tenderness. ASSESSMENT AND PLAN: 1. The patient is 86 years old with underlying seizure disorder. Keep the patient on Keppra 500 mg twice a day. Keep the patient under seizure precautions as well as aspiration precautions. 2. Underlying toxic metabolic encephalopathy, probably secondary to hypoxia and worsening of her mi ni mental status. 3. History of dementia, possible Alzheimer's. Keep the patient on Aricept 10 mg once a day, Namend a 10 mg once a day. 4. History of urinary tract infection with ____, on IV antibiotics. 5. History of Parkinson's. Follow up the patient for gait and balance. Again, thank you for asking me to see the patient with you. Dictated By: MAGALYS JEFFERSON/MAGGIE Conf#: [id number] DID#: [id number]
[2016-11-12] MEDS: ALBUTEROL/IPRATROPIUM (NEB) 3 ML AMP HHN SCH ×4 (02:17→21:30)
[2016-11-12 08:00] VITALS: BP 177/74; PULSE 64; RESP 20
[2016-11-12 08:01] VITALS: RESP 19
[2016-11-12] MEDS: ASPIRIN 81 MG TAB PO SCH (08:31)
[2016-11-12] MEDS: METHYLPREDNISOLONE 40 MG INJ IV SCH ×2 (08:31→21:08)
[2016-11-12] MEDS: DONEPEZIL 10 MG TAB PO SCH (08:32)
[2016-11-12] MEDS: ZINC SULFATE 220 MG CAP PO SCH (08:32)
[2016-11-12] MEDS: LOSARTAN 50 MG TAB PO SCH ×2 (08:33→21:12)
[2016-11-12] MEDS: FLUOXETINE 20 MG CAP PO SCH (08:33)
[2016-11-12] MEDS: CARBIDOPA/LEVODOPA 50-200 (CR) TAB PO SCH ×2 (08:33→21:09)
[2016-11-12] MEDS: ASCORBIC ACID 500 MG TAB PO SCH (08:33)
[2016-11-12] MEDS: MEMANTINE 10 MG TAB PO SCH (08:33)
[2016-11-12] MEDS: HYDROCHLOROTHIAZIDE 25 MG TAB PO SCH (08:33)
[2016-11-12] MEDS: AMLODIPINE 2.5 MG TAB PO SCH (08:34)
[2016-11-12] MEDS: ENOXAPARIN 40 MG/0.4 ML SYG SC SCH (08:35)
[2016-11-12] MEDS: LEVETIRACETAM 500 MG (PMX) 100 ML IVPB SCH ×2 (08:36→21:05)
[2016-11-12 10:30] VITALS: BP 151/68; PULSE 63
--- NOTE | 2016-11-12 14:19 | CONS ---
Date/Time of Note Date/Time of Note DATE: 11/12/16 TIME: 14:17 Consult Date/Type/Reason Admit Date/Time Nov 01, 2016 at 03:57 Initial Consult Date 11/01/16 Type of Consultation: Cardiac and Vasc Int Objective Vital Signs Date Time Temp Pulse Resp B/P Pulse Ox O2 Delivery O2 Flow Rate FiO2 11/12/16 10:30 63 151/68 11/12/16 08:01 97.1 19 97 11/12/16 08:00 Room Air 11/12/16 07:50 21 11/11/16 20:00 2.0 Intake and Output 11/11/16 11/11/16 11/12/16 15:00 23:00 07:00 Intake Total 100 ml 1740 ml 620 ml Output Total 1350 ml 1000 ml Balance 100 ml 390 ml -380 ml Results/Medications Result Diagram: 11/10/16 0503 11/10/16 0503 Medications Current Medications Aspirin (Aspirin) 81 mg DAILY PO Last administered on 11/12/16 08:31; Admin Dose 81 MG; Start 11/02/16 at 09:00 Carbidopa/Levodopa (Sinemet Cr (50/ 200)) 0.5 tab BID PO Last administered on 08:33; Admin Dose 0.5 TAB; Start 11/01/16 at 21:00 Donepezil HCl (Aricept) 10 mg DAILY PO Last administered on 11/12/16 08:32; Admin Dose 10 MG; Start 11/02/16 at 09:00 Fluoxetine HCl (Prozac) 20 mg DAILY PO Last administered on 11/12/16 08:33; Admin Dose 20 MG; Start 11/02/16 at 09:00 Memantine (Namenda) 10 mg DAILY PO Last administered on 11/12/16 08:33; Admin Dose 10 MG; Start 11/02/16 at 09:00 Trazodone HCl (Desyrel) 50 mg HS PO Last administered on 11/11/16 21:30; Admin Dose 50 MG; Start 11/01/16 at 21:00 Enoxaparin Sodium (Lovenox) 40 mg DAILY SC Last administered on 11/12/16 08:35 ; Admin Dose 40 MG; Start 11/01/16 at 10:30 Ascorbic Acid (Vitamin C) 500 mg DAILY PO Last administered on 11/12/16 08:33 ; Admin Dose 500 MG; Start 11/02/16 at 12:00 Zinc Sulfate 220 mg 220 mg DAILY PO Last administered on 11/12/16 08:32; Admin Dose 220 MG; Start 11/01/16 at 12:00 Dextrose/Sodium Chloride (D5-1/2ns) 1,000 ml @ 40 mls/hr Q24H IV Last administered on 11/11/16 15:34; Admin Dose 40 MLS/HR; Start 11/01/16 at 11:00 Acetaminophen 650 mg 650 mg Q6H PRN [place] PRN FEVER >100.2 Last administered on 13:44; Admin Dose 650 MG; Start 11/01/16 at 12:00 Levetiracetam (Keppra 500 Mg/ 100ml (Pmx)) 100 ml @ 400 mls/hr BID IVPB Last administered on 11/12/16 08:36; Admin Dose 400 MLS/HR; Start 11/01/16 at 14:06 Acetaminophen (Tylenol Tab) 650 mg Q6H PRN PO PAIN AND OR ELEVATED TEMP Last administered on 11/03/16 16:24; Admin Dose 650 MG; Start 11/03/16 at 16:30 Methylprednisolone Sodium Succinate (Solu-Medrol) 40 mg Q12 IV Last administered on 11/12/16 08:31; Admin Dose 40 MG; Start 11/05/16 at 13:00 Amlodipine Besylate (Norvasc) 10 mg DAILY PO Last administered on 11/12/16 08: 34; Admin Dose 10 MG; Start 11/09/16 at 14:30 Hydralazine HCl (Apresoline) 10 mg Q6H PRN IV ELEVATED SYSTOLIC BP; Start 11/09 at 14:30 Hydrochlorothiazide (Hydrochlorothiazide) 25 mg DAILY PO Last administered on 08:33; Admin Dose 25 MG; Start 11/09/16 at 14:30 Losartan Potassium (Cozaar) 100 mg BID PO Last administered on 11/12/16 08:33 ; Admin Dose 100 MG; Start 11/10/16 at 21:00 Assessment/Plan Chief Complaint/Hosp Course Patient is 86 year 1. History of hypothyroidism. 2. Hypertension. 3. Depression. 4. Parkinson's disease. 5. Dementia. lives with daughter, came in ER with nausea, vomiting and weakness, and also has some chest pain as per daughter who gave history over the phone. right now she is fine. no complaint. interpritor used. Problems: Additional Assessment/Plan Pt is stable BP contorlled PAD out pt RUTHY Morris MD Nov 12, 2016 14:19
--- NOTE | 2016-11-12 18:37 | PN ---
Date/Time of Note Date/Time of Note DATE: 11/12/16 TIME: 18:32 Assessment/Plan VTE Prophylaxis VTE Prophylaxis Intervention: SCD's Lines/Catheters IV Catheter Type (from [facility]): Peripheral IV Urinary Cath still in place: Yes Reason Cath still needed: urinary retention Assessment/Plan Chief Complaint/Hosp Course Assessment/Plan -Staph UTI, status post treatment. -Right upper lobe pneumonia, status post treatment. -Sepsis secondary to #1 #2 -Acute respiratory insufficiency secondary to pneumonia, continue oxygen supplementation and bronchodilators. is following in pulmonology consultation -Seizure disorder, continue Keppra. -Parkinson's disease -Peripheral vascular disease -Hypertension, continue Coreg and Cozaar. Dr. Georges is following in cardiology consultation. Further recommendations based on hospital course. Plan of care discussed with Dr. Burton. Problems: Subjective 24 Hr Interval Summary Free Text/Dictation Patient's continues to have poor appetite, remains afebrile. Exam/Review of Systems Vital Signs Vitals Vital Signs Date Time Temp Pulse Resp B/P Pulse Ox O2 Delivery O2 Flow Rate FiO2 11/12/16 14:41 63 16 97 21 11/12/16 10:30 151/68 11/12/16 08:01 97.1 11/12/16 08:00 Room Air 11/11/16 20:00 2.0 Intake and Output 11/11/16 11/11/16 11/12/16 15:00 23:00 07:00 Intake Total 100 ml 1740 ml 620 ml Output Total 1350 ml 1000 ml Balance 100 ml 390 ml -380 ml Exam Constitutional: alert, oriented, other (Dementia) Psych: no complaints Head: atraumatic, normocephalic ENMT: nl external ears & nose Neck: supple Respiratory: diminished breath sounds, other (Scattered rhonchi bilaterally) Cardiovascular: nl pulses, regular rate and rhythm Gastrointestinal: non-tender, soft Genitourinary - Female: nl adnexae Extremities: normal pulses Neurological: 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 WORKER II-XII 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 Results Result Diagram: 11/10/16 0503 11/10/16 0503 Medications Medications Current Medications Aspirin (Aspirin) 81 mg DAILY PO Last administered on 11/12/16t 08:31; Admin Dose 81 MG; Start 11/02/16 at 09:00 Carbidopa/Levodopa (Sinemet Cr (50/ 200)) 0.5 tab BID PO Last administered on 08:33; Admin Dose 0.5 TAB; Start 11/01/16 at 21:00 Donepezil HCl (Aricept) 10 mg DAILY PO Last administered on 11/12/16 08:32; Admin Dose 10 MG; Start 11/02/16 at 09:00 Fluoxetine HCl (Prozac) 20 mg DAILY PO Last administered on 11/12/16 08:33; Admin Dose 20 MG; Start 11/02/16 at 09:00 Memantine (Namenda) 10 mg DAILY PO Last administered on 11/12/16 08:33; Admin Dose 10 MG; Start 11/02/16 at 09:00 Trazodone HCl (Desyrel) 50 mg HS PO Last administered on 11/11/16 21:30; Admin Dose 50 MG; Start 11/01/16 at 21:00 Enoxaparin Sodium (Lovenox) 40 mg DAILY SC Last administered on 11/12/16 08:35 ; Admin Dose 40 MG; Start 11/01/16 at 10:30 Ascorbic Acid (Vitamin C) 500 mg DAILY PO Last administered on 11/12/16 08:33 ; Admin Dose 500 MG; Start 11/02/16 at 12:00 Zinc Sulfate 220 mg 220 mg DAILY PO Last administered on 11/12/16 08:32; Admin Dose 220 MG; Start 11/01/16 at 12:00 Dextrose/Sodium Chloride (D5-1/2ns) 1,000 ml @ 40 mls/hr Q24H IV Last administered on 11/11/16 15:34; Admin Dose 40 MLS/HR; Start 11/01/16 at 11:00 Acetaminophen 650 mg 650 mg Q6H PRN [place] PRN FEVER >100.2 Last administered on 13:44; Admin Dose 650 MG; Start 11/01/16 at 12:00 Levetiracetam (Keppra 500 Mg/ 100ml (Pmx)) 100 ml @ 400 mls/hr BID IVPB Last administered on 11/12/16 08:36; Admin Dose 400 MLS/HR; Start 11/01/16 at 14:06 Acetaminophen (Tylenol Tab) 650 mg Q6H PRN PO PAIN AND OR ELEVATED TEMP Last administered on 11/03/16 16:24; Admin Dose 650 MG; Start 11/03/16 at 16:30 Methylprednisolone Sodium Succinate (Solu-Medrol) 40 mg Q12 IV Last administered on 11/12/16 08:31; Admin Dose 40 MG; Start 11/05/16 at 13:00 Amlodipine Besylate (Norvasc) 10 mg DAILY PO Last administered on 11/12/16 08: 34; Admin Dose 10 MG; Start 11/09/16 at 14:30 Hydralazine HCl (Apresoline) 10 mg Q6H PRN IV ELEVATED SYSTOLIC BP; Start 11/09 at 14:30 Hydrochlorothiazide (Hydrochlorothiazide) 25 mg DAILY PO Last administered on 08:33; Admin Dose 25 MG; Start 11/09/16 at 14:30 Losartan Potassium (Cozaar) 100 mg BID PO Last administered on 11/12/16 08:33 ; Admin Dose 100 MG; Start 11/10/16 at 21:00 MORIS SHOEMAKER Nov 12, 2016 18:37
[2016-11-12] MEDS: DEXTROSE 5%-0.45% NACL 1,000 ML IV SCH ×2 (19:39→21:08)
[2016-11-12] MEDS: traZODone 50 MG TAB PO SCH (21:13)
[2016-11-13] MEDS: ALBUTEROL/IPRATROPIUM (NEB) 3 ML AMP HHN SCH ×4 (02:36→19:37)
[2016-11-13 05:57] LABS: ADD SCAN DIFF NO
[2016-11-13 06:14] LABS: POTASSIUM 3.8 mmol/L (3.5-5.1)
[2016-11-13 06:17] LABS: CREATININE 0.68 mg/dl (0.44-1.00)
[2016-11-13 06:18] LABS: CALCIUM 8.3 mg/dl (8.4-10.2)
[2016-11-13 06:34] LABS: BASOPHILS % 0.2 % (0.0-2.0); HEMATOCRIT 32.9 % (37.0-47.0); HEMOGLOBIN 10.4 g/dl (12.0-16.0); LYMPHOCYTES # 0.7 10^3/ul (0.8-2.9); LYMPHOCYTES % 4.7 % (15.0-51.0); MEAN CORPUSCULAR HEMOGLOBIN 25.8 pg (29.0-33.0); MEAN CORPUSCULAR HGB CONC 31.6 g/dl (32.0-37.0); MEAN CORPUSCULAR VOLUME 81.6 fl (82.0-101.0); MEAN PLATELET VOLUME 8.8 fl (7.4-10.4); MONOCYTE # 0.8 10^3/ul (0.3-0.9); MONOCYTES % 5.7 % (0.0-11.0); NEUTROPHIL # 11.7 10^3/ul (1.6-7.5); NEUTROPHILS % 85.3 % (39.0-77.0); PLATELET COUNT 462 10^3/UL (140-415); RED BLOOD COUNT 4.03 10^6/ul (4.20-5.40); WHITE BLOOD COUNT 13.7 10^3/ul (4.8-10.8)
--- NOTE | 2016-11-13 08:21 | CONS ---
Date/Time of Note Date/Time of Note DATE: 11/13/16 TIME: 08:21 Consult Date/Type/Reason Admit Date/Time Nov 01, 2016 at 03:57 Initial Consult Date 11/01/16 Type of Consultation: Cardiac and Vasc Int Objective Vital Signs Date Time Temp Pulse Resp B/P Pulse Ox O2 Delivery O2 Flow Rate FiO2 11/13/16 07:55 58 16 94 21 11/12/16 10:30 151/68 11/12/16 08:01 97.1 11/12/16 08:00 Room Air 11/11/16 20:00 2.0 Intake and Output 11/12/16 11/12/16 11/13/16 15:00 23:00 07:00 Intake Total 100 ml 1720 ml 420 ml Output Total 900 ml 1150 ml Balance 100 ml 820 ml -730 ml Results/Medications Result Diagram: 11/13/16 0519 11/13/16 0519 Results 24 hrs Laboratory Tests Test 11/13/16 05:19 White Blood Count 13.7 #H Red Blood Count 4.03 L Hemoglobin 10.4 L Hematocrit 32.9 L Mean Corpuscular Volume 81.6 L Mean Corpuscular Hemoglobin 25.8 L Mean Corpuscular Hemoglobin Concent 31.6 L Red Cell Distribution Width 15.0 H Platelet Count 462 #H Mean Platelet Volume 8.8 Neutrophils % 85.3 H Lymphocytes % 4.7 L Monocytes % 5.7 Eosinophils % 0.0 Basophils % 0.2 Nucleated Red Blood Cells % 0.0 Neutrophils # 11.7 H Lymphocytes # 0.7 L Monocytes # 0.8 Eosinophils # 0.0 Basophils # 0.0 Nucleated Red Blood Cells # 0.0 Sodium Level 137 Potassium Level 3.8 Chloride Level 99 Carbon Dioxide Level 29 Anion Gap 13 Blood Urea Nitrogen 20 Creatinine 0.68 Glucose Level 138 Calcium Level 8.3 L Medications Current Medications Aspirin (Aspirin) 81 mg DAILY PO Last administered on 11/12/16 08:31; Admin Dose 81 MG; Start 11/02/16 at 09:00 Carbidopa/Levodopa (Sinemet Cr (50/ 200)) 0.5 tab BID PO Last administered on 21:09; Admin Dose 0.5 TAB; Start 11/01/16 at 21:00 Donepezil HCl (Aricept) 10 mg DAILY PO Last administered on 11/12/16 08:32; Admin Dose 10 MG; Start 11/02/16 at 09:00 Fluoxetine HCl (Prozac) 20 mg DAILY PO Last administered on 11/12/16 08:33; Admin Dose 20 MG; Start 11/02/16 at 09:00 Memantine (Namenda) 10 mg DAILY PO Last administered on 11/12/16 08:33; Admin Dose 10 MG; Start 11/02/16 at 09:00 Trazodone HCl (Desyrel) 50 mg HS PO Last administered on 11/12/16 21:13; Admin Dose 50 MG; Start 11/01/16 at 21:00 Enoxaparin Sodium (Lovenox) 40 mg DAILY SC Last administered on 11/12/16 08:35 ; Admin Dose 40 MG; Start 11/01/16 at 10:30 Ascorbic Acid (Vitamin C) 500 mg DAILY PO Last administered on 11/12/16 08:33 ; Admin Dose 500 MG; Start 11/02/16 at 12:00 Zinc Sulfate 220 mg 220 mg DAILY PO Last administered on 11/12/16 08:32; Admin Dose 220 MG; Start 11/01/16 at 12:00 Dextrose/Sodium Chloride (D5-1/2ns) 1,000 ml @ 40 mls/hr Q24H IV Last administered on 11/12/16 21:08; Admin Dose 40 MLS/HR; Start 11/01/16 at 11:00 Acetaminophen 650 mg 650 mg Q6H PRN [place] PRN FEVER >100.2 Last administered on 13:44; Admin Dose 650 MG; Start 11/01/16 at 12:00 Levetiracetam (Keppra 500 Mg/ 100ml (Pmx)) 100 ml @ 400 mls/hr BID IVPB Last administered on 11/12/16 21:05; Admin Dose 400 MLS/HR; Start 11/01/16 at 14:06 Acetaminophen (Tylenol Tab) 650 mg Q6H PRN PO PAIN AND OR ELEVATED TEMP Last administered on 11/03/16 16:24; Admin Dose 650 MG; Start 11/03/16 at 16:30 Methylprednisolone Sodium Succinate (Solu-Medrol) 40 mg Q12 IV Last administered on 11/12/16 21:08; Admin Dose 40 MG; Start 11/05/16 at 13:00 Amlodipine Besylate (Norvasc) 10 mg DAILY PO Last administered on 11/12/16 08: 34; Admin Dose 10 MG; Start 11/09/16 at 14:30 Hydralazine HCl (Apresoline) 10 mg Q6H PRN IV ELEVATED SYSTOLIC BP; Start 11/09 at 14:30 Hydrochlorothiazide (Hydrochlorothiazide) 25 mg DAILY PO Last administered on 08:33; Admin Dose 25 MG; Start 11/09/16 at 14:30 Losartan Potassium (Cozaar) 100 mg BID PO Last administered on 11/12/16 21:12 ; Admin Dose 100 MG; Start 11/10/16 at 21:00 Assessment/Plan Chief Complaint/Hosp Course Patient is 86 year 1. History of hypothyroidism. 2. Hypertension. 3. Depression. 4. Parkinson's disease. 5. Dementia. lives with daughter, came in ER with nausea, vomiting and weakness, and also has some chest pain as per daughter who gave history over the phone. right now she is fine. no complaint. interpritor used. Problems: Additional Assessment/Plan PT stabe PT stabe on med mx stable PAD will be arranged out pt revascularization will /fu RUTHY PAREDES MD Nov 13, 2016 08:21
[2016-11-13 08:27] VITALS: BP 173/76; RESP 15
[2016-11-13] MEDS: LEVETIRACETAM 500 MG (PMX) 100 ML IVPB SCH ×2 (09:32→22:30)
[2016-11-13] MEDS: METHYLPREDNISOLONE 40 MG INJ IV SCH ×2 (09:32→22:24)
[2016-11-13] MEDS: FLUOXETINE 20 MG CAP PO SCH (09:35)
[2016-11-13] MEDS: ASCORBIC ACID 500 MG TAB PO SCH (09:37)
[2016-11-13] MEDS: ZINC SULFATE 220 MG CAP PO SCH (09:37)
[2016-11-13] MEDS: MEMANTINE 10 MG TAB PO SCH (09:37)
[2016-11-13] MEDS: HYDROCHLOROTHIAZIDE 25 MG TAB PO SCH (09:37)
[2016-11-13] MEDS: ASPIRIN 81 MG TAB PO SCH (09:37)
[2016-11-13] MEDS: DONEPEZIL 10 MG TAB PO SCH (09:37)
[2016-11-13] MEDS: CARBIDOPA/LEVODOPA 50-200 (CR) TAB PO SCH ×2 (09:38→22:25)
[2016-11-13] MEDS: LOSARTAN 50 MG TAB PO SCH ×2 (09:38→22:25)
[2016-11-13] MEDS: AMLODIPINE 2.5 MG TAB PO SCH (09:39)
[2016-11-13] MEDS: ENOXAPARIN 40 MG/0.4 ML SYG SC SCH (10:32)
[2016-11-13 11:34] VITALS: BP_SYST 154; BP_SYST 174; BP_DIAS 70; BP_DIAS 72
[2016-11-13] MEDS ORDERED: LEVE-5 PO (15:41)
[2016-11-13] MEDS ORDERED: LOSA50TA2 PO (15:41)
[2016-11-13] MEDS ORDERED: AMLO2.5T78 PO (15:41)
[2016-11-13] MEDS ORDERED: HYD25 PO (15:41)
[2016-11-13 15:53] VITALS: BP 128/61; PULSE 57
--- NOTE | 2016-11-13 16:41 | PN ---
Date/Time of Note Date/Time of Note DATE: 11/13/16 TIME: 16:41 Assessment/Plan VTE Prophylaxis VTE Prophylaxis Intervention: SCD's Lines/Catheters IV Catheter Type (from [facility]): Peripheral IV Urinary Cath still in place: Yes Reason Cath still needed: urinary retention Assessment/Plan Chief Complaint/Hosp Course Assessment/Plan -Staph UTI, status post treatment. -Right upper lobe pneumonia, status post treatment. -Sepsis secondary to #1 #2 -Acute respiratory insufficiency secondary to pneumonia, continue oxygen supplementation and bronchodilators. is following in pulmonology consultation -Seizure disorder, continue Keppra. -Parkinson's disease -Peripheral vascular disease -Hypertension, continue Coreg and Cozaar. Dr. Georges is following in cardiology consultation. ROBBIE Quinn, anticipate discharge discharge home with home health if patient is able to void. Further recommendations based on hospital course. Plan of care discussed with Dr. Burton. Problems: Exam/Review of Systems Vital Signs Vitals Vital Signs Date Time Temp Pulse Resp B/P Pulse Ox O2 Delivery O2 Flow Rate FiO2 11/13/16 15:53 57 128/61 11/13/16 08:27 97.5 15 98 11/13/16 07:55 21 11/12/16 08:00 Room Air 11/11/16 20:00 2.0 Intake and Output 11/12/16 11/12/16 11/13/16 15:00 23:00 07:00 Intake Total 100 ml 1720 ml 420 ml Output Total 900 ml 1150 ml Balance 100 ml 820 ml -730 ml Exam Constitutional: alert, oriented, other (Dementia) Psych: no complaints Head: atraumatic, normocephalic ENMT: nl external ears & nose Neck: supple Respiratory: diminished breath sounds, other (Scattered rhonchi bilaterally) Cardiovascular: nl pulses, regular rate and rhythm Gastrointestinal: non-tender, soft Genitourinary - Female: nl adnexae Extremities: normal pulses 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 Results Result Diagram: 11/13/1651811/13/16518 Results 24 hrs Laboratory Tests Test 11/13/16 05:19 White Blood Count 13.7 #H Red Blood Count 4.03 L Hemoglobin 10.4 L Hematocrit 32.9 L Mean Corpuscular Volume 81.6 L Mean Corpuscular Hemoglobin 25.8 L Mean Corpuscular Hemoglobin Concent 31.6 L Red Cell Distribution Width 15.0 H Platelet Count 462 #H Mean Platelet Volume 8.8 Neutrophils % 85.3 H Lymphocytes % 4.7 L Monocytes % 5.7 Eosinophils % 0.0 Basophils % 0.2 Nucleated Red Blood Cells % 0.0 Neutrophils # 11.7 H Lymphocytes # 0.7 L Monocytes # 0.8 Eosinophils # 0.0 Basophils # 0.0 Nucleated Red Blood Cells # 0.0 Sodium Level 137 Potassium Level 3.8 Chloride Level 99 Carbon Dioxide Level 29 Anion Gap 13 Blood Urea Nitrogen 20 Creatinine 0.68 Glucose Level 138 Calcium Level 8.3 L Medications Medications Current Medications Aspirin (Aspirin) 81 mg DAILY PO Last administered on 11/13/16 09:37; Admin Dose 81 MG; Start 11/02/16 at 09:00 Carbidopa/Levodopa (Sinemet Cr (50/ 200)) 0.5 tab BID PO Last administered on 09:38; Admin Dose 0.5 TAB; Start 11/01/16 at 21:00 Donepezil HCl (Aricept) 10 mg DAILY PO Last administered on 11/13/16 09:37; Admin Dose 10 MG; Start 11/02/16 at 09:00 Fluoxetine HCl (Prozac) 20 mg DAILY PO Last administered on 11/13/16 09:35; Admin Dose 20 MG; Start 11/02/16 at 09:00 Memantine (Namenda) 10 mg DAILY PO Last administered on 11/13/16 09:37; Admin Dose 10 MG; Start 11/02/16 at 09:00 Trazodone HCl (Desyrel) 50 mg HS PO Last administered on 11/12/16 21:13; Admin Dose 50 MG; Start 11/01/16 at 21:00 Enoxaparin Sodium (Lovenox) 40 mg DAILY SC Last administered on 11/13/16 10:32 ; Admin Dose 40 MG; Start 11/01/16 at 10:30 Ascorbic Acid (Vitamin C) 500 mg DAILY PO Last administered on 11/13/16 09:37 ; Admin Dose 500 MG; Start 11/02/16 at 12:00 Zinc Sulfate 220 mg 220 mg DAILY PO Last administered on 11/13/16 09:37; Admin Dose 220 MG; Start 11/01/16 at 12:00 Dextrose/Sodium Chloride (D5-1/2ns) 1,000 ml @ 40 mls/hr Q24H IV Last administered on 11/12/16 21:08; Admin Dose 40 MLS/HR; Start 11/01/16 at 11:00 Acetaminophen 650 mg 650 mg Q6H PRN [place] PRN FEVER >100.2 Last administered on 13:44; Admin Dose 650 MG; Start 11/01/16 at 12:00 Levetiracetam (Keppra 500 Mg/ 100ml (Pmx)) 100 ml @ 400 mls/hr BID IVPB Last administered on 11/13/16 09:32; Admin Dose 400 MLS/HR; Start 11/01/16 at 14:06 Acetaminophen (Tylenol Tab) 650 mg Q6H PRN PO PAIN AND OR ELEVATED TEMP Last administered on 11/03/16 16:24; Admin Dose 650 MG; Start 11/03/16 at 16:30 Methylprednisolone Sodium Succinate (Solu-Medrol) 40 mg Q12 IV Last administered on 11/13/16 09:32; Admin Dose 40 MG; Start 11/05/16 at 13:00 Amlodipine Besylate (Norvasc) 10 mg DAILY PO Last administered on 11/13/16 09: 39; Admin Dose 10 MG; Start 11/09/16 at 14:30 Hydralazine HCl (Apresoline) 10 mg Q6H PRN IV ELEVATED SYSTOLIC BP; Start 11/09 at 14:30 Hydrochlorothiazide (Hydrochlorothiazide) 25 mg DAILY PO Last administered on 09:37; Admin Dose 25 MG; Start 11/09/16 at 14:30 Losartan Potassium (Cozaar) 100 mg BID PO Last administered on 11/13/16 09:38 ; Admin Dose 100 MG; Start 11/10/16 at 21:00 MORIS SHOEMAKER Nov 13, 2016 16:41
[2016-11-13] MEDS: DEXTROSE 5%-0.45% NACL 1,000 ML IV SCH (19:39)
[2016-11-13 20:22] VITALS: BP 154/69; RESP 16
--- NOTE | 2016-11-13 21:39 | PN ---
DATE: REFERRING PHYSICIAN: Dr. Burton HISTORY OF PRESENT ILLNESS: The patient is an 86-year-old lady with decreased mini mental status, h istory of seizure disorder, memory disorder, suffering from Alzheimer disease, ____ [facility] for more evaluation and treatment. CURRENT MEDICATIONS: Include: 1. Aricept 10 mg once a day. 2. Namenda 10 mg once a day. 3. Albuterol inhaler twice a day. 4. Aspirin 81 mg once a day. 5. Lipitor 20 mg once a day. 6. Hydralazine 20 mg once a day. 7. Norvasc 2.5 mg once a day. 8. Cozaar 50 mg once a day. 9. Trazodone 50 mg once at night. 10. Keppra 500 mg twice a day. 11. Zinc sulfate 220 mg once a day. 12. Tylenol 650 mg every 4 hours as needed. 13. Lovenox 40 mg subcutaneous once a day. PHYSICAL EXAMINATION: GENERAL: On exam today, the patient is alert, awake and following simple commands except for diffic ulty for second- or third-step commands. CRANIAL NERVES: Cranial nerve II: Pupils equal on both sides, reactive to light. Cranial nerves I II, IV and : Extraocular muscles intact. Cranial nerve V: Equal sensation to face. Cranial ner ve VII: Symmetrical face. Cranial nerve VIII: Decreased hearing bilaterally. Cranial nerves IX a nd X: Elevates palate. Cranial nerve XI: Elevates shoulder 5/5. Cranial nerve XII: With straigh t tongue. MOTOR: Decreased right hand digitizer, 4+/5. Sensation decreased for glove and sock area for light touc h and temperature. COORDINATION: [id number] test intact. HEART: Regular rate and rhythm. LUNGS: Equal breath sounds. ABDOMEN: Soft, relaxed, nondistended. No tenderness. ASSESSMENT AND PLAN: 1. This patient is 86 years old with memory disorder, probably with underlying Alzheimer disease. Give the patient Aricept 10 mg as well as Namenda 10 mg. Follow up the patient's mini mental status as an outpatient. 2. History of underlying seizure disorder. Give the patient Keppra 500 mg twice a day and keep the patient under seizure precaution, aspiration precaution. 3. Status post infection, urinary tract, in which the patient on antibiotic. 4. History of parkinsonism. Will follow up the patient with physical therapy and gait balance for now. Again, thank you for asking me to see the patient with you. Dictated By: MAGALYS JEFFERSON/MAGGIE Conf#: [id number] DID#: [id number]
[2016-11-13] MEDS: traZODone 50 MG TAB PO SCH (22:24)
[2016-11-14] MEDS: DEXTROSE 5%-0.45% NACL 1,000 ML IV SCH (00:44)
[2016-11-14] MEDS: ALBUTEROL/IPRATROPIUM (NEB) 3 ML AMP HHN SCH ×2 (01:59→08:53)
[2016-11-14 07:35] VITALS: BP 164/70; RESP 20
[2016-11-14] MEDS: LEVETIRACETAM 500 MG (PMX) 100 ML IVPB SCH ×2 (09:00→10:06)
[2016-11-14] MEDS: ASCORBIC ACID 500 MG TAB PO SCH (09:19)
[2016-11-14] MEDS: CARBIDOPA/LEVODOPA 50-200 (CR) TAB PO SCH (09:19)
[2016-11-14] MEDS: METHYLPREDNISOLONE 40 MG INJ IV SCH (09:19)
[2016-11-14] MEDS: ASPIRIN 81 MG TAB PO SCH (09:19)
[2016-11-14] MEDS: LOSARTAN 50 MG TAB PO SCH (09:20)
[2016-11-14] MEDS: HYDROCHLOROTHIAZIDE 25 MG TAB PO SCH (09:20)
[2016-11-14] MEDS: AMLODIPINE 2.5 MG TAB PO SCH (09:21)
[2016-11-14] MEDS: DONEPEZIL 10 MG TAB PO SCH (09:21)
[2016-11-14] MEDS: MEMANTINE 10 MG TAB PO SCH (09:21)
[2016-11-14] MEDS: FLUOXETINE 20 MG CAP PO SCH (09:22)
[2016-11-14] MEDS: ZINC SULFATE 220 MG CAP PO SCH (09:22)
[2016-11-14] MEDS: ENOXAPARIN 40 MG/0.4 ML SYG SC SCH (10:02)
--- NOTE | 2016-11-14 11:50 | PN ---
Date/Time of Note Date/Time of Note DATE: 11/14/16 TIME: 11:48 Assessment/Plan VTE Prophylaxis VTE Prophylaxis Intervention: SCD's Lines/Catheters IV Catheter Type (from [facility]): Peripheral IV Urinary Cath still in place: Yes Reason Cath still needed: urinary retention Assessment/Plan Chief Complaint/Hosp Course Assessment/Plan -Staph UTI, status post treatment. -Right upper lobe pneumonia, status post treatment. -Sepsis secondary to #1 #2 -Acute respiratory insufficiency secondary to pneumonia, continue oxygen supplementation and bronchodilators. is following in pulmonology consultation -Seizure disorder, continue Keppra. -Parkinson's disease -Peripheral vascular disease -Hypertension, continue Coreg and Cozaar. Dr. Georges is following in cardiology consultation. Further recommendations based on hospital course. Plan of care discussed with Dr. Burton. Problems: Subjective 24 Hr Interval Summary Free Text/Dictation Patient is breathing comfortable on RA, no wheezing, able to void after Quinn was d/lcu yesterday. Exam/Review of Systems Vital Signs Vitals Vital Signs Date Time Temp Pulse Resp B/P Pulse Ox O2 Delivery O2 Flow Rate FiO2 11/14/16 08:54 57 18 98 21 11/14/16 07:35 97.5 164/70 11/12/16 08:00 Room Air 11/11/16 20:00 2.0 Intake and Output 11/13/16 11/13/16 11/14/16 14:59 22:59 06:59 Intake Total 100 ml 840 ml 560 ml Balance 100 ml 840 ml 560 ml Exam Constitutional: alert, oriented, other (Dementia) Psych: no complaints Head: atraumatic, normocephalic ENMT: nl external ears & nose Neck: supple Respiratory: clear Cardiovascular: nl pulses, regular rate and rhythm Gastrointestinal: non-tender, soft Genitourinary - Female: nl adnexae Extremities: normal pulses Neurological: [employer]ITTED GOODS II-XII intact Results Result Diagram: 11/13/1651811/13/16518 Medications Medications Current Medications Aspirin (Aspirin) 81 mg DAILY PO Last administered on 11/14/16 09:19; Admin Dose 81 MG; Start 11/02/16 at 09:00 Carbidopa/Levodopa (Sinemet Cr (50/ 200)) 0.5 tab BID PO Last administered on 09:19; Admin Dose 0.5 TAB; Start 11/01/16 at 21:00 Donepezil HCl (Aricept) 10 mg DAILY PO Last administered on 11/14/16 09:21; Admin Dose 10 MG; Start 11/02/16 at 09:00 Fluoxetine HCl (Prozac) 20 mg DAILY PO Last administered on 11/14/16 09:22; Admin Dose 20 MG; Start 11/02/16 at 09:00 Memantine (Namenda) 10 mg DAILY PO Last administered on 11/14/16 09:21; Admin Dose 10 MG; Start 11/02/16 at 09:00 Trazodone HCl (Desyrel) 50 mg HS PO Last administered on 11/13/16 22:24; Admin Dose 50 MG; Start 11/01/16 at 21:00 Enoxaparin Sodium (Lovenox) 40 mg DAILY SC Last administered on 11/14/16 10:02 ; Admin Dose 40 MG; Start 11/01/16 at 10:30 Ascorbic Acid (Vitamin C) 500 mg DAILY PO Last administered on 11/14/16 09:19 ; Admin Dose 500 MG; Start 11/02/16 at 12:00 Zinc Sulfate 220 mg 220 mg DAILY PO Last administered on 11/14/16 09:22; Admin Dose 220 MG; Start 11/01/16 at 12:00 Dextrose/Sodium Chloride (D5-1/2ns) 1,000 ml @ 40 mls/hr Q24H IV Last administered on 11/14/16 00:44; Admin Dose 40 MLS/HR; Start 11/01/16 at 11:00 Acetaminophen 650 mg 650 mg Q6H PRN [place] PRN FEVER >100.2 Last administered on 13:44; Admin Dose 650 MG; Start 11/01/16 at 12:00 Levetiracetam (Keppra 500 Mg/ 100ml (Pmx)) 100 ml @ 400 mls/hr BID IVPB Last administered on 11/14/16 10:06; Admin Dose 400 MLS/HR; Start 11/01/16 at 14:06 Acetaminophen (Tylenol Tab) 650 mg Q6H PRN PO PAIN AND OR ELEVATED TEMP Last administered on 11/03/16 16:24; Admin Dose 650 MG; Start 11/03/16 at 16:30 Methylprednisolone Sodium Succinate (Solu-Medrol) 40 mg Q12 IV Last administered on 11/14/16 09:19; Admin Dose 40 MG; Start 11/05/16 at 13:00 Amlodipine Besylate (Norvasc) 10 mg DAILY PO Last administered on 11/14/16 09: 21; Admin Dose 10 MG; Start 11/09/16 at 14:30 Hydralazine HCl (Apresoline) 10 mg Q6H PRN IV ELEVATED SYSTOLIC BP; Start 11/09 at 14:30 Hydrochlorothiazide (Hydrochlorothiazide) 25 mg DAILY PO Last administered on 09:20; Admin Dose 25 MG; Start 11/09/16 at 14:30 Losartan Potassium (Cozaar) 100 mg BID PO Last administered on 11/14/16 09:20 ; Admin Dose 100 MG; Start 11/10/16 at 21:00 MORIS SHOEMAKER Nov 14, 2016 11:50
[2016-11-14 13:06] VITALS: BP 125/62; PULSE 60
== END 2016-11-14 13:05 | disposition home health service (06) | DRG 871 ==
LOC: E/R 19:00 → TEL 11-01 03:57 → MS2 11-05 18:44
PROVIDERS: ADMIT Internal Medicine; ATTEND Internal Medicine
DX: A41.9 Sepsis, unspecified organism (principal); J18.9 Pneumonia, unspecified organism; G92 Toxic encephalopathy; N39.0 Urinary tract infection, site not specified; E86.0 Dehydration; F03.90 Unspecified dementia, unspecified severity, without behavioral disturbance, psychotic disturbance, mood disturbance, and anxiety; G20 Parkinson's disease; R65.20 Severe sepsis without septic shock; I10 Essential (primary) hypertension; E03.9 Hypothyroidism, unspecified; F32.9 Major depressive disorder, single episode, unspecified; G40.909 Epilepsy, unspecified, not intractable, without status epilepticus; R13.10 Dysphagia, unspecified; R07.89 Other chest pain; I73.9 Peripheral vascular disease, unspecified; J98.01 Acute bronchospasm; E87.6 Hypokalemia; R09.02 Hypoxemia; B95.7 Other staphylococcus as the cause of diseases classified elsewhere; Z66 Do not resuscitate; Z86.73 Personal history of transient ischemic attack (TIA), and cerebral infarction without residual deficits
CPT/HCPCS: 36415; 36600; 70450; 70551; 71010; 74000; 80048; 80053; 80202; 81003; 82803; 83605; 84134; 84484; 85025; 85610; 85730; 87040; 87070; 87086; 92526; 92610; 93005; 93306; 93922; 94640; 94664; 95819; 96365; 96366; 96367; 96372; 96375; 96376; 97110; 97162; 97530; J0360; J1650; J1953; J2060; J2543; J2920; J3370; J3480; J7030; J7042; P9612

== ENCOUNTER 2017-02-24 13:45 | Emergency (ER) | payer MEDICARE, OTHER ==
[~2017-02-24] VITALS: Ht 157.5 cm; Wt 67.0 kg
[~2017-02-24 13:45] MED LIST changes: -AMLO-145 PO; +AMLO2.5T78 PO; +DONE10TA7 PO; +HYD25 PO; +LEVE-5 PO; -LEVO500T10 PO; -MED4DP PO; +MEMA10TA16 PO; -MEMA5TAB PO; +SIN50200 PO
[2017-02-24 13:46] VITALS: Ht 157.5 cm; Wt 67.0 kg
[2017-02-24] MEDS ORDERED: NPH10OT LEFT EAR (14:08)
--- NOTE | 2017-02-24 14:08 | ERD ---
ER Documentation Chief Complaint Date/Time DATE: 02/24/17 TIME: 14:04 Chief Complaint right ear bleeding,no trauma HPI History obtained from patient's daughter this patient is able to give a history secondary to dementia. This is an 86-year-old female presents to the emergency room for evaluation of blood from her right ear. According to the patient's daughter the patient did have some blood coming from her ear that was nonpulsatile. There is been no trauma, and the patient's daughter denies any fevers or chills in this patient. ROS All systems reviewed and are negative except as per history of present illness. Medications Home Meds Active Scripts Levetiracetam* (Keppra*) 500 Mg Tablet, 500 MG PO BID for 30 Days, TAB Prov:MORIS SHOEMAKER 11/13/16 Losartan Potassium* (Cozaar*) 50 Mg Tablet, 100 MG PO BID for 30 Days, TAB Prov:MORIS SHOEMAKER 11/13/16 Hydrochlorothiazide* (Hydrochlorothiazide*) 25 Mg Tab, 25 MG PO DAILY for 30 Days, TAB Prov:MORIS SHOEMAKER 11/13/16 Amlodipine Besylate* (Amlodipine Besylate*) 2.5 Mg Tablet, 10 MG PO DAILY for 30 Days, TAB Prov:MORIS SHOEMAKER 11/13/16 Aspirin (Aspirin) 81 Mg Chew, 81 MG PO DAILY for 30 Days, TAB Prov:MORIS SHOEMAKER 10/17/16 Reported Medications Donepezil* (Aricept*) 10 Mg Tablet, 10 MG PO DAILY, TAB 11/01/16 Memantine* (Namenda*) 10 Mg Tablet, 10 MG PO DAILY, #30 TAB 11/01/16 Carbidopa-Levodopa* (Sinemet CR*) 50-200 Mg Tabsr, 0.5 TAB PO BID, TAB 25/100 twice daily 11/01/16 Trazodone Hcl* (Trazodone Hcl*) 50 Mg Tablet, 50 MG PO HS, TAB 01/28/15 Lorazepam (Ativan) 1 Mg Tablet, 1 MG PO QHS 07/26/12 Fluoxetine Hcl* (Prozac*) 20 Mg Capsule, 20 MG PO DAILY 06/05/11 Allergies Allergies: Coded Allergies: No Known Allergy (Verified , 11/01/16) PMhx/Soc History of Surgery: Yes (many years ago) Anesthesia Reaction: No Hx Neurological Disorder: Yes (alzheimer, demenia, encephalopathy) Hx Respiratory Disorders: Yes (COPD, PNA, bronchitis) Hx Cardiac Disorders: Yes (HTN, inc cholesterol) Hx Psychiatric Problems: No Hx Miscellaneous Medical Probl: Yes (dementia, seizure, bilat heel ulcer) Hx Alcohol Use: No Hx Substance Use: No Hx Tobacco Use: No Physical Exam Vitals Vital Signs Date Time Temp Pulse Resp B/P Pulse Ox O2 Delivery O2 Flow Rate FiO2 02/24/17 13:46 98.1 71 18 145/90 99 Physical Exam Const: No acute distress Head: Atraumatic Eyes: Normal Conjunctiva ENT: Right external auditory canal with abrasion on the inferior surface, TMs normal bilaterally, no mastoid bone tenderness ,nose and Mouth. Neck: Full range of motion..~ No meningismus. Resp: Clear to auscultation bilaterally Cardio: Regular rate and rhythm, no murmurs Abd: Soft, non tender, non distended. Normal bowel sounds Skin: No petechiae or rashes Back: No midline or flank tenderness Ext: No cyanosis, or edema Neur: Awake and alert Psych: Normal Mood and Affect Procedures/MDM This 86-year-old female presents to the emergency room for evaluation of bleeding from her left ear. The patient did have an abrasion of the left auditory canal with no signs of otitis media or mastoiditis. Patient will be discharged at this time with instructions to prevent any manipulation of the area and with Cortisporin eardrops. Departure Diagnosis: Primary Impression: Bleeding from left ear Additional Impression: Abrasion of ear canal Condition: Stable GILLIAN VASQUES DO Feb 24, 2017 14:07
== END 2017-02-24 14:29 | disposition home or self-care (01) ==
LOC: FTE 13:45
DX: H92.21 Otorrhagia, right ear (principal); S00.411A Abrasion of right ear, initial encounter; I10 Essential (primary) hypertension; J44.9 Chronic obstructive pulmonary disease, unspecified; X58.XXXA Exposure to other specified factors, initial encounter; Z79.82 Long term (current) use of aspirin
CPT/HCPCS: 99283

== ENCOUNTER 2017-05-26 15:59 | Emergency (ER) | payer MEDICARE, OTHER ==
[~2017-05-26] VITALS: Ht 157.5 cm; Wt 56.8 kg
[~2017-05-26 15:59] MED LIST changes: -HYD25 PO; +HYDR25TA6 PO; +NPH10OT LEFT EAR
[2017-05-26 16:04] VITALS: Ht 157.5 cm; Wt 56.8 kg
[2017-05-26] MEDS ORDERED: CARB1TAB34 PO (17:13)
[2017-05-26] MEDS ORDERED: LOSA50TA6 PO (17:13)
[2017-05-26] MEDS ORDERED: CLOP75TA27 PO (17:13)
[2017-05-26] MEDS ORDERED: LEVE250T5 PO (17:14)
--- NOTE | 2017-05-26 17:20 | RADRPT ---
PROCEDURE: XR Chest. CLINICAL INDICATION: Cough. TECHNIQUE: Two views. Frontal and lateral. COMPARISON: 11/03/2016 FINDINGS: There is a new left-sided dual lead permanent pacemaker with leads in the right atrium and right anup tricle. There is mild elevation of the left hemidiaphragm. Right upper lobe scarring is unchanged. T he lungs are otherwise clear. The heart size is normal. There is calcification in the aorta consistent with atherosclerosis. There is no pleural effusion. There is no pneumothorax. IMPRESSION: 1. Left-sided dual lead permanent pacemaker. 2. Mild elevation of the left hemidiaphragm. 3. Right upper lobe scarring. 4. Atherosclerosis. 5. Otherwise unremarkable study. RPTAT: QQ .Mauri Henry MD, MD Date Time Electronically viewed and signed by .Mauri Henry MD, MD on 05/26/2017 17:19 .R/
[2017-05-26] MEDS ORDERED: ALBU18HF INHALATION (17:25)
--- NOTE | 2017-05-26 17:31 | ERD ---
ER Documentation Chief Complaint Chief Complaint cough & congestion x1 day HPI This is an 77-clqu-pth-year-old female with a history of hypertension who presents with a family member. The patient does have a history of Alzheimer's dementia. The family is concerned because she started to have nasal congestion and mild dry nonproductive cough starting yesterday evening. She denies any respiratory distress, apnea or increased work of breathing. No fevers or chills , no production to the cough. ROS All systems reviewed and are negative except as per history of present illness. Medications Home Meds Active Scripts Albuterol Sulfate* (Ventolin HFA*) 18 Gm Hfa.aer.ad, 2 PUFF INHALATION Q4H Y for cough or wheezing, #1 INHALER Prov:ZHANG HAMILTON MD 05/26/17 Reported Medications Levetiracetam* (Levetiracetam*) 250 Mg Tablet, 250 MG PO BID, TAB 05/26/17 Clopidogrel Bisulfate (Clopidogrel) 75 Mg Tablet, 75 MG PO DAILY, #30 TAB 05/26/17 Losartan Potassium* (Losartan Potassium*) 50 Mg Tablet, 50 MG PO DAILY, TAB 05/26/17 Carbidopa/Levodopa (Carbidopa-Levodopa 25-100 Tab) 1 Each Tablet, 1 EACH PO BID , TAB 05/26/17 Fluoxetine Hcl* (Prozac*) 20 Mg Capsule, 20 MG PO QAM 06/05/11 Discontinued Reported Medications Donepezil* (Aricept*) 10 Mg Tablet, 10 MG PO DAILY, TAB 11/01/16 Memantine* (Namenda*) 10 Mg Tablet, 10 MG PO DAILY, #30 TAB 11/01/16 Carbidopa-Levodopa* (Sinemet CR*) 50-200 Mg Tabsr, 0.5 TAB PO BID, TAB 25/100 twice daily 11/01/16 Trazodone Hcl* (Trazodone Hcl*) 50 Mg Tablet, 50 MG PO HS, TAB 01/28/15 Lorazepam (Ativan) 1 Mg Tablet, 1 MG PO QHS 07/26/12 Discontinued Scripts Neomycin/Polymyxin/Hydrocort* (Cortisporin* Otic) 10 Ml Susp, 4 DROP LEFT EAR QID for 7 Days, EA Prov:GILLIAN VASQUES DO 02/24/17 Levetiracetam* (Keppra*) 500 Mg Tablet, 500 MG PO BID for 30 Days, TAB Prov:MORIS SHOEMAKER 11/13/16 Losartan Potassium* (Cozaar*) 50 Mg Tablet, 100 MG PO BID for 30 Days, TAB Prov:MORIS SHOEMAKER 11/13/16 Hydrochlorothiazide* (Hydrochlorothiazide*) 25 Mg Tab, 25 MG PO DAILY for 30 Days, TAB Prov:MORIS SHOEMAKER 11/13/16 Amlodipine Besylate* (Amlodipine Besylate*) 2.5 Mg Tablet, 10 MG PO DAILY for 30 Days, TAB Prov:MORIS SHOEMAKER 11/13/16 Aspirin (Aspirin) 81 Mg Chew, 81 MG PO DAILY for 30 Days, TAB Prov:MORIS SHOEMAKER 10/17/16 Allergies Allergies: Coded Allergies: No Known Allergy (Verified , 05/26/17) PMhx/Soc Hypertension and dementia History of Surgery: No Anesthesia Reaction: No Hx Neurological Disorder: No Hx Respiratory Disorders: No Hx Cardiac Disorders: No Hx Psychiatric Problems: No Hx Miscellaneous Medical Probl: No Hx Alcohol Use: No Hx Substance Use: No Hx Tobacco Use: No Smoking Status: Never smoker FmHx Family History: No diabetes Physical Exam Vitals Vital Signs Date Time Temp Pulse Resp B/P Pulse Ox O2 Delivery O2 Flow Rate FiO2 05/26/17 16:04 98.4 70 18 163/66 97 Physical Exam General: Well developed, well nourished, no acute distress Head: Normocephalic, atraumatic. Eyes: Pupils equally reactive, EOM intact ENT: Moist mucous membranes, posterior pharynx without swelling or exudates Neck: Supple, no lymphadenopathy Respiratory: Lungs clear bilaterally, no distress Cardiovascular: RRR, no murmurs, rubs, or gallops Abdominal: Soft, non-tender, non-distended, no peritoneal signs : Deferred MSK: No edema, no unilateral swelling, 5/5 strength Neurologic: Alert and oriented at her baseline, moving all extremities, normal speech, no focal weakness, no cerebellar signs Skin: No rash Psych: Normal mood Procedures/MDM EKG, MONITORS, & DIAGNOSTIC IMAGING: Chest x-ray: I reviewed and interpreted a 2 view of the chest Mediastinum: No enlargement Cardiac silhouette: No cardiomegaly Airspace: Clear lung damon bilaterally without evidence of pneumothorax Bones: No evidence of fracture MEDICAL DECISION MAKING: This patient despite her age is extremely well-appearing with normal vital signs. She has very clear lung sounds without evidence of respiratory distress. Her symptoms are most likely secondary to viral process or mild nasal congestion. She has no production of cough, normal oxygen saturation and no signs or symptoms concerning for systemic illness. Additionally, her symptoms are not related to cardiopulmonary process such as CHF or acute coronary syndrome. However, given her age I do believe she will benefit from a chest x-ray. ER COURSE: The patient's chest x-ray is normal. Given the fact that she is extremely well- appearing with only symptoms for the past 12 hours with normal chest x-ray normal vital signs and normal lung exam I believe outpatient management is appropriate. There is no indication for antibiotics in this setting. I discussed this with the family member using a facility maintenance supervisor. We did discuss proper follow-up with primary care physician I was able to reach out to the patient's covering physician Dr. Wilde. He agrees with outpatient follow-up in the next 1-2 days and the patient's primary care physician's office. I kept the patient and/or family informed of laboratory and diagnostic imaging results throughout the emergency room course. DISPOSITION PLAN: We discussed follow up with the patient's primary care doctor within 24 to 48 hours as needed. We also discussed return to the emergency room for worsening symptoms or worsening condition. Outpatient referral: [None required] Discharge Medications: Albuterol inhaler as needed for cough Departure Diagnosis: Primary Impression: Cough Additional Impression: Nasal congestion Condition: Stable Patient Instructions: Uri, Viral, No Abx (Adult) Additional Instructions: Please return to the ED for worsening cough, trouble breathing. Follow up with your PMD this week to assure that symptoms are improving. ZHANG HAMILTON MD May 26, 2017 17:31
== END 2017-05-26 18:01 | disposition home or self-care (01) ==
LOC: E/R 15:59
DX: R05 Cough (principal); R09.81 Nasal congestion; I10 Essential (primary) hypertension; Z79.01 Long term (current) use of anticoagulants; Z79.82 Long term (current) use of aspirin
CPT/HCPCS: 71020

== ENCOUNTER 2017-05-27 14:37 | Inpatient (IN) | payer MEDICARE, OTHER ==
[~2017-05-27] VITALS: Ht 162.6 cm; Wt 53.3 kg
[~2017-05-27 14:37] MED LIST changes: +ALBU18HF INHALATION; -AMLO2.5T78 PO; -ASPI81TA3 PO; +CARB1TAB34 PO; +CLOP75TA27 PO; -DONE10TA7 PO; -HYDR25TA6 PO; -LEVE-5 PO; +LEVE250T5 PO; -LORA-408 PO; -LOSA50TA2 PO; +LOSA50TA6 PO; -MEMA10TA16 PO; -NPH10OT LEFT EAR; -SIN50200 PO; -TRAZ50TA18 PO
[2017-05-27] MEDS ORDERED: SOD CHLORIDE 0.9% 1,000 ML IV STA (17:15)
[2017-05-27] MEDS ORDERED: ACETAMINOPHEN 325 MG TAB PO ONE (17:30)
--- NOTE | 2017-05-27 18:05 | RADRPT ---
PROCEDURE: XR Chest. CLINICAL INDICATION: Shortness of breath. TECHNIQUE: A single portable view of the chest was obtained. COMPARISON: 05/26/2017 FINDINGS: The dual lead pacemaker is unchanged. The cardiomediastinal silhouette is within normal limits. Scar ring in the right upper lung zone is once again seen and is unchanged. Probable calcified granuloma in the lung apices is also seen. No dense consolidation is seen. Elevation of the left hemidiaphragm is again seen. The soft tissues and osseous structures are unremarkable. IMPRESSION: No acute cardiopulmonary disease. RPTAT: HPNM Physician Romario Date Time Electronically viewed and signed by Physician Romario on 05/27/2017 18:04 /
[2017-05-27] MEDS ORDERED: AZITHROMYCIN 500MG/NS (PMX) 250 ML IV STA (18:23)
[2017-05-27] MEDS ORDERED: CEFTRIAXONE 1 GM/50 ML (PMX) 50 ML IVPB STA (18:23)
--- NOTE | 2017-05-27 18:38 | ERD ---
ER Documentation Chief Complaint Chief Complaint cold symptoms x 2 days HPI This is an 87-year-old female with a past medical history of dementia, Parkinson disease seizures, hypertension, possible coronary artery disease on Plavix, previous arrhythmia status post pacemaker who is presenting with worsening cough, congestionand respiratory status. The patient was evaluated in the emergency department yesterday. She did have a mild leukocytosis at that time, but her chest x-ray was negative and her vital signs remained stable throughout her time in the emergency department. Her cough was not productive at that time. The patient was discharged in stable condition. However, over the last day, she has become more and more fatigued with worsening in her respiratory status. She is become tachypneic with audible coarse breath sounds. She does have a congested cough, but her cough is quite weak and she is unable to spit up any sputum. She was seen in the office today by her primary physician, Dr. Burton, who recommended that she return to the emergency department for reevaluation and likely admission. History was obtained from previous records, the patient's family and the patient 's PCP. The patient is nonverbal at baseline ROS Review of systems limited secondary to the patient's dementia and nonverbal nature at baseline Medications Home Meds Active Scripts Albuterol Sulfate* (Ventolin HFA*) 18 Gm Hfa.aer.ad, 2 PUFF INHALATION Q4H Y for cough or wheezing, #1 INHALER Prov:ZHANG HAMILTON MD 05/26/17 Reported Medications Levetiracetam* (Levetiracetam*) 250 Mg Tablet, 250 MG PO BID, TAB 05/26/17 Clopidogrel Bisulfate (Clopidogrel) 75 Mg Tablet, 75 MG PO DAILY, #30 TAB 05/26/17 Losartan Potassium* (Losartan Potassium*) 50 Mg Tablet, 50 MG PO DAILY, TAB 05/26/17 Carbidopa/Levodopa (Carbidopa-Levodopa 25-100 Tab) 1 Each Tablet, 1 EACH PO BID , TAB 05/26/17 Fluoxetine Hcl* (Prozac*) 20 Mg Capsule, 20 MG PO QAM 06/05/11 Discontinued Reported Medications Donepezil* (Aricept*) 10 Mg Tablet, 10 MG PO DAILY, TAB 11/01/16 Memantine* (Namenda*) 10 Mg Tablet, 10 MG PO DAILY, #30 TAB 11/01/16 Carbidopa-Levodopa* (Sinemet CR*) 50-200 Mg Tabsr, 0.5 TAB PO BID, TAB 25/100 twice daily 11/01/16 Trazodone Hcl* (Trazodone Hcl*) 50 Mg Tablet, 50 MG PO HS, TAB 01/28/15 Lorazepam (Ativan) 1 Mg Tablet, 1 MG PO QHS 07/26/12 Discontinued Scripts Neomycin/Polymyxin/Hydrocort* (Cortisporin* Otic) 10 Ml Susp, 4 DROP LEFT EAR QID for 7 Days, EA Prov:GILLIAN VASQUES DO 02/24/17 Levetiracetam* (Keppra*) 500 Mg Tablet, 500 MG PO BID for 30 Days, TAB Prov:MORIS SHOEMAKER 11/13/16 Losartan Potassium* (Cozaar*) 50 Mg Tablet, 100 MG PO BID for 30 Days, TAB Prov:MORIS SHOEMAKER 11/13/16 Hydrochlorothiazide* (Hydrochlorothiazide*) 25 Mg Tab, 25 MG PO DAILY for 30 Days, TAB Prov:MORIS SHOEMAKER 11/13/16 Amlodipine Besylate* (Amlodipine Besylate*) 2.5 Mg Tablet, 10 MG PO DAILY for 30 Days, TAB Prov:MORIS SHOEMAKER 11/13/16 Aspirin (Aspirin) 81 Mg Chew, 81 MG PO DAILY for 30 Days, TAB Prov:MORIS SHOEMAKER 10/17/16 Allergies Allergies: Coded Allergies: No Known Allergy (Verified , 05/27/17) PMhx/Soc History of Surgery: No Anesthesia Reaction: No Hx Neurological Disorder: Yes (alzheimer) Hx Respiratory Disorders: No Hx Cardiac Disorders: No Hx Psychiatric Problems: No Hx Miscellaneous Medical Probl: Yes (DEMENTIA) Hx Alcohol Use: No Hx Substance Use: No Hx Tobacco Use: No Smoking Status: Never smoker FmHx Limited secondary to patient's dementia and nonverbal nature at baseline Physical Exam Vitals Vital Signs Date Time Temp Pulse Resp B/P Pulse Ox O2 Delivery O2 Flow Rate FiO2 05/27/17 22:03 98.9 126 31 148/100 95 Nasal Cannula 3.0 05/27/17 21:00 99.4 102 35 141/96 96 Nasal Cannula 3.0 05/27/17 20:00 99.4 120 29 156/89 96 Nasal Cannula 3.0 05/27/17 19:00 99.2 106 34 200/90 98 Nasal Cannula 3.0 05/27/17 18:18 85 40 186/77 99 Nasal Cannula 05/27/17 14:39 99.8 83 20 148/93 96 Physical Exam Const: Significant respiratory distress, cachectic Head: Atraumatic Eyes: Sunken eyes. Normal Conjunctiva. ENT: Normal External Ears, Nose. Dry mucous membranes. Neck: Full range of motion. ~ No meningismus. Resp: Diffuse coarse congested breath sounds and rhonchi Cardio: Irregularly irregular rhythm, intermittent tachycardia, no murmurs Abd: Soft, non tender, non distended. Normal bowel sounds Skin: No petechiae or rashes. Increased skin turgor Back: No midline or flank tenderness Ext: No cyanosis, or edema Neur: Awake and alert. Cranial nerves intact. No facial droop. Normal strength and sensation in all extremities. Result Diagram: 05/27/17 1725 05/27/17 1725 Results 24 hrs Laboratory Tests Test 05/27/17 17:25 05/27/17 18:40 05/27/17 19:09 White Blood Count 11.810^3/ul Red Blood Count 5.3610^6/ul Hemoglobin 13.4g/dl Hematocrit 43.5% Mean Corpuscular Volume 81.2fl Mean Corpuscular Hemoglobin 25.0pg Mean Corpuscular Hemoglobin Concent 30.8g/dl Red Cell Distribution Width 16.0% Platelet Count 89209^3/UL Mean Platelet Volume 10.2fl Neutrophils % 76.3% Lymphocytes % 14.0% Monocytes % 8.9% Eosinophils % 0.0% Basophils % 0.4% Nucleated Red Blood Cells % 0.0/100WBC Neutrophils # 9.010^3/ul Lymphocytes # 1.610^3/ul Monocytes # 1.010^3/ul Eosinophils # 0.010^3/ul Basophils # 0.110^3/ul Nucleated Red Blood Cells # 0.010^3/ul Sodium Level 146mmol/L Potassium Level 4.3mmol/L Chloride Level 107mmol/L Carbon Dioxide Level 27mmol/L Anion Gap 16 Blood Urea Nitrogen 28mg/dl Creatinine 0.71mg/dl Glucose Level 149mg/dl Calcium Level 9.8mg/dl Total Bilirubin 1.6mg/dl Direct Bilirubin 0.00mg/dl Indirect Bilirubin 1.6mg/dl Aspartate Amino Transf (AST/SGOT) 37IU/L Alanine Aminotransferase (ALT/SGPT) 27IU/L Alkaline Phosphatase 122IU/L Total Protein 8.4g/dl Albumin 4.3g/dl Globulin 4.10g/dl Albumin/Globulin Ratio 1.04 Lactic Acid Level 3.2mmol/L Troponin I 0.012ng/ml Blood Gas Specimen Source Blood arterial Arterial Blood Date Drawn 05/27/2017 8:06:40 PM Arterial Blood pH (Temp corrected) 7.258 Arterial Blood pCO2 (Temp correct) 45.7mmhg Arterial Blood pO2 (Temp corrected) 80.8mmHG Arterial Blood HCO3 20.0mmol/L Arterial Blood Base Excess -7.0mmol/L Arterial Blood Oxygen Saturation 93.8mmHG Wilbert Test ACCEPTAB Arterial Blood Gas Puncture Site Right Radial Arterial Blood Carboxyhemoglobin 0.3% Arterial Blood Methemoglobin 0.4% Blood Gas A-a O2 Differential 79.4mmHg Oxyhemoglobin Percent 93.1% Total Hemoglobin 13.6g/dl Blood Gas Temperature 37.0C Blood Gas Modality NASAL CANNULA FiO2 30.0% Blood Gas Critical Value Read Back Shaquille TRINIDAD MD Blood Gas Notified Whom AA Blood Gas Notified Time 05/27/2017 8:17:24 PM Current Medications Medications (Trade) Dose Ordered Sig/Camelia Route PRN Reason Start Time Stop Time Status Last Admin Dose Admin Sodium Chloride (NS) 1,000 ml @ 1,000 mls/hr Q1H STAT IV 05/27/17 17:15 05/27/17 18:14 DC 05/27/17 17:41 Acetaminophen 650 mg 650 mg ONCE ONCE PO 05/27/17 17:30 05/27/17 17:31 DC 05/27/17 18:07 Ceftriaxone Sodium 50 ml @ 100 mls/hr ONCE STAT IVPB 05/27/17 18:23 05/27/17 18:52 DC 05/27/17 19:10 Azithromycin (Zithromax 500mg/ NS (Pmx)) 250 ml @ 250 mls/hr ONCE STAT IV 05/27/17 18:23 05/27/17 19:22 DC 05/27/17 19:00 Ondansetron HCl (Zofran Inj) 4 mg ER BRIDGE PRN IV NAUSEA AND/OR VOMITING 05/27/17 19:30 05/28/17 19:29 Acetaminophen (Tylenol Tab) 650 mg ER BRIDGE PRN PO MILD PAIN/FEVER 05/27/17 19:30 05/28/17 19:29 IV Flush 10 ml 10 ml STK-MED ONCE .ROUTE 05/27/17 19:44 05/27/17 19:45 DC 05/27/17 20:30 Sodium Chloride 100 ml @ ud STK-MED ONCE .ROUTE 05/27/17 19:44 05/27/17 19:45 DC 05/27/17 20:31 Iohexol (Omnipaque) 100 ml @ ud STK-MED ONCE .ROUTE 05/27/17 19:44 05/27/17 19:45 DC 05/27/17 20:30 Iohexol 50 ml 50 ml STK-MED ONCE .ROUTE 05/27/17 19:44 05/27/17 19:45 DC 05/27/17 20:31 Sodium Chloride 1,000 ml @ 1,000 mls/hr Q1H ONCE IV 05/27/17 20:30 05/27/17 21:29 DC 05/27/17 20:56 Sodium Chloride (NS) 1,000 ml @ 60 mls/hr [id number] IV 05/27/17 20:09 05/27/17 20:18 DC IV Flush (NS 3 ml) 3 ml PER PROTOCOL IV 05/27/17 20:30 05/27/17 20:30 DC Ondansetron HCl (Zofran Inj) 4 mg Q6H PRN IV NAUSEA AND/OR VOMITING 05/27/17 20:30 05/27/17 20:30 DC Acetaminophen (Tylenol Tab) 650 mg Q6H PRN PO PAIN LEVEL 1-3 OR FEVER 05/27/17 20:30 05/27/17 20:30 DC Pantoprazole (Protonix Iv) 40 mg DAILY@06 IV 05/28/17 06:00 05/28/17 06:00 DC Albuterol (Proventil (O.r. Use Only)) 2 puff Q4H PRN INH cough or wheezing 05/27/17 20:30 05/27/17 20:30 DC Clopidogrel Bisulfate (plaVIX) 75 mg DAILY PO 05/28/17 09:00 05/28/17 09:00 DC Fluoxetine HCl (Prozac) 20 mg QAM PO 05/28/17 09:00 05/28/17 09:00 DC Levetiracetam (Keppra) 250 mg BID PO 05/27/17 21:00 05/27/17 21:00 DC Losartan Potassium (Cozaar) 50 mg DAILY PO 05/27/17 20:30 05/27/17 20:30 DC Hydralazine HCl (Apresoline) 10 mg Q4H PRN IV ELEVATED BLOOD PRESSURE 05/27/17 20:30 05/27/17 20:30 DC Levalbuterol 0.63 mg 0.63 mg Q4H RESP THERAPY HHN 05/27/17 21:00 05/27/17 21:00 DC Amiodarone HCl 100 ml @ 600 mls/hr ONCE ONCE IV 05/27/17 21:30 05/27/17 21:30 DC Amiodarone HCl/ Dextrose (Cordarone Iv/ D5W) 500 ml @ 0 mls/hr Q0M IV 05/27/17 21:30 05/27/17 21:30 DC Procedures/MDM MDM The patient's presentation warrants further investigation. Given the patient's presentation today, I am highly suspicious of sepsis. The patient was intermittently tachycardic with a low-grade temperature and was extremely tachypneic. I do suspect a pulmonary etiology of the patient's symptoms. LABS The patient's blood work was obtained and reviewed. The patient's CBC shows leukocytosis without left shift. However, the patient is elderly and I would not be surprised if she was unable to mount an appropriate immune response. The patient does have an elevated temperature and I am suspicious of a systemic infection. Blood cultures will be sent off. The patient is not anemic today. The patient's platelet count is unremarkable. The patient's BMP shows no signs of emergent metabolic or electrolyte abnormality. The patient has normal renal function testing. The patient does have an elevated indirect bilirubin with elevation in her transaminases as well. This is potentially reactive. The patient's lactic acid is at 3.2. At this point, I am suspicious of sepsis. EKG EKG read by me: Rate/Rhythm: Irregularly irregular rhythm indicating atrial fibrillation with a heart rate of 94 bpm Intervals: Widened QRS, increased QTC, no OR interval [place]: Indeterminate Impression: Does not meet scarbosa criteria for acute ischemia. IMAGING CXR FINDINGS: The dual lead pacemaker is unchanged. The cardiomediastinal silhouette is within normal limits. Scarring in the right upper lung zone is once again seen and is unchanged. Probable calcified granuloma in the lung apices is also seen. No dense consolidation is seen. Elevation of the left hemidiaphragm is again seen. The soft tissues and osseous structures are unremarkable. IMPRESSION: No acute cardiopulmonary disease. Electronically viewed and signed by Physician Romario on 05/27/2017 18 :04 CTA Chest IMPRESSION: 1. No pulmonary emboli through the level of the subsegmental pulmonary arteries. 2. Diffuse bronchitis with bronchiolitis in the right lower lobe and scattered areas of mucous plugging in both lower lobes, right greater than left. Prior granulomatous disease at both lung apices with associated cicatricial atelectasis in the medial right upper lobe. 3. Cardiomegaly. 4. Paratracheal adenopathy, likely reactive in nature. 5. Vascular calcifications consistent with atherosclerosis. 6. Colonic diverticulosis. 7. Mild compression deformity of the T10 vertebral body, age indeterminate. Electronically viewed and signed by .Tyler Martell MD, MD on 05/27/2017 20:58 TREATMENT/DISPOSITION Admit MDM: Patient's infectious symptoms have not stabilized and the patient is at risk of rapid decompensation. The patient will be admitted for careful hydration, antibiotic therapy, and infectious source control. Severe Sepsis criteria: Infectious source: Pulmonary End organ damage indicated by: Lactate > 2.0 mmol/L Acute Resp Failure sat < 92% w/o oxygen Sepsis Management: Time of recognition of sepsis: 18:27 Within 3 hours of recognition: Blood cultures x 2 before broad-spectrum antibiotics: Yes 30 ml/kg NS bolus Completed Initial lactate 3.2 Repeat lactate Pending Accepting Care Team Current data and ongoing care discussed. Admitting Physician: Micheal Outstanding Data: Culture results CRITICAL CARE NOTE Time: 30 minutes excluding all billable procedures. Treatments/Evaluations: Evaluation of the patient's medical record including previous records & current laboratory/imaging studies, close monitoring, potential interventions if hemodynamically unstable or cardiopulmonary decline or neurologic decline, maintaining tight fluid balance, any discussions with the family regarding the patient's status and prognosis. Departure Diagnosis: Primary Impression: Respiratory distress Additional Impressions: Sepsis Sepsis type: sepsis due to unspecified organism Qualified Code: A41.9 - Sepsis, due to unspecified organism Bronchiolitis Mucus plugging of bronchi Condition: Serious KAI TRINIDAD MD May 27, 2017 18:38
[2017-05-27] MEDS ORDERED: ONDANSETRON 4 MG INJ IV PRN ×2 (19:30→20:30)
[2017-05-27] MEDS ORDERED: ACETAMINOPHEN 325 MG TAB PO PRN ×2 (19:30→20:30)
[2017-05-27] MEDS ORDERED: SOD CHLORIDE 0.9% 100 ML ONE (19:44)
[2017-05-27] MEDS ORDERED: IOHEXOL 350MG/ML 50 ML BTL ONE (19:44)
[2017-05-27] MEDS ORDERED: IOHEXOL 100 ML ONE (19:44)
[2017-05-27] MEDS ORDERED: SOD CHLORIDE 0.9% 1,000 ML IV SCH (20:09)
[2017-05-27] MEDS ORDERED: SOD CHLORIDE 0.9% 1,000 ML IV ONE (20:30)
[2017-05-27] MEDS ORDERED: NACL 0.9% 3 ML SYG IV SCH (20:30)
[2017-05-27] MEDS ORDERED: LOSARTAN 50 MG TAB PO SCH (20:30)
[2017-05-27] MEDS ORDERED: hydrALAzine 20 MG INJ IV PRN ×2 (20:30→23:00)
[2017-05-27] MEDS ORDERED: PROVENTIL HFA 6.7GM INHALER INH PRN (20:30)
--- NOTE | 2017-05-27 20:59 | RADRPT ---
PROCEDURE: CTA chest pulmonary angiography. CLINICAL INDICATION: Severe dyspnea. TECHNIQUE: CT angiography of the chest was performed after the uneventful intravenous administratio n of 115 cc of Omnipaque 350. Coronal and sagittal reformations were performed. 3-D/multiplanar re formations were performed by the technologist and an independent workstation. The total exam CTDI = 2.2, 36.62, 12.04 mGy and the DLP equals 46.49 mGy-cm. Evaluation is partially limited due to motion artifact. One or more of the following dose reduction techniques were used: - Automated exposure control. - Adjustment of the mA and/or kV according to patient size. - Use of iterative reconstruction technique. COMPARISON: Chest x-ray dated 05/27/2017. FINDINGS: Pulmonary angiogram: There are no emboli through the level of the subsegmental pulmonary arteries. The main pulmonary artery is normal in caliber and there is no evidence of right heart strain. Lungs, pleura, airways, and thoracic inlet: There is scarring with associated calcification at both lung apices with cicatricial atelectasis in the medial right upper lobe. There is dependent change in patchy tree in bud opacity at the right lung base. There is no focal consolidation or effusion. T here are no concerning pulmonary nodules or masses. There is diffuse bronchial wall thickening with scattered areas of mucous plugging in the lower lobes bilaterally, right greater than left. Cardiovascular system, mediastinum, and lymphatics: There is four-chamber cardiac enlargement withou t pericardial thickening or effusion. There is a left-sided dual chamber pacemaker in place. There are atherosclerotic changes of the aorta, which is nonaneurysmal. There is paratracheal adenopathy. Visualized upper abdomen: The gallbladder is surgically absent. There is diverticulosis of the visu alized colon. Musculoskeletal system and soft tissues: There is a mild compression deformity of the T10 vertebral body. The bones are diffusely undermineralized. There are no concerning osseous lesions. The soft t issues are unremarkable. IMPRESSION: 1. No pulmonary emboli through the level of the subsegmental pulmonary arteries. 2. Diffuse bronchitis with bronchiolitis in the right lower lobe and scattered areas of mucous plug ging in both lower lobes, right greater than left. Prior granulomatous disease at both lung apices w ith associated cicatricial atelectasis in the medial right upper lobe. 3. Cardiomegaly. 4. Paratracheal adenopathy, likely reactive in nature. 5. Vascular calcifications consistent with atherosclerosis. 6. Colonic diverticulosis. 7. Mild compression deformity of the T10 vertebral body, age indeterminate. RPTAT: HLBP .Tyler Martell MD, Date Time Electronically viewed and signed by .Tyler Martell MD, on 05/27/2017 20:58 .P/
[2017-05-27] MEDS ORDERED: LEVETIRACETAM 250 MG TAB PO SCH (21:00)
[2017-05-27] MEDS ORDERED: LEVALBUTEROL (NEB) 0.63 MG/3 ML AMP HHN SCH (21:00)
[2017-05-27] MEDS ORDERED: AMIODARONE 900 MG in DEXTROSE 5% 482 ML IV SCH (21:30)
[2017-05-27] MEDS ORDERED: AMIODARONE 150MG/D5W BOLUS 100 ML IV ONE (21:30)
[2017-05-27 22:03] VITALS: TEMP 98.9
[2017-05-27] MEDS ORDERED: METOPROLOL 5 MG INJ IV PRN (23:00)
[2017-05-27] MEDS ORDERED: ACETAMINOPHEN 325 MG SUPP PR PRN (23:00)
[2017-05-27] MEDS: LEVALBUTEROL (NEB) 0.63 MG/3 ML AMP HHN SCH (23:44)
[2017-05-28] VITALS (20 sets, daily range): BP systolic 114–165; BP diastolic 61–90; PULSE 77–250; RESP 18–40
[2017-05-28] MEDS: D5W-0.45 NACL + KCL 20 MEQ 1,000 ML IV SCH ×2 (00:24→15:40)
[2017-05-28] MEDS ORDERED: INFLUENZA VIRUS VACCINE 0.5 ML (DISPENSING) IM* ONE (01:30)
[2017-05-28] MEDS ORDERED: PANTOPRAZOLE 40 MG INJ IV SCH (06:00)
[2017-05-28] MEDS: LEVALBUTEROL (NEB) 0.63 MG/3 ML AMP HHN SCH ×3 (07:46→23:09)
[2017-05-28] MEDS: METHYLPREDNISOLONE 40 MG INJ IV SCH ×2 (08:48→20:56)
[2017-05-28] MEDS: ENOXAPARIN 30 MG/0.3 ML SYG SC SCH (08:49)
[2017-05-28] MEDS ORDERED: AZITHROMYCIN 500MG/NS (PMX) 250 ML IVPB SCH (09:00)
[2017-05-28] MEDS ORDERED: FLUOXETINE 20 MG CAP PO SCH (09:00)
[2017-05-28] MEDS ORDERED: CLOPIDOGREL 75 MG TAB PO SCH (09:00)
[2017-05-28] MEDS: CEFTRIAXONE 1 GM/50 ML (PMX) 50 ML IVPB SCH (16:51)
[2017-05-28] MEDS ORDERED: MAGNESIUM SULFATE 2 GM/50 ML 50 ML IVPB ONE (17:30)
--- NOTE | 2017-05-28 17:36 | CONS ---
Date/Time of Note Date/Time of Note DATE: 05/28/17 TIME: 17:29 Assessment/Plan Assessment/Plan Additional Assessment/Plan Cardiopulmonary arrest Ventricular tachycardia Paroxysmal atrial fibrillation Pneumonia Sepsis History of pacemaker DNR -Patient's arrhythmia likely multifactorial including secondary to sepsis and respiratory status. Would order magnesium supplementation, telemetry with less episodes of ventricular tachycardia likely after being given IV amiodarone. Would start IV amiodarone drip. Would request pacemaker interrogation. Antibiotics as per primary team but would refrain from any proarrhythmic antibiotics including quinolones and azithromycin. Check echocardiogram. I did contact patient's primary health care technician Dr. Georges and he is aware patient is at our facility. Consultation Date/Type/Reason Admit Date/Time May 27, 2017 at 19:07 Type of Consultation: cv Reason for Consultation Ventricular tachycardia Hx of Present Illness This is an 87-year-old female with past medical history of progressive dementia , peripheral arterial disease presents with cough and shortness of breath worsening over the past 3-4 days. Patient also with more fatigue and change in mental status as per family. Patient admitted and this morning had a sustained episode of ventricular tachycardia with loss of consciousness and respiratory arrest. Patient is a DNR and thus no intervention was done. She converted back to a sinus rhythm. Unfortunate patient unable to give history given mental status and family is at bedside. There has been no fevers or chills, cough has been productive. He did have an episode of vomiting a few days ago. 12 point review of systems was performed with all pertinent positives and negatives mentioned above and all else is negative Past Medical History Paroxysmal atrial fibrillation Medical History: congestive heart failure, hypertension Past Surgical History Past Surgical Hx: other (History of pacemaker) Family History Significant Family History: no pertinent family hx Social History Smoking Status: Former smoker Other Social History Lives with family Exam/Review of Systems Vital Signs Vitals Vital Signs Date Time Temp Pulse Resp B/P Pulse Ox O2 Delivery O2 Flow Rate FiO2 05/28/17 16:31 77 05/28/17 15:41 98.2 19 114/77 95 05/28/17 08:00 Nasal Cannula 2.0 Exam Awake, appears mildly dyspneic, no apparent distress Head: normocephalic Respiratory: crackles/rales, other (Mild expiratory wheezing) Cardiovascular: other (S1-S2 heard), regular rate and rhythm Gastrointestinal: bowel sounds, non-tender, soft Extremities: edema Results Result Diagram: 05/28/17 0349 05/28/17 0349 Results 24 hrs Laboratory Tests Test 05/27/17 18:40 05/27/17 19:09 05/27/17 23:11 05/28/17 03:49 Lactic Acid Level 3.2 *H 5.6 *H 3.5 *H Troponin I 0.012 Blood Gas Specimen Source Blood arterial Arterial Blood Date Drawn 05/27/2017 8:06:40 PM Arterial Blood pH (Temp corrected) 7.258 *L Arterial Blood pCO2 (Temp correct) 45.7 H Arterial Blood pO2 (Temp corrected) 80.8 Arterial Blood HCO3 20.0 L Arterial Blood Base Excess -7.0 L Arterial Blood Oxygen Saturation 93.8 L Wilbert Test ACCEPTAB Arterial Blood Gas Puncture Site Right Radial Arterial Blood Carboxyhemoglobin 0.3 Arterial Blood Methemoglobin 0.4 Blood Gas A-a O2 Differential 79.4 H Oxyhemoglobin Percent 93.1 Total Hemoglobin 13.6 Blood Gas Temperature 37.0 Blood Gas Modality NASAL CANNULA FiO2 30.0 Blood Gas Critical Value Read Back Shaquille TRINIDAD MD Blood Gas Notified Whom AA Blood Gas Notified Time 05/27/2017 8:17:24 PM White Blood Count 18.5 #H Red Blood Count 4.43 Hemoglobin 11.5 L Hematocrit 35.8 L Mean Corpuscular Volume 80.8 L Mean Corpuscular Hemoglobin 26.0 L Mean Corpuscular Hemoglobin Concent 32.1 Red Cell Distribution Width 15.8 H Platelet Count 205 Mean Platelet Volume 10.5 H Neutrophils % 84.7 H Lymphocytes % 7.2 L Monocytes % 7.4 Eosinophils % 0.0 Basophils % 0.1 Nucleated Red Blood Cells % 0.0 Neutrophils # 15.6 H Lymphocytes # 1.3 Monocytes # 1.4 H Eosinophils # 0.0 Basophils # 0.0 Nucleated Red Blood Cells # 0.0 Sodium Level 147 H Potassium Level 4.0 Chloride Level 115 H Carbon Dioxide Level 21 Anion Gap 15 Blood Urea Nitrogen 25 H Creatinine 0.59 Glucose Level 168 Calcium Level 8.4 Magnesium Level 1.9 Medications Medications Current Medications Ceftriaxone Sodium 50 ml @ 100 mls/hr Q24H IVPB Last administered on t 16:51; Admin Dose 100 MLS/HR; Start 05/28/17 at 18:00 Azithromycin (Zithromax 500mg/ NS (Pmx)) 250 ml @ 250 mls/hr Q24H IVPB Last administered on 05/28/17 08:47; Admin Dose 250 MLS/HR; Start 05/28/17 at 09: 00 Hydralazine HCl 10 mg 10 mg Q4H PRN IV sbp>160 & dbp>95; Start 05/27/17 at 23: 00 Potassium Chloride/Dextrose/ Sod Cl (D5-1/2ns + KCl 20 Meq) 1,000 ml @ 70 mls/ hr [id number] IV Last administered on 05/28/17 15:40; Admin Dose 70 MLS/HR; Start 05/27/17 at 23:00 Acetaminophen (Tylenol Supp) 325 mg Q4H PRN [place] PAIN OR TEMP ABOVE 38C; Start 05/27/17 at 23:00 Enoxaparin Sodium (Lovenox) 30 mg DAILY SC Last administered on 05/28/17 08: 49; Admin Dose 30 MG; Start 05/28/17 at 09:00 Methylprednisolone Sodium Succinate (Solu-Medrol) 20 mg Q12 IV Last administered on 05/28/17 08:48; Admin Dose 20 MG; Start 05/28/17 at 09:00 Metoprolol Tartrate (Lopressor) 5 mg Q6 PRN IV HR>110 Last administered on 09:24; Admin Dose 5 MG; Start 05/27/17 at 23:00 Influenza Virus Vaccine (Fluzone) 0.5 ml ONCE ONCE IM* ; Start 05/29/17 at 09:00 ; Stop 05/29/17 at 09:01 Procedures Procedures Telemetry reviewed with ventricular tachycardia ECG done May 27 with atrial fibrillation at 94 bpm, IVCD with QRS 158 ms, nonspecific ST abnormalities Prince Khalil DO May 28, 2017 17:36
[2017-05-28] MEDS: AMIODARONE 900 MG in DEXTROSE 5% 482 ML IV SCH (18:24)
--- NOTE | 2017-05-28 20:53 | HP ---
DATE OF ADMISSION: 05/27/2017 ADDENDUM I met with several of the patient's family members, including daughter and granddaughter. The goals of care discussed. The patient is an 87-year-old female with Alzheimer dementia, seizure disorder who was admitted due to community-acquired pneumonia or possible aspiration pneumonia. The patient at 9:00 this morning had a cardiopulmonary arrest. The patient had sustained V-tach which converted into Afib. The patient quit breathing for about 30 seconds. The patient was already on supplement al oxygen. The patient also became cyanotic. The patient had spontaneous return of circulation and currently has a heart rate of 100, temperature of 98.4. The patient is currently nonverbal, althou gh occasionally does have swallowing movement as well as occasional blinking but is nonverbal. The patient at baseline is awake, alert; however, confused and does not follow simple commands. Discuss ed code status and feeding tube discussed with the family. The patient's family have decided to diane e her DNR as well as with no feeding tube. The patient is unlikely to pass swallow evaluation. The refore, I also suggested hospice evaluation and comfort care. The patient's family requested that castro thomas will think about it and will get back to us. Total time spent approximately 35 minutes. Dictated By: VINCE DUMONT/MAGGIE Conf#: [id number] DID#: [id number]
[2017-05-28] MEDS ORDERED: AMIODARONE 150MG/D5W BOLUS 100 ML IV ONE ×2 (23:00)
[2017-05-29] VITALS (11 sets, daily range): BP systolic 96–169; BP diastolic 56–92; PULSE 72–87; RESP 17–21
[2017-05-29] MEDS: LEVALBUTEROL (NEB) 0.63 MG/3 ML AMP HHN SCH ×3 (00:01→16:00)
--- NOTE | 2017-05-29 00:59 | HP ---
DATE OF ADMISSION: 05/27/2017 HISTORY OF PRESENT ILLNESS: The patient is an 87-year-old female known to me from previous admissio n. Patient with history of seizure disorder, Parkinson disease, peripheral vascular disease, hypert ension, history of pneumonia, sepsis, a urinary tract infection, and history of Alzheimer dementia. The patient currently lives at home with her family. The patient was evaluated in the emergency ro om yesterday for mild leukocytosis. Her vital signs were negative and chest x-ray negative and the patient was sent home. However, patient was brought to primary care physician, Dr. Burton, with c omplaints of increased fatigue and worsening respiratory status and diminished lung sounds and patient was sent to the emergency room. In the em ergency room, patient underwent a CT angiogram which revealed diffuse bronchitis with bronchiolitis in the right lower lobe and scattered areas of mucus plugging in both lower lobes, right greater wojciech n left. Prior granulomatous disease in both lungs with associated atelectasis in the medial right l obe, cardiomyopathy, no pulmonary emboli, paratracheal adenopathy or vascular calcifications, coloni c diverticulosis and mild compression deformity of the T10 vertebral body. The patient was started on steroids and broad spectrum antibiotics and admitted for further evaluation and management. Micaela ent's lactic acid was elevated to 5.6 on admission. PAST MEDICAL HISTORY: Per HPI. PAST SURGICAL HISTORY: Per conversation with the patient's daughter, no prior surgical history. SOCIAL HISTORY: Patient lives at home with her family. No history of tobacco use, alcohol use, ill icit drug use. ALLERGIES: NO KNOWN ALLERGIES. HOME MEDICATIONS: Include: 1. Ventolin. 2. Keppra. 3. Plavix. 4. Cozaar. 5. Carbidopa/levodopa. 6. Prozac. REVIEW OF SYSTEMS: A 12-point review of systems is negative unless mentioned in the HPI. PHYSICAL ASSESSMENT: GENERAL: A fragile, elderly female. VITAL SIGNS: Temperature is 98.2, pulse is 100, blood pressure is 114/77, respiratory rate 19, oxyg en saturation is 99% on 2 liters nasal cannula. HEENT: Head is atraumatic, normocephalic. Pupils equal, round, reactive to light and accommodation . Oral mucosa is pink and moist. NECK: Supple, no cervical lymphadenopathy, no thyromegaly. CHEST: Lungs diminished bilaterally. The patient has scattered rhonchi. There are no wheezes, ral es noted. CARDIOVASCULAR: Normal S1, S2. No gallops, clicks, rubs noted. ABDOMEN: Round, soft, nondistended, nontender. Bowel sounds present. EXTREMITIES: No edema. NEUROLOGICAL: The patient is nonverbal at baseline, opens eyes, lethargic but arousable. SKIN: No apparent rash noted. LABORATORY DATA: On admission, CBC: White blood cells 11.8, hemoglobin 13.4, hematocrit 43.5, plat elets 250. Chemistry: Sodium is 146, potassium 4.3, chloride 107, carbon dioxide 27, anion gap 16, BUN is 28, creatinine 0.71, glucose 149. Troponin 0.012. ASSESSMENT AND PLAN: 1. Respiratory distress secondary to bronchiolitis and possible early pneumonia. Will continue pat ient on oxygen supplementation and bronchodilators. Start broad spectrum antibiotics. 2. Sepsis. 3. Bronchiolitis. 4. Episode of ventricular tachycardia. Will ask Dr. Khalil to see patient in cardiology consultati on. We will obtain a 2D echo to evaluate left ventricular function. Cardiac enzymes q.6 hours x2. 5. Atrial fibrillation. 6. Cardiomegaly. 7. Seizure disorder. 8. Parkinson disease. 9. Advanced dementia. Will start patient on steroids, Lovenox for deep venous thrombosis prophylaxis and Pepcid for peptic ulcer disease prophylaxis. Further recommendations based on clinical course. Plan of care discuss ed with Dr. Burton. Dictated By: MORIS SHOEMAKER SUPERVISOR [employer] for VINCE BURTON MD SR/NTS Conf#: [id number] DID#: [id number]
[2017-05-29] MEDS: METHYLPREDNISOLONE 40 MG INJ IV SCH ×2 (08:31→20:38)
[2017-05-29] MEDS: D5W-0.45 NACL + KCL 20 MEQ 1,000 ML IV SCH ×2 (08:31→16:35)
[2017-05-29] MEDS: ENOXAPARIN 30 MG/0.3 ML SYG SC SCH (08:32)
[2017-05-29] MEDS ORDERED: INFLUENZA VIRUS VACCINE 0.5 ML (DISPENSING) IM* ONE (09:00)
--- NOTE | 2017-05-29 10:24 | RADRPT ---
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 Physician: VINCE AGUIRRE Quality: Adequate Procedures: Transthoracic echocardiogram with complete 2D, M-Mode, and doppler examination. Indications: Evaluate Left Ventricular function. 2D/M Mode Doppler Measurement Value Normal Ranges Measurement Value Normal Ranges LVIDd 2D 4.5 3.5 - 5.6 cm AV Peak Amilcar 1.2 m/sec LVIDs 2D 3.5 2.1 - 4.1 cm AV Peak PG 6.0 mmHg FS 2D 22.8 % AI Peak PG 49.0 mmHg LVPWd 2D 0.9 0.6 - 1.1 cm AI Peak Amilcar 3.5 m/sec IVSd 2D 0.8 0.6 - 1.1 cm AI PHT 427.0 msec IVS/LVPW 2D 0.9 LVOT Peak Amilcar 0.9 m/sec AoR Diam 2D 2.8 2.0 - 3.7 cm LVOT Peak PG 4.0 mmHg LA/Ao 2D 1 0 - 1 MV E Peak Amilcar 0.4 m/sec EDV 2D 89.9 cm3 MV A Peak Amilcar 0.8 m/sec ESV 2D 41.4 cm3 MV E/A 0.5 LA Dimen 2D 3.4 2.3 - 4.0 cm MV Decel Time 113 msec MV E/A 0.5 TR Peak Amilcar 2.4 m/sec TR Peak PG 24.0 mmHg RVSP 27.0 mmHg Findings Left Ventricle: Normal left ventricular cavity size. Normal left ventricular wall thickness. Severe left ventricular systolic dysfunction. Ejection fraction is visually estimated at 30 %. Abnormal Diastolic Function. Right Ventricle: Normal right ventricular size. Normal right ventricular systolic function. Left Atrium: The left atrium is normal in size. Right Atrium: The right atrium is normal in size. Mitral Valve: Mitral valve leaflets appear mildly thickened. Mild mitral annular calcification. Mild mitral valve regurgitation. Aortic Valve: No hemodynamically significant aortic stenosis by doppler. Aortic cusps appear mildly calcified. Mild aortic valve regurgitation. Tricuspid Valve: Normal appearance of the tricuspid valve. Estimated peak PA systolic pressure 27 mmHg. There is mild to moderate tricuspid regurgitation. Pulmonic Valve: Pulmonic valve not well visualized. There is trace pulmonic regurgitation. Pericardium: Normal pericardium with no significant pericardial effusion. Aorta: Normal aortic root. IVC: Normal size and normal respiratory collapse consistent with normal right atrial pressure. Conclusions Normal left ventricular cavity size. Normal left ventricular wall thickness. Severe left ventricular systolic dysfunction. Ejection fraction is visually estimated at 30 %. Abnormal Diastolic Function. Normal right ventricular size. Normal right ventricular systolic function. The left atrium is normal in size. The right atrium is normal in size. Mild mitral valve regurgitation. No hemodynamically significant aortic stenosis by doppler. Mild aortic valve regurgitation. Estimated peak PA systolic pressure 27 mmHg. There is mild to moderate tricuspid regurgitation. Normal pericardium with no significant pericardial effusion. Electronically Signed By: Prince hKalil 29-May-2017 10:23:25 -0700 Patient Name: RICHARD AMIN Study Date: 28-May-2017 [id number]
--- NOTE | 2017-05-29 10:24 | RADRPT ---
Echocardiogram Report Patient Name: RICHARD AMIN Gender: Female Date: 1930 Study Date: 28-May-2017 Dyno Technician: Anson Mathew [facility] Location: 5546 Ref. Physician: VINCE AGUIRRE Quality: Adequate Procedures: Transthoracic echocardiogram with complete 2D, M-Mode, and doppler examination. Indications: Evaluate Left Ventricular function. 2D/M Mode Doppler Measurement Value Normal Ranges Measurement Value Normal Ranges LVIDd 2D 4.5 3.5 - 5.6 cm AV Peak Amilcar 1.2 m/sec LVIDs 2D 3.5 2.1 - 4.1 cm AV Peak PG 6.0 mmHg FS 2D 22.8 % AI Peak PG 49.0 mmHg LVPWd 2D 0.9 0.6 - 1.1 cm AI Peak Amilcar 3.5 m/sec IVSd 2D 0.8 0.6 - 1.1 cm AI PHT 427.0 msec IVS/LVPW 2D 0.9 LVOT Peak Amilcar 0.9 m/sec AoR Diam 2D 2.8 2.0 - 3.7 cm LVOT Peak PG 4.0 mmHg LA/Ao 2D 1 0 - 1 MV E Peak Amilcar 0.4 m/sec EDV 2D 89.9 cm3 MV A Peak Amilcar 0.8 m/sec ESV 2D 41.4 cm3 MV E/A 0.5 LA Dimen 2D 3.4 2.3 - 4.0 cm MV Decel Time 113 msec MV E/A 0.5 TR Peak Amilcar 2.4 m/sec TR Peak PG 24.0 mmHg RVSP 27.0 mmHg Findings Left Ventricle: Normal left ventricular cavity size. Normal left ventricular wall thickness. Severe left ventricular systolic dysfunction. Ejection fraction is visually estimated at 30 %. Abnormal Diastolic Function. Right Ventricle: Normal right ventricular size. Normal right ventricular systolic function. Left Atrium: The left atrium is normal in size. Right Atrium: The right atrium is normal in size. Mitral Valve: Mitral valve leaflets appear mildly thickened. Mild mitral annular calcification. Mild mitral valve regurgitation. Aortic Valve: No hemodynamically significant aortic stenosis by doppler. Aortic cusps appear mildly calcified. Mild aortic valve regurgitation. Tricuspid Valve: Normal appearance of the tricuspid valve. Estimated peak PA systolic pressure 27 mmHg. There is mild to moderate tricuspid regurgitation. Pulmonic Valve: Pulmonic valve not well visualized. There is trace pulmonic regurgitation. Pericardium: Normal pericardium with no significant pericardial effusion. Aorta: Normal aortic root. IVC: Normal size and normal respiratory collapse consistent with normal right atrial pressure. Conclusions Normal left ventricular cavity size. Normal left ventricular wall thickness. Severe left ventricular systolic dysfunction. Ejection fraction is visually estimated at 30 %. Abnormal Diastolic Function. Normal right ventricular size. Normal right ventricular systolic function. The left atrium is normal in size. The right atrium is normal in size. Mild mitral valve regurgitation. No hemodynamically significant aortic stenosis by doppler. Mild aortic valve regurgitation. Estimated peak PA systolic pressure 27 mmHg. There is mild to moderate tricuspid regurgitation. Normal pericardium with no significant pericardial effusion. Electronically Signed By: Prince Khalil 29-May-2017 10:23:25 -0700 Patient Name: RICHARD AMIN Study Date: 28-May-2017 [id number]
--- NOTE | 2017-05-29 10:24 | RADRPT ---
Echocardiogram Report Patient Name: RICHARD AMIN Gender: Female Date: 1930 Study Date: 28-May-2017 [employer]airy Frozen Manager: Anson Mathew [facility] Location: 5546 Ref. Physician: VINCE AGUIRRE Quality: Adequate Procedures: Transthoracic echocardiogram with complete 2D, M-Mode, and doppler examination. Indications: Evaluate Left Ventricular function. 2D/M Mode Doppler Measurement Value Normal Ranges Measurement Value Normal Ranges LVIDd 2D 4.5 3.5 - 5.6 cm AV Peak Amilcar 1.2 m/sec LVIDs 2D 3.5 2.1 - 4.1 cm AV Peak PG 6.0 mmHg FS 2D 22.8 % AI Peak PG 49.0 mmHg LVPWd 2D 0.9 0.6 - 1.1 cm AI Peak Amilcar 3.5 m/sec IVSd 2D 0.8 0.6 - 1.1 cm AI PHT 427.0 msec IVS/LVPW 2D 0.9 LVOT Peak Amilcar 0.9 m/sec AoR Diam 2D 2.8 2.0 - 3.7 cm LVOT Peak PG 4.0 mmHg LA/Ao 2D 1 0 - 1 MV E Peak Amilcar 0.4 m/sec EDV 2D 89.9 cm3 MV A Peak Amilcar 0.8 m/sec ESV 2D 41.4 cm3 MV E/A 0.5 LA Dimen 2D 3.4 2.3 - 4.0 cm MV Decel Time 113 msec MV E/A 0.5 TR Peak Amilcar 2.4 m/sec TR Peak PG 24.0 mmHg RVSP 27.0 mmHg Findings Left Ventricle: Normal left ventricular cavity size. Normal left ventricular wall thickness. Severe left ventricular systolic dysfunction. Ejection fraction is visually estimated at 30 %. Abnormal Diastolic Function. Right Ventricle: Normal right ventricular size. Normal right ventricular systolic function. Left Atrium: The left atrium is normal in size. Right Atrium: The right atrium is normal in size. Mitral Valve: Mitral valve leaflets appear mildly thickened. Mild mitral annular calcification. Mild mitral valve regurgitation. Aortic Valve: No hemodynamically significant aortic stenosis by doppler. Aortic cusps appear mildly calcified. Mild aortic valve regurgitation. Tricuspid Valve: Normal appearance of the tricuspid valve. Estimated peak PA systolic pressure 27 mmHg. There is mild to moderate tricuspid regurgitation. Pulmonic Valve: Pulmonic valve not well visualized. There is trace pulmonic regurgitation. Pericardium: Normal pericardium with no significant pericardial effusion. Aorta: Normal aortic root. IVC: Normal size and normal respiratory collapse consistent with normal right atrial pressure. Conclusions Normal left ventricular cavity size. Normal left ventricular wall thickness. Severe left ventricular systolic dysfunction. Ejection fraction is visually estimated at 30 %. Abnormal Diastolic Function. Normal right ventricular size. Normal right ventricular systolic function. The left atrium is normal in size. The right atrium is normal in size. Mild mitral valve regurgitation. No hemodynamically significant aortic stenosis by doppler. Mild aortic valve regurgitation. Estimated peak PA systolic pressure 27 mmHg. There is mild to moderate tricuspid regurgitation. Normal pericardium with no significant pericardial effusion. Electronically Signed By: Prince Khalil 29-May-2017 10:23:25 -0700 Patient Name: RICHARD AMIN Study Date: 28-May-2017 [id number]
--- NOTE | 2017-05-29 12:56 | CONS ---
Date/Time of Note Date/Time of Note DATE: 05/29/17 TIME: 12:54 Assessment/Plan Assessment/Plan Additional Assessment/Plan Cardiopulmonary arrest Ventricular tachycardia Cardiomyopathy with ejection fraction 30% Paroxysmal atrial fibrillation Pneumonia Sepsis History of pacemaker DNR -Patient with recurrent ventricular tachycardia, currently on IV amiodarone. Pacemaker was interrogated this morning which confirmed ventricular tachycardia. Pacemaker function was appropriate. Continue antibiotics as per primary team and refrain from any pro-rhythmic medications. Maintain potassium above 4.0 and magnesium above 2.0. Continue IV amiodarone. Consultation Date/Type/Reason Admit Date/Time May 27, 2017 at 19:07 Initial Consult Date Type of Consultation: cv 24 HR Interval Summary Free Text/Dictation Patient with recurrent ventricular tachycardia overnight which was sustained. IV amiodarone bolus was given, currently sinus rhythm, as per family bedside, no significant change in how she feels but difficult to ascertain given dementia Exam/Review of Systems Vital Signs Vitals Vital Signs Date Time Temp Pulse Resp B/P Pulse Ox O2 Delivery O2 Flow Rate FiO2 05/29/17 12:16 84 05/29/17 11:48 99.3 21 157/76 100 05/29/17 08:30 Nasal Cannula 4.0 Intake and Output 05/28/17 05/28/17 05/29/17 15:00 23:00 07:00 Intake Total 560 ml 388.4 ml Balance 560 ml 388.4 ml Exam Alert, awake, appears dyspneic Head: normocephalic Respiratory: congested cough, crackles/rales Cardiovascular: other (S1-S2 heard), regular rate and rhythm Gastrointestinal: bowel sounds, non-tender, soft Extremities: edema (Trace) Results Result Diagram: 05/29/17 0809 05/29/17 0809 Results 24 hrs Laboratory Tests Test 05/29/17 08:09 White Blood Count 17.6 H Red Blood Count 4.35 Hemoglobin 11.3 L Hematocrit 35.9 L Mean Corpuscular Volume 82.5 Mean Corpuscular Hemoglobin 26.0 L Mean Corpuscular Hemoglobin Concent 31.5 L Red Cell Distribution Width 16.2 H Platelet Count 190 Mean Platelet Volume 10.9 H Neutrophils % 80.9 H Lymphocytes % 9.8 L Monocytes % 8.6 Eosinophils % 0.0 Basophils % 0.1 Nucleated Red Blood Cells % 0.1 H Neutrophils # 14.2 H Lymphocytes # 1.7 Monocytes # 1.5 H Eosinophils # 0.0 Basophils # 0.0 Nucleated Red Blood Cells # 0.0 Sodium Level 147 H Potassium Level 4.1 Chloride Level 116 H Carbon Dioxide Level 19 L Anion Gap 16 Blood Urea Nitrogen 34 H Creatinine 0.83 Glucose Level 125 # Calcium Level 8.5 Magnesium Level 2.7 H Medications Medications Current Medications Ceftriaxone Sodium (Rocephin) 50 ml @ 100 mls/hr Q24H IVPB Last administered on 05/28/17 16:51; Admin Dose 100 MLS/HR; Start 05/28/17 at 18:00 Hydralazine HCl 10 mg 10 mg Q4H PRN IV sbp>160 & dbp>95; Start 05/27/17 at 23: 00 Potassium Chloride/Dextrose/ Sod Cl (D5-1/2ns + KCl 20 Meq) 1,000 ml @ 70 mls/ hr [id number] IV Last administered on 05/29/17 08:31; Admin Dose 70 MLS/HR; Start 05/27/17 at 23:00 Acetaminophen (Tylenol Supp) 325 mg Q4H PRN [place] PAIN OR TEMP ABOVE 38C; Start 05/27/17 at 23:00 Enoxaparin Sodium (Lovenox) 30 mg DAILY SC Last administered on 05/29/17 08:32 ; Admin Dose 30 MG; Start 05/28/17 at 09:00 Methylprednisolone Sodium Succinate (Solu-Medrol) 20 mg Q12 IV Last administered on 05/29/17 08:31; Admin Dose 20 MG; Start 05/28/17 at 09:00 Metoprolol Tartrate 5 mg 5 mg Q6 PRN IV HR>110 Last administered on 05/28/17 09:24; Admin Dose 5 MG; Start 05/27/17 at 23:00 Amiodarone HCl/ Dextrose (Cordarone Iv/ D5W) 500 ml @ 0 mls/hr Q0M IV Last administered on 05/28/17 18:24; Admin Dose 33.4 MLS/HR; Start 05/28/17 at 18: 00 Prince Khalil DO May 29, 2017 12:56
[2017-05-29] MEDS ORDERED: FUROSEMIDE 20 MG INJ IV ONE (13:30)
[2017-05-29] MEDS: CEFTRIAXONE 1 GM/50 ML (PMX) 50 ML IVPB SCH (16:41)
--- NOTE | 2017-05-29 17:26 | PN ---
Date/Time of Note Date/Time of Note DATE: 05/29/17 TIME: 17:22 Assessment/Plan VTE Prophylaxis VTE Prophylaxis Intervention: SCD's Lines/Catheters IV Catheter Type (from [facility]): Peripheral IV Assessment/Plan Chief Complaint/Hosp Course Patient is currently on amiodarone drip for episode of ventricular tachycardia last night, no change in neurological status. Problems: Assessment/Plan -Status post cardiopulmonary arrest -Ventricular tachycardia, and is currently on amiodarone drip. Dr. Khalil is following in cardiology consultation - Respiratory distress secondary to bronchiolitis and possible early pneumonia. Continue patient on oxygen supplementation and bronchodilators, broad spectrum antibiotics. - Possible sepsis. - Paroxysmal atrial fibrillation. - Cardiomegaly. - Seizure disorder. - Parkinson disease. - Advanced dementia. -DNR status Further recommendations based on clinical course. Plan of care discussed with Dr. Burton. Exam/Review of Systems Vital Signs Vitals Vital Signs Date Time Temp Pulse Resp B/P Pulse Ox O2 Delivery O2 Flow Rate FiO2 05/29/17 16:20 87 05/29/17 16:18 99.1 17 164/86 99 05/29/17 08:30 Nasal Cannula 4.0 Intake and Output 05/28/17 05/28/17 05/29/17 15:00 23:00 07:00 Intake Total 560 ml 388.4 ml Balance 560 ml 388.4 ml Exam Constitutional: alert, frail, non-verbal Head: normocephalic Neck: supple Respiratory: diminished breath sounds Cardiovascular: irregular rhythm Gastrointestinal: non-tender, soft Extremities: normal pulses Results Result Diagram: 05/29/17 0809 05/29/17 0809 Results 24 hrs Laboratory Tests Test 05/29/17 08:09 White Blood Count 17.6 H Red Blood Count 4.35 Hemoglobin 11.3 L Hematocrit 35.9 L Mean Corpuscular Volume 82.5 Mean Corpuscular Hemoglobin 26.0 L Mean Corpuscular Hemoglobin Concent 31.5 L Red Cell Distribution Width 16.2 H Platelet Count 190 Mean Platelet Volume 10.9 H Neutrophils % 80.9 H Lymphocytes % 9.8 L Monocytes % 8.6 Eosinophils % 0.0 Basophils % 0.1 Nucleated Red Blood Cells % 0.1 H Neutrophils # 14.2 H Lymphocytes # 1.7 Monocytes # 1.5 H Eosinophils # 0.0 Basophils # 0.0 Nucleated Red Blood Cells # 0.0 Sodium Level 147 H Potassium Level 4.1 Chloride Level 116 H Carbon Dioxide Level 19 L Anion Gap 16 Blood Urea Nitrogen 34 H Creatinine 0.83 Glucose Level 125 # Calcium Level 8.5 Magnesium Level 2.7 H Medications Medications Current Medications Ceftriaxone Sodium (Rocephin) 50 ml @ 100 mls/hr Q24H IVPB Last administered on 05/29/17 16:41; Admin Dose 100 MLS/HR; Start 05/28/17 at 18:00 Hydralazine HCl 10 mg 10 mg Q4H PRN IV sbp>160 & dbp>95; Start 05/27/17 at 23: 00 Potassium Chloride/Dextrose/ Sod Cl (D5-1/2ns + KCl 20 Meq) 1,000 ml @ 70 mls/ hr [id number] IV Last administered on 05/29/17 08:31; Admin Dose 70 MLS/HR; Start 05/27/17 at 23:00 Acetaminophen (Tylenol Supp) 325 mg Q4H PRN [place] PAIN OR TEMP ABOVE 38C; Start 05/27/17 at 23:00 Enoxaparin Sodium (Lovenox) 30 mg DAILY SC Last administered on 05/29/17 08:32 ; Admin Dose 30 MG; Start 05/28/17 at 09:00 Methylprednisolone Sodium Succinate (Solu-Medrol) 20 mg Q12 IV Last administered on 05/29/17 08:31; Admin Dose 20 MG; Start 05/28/17 at 09:00 Metoprolol Tartrate 5 mg 5 mg Q6 PRN IV HR>110 Last administered on 05/28/17 09:24; Admin Dose 5 MG; Start 05/27/17 at 23:00 Amiodarone HCl/ Dextrose (Cordarone Iv/ D5W) 500 ml @ 0 mls/hr Q0M IV Last administered on 05/28/17 18:24; Admin Dose 33.4 MLS/HR; Start 05/28/17 at 18: 00 MORIS SHOEMAKER May 29, 2017 17:26
[2017-05-30] VITALS (15 sets, daily range): BP systolic 137–178; BP diastolic 83–90; PULSE 68–93; RESP 18–31
[2017-05-30] MEDS: LEVALBUTEROL (NEB) 0.63 MG/3 ML AMP HHN SCH ×3 (00:33→15:40)
[2017-05-30] MEDS: AMIODARONE 900 MG in DEXTROSE 5% 482 ML IV SCH (00:40)
--- NOTE | 2017-05-30 08:28 | RADRPT ---
PROCEDURE: XR Chest. CLINICAL INDICATION: Shortness of breath. TECHNIQUE: Single frontal view. COMPARISON: 05/27/2017. FINDINGS: There is a left-sided dual lead permanent pacemaker. Scarring in the right lung apex and calcified g ranulomas in both apices is unchanged. The lungs are otherwise clear. There is elevation of the left hemidiaphragm. The heart is mildly enlarged. There is no right pleural effusion. There is a small left pleural effusion. There is no pneumothorax. IMPRESSION: 1. Previous granulomatous disease with scarring at the right apex and bilateral apical calcified gr anulomas. 2. Elevation of the left hemidiaphragm. 3. Mild cardiomegaly. 4. Permanent pacemaker. 5. Small left pleural effusion. 6. Otherwise unremarkable chest radiograph. RPTAT: QQ .Mauri Henry MD, Date Time Electronically viewed and signed by .Mauri Henry MD, MD on 05/30/2017 08:27 .R/
[2017-05-30] MEDS: METHYLPREDNISOLONE 40 MG INJ IV SCH (09:09)
[2017-05-30] MEDS: ENOXAPARIN 30 MG/0.3 ML SYG SC SCH (09:15)
[2017-05-30] MEDS: D5W-0.45 NACL + KCL 20 MEQ 1,000 ML IV SCH (09:16)
--- NOTE | 2017-05-30 11:23 | PN ---
Date/Time of Note Date/Time of Note DATE: 05/30/17 TIME: 11:19 Assessment/Plan Lines/Catheters IV Catheter Type (from [facility] [place]): Peripheral IV Urinary Cath still in place: No Assessment/Plan Assessment/Plan -Status post cardiopulmonary arrest -Ventricular tachycardia, and is currently on amiodarone drip. Dr. Khalil is following in cardiology consultation - Respiratory distress secondary to bronchiolitis and possible early pneumonia. Continue patient on oxygen supplementation and bronchodilators, broad spectrum antibiotics. - Possible sepsis. - Paroxysmal atrial fibrillation. - Cardiomegaly. - Seizure disorder. - Parkinson disease. - Advanced dementia. -DNR status Further recommendations based on clinical course. Plan of care discussed with Dr. Burton. Subjective 24 Hr Interval Summary Free Text/Dictation Daughter at bed side-all QS answered. Wants Hospice- dw sort worker- arranging for [facility]. staff Constitutional: requiring IVF, requiring O2 Exam/Review of Systems Vital Signs Vitals Vital Signs Date Time Temp Pulse Resp B/P Pulse Ox O2 Delivery O2 Flow Rate FiO2 05/30/17 08:12 89 05/30/17 07:48 28 96 Nasal Cannula 3.0 05/30/17 07:43 98.4 154/90 Intake and Output 05/29/17 05/29/17 05/30/17 15:00 23:00 07:00 Intake Total 950.4 ml 336.2 ml Balance 950.4 ml 336.2 ml Exam Respiratory: diminished breath sounds Gastrointestinal: soft Musculoskeletal: nl extremities to inspection Extremities: normal pulses Neurological: lethargic Results Result Diagram: 05/30/17 0658 05/30/17 0658 Results 24 hrs Laboratory Tests Test 05/30/17 06:58 White Blood Count 15.8 H Red Blood Count 4.64 Hemoglobin 11.4 L Hematocrit 37.7 Mean Corpuscular Volume 81.3 L Mean Corpuscular Hemoglobin 24.6 L Mean Corpuscular Hemoglobin Concent 30.2 L Red Cell Distribution Width 16.9 H Platelet Count 249 # Mean Platelet Volume 11.7 H Neutrophils % 83.3 H Lymphocytes % 8.1 L Monocytes % 7.7 Eosinophils % 0.0 Basophils % 0.1 Nucleated Red Blood Cells % 0.8 H Neutrophils # 13.2 H Lymphocytes # 1.3 Monocytes # 1.2 H Eosinophils # 0.0 Basophils # 0.0 Nucleated Red Blood Cells # 0.1 H Sodium Level 147 H Potassium Level 4.3 Chloride Level 114 H Carbon Dioxide Level 19 L Anion Gap 18 H Blood Urea Nitrogen 44 H Creatinine 0.83 Glucose Level 204 Calcium Level 7.9 L Medications Medications Current Medications Ceftriaxone Sodium (Rocephin) 50 ml @ 100 mls/hr Q24H IVPB Last administered on 05/29/17 16:41; Admin Dose 100 MLS/HR; Start 05/28/17 at 18:00 Hydralazine HCl 10 mg 10 mg Q4H PRN IV sbp>160 & dbp>95; Start 05/27/17 at 23: 00 Potassium Chloride/Dextrose/ Sod Cl (D5-1/2ns + KCl 20 Meq) 1,000 ml @ 70 mls/ hr [id number] IV Last administered on 05/30/17 09:16; Admin Dose 70 MLS/HR; Start 05/27/17 at 23:00 Acetaminophen (Tylenol Supp) 325 mg Q4H PRN [place] PAIN OR TEMP ABOVE 38C; Start 05/27/17 at 23:00 Enoxaparin Sodium (Lovenox) 30 mg DAILY SC Last administered on 05/30/17 09:15 ; Admin Dose 30 MG; Start 05/28/17 at 09:00 Methylprednisolone Sodium Succinate (Solu-Medrol) 20 mg Q12 IV Last administered on 05/30/17 09:09; Admin Dose 20 MG; Start 05/28/17 at 09:00 Metoprolol Tartrate 5 mg 5 mg Q6 PRN IV HR>110 Last administered on 05/28/17 09:24; Admin Dose 5 MG; Start 05/27/17 at 23:00 Amiodarone HCl/ Dextrose (Cordarone Iv/ D5W) 500 ml @ 0 mls/hr Q0M IV Last administered on 05/30/17 00:40; Admin Dose 16.7 MLS/HR; Start 05/28/17 at 18: 00 LEYDA CAMACHO May 30, 2017 11:23
--- NOTE | 2017-05-30 11:23 | PN ---
Date/Time of Note Date/Time of Note DATE: 05/30/17 TIME: 11:19 Assessment/Plan Lines/Catheters [facility] Per[facility] IV Urinary Cath still in place: No Assessment/Plan Assessment/Plan -Status post cardiopulmonary arrest -Ventricular tachycardia, and is currently on amiodarone drip. Dr. Khalil is following in cardiology consultation - Respiratory distress secondary to bronchiolitis and possible early pneumonia. Continue patient on oxygen supplementation and bronchodilators, broad spectrum antibiotics. - Possible sepsis. - Paroxysmal atrial fibrillation. - Cardiomegaly. - Seizure disorder. - Parkinson disease. - Advanced dementia. -DNR status Further recommendations based on clinical course. Plan of care discussed with Dr. Burton. Subjective 24 Hr Interval Summary Free Text/Dictation Daughter at bed side-all QS answered. Wants Hospice- dw drop worker- arranging for [facility]. staff Constitutional: requiring IVF, requiring O2 Exam/Review of Systems Vital Signs Vitals Vital Signs Date Time Temp Pulse Resp B/P Pulse Ox O2 Delivery O2 Flow Rate FiO2 05/30/17 08:12 89 05/30/17 07:48 28 96 Nasal Cannula 3.0 05/30/17 07:43 98.4 154/90 Intake and Output 05/29/17 05/29/17 05/30/17 15:00 23:00 07:00 Intake Total 950.4 ml 336.2 ml Balance 950.4 ml 336.2 ml Exam Respiratory: diminished breath sounds Gastrointestinal: soft Musculoskeletal: nl extremities to inspection Extremities: normal pulses Neurological: lethargic Results Result Diagram: 05/30/17 0658 05/30/17 0658 Results 24 hrs Laboratory Tests Test 05/30/17 06:58 White Blood Count 15.8 H Red Blood Count 4.64 Hemoglobin 11.4 L Hematocrit 37.7 Mean Corpuscular Volume 81.3 L Mean Corpuscular Hemoglobin 24.6 L Mean Corpuscular Hemoglobin Concent 30.2 L Red Cell Distribution Width 16.9 H Platelet Count 249 # Mean Platelet Volume 11.7 H Neutrophils % 83.3 H Lymphocytes % 8.1 L Monocytes % 7.7 Eosinophils % 0.0 Basophils % 0.1 Nucleated Red Blood Cells % 0.8 H Neutrophils # 13.2 H Lymphocytes # 1.3 Monocytes # 1.2 H Eosinophils # 0.0 Basophils # 0.0 Nucleated Red Blood Cells # 0.1 H Sodium Level 147 H Potassium Level 4.3 Chloride Level 114 H Carbon Dioxide Level 19 L Anion Gap 18 H Blood Urea Nitrogen 44 H Creatinine 0.83 Glucose Level 204 Calcium Level 7.9 L Medications Medications Current Medications Ceftriaxone Sodium (Rocephin) 50 ml @ 100 mls/hr Q24H IVPB Last administered on 05/29/17 16:41; Admin Dose 100 MLS/HR; Start 05/28/17 at 18:00 Hydralazine HCl 10 mg 10 mg Q4H PRN IV sbp>160 & dbp>95; Start 05/27/17 at 23: 00 Potassium Chloride/Dextrose/ Sod Cl (D5-1/2ns + KCl 20 Meq) 1,000 ml @ 70 mls/ hr [id number] IV Last administered on 05/30/17 09:16; Admin Dose 70 MLS/HR; Start 05/27/17 at 23:00 Acetaminophen (Tylenol Supp) 325 mg Q4H PRN [place] PAIN OR TEMP ABOVE 38C; Start 05/27/17 at 23:00 Enoxaparin Sodium (Lovenox) 30 mg DAILY SC Last administered on 05/30/17 09:15 ; Admin Dose 30 MG; Start 05/28/17 at 09:00 Methylprednisolone Sodium Succinate (Solu-Medrol) 20 mg Q12 IV Last administered on 05/30/17 09:09; Admin Dose 20 MG; Start 05/28/17 at 09:00 Metoprolol Tartrate 5 mg 5 mg Q6 PRN IV HR>110 Last administered on 05/28/17 09:24; Admin Dose 5 MG; Start 05/27/17 at 23:00 Amiodarone HCl/ Dextrose (Cordarone Iv/ D5W) 500 ml @ 0 mls/hr Q0M IV Last administered on 05/30/17 00:40; Admin Dose 16.7 MLS/HR; Start 05/28/17 at 18: 00 LEYDA CAMACHO May 30, 2017 11:23
--- NOTE | 2017-05-30 11:23 | PN ---
Date/Time of Note Date/Time of Note DATE: 05/30/17 TIME: 11:19 Assessment/Plan Lines/Catheters IV Catheter Type (from [facility]): Peripheral IV Urinary Cath still in place: No Assessment/Plan Assessment/Plan -Status post cardiopulmonary arrest -Ventricular tachycardia, and is currently on amiodarone drip. Dr. Khalil is following in cardiology consultation - Respiratory distress secondary to bronchiolitis and possible early pneumonia. Continue patient on oxygen supplementation and bronchodilators, broad spectrum antibiotics. - Possible sepsis. - Paroxysmal atrial fibrillation. - Cardiomegaly. - Seizure disorder. - Parkinson disease. - Advanced dementia. -DNR status Further recommendations based on clinical course. Plan of care discussed with Dr. Burton. Subjective 24 Hr Interval Summary Free Text/Dictation Daughter at bed side-all QS answered. Wants Hospice- dw cue worker- arranging for [facility]. staff Constitutional: requiring IVF, requiring O2 Exam/Review of Systems Vital Signs Vitals Vital Signs Date Time Temp Pulse Resp B/P Pulse Ox O2 Delivery O2 Flow Rate FiO2 05/30/17 08:12 89 05/30/17 07:48 28 96 Nasal Cannula 3.0 05/30/17 07:43 98.4 154/90 Intake and Output 05/29/17 05/29/17 05/30/17 15:00 23:00 07:00 Intake Total 950.4 ml 336.2 ml Balance 950.4 ml 336.2 ml Exam Respiratory: diminished breath sounds Gastrointestinal: soft Musculoskeletal: nl extremities to inspection Extremities: normal pulses Neurological: lethargic Results Result Diagram: 05/30/17 0658 05/30/17 0658 Results 24 hrs Laboratory Tests Test 05/30/17 06:58 White Blood Count 15.8 H Red Blood Count 4.64 Hemoglobin 11.4 L Hematocrit 37.7 Mean Corpuscular Volume 81.3 L Mean Corpuscular Hemoglobin 24.6 L Mean Corpuscular Hemoglobin Concent 30.2 L Red Cell Distribution Width 16.9 H Platelet Count 249 # Mean Platelet Volume 11.7 H Neutrophils % 83.3 H Lymphocytes % 8.1 L Monocytes % 7.7 Eosinophils % 0.0 Basophils % 0.1 Nucleated Red Blood Cells % 0.8 H Neutrophils # 13.2 H Lymphocytes # 1.3 Monocytes # 1.2 H Eosinophils # 0.0 Basophils # 0.0 Nucleated Red Blood Cells # 0.1 H Sodium Level 147 H Potassium Level 4.3 Chloride Level 114 H Carbon Dioxide Level 19 L Anion Gap 18 H Blood Urea Nitrogen 44 H Creatinine 0.83 Glucose Level 204 Calcium Level 7.9 L Medications Medications Current Medications Ceftriaxone Sodium (Rocephin) 50 ml @ 100 mls/hr Q24H IVPB Last administered on 05/29/17 16:41; Admin Dose 100 MLS/HR; Start 05/28/17 at 18:00 Hydralazine HCl 10 mg 10 mg Q4H PRN IV sbp>160 & dbp>95; Start 05/27/17 at 23: 00 Potassium Chloride/Dextrose/ Sod Cl (D5-1/2ns + KCl 20 Meq) 1,000 ml @ 70 mls/ hr [id number] IV Last administered on 05/30/17 09:16; Admin Dose 70 MLS/HR; Start 05/27/17 at 23:00 Acetaminophen (Tylenol Supp) [address] PAIN OR TEMP ABOVE 38C; Start 05/27/17 at 23:00 Enoxaparin Sodium (Lovenox) 30 mg DAILY SC Last administered on 05/30/17 09:15 ; Admin Dose 30 MG; Start 05/28/17 at 09:00 Methylprednisolone Sodium Succinate (Solu-Medrol) 20 mg Q12 IV Last administered on 05/30/17 09:09; Admin Dose 20 MG; Start 05/28/17 at 09:00 Metoprolol Tartrate 5 mg 5 mg Q6 PRN IV HR>110 Last administered on 05/28/17 09:24; Admin Dose 5 MG; Start 05/27/17 at 23:00 Amiodarone HCl/ Dextrose (Cordarone Iv/ D5W) 500 ml @ 0 mls/hr Q0M IV Last administered on 05/30/17 00:40; Admin Dose 16.7 MLS/HR; Start 05/28/17 at 18: 00 LEYDA CAMACHO May 30, 2017 11:23
[2017-05-30] MEDS ORDERED: LORAZEPAM 2 MG INJ IV ONE (16:00)
--- NOTE | 2017-05-30 16:52 | CONS ---
Date/Time of Note Date/Time of Note DATE: 05/30/17 TIME: 16:50 Assessment/Plan Assessment/Plan Additional Assessment/Plan Cardiopulmonary arrest Ventricular tachycardia Cardiomyopathy with ejection fraction 30% Paroxysmal atrial fibrillation Pneumonia Sepsis History of pacemaker DNR -Patient with less episodes of ventricular tachycardia, currently on IV amiodarone. Continue antibiotics as per primary team and refrain from any pro- rhythmic medications. Maintain potassium above 4.0 and magnesium above 2.0. Continue IV amiodarone. Consultation Date/Type/Reason Admit Date/Time May 27, 2017 at 19:07 Type of Consultation: cv 24 HR Interval Summary Free Text/Dictation pt seen and examined, family at bedside Exam/Review of Systems Vital Signs Vitals Vital Signs Date Time Temp Pulse Resp B/P Pulse Ox O2 Delivery O2 Flow Rate FiO2 05/30/17 16:06 93 05/30/17 15:48 98.3 19 165/90 99 05/30/17 15:46 3.0 05/30/17 15:41 Nasal Cannula Intake and Output 05/29/17 05/29/17 05/30/17 15:00 23:00 07:00 Intake Total 950.4 ml 336.2 ml Balance 950.4 ml 336.2 ml Exam awake, dyspneic Constitutional: frail Head: normocephalic Respiratory: crackles/rales, other Cardiovascular: other (s1s2), regular rate and rhythm Gastrointestinal: bowel sounds, non-tender, soft Extremities: edema Results Result Diagram: 05/30/17 0658 05/30/17 0658 Results 24 hrs Laboratory Tests Test 05/30/17 06:58 White Blood Count 15.8 H Red Blood Count 4.64 Hemoglobin 11.4 L Hematocrit 37.7 Mean Corpuscular Volume 81.3 L Mean Corpuscular Hemoglobin 24.6 L Mean Corpuscular Hemoglobin Concent 30.2 L Red Cell Distribution Width 16.9 H Platelet Count 249 # Mean Platelet Volume 11.7 H Neutrophils % 83.3 H Lymphocytes % 8.1 L Monocytes % 7.7 Eosinophils % 0.0 Basophils % 0.1 Nucleated Red Blood Cells % 0.8 H Neutrophils # 13.2 H Lymphocytes # 1.3 Monocytes # 1.2 H Eosinophils # 0.0 Basophils # 0.0 Nucleated Red Blood Cells # 0.1 H Sodium Level 147 H Potassium Level 4.3 Chloride Level 114 H Carbon Dioxide Level 19 L Anion Gap 18 H Blood Urea Nitrogen 44 H Creatinine 0.83 Glucose Level 204 Calcium Level 7.9 L Medications Medications Current Medications Ceftriaxone Sodium (Rocephin) 50 ml @ 100 mls/hr Q24H IVPB Last administered on 05/29/17 16:41; Admin Dose 100 MLS/HR; Start 05/28/17 at 18:00 Hydralazine HCl 10 mg 10 mg Q4H PRN IV sbp>160 & dbp>95 Last administered on 16:26; Admin Dose 10 MG; Start 05/27/17 at 23:00 Potassium Chloride/Dextrose/ Sod Cl (D5-1/2ns + KCl 20 Meq) 1,000 ml @ 70 mls/ hr [id number] IV Last administered on 05/30/17 09:16; Admin Dose 70 MLS/HR; Start 05/27/17 at 23:00 Acetaminophen (Tylenol Supp) 325 mg Q4H PRN [place] PAIN OR TEMP ABOVE 38C; Start 05/27/17 at 23:00 Enoxaparin Sodium (Lovenox) 30 mg DAILY SC Last administered on 05/30/17 09:15 ; Admin Dose 30 MG; Start 05/28/17 at 09:00 Methylprednisolone Sodium Succinate (Solu-Medrol) 20 mg Q12 IV Last administered on 05/30/17 09:09; Admin Dose 20 MG; Start 05/28/17 at 09:00 Metoprolol Tartrate 5 mg 5 mg Q6 PRN IV HR>110 Last administered on 05/28/17 09:24; Admin Dose 5 MG; Start 05/27/17 at 23:00 Amiodarone HCl 900 mg/Dextrose 500 ml @ 0 mls/hr Q0M IV Last administered on 00:40; Admin Dose 16.7 MLS/HR; Start 05/28/17 at 18:00 Acetaminophen (Ofirmev 1000mg/ 100ml Iv) 100 ml @ 400 mls/hr ONCE IVPB ; Start 05/30/17 at 18:00; Stop 05/30/17 at 19:00 Prince Khalil DO May 30, 2017 16:52
[2017-05-30] MEDS ORDERED: ONDANSETRON 4 MG INJ IV PRN (17:30)
[2017-05-30] MEDS ORDERED: ARTIFICIAL TEARS 15 ML OPH BOTH EYES PRN (17:30)
[2017-05-30] MEDS ORDERED: DIMETHICONE STICK TOP PRN (17:30)
[2017-05-30] MEDS ORDERED: ALBUTEROL/IPRATROPIUM (NEB) 3 ML AMP HHN PRN (17:30)
[2017-05-30] MEDS ORDERED: ACETAMINOPHEN 1000MG/100ML IV 100 ML IVPB SCH (18:00)
[2017-05-30] MEDS ORDERED: ATROPINE 1% 5 ML OPH SL PRN (18:00)
[2017-05-30] MEDS ORDERED: ACETAMINOPHEN (10 MG/ML) IV SYG IV* SCH (18:00)
[2017-05-30] MEDS: morphine (DRIP) 100 MG/100 ML 100 ML IV SCH (19:06)
[2017-05-30] MEDS: ATROPINE 1% 5 ML OPH SL SCH (21:00)
[2017-05-31] VITALS (13 sets, daily range): PULSE 60–80; RESP 15–23
[2017-05-31] MEDS: ATROPINE 1% 5 ML OPH SL SCH ×5 (00:56→17:00)
--- NOTE | 2017-05-31 02:32 | HP ---
DATE OF ADMISSION: 05/27/2017 LEVEL OF CARE: [facility]. PRIMARY HOSPITAL DIAGNOSES: 1. Acute respiratory failure due to aspiration pneumonia, comorbid status post recent cardiopulmona ry arrest due to ventricular tachycardia. 2. Anoxic encephalopathy. 3. Alzheimer dementia. 4. Seizure disorder. 5. Hypertension. CHIEF COMPLAINT AND HISTORY OF PRESENT ILLNESS: History was obtained from medical record as the pat iehaleigh is nonverbal. The patient is an 87-year-old female with history of hypertension, seizure disor josep, Alzheimer dementia, and peripheral vascular disease who was recently admitted at [facility] due to cough, chest congestion, fever and shortness of breath and was diagnosed with pneumonia. The patient underwent CT angiogram which revealed diffuse bronchitis and bronchiolitis. The patient has history of dysphagia and according to daughter, she has been having increasing diff iculty in swallowing and has chest congestion and cough during meals. The patient also has been nicolle ing longer period to finish her meals. The patient was started on IV Rocephin and Zithromax and chris athing treatment. The patient was kept n.p.o. The patient failed swallow evaluation as the patient was lethargic upon admission; however, the patient had V-tach cardiopulmonary arrest. The patient was DNR and was not coded; however, the patient had spontaneous resolution of V-tach and the patient 's breathing returned spontaneously also. The patient, however, since then has become progressively more lethargic and nonverbal. Patient also has increasing difficulty in managing her secretions an d has increasing chest congestion. Family conference was arranged with multiple family members incl uding daughter and granddaughters, and hospice was discussed, and the patient's family finally decid ed to put her under hospice care. Meanwhile, the patient was put on IV amiodarone drip for V-tach a nd has remained in sinus rhythm. The patient progressively has become more obtunded. No reported l eg edema. No reported clinical seizures. REVIEW OF SYSTEMS: Rather limited. PAST MEDICAL HISTORY: As stated above. ALLERGIES: NONE. SOCIAL HISTORY: No smoking or alcohol. The patient lives at home with family. PHYSICAL EXAMINATION: GENERAL: The patient is nonverbal. VITAL SIGNS: Temperature 98.2, pulse 95, respirations 19, blood pressure 160/90. HEENT: No eye discharge or redness. Nose and ears normal. The patient's eyes are closed. NECK: No mass, no JVD. CHEST: Revealed coarse breath sounds anteriorly. Equal air entry bilaterally. CARDIOVASCULAR: S1, S2 normal. No murmur. ABDOMEN: Soft, nondistended, nontender. EXTREMITIES: No edema. NEUROLOGIC: The patient is lethargic and nonverbal. The patient also looks visibly cachectic and w eak. LABORATORY DATA: Recent labs: White count 11.8, hemoglobin 13.4, BUN 20, creatinine 0.7. Sodium 1 46, potassium 4.3. IMPRESSION: Acute respiratory failure due to aspiration pneumonia/bronchitis. Patient has continue d to decline despite antibiotic and breathing treatment, and family has made her DNR and comfort car e only. The patient appears short of breath and has chest congestion due to oral secretions. The p atient will be started on morphine drip at 0.5 mg an hour which will be titrated up for comfort care . I have also started her on atropine drops q.4 hours around the clock and q.2 p.r.n. In addition, patient will be given DuoNeb on a p.r.n. basis, IV Zofran again on p.r.n. basis for vomiting. We wi ll also give DuoNeb for chest congestion. I also discussed with patient's family today whether to c ontinue antibiotic, IV fluid, or cardiac medications and they all requested that the patient's all o ther medications be stopped except for comfort care. We will also add IV Ativan in case she has [facility] or anxiety. Patient remains terminally ill and remains appropriate for [facility] level of care. Dictated By: VINCE DUMONT/MAGGIE Conf#: [id number] DID#: [id number]
--- NOTE | 2017-05-31 02:32 | HP ---
DATE OF ADMISSION: 05/27/2017 LEVEL OF CARE: [facility]. PRIMARY HOSPITAL DIAGNOSES: 1. Acute respiratory failure due to aspiration pneumonia, comorbid status post recent cardiopulmona ry arrest due to ventricular tachycardia. 2. Anoxic encephalopathy. 3. Alzheimer dementia. 4. Seizure disorder. 5. Hypertension. CHIEF COMPLAINT AND HISTORY OF PRESENT ILLNESS: History was obtained from medical record as the pat iehaleigh is nonverbal. The patient is an 87-year-old female with history of hypertension, seizure disor josep, Alzheimer dementia, and peripheral vascular disease who was recently admitted at [facility] due to cough, chest congestion, fever and shortness of breath and was diagnosed with pneumonia. The patient underwent CT angiogram which revealed diffuse bronchitis and bronchiolitis. The patient has history of dysphagia and according to daughter, she has been having increasing diff iculty in swallowing and has chest congestion and cough during meals. The patient also has been nicolle ing longer period to finish her meals. The patient was started on IV Rocephin and Zithromax and chris athing treatment. The patient was kept n.p.o. The patient failed swallow evaluation as the patient was lethargic upon admission; however, the patient had V-tach cardiopulmonary arrest. The patient was DNR and was not coded; however, the patient had spontaneous resolution of V-tach and the patient 's breathing returned spontaneously also. The patient, however, since then has become progressively more lethargic and nonverbal. Patient also has increasing difficulty in managing her secretions an d has increasing chest congestion. Family conference was arranged with multiple family members incl uding daughter and granddaughters, and hospice was discussed, and the patient's family finally decid ed to put her under hospice care. Meanwhile, the patient was put on IV amiodarone drip for V-tach a nd has remained in sinus rhythm. The patient progressively has become more obtunded. No reported l eg edema. No reported clinical seizures. REVIEW OF SYSTEMS: Rather limited. PAST MEDICAL HISTORY: As stated above. ALLERGIES: NONE. SOCIAL HISTORY: No smoking or alcohol. The patient lives at home with family. PHYSICAL EXAMINATION: GENERAL: The patient is nonverbal. VITAL SIGNS: Temperature 98.2, pulse 95, respirations 19, blood pressure 160/90. HEENT: No eye discharge or redness. Nose and ears normal. The patient's eyes are closed. NECK: No mass, no JVD. CHEST: Revealed coarse breath sounds anteriorly. Equal air entry bilaterally. CARDIOVASCULAR: S1, S2 normal. No murmur. ABDOMEN: Soft, nondistended, nontender. EXTREMITIES: No edema. NEUROLOGIC: The patient is lethargic and nonverbal. The patient also looks visibly cachectic and w eak. LABORATORY DATA: Recent labs: White count 11.8, hemoglobin 13.4, BUN 20, creatinine 0.7. Sodium 1 46, potassium 4.3. IMPRESSION: Acute respiratory failure due to aspiration pneumonia/bronchitis. Patient has continue d to decline despite antibiotic and breathing treatment, and family has made her DNR and comfort car e only. The patient appears short of breath and has chest congestion due to oral secretions. The p atient will be started on morphine drip at 0.5 mg an hour which will be titrated up for comfort care . I have also started her on atropine drops q.4 hours around the clock and q.2 p.r.n. In addition, patient will be given DuoNeb on a p.r.n. basis, IV Zofran again on p.r.n. basis for vomiting. We wi ll also give DuoNeb for chest congestion. I also discussed with patient's family today whether to c ontinue antibiotic, IV fluid, or cardiac medications and they all requested that the patient's all o ther medications be stopped except for comfort care. We will also add IV Ativan in case she has [facility] seizure or anxiety. Patient remains terminally ill and remains appropriate for [facility] level of care. Dictated By: VINCE DUMONT/MAGGIE Conf#: [id number] DID#: [id number]
--- NOTE | 2017-05-31 02:32 | HP ---
DATE OF ADMISSION: 05/27/2017 LEVEL OF CARE: [facility]. PRIMARY HOSPITAL DIAGNOSES: 1. Acute respiratory failure due to aspiration pneumonia, comorbid status post recent cardiopulmona ry arrest due to ventricular tachycardia. 2. Anoxic encephalopathy. 3. Alzheimer dementia. 4. Seizure disorder. 5. Hypertension. CHIEF COMPLAINT AND HISTORY OF PRESENT ILLNESS: History was obtained from medical record as the pat iehaleigh is nonverbal. The patient is an 87-year-old female with history of hypertension, seizure disor josep, Alzheimer dementia, and peripheral vascular disease who was recently admitted at [facility] due to cough, chest congestion, fever and shortness of breath and was diagnosed with pneumonia. The patient underwent CT angiogram which revealed diffuse bronchitis and bronchiolitis. The patient has history of dysphagia and according to daughter, she has been having increasing diff iculty in swallowing and has chest congestion and cough during meals. The patient also has been nicolle ing longer period to finish her meals. The patient was started on IV Rocephin and Zithromax and chris athing treatment. The patient was kept n.p.o. The patient failed swallow evaluation as the patient was lethargic upon admission; however, the patient had V-tach cardiopulmonary arrest. The patient was DNR and was not coded; however, the patient had spontaneous resolution of V-tach and the patient 's breathing returned spontaneously also. The patient, however, since then has become progressively more lethargic and nonverbal. Patient also has increasing difficulty in managing her secretions an d has increasing chest congestion. Family conference was arranged with multiple family members incl uding daughter and granddaughters, and hospice was discussed, and the patient's family finally decid ed to put her under hospice care. Meanwhile, the patient was put on IV amiodarone drip for V-tach a nd has remained in sinus rhythm. The patient progressively has become more obtunded. No reported l eg edema. No reported clinical seizures. REVIEW OF SYSTEMS: Rather limited. PAST MEDICAL HISTORY: As stated above. ALLERGIES: NONE. SOCIAL HISTORY: No smoking or alcohol. The patient lives at home with family. PHYSICAL EXAMINATION: GENERAL: The patient is nonverbal. VITAL SIGNS: Temperature 98.2, pulse 95, respirations 19, blood pressure 160/90. HEENT: No eye discharge or redness. Nose and ears normal. The patient's eyes are closed. NECK: No mass, no JVD. CHEST: Revealed coarse breath sounds anteriorly. Equal air entry bilaterally. CARDIOVASCULAR: S1, S2 normal. No murmur. ABDOMEN: Soft, nondistended, nontender. EXTREMITIES: No edema. NEUROLOGIC: The patient is lethargic and nonverbal. The patient also looks visibly cachectic and w eak. LABORATORY DATA: Recent labs: White count 11.8, hemoglobin 13.4, BUN 20, creatinine 0.7. Sodium 1 46, potassium 4.3. IMPRESSION: Acute respiratory failure due to aspiration pneumonia/bronchitis. Patient has continue d to decline despite antibiotic and breathing treatment, and family has made her DNR and comfort car e only. The patient appears short of breath and has chest congestion due to oral secretions. The p atient will be started on morphine drip at 0.5 mg an hour which will be titrated up for comfort care . I have also started her on atropine drops q.4 hours around the clock and q.2 p.r.n. In addition, patient will be given DuoNeb on a p.r.n. basis, IV Zofran again on p.r.n. basis for vomiting. We wi ll also give DuoNeb for chest congestion. I also discussed with patient's family today whether to c ontinue antibiotic, IV fluid, or cardiac medications and they all requested that the patient's all o ther medications be stopped except for comfort care. We will also add IV Ativan in case she [facility] or anxiety. Patient remains terminally ill and remains appropriate for [facility] level of care. Dictated By: VINCE DUMONT/MAGGIE Conf#: [id number] DID#: [id number]
[2017-05-31] MEDS: LORAZEPAM 2 MG INJ IV PRN ×2 (12:36→17:04)
--- NOTE | 2017-05-31 13:09 | CONS ---
Date/Time of Note Date/Time of Note DATE: 05/31/17 TIME: 13:08 Assessment/Plan Assessment/Plan Additional Assessment/Plan Cardiopulmonary arrest Ventricular tachycardia Cardiomyopathy with ejection fraction 30% Paroxysmal atrial fibrillation Pneumonia Sepsis History of pacemaker DNR -Patient has been placed on inpatient hospice and is off telemetry currently on IV morphine drip. No cardiac orders at the current time. Consultation Date/Type/Reason Admit Date/Time May 27, 2017 at 19:07 Type of Consultation: cv 24 HR Interval Summary Free Text/Dictation Patient seen and examined, patient has been placed on inpatient hospice care Exam/Review of Systems Vital Signs Vitals Vital Signs Date Time Temp Pulse Resp B/P Pulse Ox O2 Delivery O2 Flow Rate FiO2 05/31/17 08:00 Nasal Cannula 3.0 05/31/17 06:06 68 18 05/30/17 15:48 98.3 165/90 99 Intake and Output 05/30/17 05/30/17 05/31/17 15:00 23:00 07:00 Intake Total 1.5 ml 13.5 ml Balance 1.5 ml 13.5 ml Exam Dyspneic, no response to verbal stimuli Constitutional: frail Respiratory: other (Coarse breath sounds bilaterally with scattered rhonchi and crackles, no wheezing) Cardiovascular: other (S1-S2 heard), regular rate and rhythm Gastrointestinal: bowel sounds, soft Extremities: edema Results Result Diagram: 05/30/1765705/30/17657 Medications Medications Current Medications Acetaminophen 325 mg 325 mg Q4H PRN DC PAIN OR TEMP ABOVE 38C; Start 05/27/17 at 23:00 Morphine Sulfate/ Sodium Chloride (morphine) 100 ml @ 0.5 mls/hr TITRATE IV Last administered on 05/30/17 19:06; Admin Dose 0.5 MLS/HR; Start 05/30/17 at 17:30 Lorazepam (Ativan) 1 mg Q4H PRN IV ANXIETY/SEIZURES Last administered on 12:36; Admin Dose 1 MG; Start 05/30/17 at 17:30 Ondansetron HCl (Zofran Inj) 4 mg Q6H PRN IV NAUSEA AND/OR VOMITING; Start 05/30/17 at 17:30 Atropine Sulfate (Atropine 1% Oph) 2 drop Q4 SL Last administered on 11/3/17at 09:00; Admin Dose 2 DROP; Start 05/30/17 at 21:00 Atropine Sulfate (Atropine 1% Oph) 2 drop Q2H PRN SL SECRETIONS; Start at 18:00 Prince Khalil DO May 31, 2017 13:09
[2017-06-01] VITALS: RESP 13
[2017-06-01] MEDS: ATROPINE 1% 5 ML OPH SL SCH ×7 (00:20→22:27)
[2017-06-01 02:00] VITALS: RESP 8
[2017-06-01 04:00] VITALS: RESP 10
[2017-06-01] MEDS: morphine (DRIP) 100 MG/100 ML 100 ML IV SCH (05:08)
--- NOTE | 2017-06-01 06:00 | PN ---
DATE: 05/31/2017 LEVEL OF CARE: [facility] PRIMARY HOSPITAL DIAGNOSES: Acute respiratory failure due to aspiration pneumonia. The patient sin ce yesterday has continued to decline and due to increasing shortness of breath, morphine dose was i ncreased to 2 mg per hour. The patient still looked short of breath; therefore, the patient's morph ine dose has been subsequently increased further to 2.5 mg an hour. The patient does have occasiona l chest congestion. No reported vomiting, no reported seizure, no reported temperature spike. The patient remains nonverbal and the patient has not had any p.o. intake. No reported vomiting. PHYSICAL EXAMINATION: GENERAL: The patient is nonverbal. VITAL SIGNS: Temperature 98.5, pulse 92, respirations between 12 to 18, O2 sat 99% on 2 liters. NECK: No mass. CHEST: Coarse breath sounds anteriorly. CARDIOVASCULAR: S1, S2 normal, no murmur. ABDOMEN: Soft, nondistended. EXTREMITIES: No edema. NEUROLOGIC: The patient is nonverbal. IMPRESSION: 1. Acute respiratory failure due to aspiration pneumonia. 2. Atherosclerotic heart disease, status post permanent pacemaker placement. 3. Alzheimer dementia. 4. Anoxic encephalopathy due to recent cardiopulmonary arrest due to ventricular tachycardia. PLAN: As above. In addition, the patient will be given atropine drops q. 4 hours around the clock and q. 2 hours p.r.n. The patient received 2 doses of IV Ativan due to anxiety and will continue 1 mg q. 4 hours p.r.n. I met with the patient's daughter and updated her regarding plan of care. Antonino e was also discussed with PHIL Bains as well as nursing staff at [facility]. The patient remains terminally ill and appropriate for [facility] level of care. Dictated By: VINCE DUMONT/MAGGIE Conf#: [id number] DID#: [id number]
--- NOTE | 2017-06-01 06:00 | PN ---
DATE: 05/31/2017 LEVEL OF CARE: [facility] PRIMARY HOSPITAL DIAGNOSES: Acute respiratory failure due to aspiration pneumonia. The patient sin ce yesterday has continued to decline and due to increasing shortness of breath, morphine dose was i ncreased to 2 mg per hour. The patient still looked short of breath; therefore, the patient's morph ine dose has been subsequently increased further to 2.5 mg an hour. The patient does have occasiona l chest congestion. No reported vomiting, no reported seizure, no reported temperature spike. The patient remains nonverbal and the patient has not had any p.o. intake. No reported vomiting. PHYSICAL EXAMINATION: GENERAL: The patient is nonverbal. VITAL SIGNS: Temperature 98.5, pulse 92, respirations between 12 to 18, O2 sat 99% on 2 liters. NECK: No mass. CHEST: Coarse breath sounds anteriorly. CARDIOVASCULAR: S1, S2 normal, no murmur. ABDOMEN: Soft, nondistended. EXTREMITIES: No edema. NEUROLOGIC: The patient is nonverbal. IMPRESSION: 1. Acute respiratory failure due to aspiration pneumonia. 2. Atherosclerotic heart disease, status post permanent pacemaker placement. 3. Alzheimer dementia. 4. Anoxic encephalopathy due to recent cardiopulmonary arrest due to ventricular tachycardia. PLAN: As above. In addition, the patient will be given atropine drops q. 4 hours around the clock and q. 2 hours p.r.n. The patient received 2 doses of IV Ativan due to anxiety and will continue 1 mg q. 4 hours p.r.n. I met with the patient's daughter and updated her regarding plan of care. Antonino e was also discussed with PHIL Bains as well as nursing staff at [facility]. The patient remains terminally ill and appropriate for [facility] level of care. Dictated By: VINCE DUMONT/MAGGIE Conf#: [id number] DID#: [id number]
--- NOTE | 2017-06-01 06:00 | PN ---
DATE: 05/31/2017 LEVEL OF CARE: [facility] PRIMARY HOSPITAL DIAGNOSES: Acute respiratory failure due to aspiration pneumonia. The patient sin ce yesterday has continued to decline and due to increasing shortness of breath, morphine dose was i ncreased to 2 mg per hour. The patient still looked short of breath; therefore, the patient's morph ine dose has been subsequently increased further to 2.5 mg an hour. The patient does have occasiona l chest congestion. No reported vomiting, no reported seizure, no reported temperature spike. The patient remains nonverbal and the patient has not had any p.o. intake. No reported vomiting. PHYSICAL EXAMINATION: GENERAL: The patient is nonverbal. VITAL SIGNS: Temperature 98.5, pulse 92, respirations between 12 to 18, O2 sat 99% on 2 liters. NECK: No mass. CHEST: Coarse breath sounds anteriorly. CARDIOVASCULAR: S1, S2 normal, no murmur. ABDOMEN: Soft, nondistended. EXTREMITIES: No edema. NEUROLOGIC: The patient is nonverbal. IMPRESSION: 1. Acute respiratory failure due to aspiration pneumonia. 2. Atherosclerotic heart disease, status post permanent pacemaker placement. 3. Alzheimer dementia. 4. Anoxic encephalopathy due to recent cardiopulmonary arrest due to ventricular tachycardia. PLAN: As above. In addition, the patient will be given atropine drops q. 4 hours around the clock and q. 2 hours p.r.n. The patient received 2 doses of IV Ativan due to anxiety and will continue 1 mg q. 4 hours p.r.n. I met with the patient's daughter and updated her regarding plan of care. Antonino e was also discussed with PHIL Bains as well as nursing staff at [facility]. The patient remains terminally ill and appropriate for [facility] level of care. Dictated By: VINCE DUMONT/MAGGIE Conf#: [id number] DID#: [id number]
[2017-06-01 06:55] VITALS: RESP 8
[2017-06-01 20:37] VITALS: BP 111/56; RESP 24
[2017-06-02 00:37] VITALS: BP 107/53; RESP 24
[2017-06-02] MEDS: ATROPINE 1% 5 ML OPH SL SCH ×6 (01:31→22:41)
[2017-06-02 08:05] VITALS: BP 128/61; RESP 20
[2017-06-02 12:22] VITALS: BP 127/58; RESP 19
[2017-06-02] MEDS: morphine (DRIP) 100 MG/100 ML 100 ML IV SCH (15:15)
[2017-06-02 15:58] VITALS: BP 136/63; RESP 18
[2017-06-02 19:50] VITALS: BP 121/51; RESP 18
--- NOTE | 2017-06-03 00:33 | PN ---
DATE: 06/02/2017 SUBJECTIVE: Follow up on acute respiratory failure, recent aspiration pneumonia, atherosclerotic he art disease, and Alzheimer dementia. The patient continues to decline and does appear short of ayse th today. No reported vomiting, no reported seizures. Patient did have a T-maximum of 101.1. No b leeding from any site. The patient remains nonverbal. PHYSICAL EXAMINATION VITAL SIGNS: T-maximum 101.1, blood pressure 136/63, pulse 75, respirations 18, O2 saturation 98% o n 10 liters nonrebreather mask. NECK: No mass. CHEST: Revealed coarse breath sounds. CARDIOVASCULAR: S1, S2 normal. No murmur. ABDOMEN: Soft, nondistended, nontender. EXTREMITIES: Trace edema. NEUROLOGIC: The patient is nonverbal. IMPRESSION: Acute respiratory failure. The patient appears short of breath; therefore, the morphine dose will be increased to 5 mg an hour and also will increase the titration to 1 mg every hour to optimize for comfort care. We will cont inue around the clock atropine for secretion, DuoNeb for chest congestion and Ativan for anxiety. T he patient remains terminally ill. Plan of care discussed with nursing staff and with the desk nurs e. Dictated By: VINCE DUMONT/MAGGIE Conf#: [id number] DID#: [id number]
[2017-06-03] MEDS: ATROPINE 1% 5 ML OPH SL SCH ×5 (01:40→22:26)
[2017-06-03 08:07] VITALS: Ht 162.6 cm; Wt 53.3 kg
[2017-06-03 08:10] VITALS: BP 120/58; RESP 5
--- NOTE | 2017-06-03 08:21 | PN ---
DATE: 06/01/2017 LEVEL OF CARE: [facility] PRIMARY HOSPITAL DIAGNOSIS: Acute respiratory failure. COMORBID: Atherosclerotic heart disease, Alzheimer dementia, peripheral vascular disease. The patient since yesterday has continued to decline and has become more obtunded and does have occa sional chest congestion. No reported seizures. No reported temperature spike. No reported abdomin al distention. The patient is unable to take anything p.o. due to preexisting Alzheimer dementia an d increasing lethargy. PHYSICAL EXAMINATION: GENERAL: The patient is nonverbal. VITAL SIGNS: Respirations 8, temperature 98.3, pulse 95. HEENT: No eye discharge. NECK: No mass. CHEST: Coarse breath sounds anteriorly. CARDIOVASCULAR: Regular rate and rhythm. ABDOMEN: Soft, nondistended. EXTREMITIES: No edema or cyanosis. NEUROLOGIC: The patient is nonverbal. IMPRESSION: 1. Acute respiratory failure due to aspiration pneumonia. 2. Atherosclerotic heart disease, status post permanent pacemaker placement. 3. Peripheral vascular disease. 4. Status post cardiac arrest, anoxic encephalopathy. PLAN: Morphine dose has been increased to 3.5 mg an hour. The patient continues to receive atropin e drops q. 4 h. around the clock and q. 2 hours p.r.n. Patient's last Ativan dose was at 1700 yeste rday. Patient does not appear to be anxious at this time. Continue DuoNeb for chest congestion. T he patient remains appropriate for hospice care. I met with the patient's daughter and updated her regarding plan of care, and also discussed with nursing staff at [facility]. Dictated By: VINCE DUMONT/MAGGIE Conf#: [id number] DID#: [id number]
--- NOTE | 2017-06-03 08:21 | PN ---
DATE: 06/01/2017 LEVEL OF CARE: [facility] PRIMARY HOSPITAL DIAGNOSIS: Acute respiratory failure. COMORBID: Atherosclerotic heart disease, Alzheimer dementia, peripheral vascular disease. The patient since yesterday has continued to decline and has become more obtunded and does have occa sional chest congestion. No reported seizures. No reported temperature spike. No reported abdomin al distention. The patient is unable to take anything p.o. due to preexisting Alzheimer dementia an d increasing lethargy. PHYSICAL EXAMINATION: GENERAL: The patient is nonverbal. VITAL SIGNS: Respirations 8, temperature 98.3, pulse 95. HEENT: No eye discharge. NECK: No mass. CHEST: Coarse breath sounds anteriorly. CARDIOVASCULAR: Regular rate and rhythm. ABDOMEN: Soft, nondistended. EXTREMITIES: No edema or cyanosis. NEUROLOGIC: The patient is nonverbal. IMPRESSION: 1. Acute respiratory failure due to aspiration pneumonia. 2. Atherosclerotic heart disease, status post permanent pacemaker placement. 3. Peripheral vascular disease. 4. Status post cardiac arrest, anoxic encephalopathy. PLAN: Morphine dose has been increased to 3.5 mg an hour. The patient continues to receive atropin e drops q. 4 h. around the clock and q. 2 hours p.r.n. Patient's last Ativan dose was at 1700 yeste rday. Patient does not appear to be anxious at this time. Continue DuoNeb for chest congestion. T he patient remains appropriate for hospice care. I met with the patient's daughter and updated her regarding plan of care, and also discussed with nursing staff at [facility]. Dictated By: VINCE DUMONT/MAGGIE Conf#: [id number] DID#: [id number]
[2017-06-03] MEDS: morphine (DRIP) 100 MG/100 ML 100 ML IV SCH (12:39)
[2017-06-03] MEDS ORDERED: VITAMIN A & D 5 GM OINT PACKET TOP ONE (16:41)
[2017-06-03 19:30] VITALS: RESP 8
[2017-06-03 21:00] VITALS: RESP 9
[2017-06-03 23:41] VITALS: RESP 9
[2017-06-04] VITALS (8 sets, daily range): RESP 9–20
[2017-06-04] MEDS: ATROPINE 1% 5 ML OPH SL SCH ×6 (01:05→21:26)
[2017-06-04] MEDS ORDERED: ATROPINE SULFATE 1% 5ML SL SCH (05:30)
--- NOTE | 2017-06-04 05:57 | PN ---
DATE: 06/03/2017 SUBJECTIVE: Follow up on aspiration pneumonia, Alzheimer dementia, acute respiratory failure. The patient has continued to decline, has become more obtunded. Chest congestion has improved. The pat ient did not have any temperature spike today. No reported bleeding from any site. Patient remains nonverbal. The patient has not had any p.o. intake for the last several days, looks weak and frail . No reported seizure. No reported vomiting. PHYSICAL EXAMINATION: GENERAL: Patient obtunded. VITAL SIGNS: Temperature 98, pulse 80, blood pressure 120/58, O2 sats 100% on 5 liter mask. HEENT: No eye or ear discharge. NECK: No mass. CHEST: Revealed diminished air entry with scattered coarse breath sounds. CARDIOVASCULAR: S1, S2 normal. No murmur. ABDOMEN: Soft, nondistended, nontender. EXTREMITIES: Trace edema. NEUROLOGIC: The patient is nonverbal. IMPRESSION: 1. Acute respiratory failure due to aspiration pneumonia. 2. Alzheimer dementia. 3. Seizure disorder. 4. Anoxic encephalopathy due to recent cardiopulmonary arrest. PLAN: The patient's morphine dose will be increased to 4.5 mg an hour, continue atropine drops arou nd the clock which has helped in managing secretions contributing to . The patient continues t o decline. The patient has not had any p.o. intake for the last several days. Continue Ativan for anxiety and DuoNeb for chest congestion. I met with patient's several family members and updated th em regarding plan of care. The patient remains terminally ill and appropriate for [facility] level of care . Dictated By: VINCE DUMONT/MAGGIE Conf#: [id number] DID#: [id number]
[2017-06-04] MEDS: morphine (DRIP) 100 MG/100 ML 100 ML IV SCH (07:22)
--- NOTE | 2017-06-04 23:45 | PN ---
DATE: 06/04/2017 SUBJECTIVE: Follow up on acute respiratory failure, recent cardiac arrest, Alzheimer dementia, aspi ration pneumonia. The patient continued to decline and due to shortness of breath, morphine dose alberto s been increased to 5 mg an hour. The patient continues to require atropine drops for secretions. The patient continues to look weaker and pale. The respirations are between 9 to 10, permanent. Di stal extremities cyanotic. Patient remains nonverbal. PHYSICAL EXAMINATION: GENERAL: Nonverbal. Patient is nonresponsive to verbal or tactile stimuli. VITAL SIGNS: Respirations 9, blood pressure 87/51, pulse 83, temperature 98.2. NECK: No mass. CHEST: Coarse breath sounds anteriorly intermittently. She has episodes of apnea. ABDOMEN: Soft, nondistended. EXTREMITIES: Mottled. NEUROLOGIC: The patient is nonverbal. IMPRESSION: 1. Acute respiratory failure. 2. Alzheimer disease. 3. Recent cardiopulmonary arrest with anoxic encephalopathy. The patient is actively dying. PLAN: Continue morphine at 5 mg an hour and we will continue to optimize comfort care. [facility] Dictated By: VINCE DUMONT/MAGGIE Conf#: [id number] DID#: [id number]
--- NOTE | 2017-06-04 23:45 | PN ---
DATE: 06/04/2017 SUBJECTIVE: Follow up on acute respiratory failure, recent cardiac arrest, Alzheimer dementia, aspi ration pneumonia. The patient continued to decline and due to shortness of breath, morphine dose alberto s been increased to 5 mg an hour. The patient continues to require atropine drops for secretions. The patient continues to look weaker and pale. The respirations are between 9 to 10, permanent. Di stal extremities cyanotic. Patient remains nonverbal. PHYSICAL EXAMINATION: GENERAL: Nonverbal. Patient is nonresponsive to verbal or tactile stimuli. VITAL SIGNS: Respirations 9, blood pressure 87/51, pulse 83, temperature 98.2. NECK: No mass. CHEST: Coarse breath sounds anteriorly intermittently. She has episodes of apnea. ABDOMEN: Soft, nondistended. EXTREMITIES: Mottled. NEUROLOGIC: The patient is nonverbal. IMPRESSION: 1. Acute respiratory failure. 2. Alzheimer disease. 3. Recent cardiopulmonary arrest with anoxic encephalopathy. The patient is actively dying. PLAN: Continue morphine at 5 mg an hour and we will continue to optimize comfort care. [facility] Dictated By: VINCE DUMONT/MAGGIE Conf#: [id number] DID#: [id number]
--- NOTE | 2017-06-04 23:45 | PN ---
DATE: 06/04/2017 SUBJECTIVE: Follow up on acute respiratory failure, recent cardiac arrest, Alzheimer dementia, aspi ration pneumonia. The patient continued to decline and due to shortness of breath, morphine dose alberto s been increased to 5 mg an hour. The patient continues to require atropine drops for secretions. The patient continues to look weaker and pale. The respirations are between 9 to 10, permanent. Di stal extremities cyanotic. Patient remains nonverbal. PHYSICAL EXAMINATION: GENERAL: Nonverbal. Patient is nonresponsive to verbal or tactile stimuli. VITAL SIGNS: Respirations 9, blood pressure 87/51, pulse 83, temperature 98.2. NECK: No mass. CHEST: Coarse breath sounds anteriorly intermittently. She has episodes of apnea. ABDOMEN: Soft, nondistended. EXTREMITIES: Mottled. NEUROLOGIC: The patient is nonverbal. IMPRESSION: 1. Acute respiratory failure. 2. Alzheimer disease. 3. Recent cardiopulmonary arrest with anoxic encephalopathy. The patient is actively dying. PLAN: Continue morphine at 5 mg an hour and we will continue to optimize comfort care. [facility]. Dictated By: VINCE DUMONT/MAGGIE Conf#: [id number] DID#: [id number]
[2017-06-05] MEDS: ATROPINE 1% 5 ML OPH SL SCH (01:16)
--- NOTE | 2017-06-06 04:33 | DES ---
DATE OF ADMISSION: 05/27/2017 DATE OF : 06/05/2017 CAUSE OF : Cardiopulmonary arrest due to atherosclerotic heart disease. OTHER DIAGNOSES: 1. Alzheimer dementia. 2. Aspiration pneumonia. 3. Permanent pacemaker placement. 4. Peripheral vascular disease. REASON FOR ADMISSION: The patient is an 87-year-old female with history of Alzheimer dementia, athe rosclerotic heart disease, status post permanent pacemaker placement, peripheral vascular disease an d was being followed by Dr. Milan from a cardiovascular standpoint. The patient recently devel oped cough and chest congestion and came to my office on the day of admission and was sent to [facility] ER for further evaluation. CT angiogram done in the ER revealed acute bronchitis and bronchio litis. It was negative for PE. The patient was started on IV antibiotic, breathing treatment, ale ent sustained V-tach cardiac arrest. The patient was DNR; however, she had return of spontaneous ci rculation. Post-cardiac arrest, patient remained lethargic and was noncommunicative. The patient h ad anoxic encephalopathy. The patient's family decided to put her on hospice care. The patient [facility] was not even awake enough to have swallow eval. Patient's family did not want G-tube or any sort of resuscitation and requested comfort care. Patient was admitted under [facility] hospice under GI P level of care. On 05/30/2017 patient was started on morphine drip which was subsequently optimize d. The patient also given atropine drops for secretions, IV Ativan for anxiety. The patient progre ssively declined and started having terminal fever. On 06/05/2017 at 0245, patient was found to hav e no respirations, no heart sound and was pronounced . Family was at the bedside. Dictated By: VINCE DUMONT/NTS Conf#: [id number] DID#: [id number]
--- NOTE | 2017-06-06 04:33 | DES ---
DATE OF ADMISSION: 05/27/2017 DATE OF : 06/05/2017 CAUSE OF : Cardiopulmonary arrest due to atherosclerotic heart disease. OTHER DIAGNOSES: 1. Alzheimer dementia. 2. Aspiration pneumonia. 3. Permanent pacemaker placement. 4. Peripheral vascular disease. REASON FOR ADMISSION: The patient is an 87-year-old female with history of Alzheimer dementia, athe rosclerotic heart disease, status post permanent pacemaker placement, peripheral vascular disease an d was being followed by Dr. Milan from a cardiovascular standpoint. The patient recently devel oped cough and chest congestion and came to my office on the day of admission and was sent to [facility] ER for further evaluation. CT angiogram done in the ER revealed acute bronchitis and bronchio litis. It was negative for PE. The patient was started on IV antibiotic, breathing treatment, ale ent sustained V-tach cardiac arrest. The patient was DNR; however, she had return of spontaneous ci rculation. Post-cardiac arrest, patient remained lethargic and was noncommunicative. The patient h ad anoxic encephalopathy. The patient's family decided to put her on hospice care. The patient [facility] was not even awake enough to have swallow eval. Patient's family did not want G-tube or any sort of resuscitation and requested comfort care. Patient was admitted under [facility] hospice under GI P level of care. On 05/30/2017 patient was started on morphine drip which was subsequently optimize d. The patient also given atropine drops for secretions, IV Ativan for anxiety. The patient progre ssively declined and started having terminal fever. On 06/05/2017 at 0245, patient was found to hav e no respirations, no heart sound and was pronounced . Family was at the bedside. Dictated By: VINCE DUMONT/NTS Conf#: [id number] DID#: [id number]
--- NOTE | 2017-06-06 04:33 | DES ---
DATE OF ADMISSION: 05/27/2017 DATE OF : 06/05/2017 CAUSE OF : Cardiopulmonary arrest due to atherosclerotic heart disease. OTHER DIAGNOSES: 1. Alzheimer dementia. 2. Aspiration pneumonia. 3. Permanent pacemaker placement. 4. Peripheral vascular disease. REASON FOR ADMISSION: The patient is an 87-year-old female with history of Alzheimer dementia, athe rosclerotic heart disease, status post permanent pacemaker placement, peripheral vascular disease an d was being followed by Dr. Milan from a cardiovascular standpoint. The patient recently devel oped cough and chest congestion and came to my office on the day of admission and was sent to [facility] ER for further evaluation. CT angiogram done in the ER revealed acute bronchitis and bronchio litis. It was negative for PE. The patient was started on IV antibiotic, breathing treatment, ale ent sustained V-tach cardiac arrest. The patient was DNR; however, she had return of spontaneous ci rculation. Post-cardiac arrest, patient remained lethargic and was noncommunicative. The patient h ad anoxic encephalopathy. The patient's family decided to put her on hospice care. The patient [facility] was not even awake enough to have swallow eval. Patient's family did not want G-tube or any sort of resuscitation and requested comfort care. Patient was admitted under [facility] hospice under GI P level of care. On 05/30/2017 patient was started on morphine drip which was subsequently optimize d. The patient also given atropine drops for secretions, IV Ativan for anxiety. The patient progre ssively declined and started having terminal fever. On 06/05/2017 at 0245, patient was found to hav e no respirations, no heart sound and was pronounced . Family was at the bedside. Dictated By: VINCE DUMONT/NTS Conf#: [id number] DID#: [id number]
== END 2017-06-05 02:45 | disposition expired | DRG 871 ==
LOC: E/R 14:37 → MS4 19:07 → MS1 06-03 14:44
PROVIDERS: ADMIT Internal Medicine; ATTEND Internal Medicine
DX: A41.9 Sepsis, unspecified organism (principal); J96.00 Acute respiratory failure, unspecified whether with hypoxia or hypercapnia; J69.0 Pneumonitis due to inhalation of food and vomit; I47.2 Ventricular tachycardia; G93.1 Anoxic brain damage, not elsewhere classified; I11.0 Hypertensive heart disease with heart failure; I50.9 Heart failure, unspecified; J21.9 Acute bronchiolitis, unspecified; I42.9 Cardiomyopathy, unspecified; I46.9 Cardiac arrest, cause unspecified; Z66 Do not resuscitate; G20 Parkinson's disease; F02.80 Dementia in other diseases classified elsewhere, unspecified severity, without behavioral disturbance, psychotic disturbance, mood disturbance, and anxiety; Z95.0 Presence of cardiac pacemaker; I48.0 Paroxysmal atrial fibrillation; Z87.891 Personal history of nicotine dependence; G40.909 Epilepsy, unspecified, not intractable, without status epilepticus; I73.9 Peripheral vascular disease, unspecified; I51.7 Cardiomegaly; F41.9 Anxiety disorder, unspecified; I25.10 Atherosclerotic heart disease of native coronary artery without angina pectoris
CPT/HCPCS: 36600; 71010; 71275; 80048; 80053; 82803; 83605; 83735; 84484; 85025; 87040; 90686; 92610; 93005; 93306; 94640; 96374; J1940; J0131; J0282; J0360; J0456; J0696; J1650; J2060; J2270; J2920; J3475; J3480; J7030; J7060; Q9967